=== PATIENT | female | born 1945 | race Caucasian/White ===

== ENCOUNTER 2019-07-09 13:29 | Outpatient (CLI) | payer MEDICARE, OTHER, MEDICAID, SELFPAY ==
--- NOTE | 2019-07-09 13:38 | MR_ITS ---
WS: [id number] MRI LUMBAR SPINE WITH AND WITHOUT CONTRAST. HISTORY: LOW BACK PAIN RADIATING TO RIGHT LOWER EXTREMITY COMPARISON: 07/11/2005 TECHNIQUE: Sagittal and axial multisequence imaging is submitted. Sagittal and axial T1 fat sat seque nces post-ProHance 16 cc IV. Marked increase in thoracic kyphosis with RIGHT convex curvature. Diffuse disc space narrowing throug hout the cervical and thoracic spine. Prior fusion at L4-5 with interbody spacer. L3 anterolisthesis by 4 mm. Degenerative disc disease is moderate in the lower thoracic spine and lower lumbar spines. No marrow edema or fracture. Conus terminates normally at L1-2 disc level. L1-L2: Facet arthropathy encroaching upon the posterior lateral thecal sac without significant stenos is. L2-L3: Moderate facet arthropathy bilaterally and annular disc bulging. Mild narrowing of the central canal and subarticular recesses. L3-L4: Marked annular disc bulging with ligamentum flavum hypertrophy and facet arthropathy. Central disc protrusion. Encroachment is significant upon the subarticular recesses and foramen and central c anal. Marked facet joint arthropathy and fluid. L4-L5: Bilateral large laminectomy defect. Mild clumping of the nerve roots in the thecal sac. No sig nificant stenosis. L5-S1: Mild facet joint arthropathy. Osteophytes extend into the LEFT foramen causing a mild encroach ment upon the LEFT foramen. On the postcontrast imaging there is no evidence for discitis or osteomyelitis. Normal enhancement fr om gliosis at the surgical site. Small bilateral extrarenal pelves. MR/MR lumbar spine wo/w con [id number] IMPRESSION: 1. L4-5 posterior lumbar fusion with interbody spacer. Mild arachnoiditis at t he surgical level with no residual stenosis. 2. Severe central, subarticular recess and foraminal stenosis at the L3-4 leve l along with L3 anterolisthesis. 3. Mild central and subarticular recess stenosis at L2-3.
== END 2019-07-09 13:30 | disposition home or self-care (01) ==
LOC: RADWPI 13:37
PROVIDERS: PCP Nurse Practitioner Family; Referring Provider Nurse Practitioner Family; Visit Provider Nurse Practitioner Family
DX: M51.26 Other intervertebral disc displacement, lumbar region (principal); M48.061 Spinal stenosis, lumbar region without neurogenic claudication; M25.78 Osteophyte, vertebrae; M79.604 Pain in right leg; Z98.1 Arthrodesis status; G03.8 Meningitis due to other specified causes
CPT/HCPCS: 72158; A9579

== ENCOUNTER 2019-08-10 08:39 | Outpatient (CLI) | payer MEDICARE, OTHER, MEDICAID, SELFPAY ==
--- NOTE | 2019-08-10 09:00 | CT_ITS ---
WS: [id number] CT LUMBAR SPINE, noncontrast. HISTORY: Low back pain TECHNIQUE: Contiguous 2.5 mm axial imaging are performed. Sagittal and coronal reformats are submitte d and reviewed. All CT scans at [facility] use at least one of these dose optimization te chniques: automated exposure control; mA and/or kV adjustment per patient size (includes targeted exa ms where dose is matched to clinical indication); or iterative reconstruction. IV contrast: None DLP: 1633.13 mGycm COMPARISON: 07/09/2019 and 07/16/2018 Prior L4-5 posterior fusion. Pedicle screws and vertical rods are intact. No hardware fractures. L3 a nterolisthesis by 2.5 mm and L4 anterolisthesis by 3.2 mm. L4-5 interbody spacer with mild disc space narrowing. T12-L1: Mild RIGHT osteophytic ridging. RIGHT foraminal osteophyte with mild encroachment upon the T1 2 nerve root. L1-2: Mild disc bulging without stenosis. L2-3: Mild annular disc bulging and facet arthropathy. No significant stenosis. L3-4: Annular disc bulging and osteophytic ridging. Facet joint arthropathy. Moderate central, bilate ral subarticular recess and foraminal stenosis. Slightly greater encroachment on the RIGHT. L4-5: Mild annular disc bulging. Large posterior laminectomy defect. No stenosis centrally. L5-S1: Mild annular disc bulging and osteophytes. No significant encroachment upon the nerve roots. N o stenosis. Scattered calcifications within the aorta. CT/CT lumbar spine wo con* [id number] IMPRESSION: 1. Prior L4-5 posterior fusion with large laminectomy defect and interbody spa cer. No change since 07/16/2018. 2. Moderate central, subarticular recess and foraminal stenosis at L3-4 with m ild anterolisthesis. Slightly greater narrowing on the RIGHT. 3. RIGHT foraminal osteophyte at T12-L1. Resulting in mild foraminal stenosis.
--- NOTE | 2019-08-10 09:30 | XR_ITS ---
WS: [id number] LATERAL LUMBAR SPINE: 3 view. Lateral radiographs are performed in upright neutral, flexion and extension to the patient's toleranc e. HISTORY: Low back pain. COMPARISON: 06/10/2019 Prior L4-5 fusion with interbody spacer. L3 anterolisthesis by 3.3 mm increases to 5.6 mm during flexion and 2.4 mm during extension. L4 anterolisthesis by 3.5 mm does not change significantly with flexion and extension. Degenerative spondylitic changes at the thoracolumbar junction. XR/XR lumbar spine f/e only [id number] IMPRESSION: 1. Prior L4-5 posterior fusion with interbody spacer is intact. 2. Mild flexion/extension instability at the L3 level. 3. Mild anterolisthesis of L3 and L4 on neutral imaging. No instability at the L4-5 level.
== END 2019-08-10 08:40 | disposition home or self-care (01) ==
LOC: RADWPI 08:45
PROVIDERS: PCP Nurse Practitioner Family; Visit Provider Licensed Practical Nurse
DX: M54.5 Low back pain (principal); M43.26 Fusion of spine, lumbar region; M48.061 Spinal stenosis, lumbar region without neurogenic claudication
CPT/HCPCS: 72120; 72131

== ENCOUNTER → 2019-08-25 09:34 | Outpatient (BNVA) | payer MEDICARE, OTHER, MEDICAID, SELFPAY | PROVIDERS: PCP Nurse Practitioner Family; Visit Provider Psychiatry & Neurology Neurology | DX: G62.9 Polyneuropathy, unspecified (principal); M54.5 Low back pain; M79.604 Pain in right leg; M79.605 Pain in left leg | CPT/HCPCS: 95886; 95909 ==

== ENCOUNTER → 2019-11-02 13:08 | Outpatient (BNVA) | payer MEDICARE, OTHER, MEDICAID, SELFPAY | PROVIDERS: PCP Nurse Practitioner Family; Visit Provider Anesthesiology Pain Medicine | DX: M48.062 Spinal stenosis, lumbar region with neurogenic claudication (principal); Z79.891 Long term (current) use of opiate analgesic | CPT/HCPCS: 99204 ==

== ENCOUNTER → 2019-11-18 13:33 | Outpatient (BNVA) | payer MEDICARE, OTHER, MEDICAID, SELFPAY | PROVIDERS: PCP Nurse Practitioner Family; Visit Provider Anesthesiology Pain Medicine | DX: M48.062 Spinal stenosis, lumbar region with neurogenic claudication (principal); M51.17 Intervertebral disc disorders with radiculopathy, lumbosacral region; M96.1 Postlaminectomy syndrome, not elsewhere classified; E11.9 Type 2 diabetes mellitus without complications; Z79.891 Long term (current) use of opiate analgesic | CPT/HCPCS: 36416; 64483; 64484; 82962; J1030; J2001; J3490 ==

== ENCOUNTER → 2020-10-27 16:00 | Outpatient (BNVA) | payer MEDICARE, OTHER, MEDICAID, SELFPAY | PROVIDERS: PCP Nurse Practitioner Family; Visit Provider Internal Medicine Pulmonary Disease | DX: K21.9 Gastro-esophageal reflux disease without esophagitis (principal); R06.00 Dyspnea, unspecified; G47.33 Obstructive sleep apnea (adult) (pediatric); Z91.09 Other allergy status, other than to drugs and biological substances | CPT/HCPCS: 82785; 85025; 86003 ==

== ENCOUNTER 2020-12-15 20:00 | Outpatient (CLI) | payer MEDICARE, MEDICAID, SELFPAY | END 2020-12-15 20:01 | disposition home or self-care (01) | LOC: SLEEP 12-16 09:26 | PROVIDERS: PCP Nurse Practitioner Family; Visit Provider Internal Medicine Pulmonary Disease | DX: G47.33 Obstructive sleep apnea (adult) (pediatric) (principal) | CPT/HCPCS: 95811 ==

== ENCOUNTER → 2021-03-29 14:29 | Outpatient (BNVA) | payer MEDICARE, MEDICAID, SELFPAY | PROVIDERS: PCP Nurse Practitioner Family; Visit Provider Specialist | DX: G31.84 Mild cognitive impairment of uncertain or unknown etiology (principal); M48.062 Spinal stenosis, lumbar region with neurogenic claudication; G60.8 Other hereditary and idiopathic neuropathies | CPT/HCPCS: 96116; 99204; 99205 ==

== ENCOUNTER 2021-09-18 10:38 | Emergency (ER) | payer MEDICARE, MEDICAID, SELFPAY ==
--- NOTE | 2021-09-18 10:39 | ED_ITS ---
HPI - Extremity Problem General: Chief complaint: Extremity Injury, Lower Stated complaint: CHRONIC BILAT KNEE PAIN Time Seen by Provider: 09/18/21 10:39 Source: patient Mode of arrival: EMS Limitations: no limitations History of Present Illness: 76-year-old female presents emergency room with complaint of chronic bilateral knee pain. Brought in by EMS. No recent trauma. MD Complaint: joint pain Onset (ago): year(s) Pain Consistency: constant Location: left, lower extremity and knee Quality: aching Radiation: none Relieving factors: nothing Exacerbating factors: nothing Associated symptoms: Deny arthralgias, chest pain, fever(s), myalgias, rash, short of breath or other Review of Systems Const: Denies: fever(s) ENMT: Denies: throat pain, ear or mastoid pain, nasal discharge or nasal congestion Card: Denies: chest pain Resp: Denies: dyspnea, productive cough or non-productive cough GI: Denies: abdominal pain, nausea, vomiting, hematemesis, coffee ground emesis, diarrhea, constipation, bloating, hematochezia or melena : Denies: flank pain, difficulty voiding, dysuria, urinary frequency or urinary urgency Skin/Breast: Denies: rash PFSH ED PFSH: Medical History Diabetes Intervertebral disc disorder with radiculopathy of lumbosacral region Lumbar post-laminectomy syndrome Lumbar stenosis with neurogenic claudication Pituitary adenoma Evaluation/management Dr. Jose Manuel Montes Spondylolisthesis, lumbar region Surgical History History of lumbar fusion 11/2012, Dr. Jose Manuel Montes, [facility], L4-L5 PLIFF. Family History Mother Colon cancer, Onset Age: 58 Heart disease Father Diabetes Brother Diabetes Social History Smoking and tobacco status: never smoked Second hand smoke exposure: Yes Smoking risk assessment/counseling performed?: Yes Alcohol intake: never Caregiver/support person: Yes Lives independently: Yes Household members: none Housing: House Marital status: service: No Current occupational status: disabled Pets and animals: Yes History of recent travel: No Current gender identity: Female Physical Exam Const: GENERAL APPEARANCE: cooperative ORIENTATION/CONSCIOUSNESS: Yes awake HENMT: COMMON NORMALS: normocephalic, atraumatic and hearing grossly normal bilaterally HEAD & SCALP: normocephalic and atraumatic Neck/C-Spine: COMMON NORMALS: full ROM, no lymphadenopathy, supple and no JVD Resp: COMMON NORMALS: normal respiratory effort, No retractions, No use of accessory muscles and clear to auscultation bilaterally AUSCULTATION: clear to auscultation bilaterally Cardio: COMMON NORMALS: no JVD, regular rate, regular rhythm and No murmurs present (Cardio) RATE: regular rate RHYTHM: regular rhythm Extremity: COMMON NORMALS: normal to inspection, capillary refill normal, no clubbing, cyanosis or edema, no calf tenderness and no pedal edema OTHER: No erythema no swelling lower extremities no joint effusion chronic arthritic changes no abrasions no evidence of recent trauma Skin: COMMON NORMALS: no rashes or lesions noted GENERAL SKIN EXAM: no rashes or lesions noted Course Vital Signs: Vital signs: Vital Signs Temperature 97.8 F 09/18/21 10:59 Pulse Rate 56 L 09/18/21 10:59 Respiratory Rate 18 09/18/21 10:59 Blood Pressure 166/78 09/18/21 10:59 Pulse Oximetry 96 09/18/21 10:59 MDM - Extremity (Nontraumatic) Medical Decision Making Chronic bilateral knee pain left worse than right. No recent trauma or any precipitating events that seem to worsen just pain is poorly controlled today she tried several [id number] medications with no relief. There are prescription for hydrocodone to use as needed follow-up with her primary care doctor. Medical Records I reviewed the patient's medical records. Discharge Plan Discharge Patient Disposition: Home Clinical Impression: Osteoarthritis Condition: Stable Prescriptions: New hydrocodone-acetaminophen 5-325 mg tablet 1 tab PO Q6H PRN (Reason: pain) Qty: 14 0RF No Action hydrocodone-acetaminophen 10-325 mg tablet 1 tab PO Q6H PRN0RF methocarbamol 750 mg tablet 750 mg PO QID 0RF ondansetron HCl [Zofran] 4 mg tablet 4 mg PO Q6H 0RF doxycycline hyclate 100 mg tablet 100 mg PO BID Qty: 14 0RF acetaminophen 325 mg capsule 650 mg PO Q6H PRN0RF ferrous sulfate 325 mg (65 mg iron) tablet 325 mg PO BID 0RF bupropion HCl [Wellbutrin XL] 300 mg tablet extended release 24 hr 300 mg PO QAM 0RF pravastatin [Pravachol] 40 mg tablet 40 mg PO QDAY 0RF oxybutynin chloride 5 mg tablet 5 mg PO BID 0RF Rx Instructions: 1/2 oral two times daily levothyroxine 125 mcg capsule 125 mcg PO QDAY 0RF metformin 1,000 mg tablet 1,000 mg PO QDAY 0RF diclofenac sodium 75 mg tablet,delayed release (DR/EC) 75 mg PO BID 0RF gabapentin 600 mg tablet 600 mg PO BID 0RF Rx Instructions: 1/2 tablet in the morning and 1 tablet at bedtime. trazodone 50 mg tablet 50 mg PO QDAY 0RF lisinopril 20 mg tablet 20 mg PO QDAY 0RF hydrochlorothiazide 12.5 mg tablet 12.5 mg PO QAM 0RF amlodipine 5 mg tablet 5 mg PO BID 0RF docusate sodium [Colace] 100 mg capsule 100 mg PO BID 0RF ezetimibe [Zetia] 10 mg tablet 10 mg PO QDAY 0RF Januvia 50 mg tablet 50 mg PO QDAY 0RF sertraline 100 mg tablet 100 mg PO QDAY 0RF sennosides-docusate sodium [Senokot-S] 8.6-50 mg tablet 1 tab-cap PO BID 0RF aspirin 81 mg tablet,chewable 81 mg PO QDAY 0RF PreserVision AREDS [id number] capsule 1 cap PO BID 0RF galantamine 8 mg capsule,ext rel. pellets 24 hr 8 mg PO QAM Qty: 30 0RF Rx Instructions: administer with breakfast. Take 8mg for 30 days, then increase to 16mg for 30 days, then increase to 24mg galantamine 16 mg capsule,ext rel. pellets 24 hr 16 mg PO QAM Qty: 30 0RF Rx Instructions: administer with breakfast. Take 16mg for 30 days, then increase to 24mg metoprolol tartrate 25 mg tablet 25 mg PO BID 0RF Farxiga 10 mg tablet 10 mg PO DAILY 0RF pantoprazole 40 mg tablet,delayed release (DR/EC) 40 mg PO DAILY Qty: 14 0RF galantamine 24 mg capsule,ext rel. pellets 24 hr 24 mg PO QAM Qty: 30 3RF Rx Instructions: administer with breakfast Discharge Orders: Discharge ED (Routine); Ordered 09/18/21 Ordered By: Damian Michael Referrals: HIMMIKAEL [Other] Layne oLpez FNP [Primary Care Provider] - Discharge Diet: Usual diet Discharge Activity: Increase activity as tolerated Patient Instructions: Opioid Safety Activity Restrictions/Additional Instructions: Your primary care doctor within the week. Coding Level of Care Code ED Tobacco Cloth Reclaimer for Patricia Steel
[2021-09-18 10:45] VITALS: BP 166/78; PULSE 56; RESP 18; TEMP 36.6; O2SAT 96
[2021-09-18 10:59] VITALS: BP 166/78; PULSE 56; RESP 18; TEMP 36.6; O2SAT 96
[2021-09-18] MEDS: HYDROcodone-acetaminophen 5-325 mg Tablet 1 TAB PO (11:37)
== END 2021-09-18 11:42 | disposition home or self-care (01) ==
LOC: ER 12:57
PROVIDERS: Emergency Provider Family Medicine; PCP Nurse Practitioner Family
DX: M17.0 Bilateral primary osteoarthritis of knee (principal); Z79.84 Long term (current) use of oral hypoglycemic drugs; Z79.82 Long term (current) use of aspirin; E11.9 Type 2 diabetes mellitus without complications; Z77.22 Contact with and (suspected) exposure to environmental tobacco smoke (acute) (chronic)
CPT/HCPCS: 99283

== ENCOUNTER → 2021-11-07 09:11 | Outpatient (BNVA) | payer MEDICARE, MEDICAID, SELFPAY | PROVIDERS: PCP Nurse Practitioner Family; Visit Provider Internal Medicine Rheumatology | DX: M17.0 Bilateral primary osteoarthritis of knee (principal); R79.82 Elevated C-reactive protein (CRP); M51.17 Intervertebral disc disorders with radiculopathy, lumbosacral region; M96.1 Postlaminectomy syndrome, not elsewhere classified; Z98.1 Arthrodesis status; R05.9 Cough, unspecified; Z79.899 Other long term (current) drug therapy | CPT/HCPCS: 36415; 71046; 72100; 72170; 73562; 85651; 86140; 86200; 99204 ==

== ENCOUNTER 2022-02-05 14:27 | Outpatient (CLI) | payer MEDICARE, MEDICAID, SELFPAY ==
--- NOTE | 2022-02-05 15:15 | MR_ITS ---
WS: [id number] MRI LUMBAR SPINE WITH AND WITHOUT CONTRAST HISTORY: CHRONIC BILATERAL LOW BACK PAIN W/BILATERAL SCIATICA COMPARISON: 07/09/2019 TECHNIQUE: Sagittal and axial multisequence imaging is submitted. Sagittal and axial T1 fat sat seque nces post-ProHance 10 cc IV. Quality of this examination is significantly degraded by metal artifact. Very limited evaluation in t he mid lumbar vertebral spine at the site of surgery. Increase in the lumbar lordosis. Posterior lumbar fusion hardware at L3-4 with interbody spacer. This spaces are narrowed and desiccated throughout. The L2-3, L3-4 and L4-5 disc spaces are essential ly obliterated by artifact and distortion secondary to the hardware. Conus terminates normally at L1-2 disc level. L1-L2: No stenosis. L2-L3: Disc space is completely obliterated by artifact. L3-L4: Disc space is completely obliterated by artifact. L4-L5: Mild disc bulging. Thecal sac is widely patent. Large posterior laminectomy defect. No disc pr otrusion. L5-S1: All disc bulging. Very small RIGHT foraminal disc protrusion. Mild ligamentum flavum and facet arthritis. On the postcontrast images no discitis or osteomyelitis identified. There is continued significant ar tifact and distortion at the surgical site from L2 to L4. Large portion of the lumbar spine cannot be evaluated with contrast. MR/MR lumbar spine wo/w con [id number] IMPRESSION: 1. Patient is status post posterior lumbar fusion at L3-4 with interbody space r. Fusion hardware is causing significant artifact and distortion throughout th e lumbar spine at this level. This level cannot be evaluated adequately on this examination. 2. Very small RIGHT foraminal disc protrusion at L5-S1 without nerve root cont act. 3. No enhancement identified.
== END 2022-02-05 14:28 | disposition home or self-care (01) ==
PROVIDERS: PCP Nurse Practitioner Family; Visit Provider Nurse Practitioner Family
DX: M54.41 Lumbago with sciatica, right side (principal); M51.27 Other intervertebral disc displacement, lumbosacral region; M43.26 Fusion of spine, lumbar region
CPT/HCPCS: 72158

== ENCOUNTER 2022-02-28 09:35 | Emergency (ER) | payer MEDICARE, MEDICAID, SELFPAY ==
[2022-02-28] VITALS (10 sets, daily range): BP systolic 102–143; BP diastolic 56–77; PULSE 53–63; RESP 12; TEMP 36.7; O2SAT 91–96; BMI 31.3
--- NOTE | 2022-02-28 09:52 | XRR_ITS ---
PROCEDURE INFORMATION: Exam: XR Chest Exam date and time: 02/28/2022 9:59 AM Age: 76 years old Clinical indication: Pain; Chest pressure TECHNIQUE: Imaging protocol: Radiologic exam of the chest. Views: 1 view. COMPARISON: CR XR chest 2V* [id number] 11/07/2021 10:54 AM FINDINGS: Lungs: Small benign calcified granulomas are present in the right lung.. No consolidation. Pleural spaces: Unremarkable. No pleural effusion. No pneumothorax. Heart/Mediastinum: Unremarkable. No cardiomegaly. Bones/joints: Unremarkable. XR/XR chest 1V portable [id number] IMPRESSION: No acute findings.
--- NOTE | 2022-02-28 10:20 | W.ED.CHESTPA ---
HPI - Chest Pain General: Chief Complaint: Chest Pain Stated Complaint: chest pressure Time Seen by Provider: 02/28/22 09:48 Source: patient Mode of arrival: EMS History of Present Illness: 76-year-old female presents emergency room from home via EMS. She was eating this morning felt very full and had a brief sensation of fullness in her chest felt like she could not eat anymore and made that comment to her home nurse they ended up calling ambulance. Patient states her symptoms have completely resolved by now she is not very happy that she was brought to the emergency room but is willing to let us do an evaluation. She denies any episode of radiating chest pain she denies any other recent episodes of chest discomfort shortness of breath on exertion. Has not recently been ill no shortness of breath cough. MD complaint: chest pain Onset (ago): minute(s) Timing of current episode: episodic Prior episodes: No Onset: during rest Pain location: substernal Pain radiation: none Severity: mild Quality: sharp Relieving factors: nothing Exacerbating factors: nothing Associated symptoms: Deny abdominal pain, diaphoresis, dyspnea, fever(s), leg edema, nausea, palpitations, sense of impending doom, syncope or vomiting Treatment prior to arrival: none Review of Systems Const: Denies: fever(s), chills, fatigue, malaise or diaphoresis ENMT: Denies: throat pain, ear or mastoid pain, nasal discharge or nasal congestion Card: Reports: chest pain; Denies: palpitations or syncope Resp: Denies: dyspnea GI: Denies: abdominal pain, nausea or vomiting : Denies: flank pain, difficulty voiding, dysuria, urinary frequency or urinary urgency Musc: Denies: neck pain or back pain Skin/Breast: Denies: rash or pruritus [facility] ED PFSH: Medical History Diabetes Intervertebral disc disorder with radiculopathy of lumbosacral region Lumbar post-laminectomy syndrome Lumbar stenosis with neurogenic claudication Osteoarthritis of knees, bilateral Pituitary adenoma Evaluation/management Dr. Jose Manuel Montes Spondylolisthesis, lumbar region Surgical History History of appendectomy repaired colon History of carpal tunnel surgery Bilateral History of hemorrhoidectomy History of hysterectomy History of lumbar fusion 11/2012, Dr. Jose Manuel oMntes, [facility], L4-L5 PLIFF. Family History Mother Colon cancer, Onset Age: 58 Heart disease Father Diabetes Brother Diabetes Social History Smoking and tobacco status: never smoked Second hand smoke exposure: Yes Smoking risk assessment/counseling performed?: Yes Alcohol intake: never Caregiver/support person: Yes Lives independently: Yes Household members: none Housing: House Marital status: service: No Current occupational status: disabled Pets and animals: Yes History of recent travel: No Current gender identity: Female Physical Exam Const: GENERAL APPEARANCE: cooperative and comfortable ORIENTATION/CONSCIOUSNESS: Yes awake, Yes oriented to person, Yes oriented to place and Yes oriented to time HENMT: COMMON NORMALS: normocephalic, atraumatic and hearing grossly normal bilaterally HEAD & SCALP: normocephalic and atraumatic Resp: COMMON NORMALS: normal respiratory effort, No retractions, No use of accessory muscles and clear to auscultation bilaterally AUSCULTATION: clear to auscultation bilaterally Cardio: COMMON NORMALS: regular rate, regular rhythm and No murmurs present (Cardio) RATE: regular rate RHYTHM: regular rhythm GI: COMMON NORMALS: Soft to palpation and No hepatosplenomegaly present AUSCULTATION: Yes normoactive bowel sounds PALPATION: Yes Soft to palpation, No Tenderness to palpation present (GI), No Guarding due to palpation present (GI) and Yes No hepatosplenomegaly present Extremity: COMMON NORMALS: normal to inspection, capillary refill normal, no clubbing, cyanosis or edema, no calf tenderness and no pedal edema Neuro: SENSORIUM/ORIENTATION: Yes oriented to person, Yes oriented to place and Yes oriented to time Skin: COMMON NORMALS: no rashes or lesions noted GENERAL SKIN EXAM: no rashes or lesions noted Course Vital Signs: Vital signs: Vital Signs Temperature 98.0 F 02/28/22 09:45 Pulse Rate 56 L 02/28/22 14:30 Respiratory Rate 12 02/28/22 09:45 Blood Pressure 119/67 02/28/22 14:30 Pulse Oximetry 93 02/28/22 14:30 Oxygen Delivery Me thod 02/28/22 14:30 MDM - Chest Pain Medical Decision Making Patient is single episode of chest discomfort while eating lasted only few seconds she has had no recurrence since then EKG and troponin are normal she feels fine she does not wish to do any further evaluation we will discharge patient home and have her follow-up with her primary care doctor as needed. Medical Records I reviewed the patient's medical records. Lab Data I reviewed the patient's lab results. : 02/28/22 10:43 02/28/22 10:43 Radiology Impressions Chest X-Ray 02/28/22 09:52 IMPRESSION: No acute findings. Laboratory Results WBC 13.0 10^3/uL (4.0-10.0) H 02/28/22 10:43 RBC 4.35 10^6/uL (4.1-5.3) 02/28/22 10:43 Hgb 14.1 g/dL (11.5-15.3) 02/28/22 10:43 Hct 40.9 % (37.0-47.0) 02/28/22 10:43 MCV 94.0 fl (81-99) 02/28/22 10:43 MCH 32.4 pg (28.0-34.0) 02/28/22 10:43 MCHC 34.5 g/dL (30.0-36.0) 02/28/22 10:43 RDW 14.3 % (12.1-15.1) 02/28/22 10:43 Plt Count 318 10^3/cmm (130-400) 02/28/22 10:43 MPV 10.2 fL (7.4-10.4) 02/28/22 10:43 Neut % (Auto) 56.6 % 02/28/22 10:43 Lymph % (Auto) 27.5 % 02/28/22 10:43 Allen % (Auto) 12.0 % 02/28/22 10:43 Eos % (Auto) 2.8 % 02/28/22 10:43 Baso % (Auto) 0.3 % 02/28/22 10:43 Neut # (Auto) 7.38 10^3/uL (1.8-7.7) 02/28/22 10:43 Lymph # (Auto) 3.6 10^3/uL (0.8-4.8) 02/28/22 10:43 Allen # (Auto) 1.6 10^3/uL (0.2-0.9) H 02/28/22 10:43 Eos # (Auto) 0.4 10^3/uL (0.0-0.8) 02/28/22 10:43 Baso # (Auto) 0.0 10^3/uL (0.0-0.1) 02/28/22 10:43 Nucleated RBC % (auto) 0 % 02/28/22 10:43 Nucleated RBCs # 0.0 /100WBC 02/28/22 10:43 Sodium 127 mmol/L (136-145) L 02/28/22 10:43 Potassium 3.8 mmol/L (3.5-5.1) 02/28/22 10:43 Chloride 91 mmol/L (98-107) L 02/28/22 10:43 Carbon Dioxide 25 mmol/L (22-29) 02/28/22 10:43 Anion Gap 14.8 (5-19) 02/28/22 10:43 BUN 31 mg/dL (8-23) H 02/28/22 10:43 Creatinine 0.9 mg/dL (0.5-0.9) 02/28/22 10:43 GFR Calculation Not Reportable 02/28/22 10:43 Glucose 243 mg/dL (65-115) H 02/28/22 10:43 Calculated Osmolality 279 mOsm/kg (285-295) L 02/28/22 10:43 Calcium 8.5 mg/dL (8.5-10.5) 02/28/22 10:43 Total Bilirubin 0.3 mg/dL (0.15-1.2) 02/28/22 10:43 AST 51 U/L (0-32) H 02/28/22 10:43 ALT 64 U/L (0-33) H 02/28/22 10:43 Alkaline Phosphatase 186 U/L (35-105) H 02/28/22 10:43 Troponin T Baseline 17 ng/L (0-10) H 02/28/22 10:43 Troponin T 120 Minute 12.29 ng/L (0-10) H 02/28/22 12:34 Delta Troponin T -4.71 ABS# (0-10) L 02/28/22 12:34 Total Protein 6.6 g/dL (6.6-8.7) 02/28/22 10:43 Albumin 3.9 g/dL (3.5-5.2) 02/28/22 10:43 Globulin 2.7 g/dL (1.3-4.6) 02/28/22 10:43 Urine Color Yellow (Yellow) 02/28/22 13:00 Urine Appearance Clear (CLEAR) 02/28/22 13:00 Urine pH 5 (5-7) 02/28/22 13:00 Ur Specific [place] 1.015 (1.005-1.030) 02/28/22 13:00 Urine Protein Neg (Negative) 02/28/22 13:00 Urine Glucose (UA) Norm (Normal) 02/28/22 13:00 Urine Ketones Negative (Negative) 02/28/22 13:00 Urine Blood Neg (Negative) 02/28/22 13:00 Urine Nitrate Negative (Negative) 02/28/22 13:00 Urine Bilirubin Neg (Negative) 02/28/22 13:00 Urine Urobilinogen Norm mg/dL (Negative) 02/28/22 13:00 Ur Leukocyte Esterase 1+ (Negative) H 02/28/22 13:00 Urine RBC 0-4 /hpf (0-2) H 02/28/22 13:00 Urine WBC 5-10 /hpf (0-5) H 02/28/22 13:00 Ur Squamous Epith Cells 0-4 /hpf (0-5) H 02/28/22 13:00 Amorphous Sediment Not Reportable 02/28/22 13:00 Urine Bacteria 1+ /hpf (NONE) H 02/28/22 13:00 Discharge Plan Discharge Patient Disposition: Home Clinical Impression: Atypical chest pain Condition: Stable Prescriptions: No Action acetaminophen 325 mg capsule 650 mg PO Q6H PRN (Reason: Pain) ferrous sulfate 325 mg (65 mg iron) tablet 325 mg PO BID bupropion HCl [Wellbutrin XL] 300 mg tablet extended release 24 hr 300 mg PO QAM oxybutynin chloride 5 mg tablet 2.5 mg PO BID diclofenac sodium 75 mg tablet,delayed release (DR/EC) 75 mg PO BID trazodone 50 mg tablet 50 mg PO BEDTIME lisinopril 20 mg tablet 20 mg PO QDAY hydrochlorothiazide 12.5 mg tablet 12.5 mg PO QAM amlodipine 5 mg tablet 5 mg PO BID docusate sodium [Colace] 100 mg capsule 100 mg PO BID ezetimibe [Zetia] 10 mg tablet 10 mg PO BEDTIME sertraline 100 mg tablet 100 mg PO QDAY sennosides-docusate sodium [Senokot-S] 8.6-50 mg tablet 1 tab-cap PO BID aspirin 81 mg tablet,chewable 81 mg PO QDAY PreserVision AREDS [id number] lyow-pe-sdqt capsule 1 cap PO BID metoprolol tartrate 25 mg tablet 25 mg PO BID pantoprazole 40 mg tablet,delayed release (DR/EC) 40 mg PO DAILY Qty: 14 0RF colchicine 0.6 mg tablet 0.6 mg PO BID Qty: 60 3RF galantamine 24 mg capsule,ext rel. pellets 24 hr 24 mg PO QAM Qty: 30 1RF Rx Instructions: administer with breakfast levothyroxine 175 mcg Tablet 175 mcg PO DAILY glyburide 5 mg Tablet 5 mg PO DAILY pravastatin 40 mg tablet 40 mg PO BEDTIME gabapentin 300 mg Capsule 300 mg PO TID montelukast 10 mg tablet 10 mg PO DAILY ondansetron 4 mg Tablet,Disintegrating 4 mg PO Q6H PRN (Reason: Nausea And Vomiting) fluticasone propionate 50 mcg/actuation spray,suspension 1 spray INTRANASAL DAILY Januvia 100 mg tablet 100 mg PO DAILY Bydureon BCise 2 mg/0.85 mL Auto-Injector 2 mg SUBCUT Q7D hydrocodone-acetaminophen 5-325 mg tablet See Rx Instructions .ROUTE .COMPLEX PRN (Reason: pain) Rx Instructions: 1/2 tab orally as needed Discharge Orders: Discharge ED (Routine); Ordered 02/28/22 Ordered By: Damian Michael Referrals: Layne Lopez FNP [Primary Care Provider] - Discharge Diet: Usual diet Discharge Activity: Resume usual activity Patient Instructions: Opioid Safety Activity Restrictions/Additional Instructions: Follow-up with your primary care doctor as needed Coding Level of Care Code ED Soil Science Teacher for Patricia Steel
--- NOTE | 2022-02-28 10:46 | ECG_ITS ---
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 Measurements Intervals [place] Rate: 58 P: 62 CO: 304 QRS: -7 QRSD: 106 T: 0 QT: 447 QTc: 441 Interpretive Statements SINUS BRADYCARDIA WITH FIRST DEGREE AV BLOCK MODERATE VOLTAGE CRITERIA FOR LVH, CONSIDER NORMAL VARIANT [MEETS CRITERIA IN ONE OF: R(aVL), S(V1), R(V5), R(V5/V6)+S(V1)] NONSPECIFIC ST & T-WAVE ABNORMALITY Compared to ECG 01/26/2019 21:49:14 First degree AV block now present Sinus tachycardia no longer present T-wave abnormality still present Electronically Signed On 02-28-2022 16:29:31 CDT by Colin Campa M.D. [id number]
[2022-02-28 10:50] LABS: Basophils % 0.3 %; Eosinophils # 0.4 10^3/uL (0.0-0.8); Eosinophils % 2.8 %; Hematocrit 40.9 % (37.0-47.0); Hemoglobin 14.1 g/dL (11.5-15.3); Lymphocytes # 3.6 10^3/uL (0.8-4.8); Lymphocytes % 27.5 %; Mean Corpuscular HGB Conc 34.5 g/dL (30.0-36.0); Mean Corpuscular Hemoglobin 32.4 pg (28.0-34.0); Mean Platelet Volume 10.2 fL (7.4-10.4); Monocytes # 1.6 10^3/uL (0.2-0.9); Neutrophils # 7.38 10^3/uL (1.8-7.7); Neutrophils % 56.6 %; Nucleated Red Blood Cells % 0 %; Platelet Count 318 10^3/cmm (130-400); Red Blood Count 4.35 10^6/uL (4.1-5.3); Red Cell Distribution Width 14.3 % (12.1-15.1)
[2022-02-28 11:14] LABS: Troponin(5th) Baseline 17 ng/L (0-10)
[2022-02-28 11:15] LABS: Alanine Aminotransferase 64 U/L (0-33); Albumin Level 3.9 g/dL (3.5-5.2); Alkaline Phosphatase 186 U/L (35-105); Anion Gap 14.8 (5-19); Aspartate Amino Transferase 51 U/L (0-32); Blood Urea Nitrogen 31 mg/dL (8-23); Calcium 8.5 mg/dL (8.5-10.5); Carbon Dioxide 25 mmol/L (22-29); Chloride 91 mmol/L (98-107); Globulin 2.7 g/dL (1.3-4.6); Glucose 243 mg/dL (65-115); Osmolality Calculated 279 mOsm/kg (285-295); Potassium 3.8 mmol/L (3.5-5.1); Sodium 127 mmol/L (136-145); Total Bilirubin 0.3 mg/dL (0.15-1.2); Total Protein 6.6 g/dL (6.6-8.7)
[2022-02-28 13:07] LABS: Troponin 5 2HR 12.29 ng/L (0-10)
[2022-02-28 13:11] LABS: Troponin 5 2HR Delta -4.71 ABS# (0-10)
--- NOTE | 2022-02-28 13:51 | PC.PHAR ---
PT UNABLE TO VERIFY- PT GAVE PERMISSION TO CALL HER NURSE FROM [facility]-([place]) - NURSE ABLE TO VERIFY MEDICATIONS
[2022-02-28 14:23] LABS: Blood Urine Neg (Negative); Glucose Urine UA Norm (Normal); Ketones Urine Negative (Negative); Nitrate Urine Negative (Negative); Protein Urine Neg (Negative); Specific Gravity, Urine 1.015 (1.005-1.030); Urine Appearance Clear (CLEAR); Urine Color Yellow (Yellow); pH Urine 5 (5-7)
[2022-02-28 14:24] LABS: Add Urine Microscopic? YES; Bacteria Urine 1+ /hpf; Bilirubin Urine Neg (Negative); Leukocyte Esterase Urine 1+ (Negative); RBC Urine 0-4 /hpf (0-2); Squamous Epithelial Cell Urine 0-4 /hpf (0-5); Urobilinogen Urine Norm (Negative)
== END 2022-02-28 15:05 | disposition home or self-care (01) ==
PROVIDERS: Emergency Provider Family Medicine; PCP Nurse Practitioner Family
DX: R07.89 Other chest pain (principal); E11.9 Type 2 diabetes mellitus without complications; Z79.82 Long term (current) use of aspirin; Z79.84 Long term (current) use of oral hypoglycemic drugs
CPT/HCPCS: 71045; 80053; 81001; 84484; 85025; 93005; 99285

== ENCOUNTER → 2022-04-19 12:50 | Outpatient (BNVA) | payer MEDICARE, MEDICAID, SELFPAY | PROVIDERS: PCP Nurse Practitioner Family; Visit Provider Specialist | DX: G31.84 Mild cognitive impairment of uncertain or unknown etiology (principal) | CPT/HCPCS: 96116; 99213; 99214 ==

== ENCOUNTER 2022-12-31 13:30 | Outpatient (CLI) | payer MEDICARE, MEDICAID, SELFPAY ==
--- NOTE | 2022-12-31 13:43 | XR_ITS ---
WS: [id number] DEXA (DUAL ENERGY X-RAY ABSORPTIOMETRY) Bone mineral density was performed using a CEYX machine. HISTORY: POSTMENOPAUSAL COMPARISON: 01/22/2018 Left forearm BMD: 0.657 g/cm2. T score: -2.5 Z score: 0.1\ Total hip BMD: Left: 0.754 g/cm2. T score: -2.0 Z score: -0.5 Right: 0.665 g/cm2. T score: -2.7 Z score: -1.2 10 year probability of a major osteoporotic fracture is 30.9%. Compared to the prior study from 01/22/2018. LEFT forearm bone mineral density has decreased by 14.1%. Bilateral hips bone mineral density has decreased by 8.4%. XR/XR DEXA axial skeleton* 71492 IMPRESSION: OSTEOPOROSIS based upon the WHO classification for females. Significant decrease in bone mineral density within both the hips and LEFT fore arm since the prior study.
== END 2022-12-31 13:31 | disposition home or self-care (01) ==
PROVIDERS: PCP Family Medicine; Visit Provider Nurse Practitioner Family
DX: Z78.0 Asymptomatic menopausal state (principal); M81.0 Age-related osteoporosis without current pathological fracture
CPT/HCPCS: 77080

== ENCOUNTER 2023-01-25 10:43 | Emergency (ER) | payer MEDICARE, MEDICAID, SELFPAY ==
[2023-01-25 10:44] VITALS: BMI 29.0
--- NOTE | 2023-01-25 10:44 | ED_ITS ---
HPI - SOB/Dyspnea General: Chief Complaint: Airway/Esophagus Foreign Body Stated Complaint: partial airway obstruction Time Seen by Provider: 01/25/23 10:44 History of Present Illness: HPI Narrative: Ms. Perry is a 77-year-old lady presented the department for concern over partial airway obstruction. She reports being at her baseline health the past few days, she took her pills this morning and immediately had choking. She subsequently had cough and this has progressed with a burning sensation in her throat. Intensity is moderate. Course has worsened. No other specific changes in health, exacerbating, or alleviating factors identified. Onset (ago): hour(s) Timing: progressively worsening Severity: moderate Associated symptoms: Reports cough and other Review of Systems General: Reports: 10 or more systems reviewed and unremarkable except in HPI and below PFSH ED PFSH: Medical History Diabetes Intervertebral disc disorder with radiculopathy of lumbosacral region Lumbar post-laminectomy syndrome Lumbar stenosis with neurogenic claudication Osteoarthritis of knees, bilateral Pituitary adenoma Evaluation/management Dr. Jose Manuel Montes Spondylolisthesis, lumbar region Surgical History History of appendectomy repaired colon History of carpal tunnel surgery Bilateral History of hemorrhoidectomy History of hysterectomy History of lumbar fusion 11/2012, Dr. Jose Manuel Montes, [facility], L4-L5 PLIFF. Family History Mother Colon cancer, Onset Age: 58 Heart disease Father Diabetes Brother Diabetes Social History Smoking and tobacco status: never smoked Second hand smoke exposure: Yes Smoking risk assessment/counseling performed?: Yes Alcohol intake: never Substance/Drug Use: never Caregiver/support person: Yes Lives independently: Yes Household members: none Housing: House Marital status: service: No Current occupational status: disabled Pets and animals: Yes Do you think of yourself as: Straight/Heterosexual Current gender identity: Female Physical Exam Const: COMMON NORMALS: alert GENERAL APPEARANCE: cooperative and well developed HENMT: COMMON NORMALS: normocephalic and atraumatic HEAD & SCALP: normocephalic and atraumatic THROAT: posterior oropharynx normal Eye: COMMON NORMALS: conjunctivae normal CONJUNCTIVA: Yes conjunctivae normal SCLERA: sclerae normal Neck/C-Spine: COMMON NORMALS: supple GENERAL: Yes trachea midline Resp: COMMON NORMALS: normal respiratory effort and clear to auscultation bila terally EFFORT & INSPECTION: Yes able to speak in complete sentences AUSCULTATION: clear to auscultation bilaterally Cardio: COMMON NORMALS: regular rate and regular rhythm RATE: regular rate RHYTHM: regular rhythm GI: COMMON NORMALS: Soft to palpation PALPATION: Yes Soft to palpation and No Tenderness to palpation present (GI) Extremity: GENERAL: Yes normal exam except as noted and No edema Neuro: COMMON NORMALS: moves all extremities SENSORIUM/ORIENTATION: Yes alert and No Orientation impaired Psych: COMMON NORMALS: mental status grossly normal and Normal thought process present THOUGHT PROCESS: Normal thought process present Course Vital Signs: Vital signs: Vital Signs Temperature 98.5 F 01/25/23 10:46 Pulse Rate 63 01/25/23 12:26 Respiratory Rate 17 01/25/23 15:37 Blood Pressure 160/93 01/25/23 10:46 Pulse Oximetry 98 01/25/23 15:37 Oxygen Delivery Me thod Room Air 01/25/23 12:19 MDM - SOB/Dyspnea Medical Decision Making 77-year-old lady presenting with concern over possible airway obstruction. Exam as above. Vitals are satisfactory however patient has persistent frequent cough. Labs notable for no leukocytosis, normal hemoglobin and platelet count. Metabolic panel without significant derangement to explain symptoms. Chest x-ray with no acute cardiopulmonary finding. Soft tissue neck x-ray with some degree of abnormality in the soft tissues however no radiopaque foreign body or pill identified. On reassessment patient somewhat improved with treatment. Pulmonology was consulted and came to eval the patient. CT scans ordered and reviewed. During ED course patient treated with inhaled lidocaine, antiemetic, inhaled epinephrine, steroids, Toradol. She had marked improvement with sustained response and no worsening on serial reevaluation. At time of disposition no adventitious airway noises. Cough is well controlled. Patient feels essentially back to normal. Patient expresses a strong desire for discharge. I did explain various disposition options including the safest option being observation given airway involvement. She prefers outpatient management. The results of ED evaluation were discussed with the patient including prescriptions and/or symptomatic cares (if applicable) including appropriate and responsible use, followup plan, and strict return precautions. The patient verbalized understanding and felt safe for discharge. Medical Records I reviewed the patient's medical records. Lab Data I reviewed the patient's lab results. 01/25/23 11:18 01/25/23 11:18 Labs/Radiology: Radiology Impressions Chest X-Ray 01/25/23 10:51 IMPRESSION: 1. No acute cardiopulmonary finding. Soft Tissue Neck X-Ray 01/25/23 10:51 IMPRESSION: 1. No obvious radiopaque foreign bodies identified in the region of the hypopharynx or airway. 2. Prevertebral soft tissue widening from C5 to C7. This may be positional however a soft tissue mass or edema could have this appearance. Chest CT 01/25/23 12:07 IMPRESSION: 1. Mild dependent changes at the lung bases. No pneumonia. 2. Mild cardiomegaly. 3. LEFT adrenal mass. Increased in size since 2016. 4. Prior splenectomy. Neck CT 01/25/23 12:07 IMPRESSION: 1. Severe narrowing of the glottis and subglottic airway. No residual lumen identified. No discrete mass. Suspect a small amount of edema. 2. No adenopathy. Notified Neftaly Martinez MD at 01/25/2023 1:20 PM. Laboratory Results WBC 10.5 10^3/uL (4.0-10.0) H 01/25/23 11:18 RBC 4.40 10^6/uL (4.1-5.3) 01/25/23 11:18 Hgb 13.9 g/dL (11.5-15.3) 01/25/23 11:18 Hct 43.7 % (37.0-47.0) 01/25/23 11:18 MCV 99.3 fl (81-99) H 01/25/23 11:18 MCH 31.6 pg (28.0-34.0) 01/25/23 11:18 MCHC 31.8 g/dL (30.0-36.0) 01/25/23 11:18 RDW 14.4 % (12.1-15.1) 01/25/23 11:18 Plt Count 250 10^3/cmm (130-400) 01/25/23 11:18 MPV 9.7 fL (7.4-10.4) 01/25/23 11:18 Neut % (Auto) 41.9 % 01/25/23 11:18 Lymph % (Auto) 46.1 % 01/25/23 11:18 Rowan % (Auto) 7.8 % 01/25/23 11:18 Eos % (Auto) 2.8 % 01/25/23 11:18 Baso % (Auto) 0.9 % 01/25/23 11:18 Neut # (Auto) 4.41 10^3/uL (1.8-7.7) 01/25/23 11:18 Lymph # (Auto) 4.9 10^3/uL (0.8-4.8) H 01/25/23 11:18 Rowan # (Auto) 0.8 10^3/uL (0.2-0.9) 01/25/23 11:18 Eos # (Auto) 0.3 10^3/uL (0.0-0.8) 01/25/23 11:18 Baso # (Auto) 0.1 10^3/uL (0.0-0.1) 01/25/23 11:18 Nucleated RBC % (auto) 0 % 01/25/23 11:18 Nucleated RBCs # 0.0 /100WBC 01/25/23 11:18 Sodium 135 mmol/L (136-145) L 01/25/23 11:18 Potassium 4.4 mmol/L (3.5-5.1) 01/25/23 11:18 Chloride 101 mmol/L (98-107) 01/25/23 11:18 Carbon Dioxide 23 mmol/L (22-29) 01/25/23 11:18 Anion Gap 15.4 (5-19) 01/25/23 11:18 BUN 14 mg/dL (8-23) 01/25/23 11:18 Creatinine 0.8 mg/dL (0.5-0.9) 01/25/23 11:18 GFR Calculation Not Reportable 01/25/23 11:18 Glucose 191 mg/dL (65-115) H 01/25/23 11:18 Calculated Osmolality 286 mOsm/kg (285-295) 01/25/23 11:18 Calcium 8.7 mg/dL (8.5-10.5) 01/25/23 11:18 Critical Care Time Critical Care Time: Critical Care Time: Yes Total Critical Care Time: 35 Attestation: Due to a high probability of clinically significant, possibly life threatening deterioration, the patient required my highest level of attention and preparedness to intervene emergently and I personally spent this critical care time directly and personally managing the patient. This critical care time included obtaining a history; examining the patient; pulse oximetry; ordering and review of laboratory and imaging studies; arranging urgent treatment with development of a management plan; evaluation of patient's response to treatment; frequent reassessment; and, discussions with other providers as applicable. It was exclusive of separately billable procedures. Primary system involved is pulmonary Discharge Plan Discharge Patient Disposition: Home Clinical Impression: Choking, Pharyngeal edema, Pill esophagitis Condition: Stable Prescriptions: No Action ferrous sulfate 325 mg (65 mg iron) tablet 325 mg PO BID bupropion HCl [Wellbutrin XL] 300 mg tablet extended release 24 hr 300 mg PO QAM oxybutynin chloride 5 mg tablet 2.5 mg PO BID diclofenac sodium 75 mg tablet,delayed release (DR/EC) 75 mg PO BID PRN (Reason: Pain) trazodone 50 mg tablet 50 mg PO BEDTIME lisinopril 20 mg tablet 20 mg PO QAM amlodipine 5 mg tablet 5 mg PO BID docusate sodium [Colace] 100 mg capsule 100 mg PO BID ezetimibe [Zetia] 10 mg tablet 10 mg PO BEDTIME sertraline 100 mg tablet 100 mg PO QAM aspirin 81 mg tablet,chewable 81 mg PO QAM metoprolol tartrate 25 mg tablet 25 mg PO BID (DME) blood-glucose meter [Contour Next One Meter] [facility] [place] See Rx Instructions .Route Qty: 1 0RF Rx Instructions: As directed (DME) Contour Next Test Strips Strip See Rx Instructions .Route Qty: 50 10RF Rx Instructions: As directed levothyroxine 175 mcg Tablet 175 mcg PO BEDTIME glyburide 5 mg Tablet 5 mg PO QAM pravastatin 40 mg tablet 40 mg PO BEDTIME gabapentin 300 mg Capsule 300 mg PO TID montelukast 10 mg tablet 10 mg PO QAM Januvia 100 mg tablet 100 mg PO QAM Bydureon BCise 2 mg/0.85 mL Auto-Injector 2 mg SUBCUT Q7D Rx Instructions: on saturday hydrocodone-acetaminophen 5-325 mg tablet 0.5 - 1 tab PO Q6H PRN (Reason: Pain) galantamine 24 mg capsule,ext rel. pellets 24 hr 24 mg PO QAM doxycycline hyclate 50 mg capsule 100 mg PO BID PreserVision AREDS-2 250-90-40-1 mg Capsule 1 tab PO BID pantoprazole 40 mg tablet,delayed release (DR/EC) 40 mg PO QAM Zyrtec 10 mg Tablet 10 mg PO DAILY Discharge Orders: Discharge ED (Routine); Ordered 01/25/23 Ordered By: Neftaly Martinez Referrals: Drew Williamson MD [Primary Care Provider] - Discharge Diet: Usual diet Discharge Activity: Resume usual activity Patient Instructions: Choking, Esophagitis (ED) Activity Restrictions/Additional Instructions: Thank you for visiting the emergency department. You were seen and evaluated for choking and throat pain. The most likely cause of your symptoms is related to local irritation secondary to a pill. No evidence of the pill going into the airway was identified. You do have some swelling in the pharynx as discussed ho dang given improvement I believe that it is reasonable to trial treatment at home. I will prescribe steroids. Please take pills cautiously and stick to soft foods. Follow-up with your primary care provider. Return for any change in voice, difficulty breathing, noisy breathing at rest, throat pain, or anything else that you are concerned about and feel needs emergency department evaluation. Coding Level of Care Code ED Attorney General for Patricia Steel
[2023-01-25 10:46] VITALS: BP 160/93; PULSE 70; RESP 17; TEMP 36.9; O2SAT 97
--- NOTE | 2023-01-25 10:51 | XR_ITS ---
WS: [id number] Exam: XR soft tissue neck [id number] Date/Time of Exam: 01/25/2023 10:56 AM Reason For Exam: aspirated foreign body, pill, cough No obvious radiopaque foreign bodies identified in the airway. There is no prevertebral soft tissue w idening from C5 to C7. Etiology is unclear. Moderate degenerative changes of the cervical spine. Recommendations: CT of the neck might be considered for further workup if thought to be clinically wa rranted. XR/XR soft tissue neck [id number] IMPRESSION: 1. No obvious radiopaque foreign bodies identified in the region of the hypopha rynx or airway. 2. Prevertebral soft tissue widening from C5 to C7. This may be positional burger vivian a soft tissue mass or edema could have this appearance.
--- NOTE | 2023-01-25 10:51 | XR_ITS ---
WS: [id number] Exam: XR chest 1V portable [id number] Date/Time of Exam: 01/25/2023 10:56 AM Reason For Exam: aspirated foreign body, pill, cough Comparison 02/28/2022. Lungs are clear and fully expanded. Heart size is top limits normal. The mediastinum is normal in con tour. No pleural effusions. Neurostimulator electrodes in the lower T-spine. Surgical clips in the up per left abdomen. Bony structures are intact. XR/XR chest 1V portable [id number] IMPRESSION: 1. No acute cardiopulmonary finding.
[2023-01-25 11:10] VITALS: PULSE 74; RESP 18; O2SAT 96
--- NOTE | 2023-01-25 11:10 | PC.PHAR ---
Addendum entered by Kasie Chang 01/25/23 12:25: medications entered are from the pts med list from [facility] home med list-ext med history shows hctz 12.5mg qam filled 12/11/22 30d/s medication not on med list from [facility]-ext med history also shows [id number] 1gm(l) cap filled 12/19/22 90d/s 2cap bid medication not on med list from [facility]-pt states she takes an allergy med and thinks its zyrtec med not on med list -notes are made in the pharmacy comments Original Note: pt has [facility] care [phone]-per daphnie she will fax pts med list
[2023-01-25] MEDS: lidocaine 4% PF 5 mL INJ INHALATION (11:12)
[2023-01-25 11:21] VITALS: PULSE 69
[2023-01-25 11:31] LABS: Basophils # 0.1 10^3/uL (0.0-0.1); Basophils % 0.9 %; Eosinophils # 0.3 10^3/uL (0.0-0.8); Eosinophils % 2.8 %; Hematocrit 43.7 % (37.0-47.0); Hemoglobin 13.9 g/dL (11.5-15.3); Lymphocytes # 4.9 10^3/uL (0.8-4.8); Lymphocytes % 46.1 %; Mean Corpuscular HGB Conc 31.8 g/dL (30.0-36.0); Mean Corpuscular Hemoglobin 31.6 pg (28.0-34.0); Mean Corpuscular Volume 99.3 fl (81-99); Mean Platelet Volume 9.7 fL (7.4-10.4); Monocytes # 0.8 10^3/uL (0.2-0.9); Monocytes % 7.8 %; Neutrophils # 4.41 10^3/uL (1.8-7.7); Neutrophils % 41.9 %; Nucleated Red Blood Cells % 0 %; Platelet Count 250 10^3/cmm (130-400); Red Cell Distribution Width 14.4 % (12.1-15.1); White Blood Count 10.5 10^3/uL (4.0-10.0)
[2023-01-25] MEDS: ondansetron 2 mg/ML SDV 2 mL 4 MG IVP (11:47)
[2023-01-25 11:54] LABS: Anion Gap 15.4 (5-19); Blood Urea Nitrogen 14 mg/dL (8-23); Calcium 8.7 mg/dL (8.5-10.5); Carbon Dioxide 23 mmol/L (22-29); Chloride 101 mmol/L (98-107); Glucose 191 mg/dL (65-115); Osmolality Calculated 286 mOsm/kg (285-295); Potassium 4.4 mmol/L (3.5-5.1); Sodium 135 mmol/L (136-145)
--- NOTE | 2023-01-25 12:07 | CT_ITS ---
WS: [id number] CT NECK WITH CONTRAST HISTORY: suspected aspiration, voice change, cough TECHNIQUE: Contiguous 5 mm axial images are performed through the neck with intravenous contrast. Sag ittal and coronal reformats are also submitted. All CT scans at [facility] [place] use at least one o f these dose optimization techniques: automated exposure control; mA and/or kV adjustment per patient size (includes targeted exams where dose is matched to clinical indication); or iterative reconstruc tion. CONTRAST: CONTRAST: Omnipaque 350; 100 mL IV. DLP: 316.21 mGy.cm COMPARISON: None available. Increased soft tissue thickening with edema at the level of the glottis and subglottic airway with ne ar complete occlusion of the airway. No discrete mass or abnormal enhancement. Oropharynx and nasopha rynx are otherwise negative. Remaining airway is normal. No adenopathy. Small mediastinal and hilar lymph nodes. Visualized lungs are clear. Visualized paranasal sinuses and mastoid air cells are normal. CT/CT neck w con* [id number] IMPRESSION: 1. Severe narrowing of the glottis and subglottic airway. No residual lumen id entified. No discrete mass. Suspect a small amount of edema. 2. No adenopathy. Notified Neftaly Martinez MD at 01/25/2023 1:20 PM.
--- NOTE | 2023-01-25 12:07 | CT_ITS ---
WS: [id number] CT chest w con* [id number] HISTORY: suspected aspiration TECHNIQUE: Axial imaging performed through the thorax. Coronal and sagittal reformats are submitted. All CT scans at [facility] use at least one of these dose optimization techniques: automated exposure control; mA and/or kV adjustment per patient size (includes targeted exams where dose is mat ched to clinical indication); or iterative reconstruction. CONTRAST: Omnipaque 350; 100 mL IV. DLP: 434.96 mGy.cm COMPARISON: 05/06/2016 Lungs and central airway: Mildly hyperexpanded lungs. No dense consolidation or pneumonia. No lobar c ollapse. Mild dependent changes at the lung bases. Benign granuloma RIGHT lower lobe. Pleura: Normal. No pleural effusion. Heart and pericardium: Mildly enlarged heart. There is mixed contrast opacification in the RIGHT atri um extending into the SVC. Favor this is probably mixing of the injected contrast with blood. Near si milar appearance on the prior study from 2015. Mediastinum and jacob: 9 mm inferior LEFT cervical chain lymph node. No adenopathy is identified. Vessels: Normal size aorta. Great vessels are normal. No obstructive pattern. Chest wall and lower neck: No soft tissue masses. Upper abdomen: Small hiatal hernia. LEFT adrenal gland mass 3.1 x 2.2 cm. Mass was also present in 20 16 but much smaller. Hepatic steatosis. Prior splenectomy. Osseous structures: No destructive process. CT/CT chest w con* [id number] IMPRESSION: 1. Mild dependent changes at the lung bases. No pneumonia. 2. Mild cardiomegaly. 3. LEFT adrenal mass. Increased in size since 2017. 4. Prior splenectomy.
[2023-01-25] MEDS: EPINEPHrine 1 mg/mL INJ 3 MG INHALATION (12:18)
[2023-01-25 12:19] VITALS: PULSE 64; RESP 18; O2SAT 95
[2023-01-25 12:26] VITALS: PULSE 63
[2023-01-25] MEDS: iohexol 350 mg/mL 500 mL Btl (per mL) IV (12:47)
[2023-01-25] MEDS: ketorolac 30 mg/mL INJ 15 MG IVP (13:45)
[2023-01-25] MEDS: methylPREDNISolone sod succ 125 MG in water for injection-sterile 2 ML 24 MG IVP (13:45)
[2023-01-25 15:37] VITALS: RESP 17; O2SAT 98
--- NOTE | 2023-01-25 15:44 | PM.CONSULT ---
Providers/Reason For Consult Consulting Physician/Specialty*: Ant Friend MD/pulmonary critical care Reason for Consult*: Possible aspiration into respiratory tract Requesting Physician: Dr. Neftaly Martinez ED physician Attending Physician: Dr. Neftaly Martinez ED physician Primary Care Provider: Drew Williamson MD History of Present Illness History of Present Illness Alice Perry is a 77 year old female came to emergency department concern over partial airway obstruction. ED physician consulted to evaluate for emergency bronchoscopy. I have seen patient at bedside-at the time of my interaction with patient-she started talking although with soft voice; tells me that her voice is getting better compared to morning. She reported she was doing fine until today morning when she choked while taking her pills. She said she takes daily about 17 to 18 pills for her various medical problems. She tries to swallow multiple tablets at a time by putting in a cup. Couple of tablets were larger than the rest of the pills. As she was taking her morning pills all at once she has difficulty swallowing the larger ones which got stuck and choked her. She started coughing out some of the pills and this has progressed with a burning sensation in her throat. She lost her voice and has difficulty speaking when she came to emergency room. She is saturating 95 to 98% on room air, hemodynamically stable, nothing concerning in her labs Chest x-ray no acute cardiopulmonary finding. Soft tissue neck x-ray no obvious radiopaque foreign bodies in the region of hypopharynx or airway. Prevertebral soft tissue widening from C5-C7. She had a CT chest-with no obvious foreign body in the lungs. Neck CT reported severe narrowing of glottic subglottic airway. No residual lumen. No discrete mass. Suspect mild amount of edema. Patient does not have any stridor. And reported her voice is getting better. Review of Systems General: Reports: 10 or more systems reviewed and unremarkable except in HPI and below Medications/Allergies Home Medications Medication Instructions Recorded Confirmed Last Taken Type amlodipine 5 mg tablet 5 mg PO BID 07/28/19 01/25/23 02/28/22 History aspirin 81 mg chewable tablet 81 mg PO QAM 07/28/19 01/25/23 02/28/22 History diclofenac sodium 75 mg 75 mg PO BID PRN Pain 07/28/19 01/25/23 02/28/22 History tablet,delayed release docusate sodium 100 mg capsule 100 mg PO BID 07/28/19 01/25/23 02/28/22 History (Colace) ezetimibe 10 mg tablet (Zetia) 10 mg PO BEDTIME 07/28/19 01/25/23 02/27/22 History lisinopril 20 mg tablet 20 mg PO QAM 07/28/19 01/25/23 02/28/22 History oxybutynin chloride 5 mg tablet 2.5 mg PO BID 07/28/19 01/25/23 02/28/22 History sertraline 100 mg tablet 100 mg PO QAM 07/28/19 01/25/23 02/28/22 History trazodone 50 mg tablet 50 mg PO BEDTIME 07/28/19 01/25/23 02/27/22 History bupropion HCl 300 mg 24 hr tablet, 300 mg PO QAM 07/29/19 01/25/23 02/28/22 History extended release (Wellbutrin XL) ferrous sulfate 325 mg (65 mg 325 mg PO BID 07/29/19 01/25/23 02/28/22 History iron) tablet metoprolol tartrate 25 mg tablet 25 mg PO BID 10/21/20 01/25/23 02/28/22 History exenatide microspheres 2 mg/0.85 2 mg SUBCUT Q7D 02/28/22 01/25/23 02/23/22 History mL subcutaneous auto-injector (Connor Paiz) gabapentin 300 mg capsule 300 mg PO TID 02/28/22 01/25/23 02/28/22 History glyburide 5 mg tablet 5 mg PO QAM 02/28/22 01/25/23 02/28/22 History hydrocodone 5 mg-acetaminophen 325 0.5 - 1 tab PO Q6H PRN Pain 02/28/22 01/25/23 Unknown History mg tablet levothyroxine 175 mcg tablet 175 mcg PO BEDTIME 02/28/22 01/25/23 02/28/22 History montelukast 10 mg tablet 10 mg PO QAM 02/28/22 01/25/23 02/28/22 History pravastatin 40 mg tablet 40 mg PO BEDTIME 02/28/22 01/25/23 02/27/22 History sitagliptin phosphate 100 mg 100 mg PO QAM 02/28/22 01/25/23 02/28/22 History tablet (Januvia) blood sugar diagnostic (Contour #50 ea 05/01/22 01/25/23 Unknown Rx Next Test Strips) blood-glucose meter (Contour Next #1 ea 05/01/22 01/25/23 Unknown Rx One Meter) cetirizine 10 mg tablet (Zyrtec) 10 mg PO DAILY 01/25/23 01/25/23 Unknown History doxycycline hyclate 50 mg capsule 100 mg PO BID 01/25/23 01/25/23 Unknown History galantamine 24 mg 24 hr 24 mg PO QAM 01/25/23 01/25/23 Unknown History capsule,extended release pantoprazole 40 mg tablet,delayed 40 mg PO QAM 01/25/23 01/25/23 Unknown History release prednisone 20 mg tablet 20 mg PO DAILY 5 days #5 tabs 01/25/23 Unknown Rx vit C 250 mg-vit E 90 mg-zinc 40 1 tab PO BID 01/25/23 01/25/23 Unknown History mg-copper 1 [id number] capsule (PreserVision AREDS-2) Allergies Allergy/AdvReac Type Severity Reaction Status Date / Time morphine Allergy Mild hallucinati Verified 05/01/22 13:25 ons latex AdvReac Mild RASH Verified 05/01/22 13:25 PFSH Acute PFSH: Medical History Diabetes Intervertebral disc disorder with radiculopathy of lumbosacral region Lumbar post-laminectomy syndrome Lumbar stenosis with neurogenic claudication Osteoarthritis of knees, bilateral Pituitary adenoma Evaluation/management Dr. Jose Manuel Montes Spondylolisthesis, lumbar region Surgical History History of appendectomy repaired colon History of carpal tunnel surgery Bilateral History of hemorrhoidectomy History of hysterectomy History of lumbar fusion 11/2012, Dr. Jose Manuel Montes, [facility], L4-L5 PLIFF. Family History Mother Colon cancer, Onset Age: 58 Heart disease Father Diabetes Brother Diabetes Social History Smoking and tobacco status: never smoked Second hand smoke exposure: Yes Smoking risk assessment/counseling performed?: Yes Alcohol intake: never Substance/Drug Use: never Caregiver/support person: Yes Lives independently: Yes Household members: none Housing: House Marital status: service: No Current occupational status: disabled Pets and animals: Yes Do you think of yourself as: Straight/Heterosexual Current gender identity: Female Vitals/I&O/Wt Last Vital Signs Temp 98.5 F 01/25/23 10:46 Pulse 63 01/25/23 12:26 Resp 17 01/25/23 15:37 BP 160/93 01/25/23 10:46 Pulse Ox 98 01/25/23 15:37 O2 Del Method Room Air 01/25/23 12:19 Weight last 48 hrs Weight 185 lb Physical Exam Narrative: General: alert, NAD HEENT: conj clear, EOMI, PERRL, mmm, Neck: supple, no meningismus, no stridor Heme: no cervical LAP Respiratory: Inspection: No visible deformity of the chest wall Palpation: Trachea is mildly deviated to the right, bilateral symmetric expansion Percussion: Bilateral tympanic percussion note both anterior and posteriorly Auscultation: Bilateral clear to auscultation both anterior and posteriorly, no crackles wheezing or rhonchi Cardiovascular: rrr, nl s1s2, no mrg Abdomen: soft, nt, nd, no r/g, bs+ Extremities: pulses +, no edema, no c/c : no CVA tenderness Skin: intact, no rash MSK: no back or neck pain Neurologic: grossly intact Data 01/25/23 11:18 01/25/23 11:18 Other Labs: Radiology Impressions Chest X-Ray 01/25/23 10:51 IMPRESSION: 1. No acute cardiopulmonary finding. Soft Tissue Neck X-Ray 01/25/23 10:51 IMPRESSION: 1. No obvious radiopaque foreign bodies identified in the region of the hypopharynx or airway. 2. Prevertebral soft tissue widening from C5 to C7. This may be positional however a soft tissue mass or edema could have this appearance. Chest CT 01/25/23 12:07 IMPRESSION: 1. Mild dependent changes at the lung bases. No pneumonia. 2. Mild cardiomegaly. 3. LEFT adrenal mass. Increased in size since 2017. 4. Prior splenectomy. Neck CT 01/25/23 12:07 IMPRESSION: 1. Severe narrowing of the glottis and subglottic airway. No residual lumen identified. No discrete mass. Suspect a small amount of edema. 2. No adenopathy. Notified Neftaly Martinez MD at 01/25/2023 1:20 PM. Laboratory Results WBC 10.5 10^3/uL (4.0-10.0) H 01/25/23 11:18 RBC 4.40 10^6/uL (4.1-5.3) 01/25/23 11:18 Hgb 13.9 g/dL (11.5-15.3) 01/25/23 11:18 Hct 43.7 % (37.0-47.0) 01/25/23 11:18 MCV 99.3 fl (81-99) H 01/25/23 11:18 MCH 31.6 pg (28.0-34.0) 01/25/23 11:18 MCHC 31.8 g/dL (30.0-36.0) 01/25/23 11:18 RDW 14.4 % (12.1-15.1) 01/25/23 11:18 Plt Count 250 10^3/cmm (130-400) 01/25/23 11:18 MPV 9.7 fL (7.4-10.4) 01/25/23 11:18 Neut % (Auto) 41.9 % 01/25/23 11:18 Lymph % (Auto) 46.1 % 01/25/23 11:18 Kendall % (Auto) 7.8 % 01/25/23 11:18 Eos % (Auto) 2.8 % 01/25/23 11:18 Baso % (Auto) 0.9 % 01/25/23 11:18 Neut # (Auto) 4.41 10^3/uL (1.8-7.7) 01/25/23 11:18 Lymph # (Auto) 4.9 10^3/uL (0.8-4.8) H 01/25/23 11:18 Kendall # (Auto) 0.8 10^3/uL (0.2-0.9) 01/25/23 11:18 Eos # (Auto) 0.3 10^3/uL (0.0-0.8) 01/25/23 11:18 Baso # (Auto) 0.1 10^3/uL (0.0-0.1) 01/25/23 11:18 Nucleated RBC % (auto) 0 % 01/25/23 11:18 Nucleated RBCs # 0.0 /100WBC 01/25/23 11:18 Sodium 135 mmol/L (136-145) L 01/25/23 11:18 Potassium 4.4 mmol/L (3.5-5.1) 01/25/23 11:18 Chloride 101 mmol/L (98-107) 01/25/23 11:18 Carbon Dioxide 23 mmol/L (22-29) 01/25/23 11:18 Anion Gap 15.4 (5-19) 01/25/23 11:18 BUN 14 mg/dL (8-23) 01/25/23 11:18 Creatinine 0.8 mg/dL (0.5-0.9) 01/25/23 11:18 GFR Calculation Not Reportable 01/25/23 11:18 Glucose 191 mg/dL (65-115) H 01/25/23 11:18 Calculated Osmolality 286 mOsm/kg (285-295) 01/25/23 11:18 Calcium 8.7 mg/dL (8.5-10.5) 01/25/23 11:18 A&P Assessment and plan (1) Choking: -Choking episode while trying to take multiple daily medications at a time -Coughed out most of the medications -No obvious foreign body in the airways as per CT chest -Patient is saturating 95 to 98% on room air -No need for urgent bronchoscopy (2) Pharyngeal edema: CT evidence of severe narrowing of glottis and subglottic airway Most likely secondary to traumatic event while attempting to take multiple medications at a time she coughed out most of the medications No stridor, saturating 95 to 98% on room air Reported her voice is getting better compared to few hours ago ED physician planning to monitor for few more hours Recommended steroids for swelling and ENT evaluation if available head of digital advertising & integration or as outpt sooner. (if pt gets discharged) Consult Attestations Medical Necessity Statement: defer to ED physician Time Spent in Patient Care: Greater than 35 minutes (>than 50% of time spent in counselling and/or direct pt care on unit). Critical Care Time: The high probability of a clinically significant, sudden or life threatening deterioration of the patient's [Pulmonary] system(s) required my full and direct attention, intervention and personal management. The critical care time is as shown. This time is in addition to time spent performing any reported procedures but includes the following: [x] Data and vital sign review and interpretation [x] Patient assessment, examination and intervention [x] Documentation [x] Medication orders and management Critical Care Time (min): 39 Coding Level of Care Code 36437 Diagnoses Choking T17.308A Pharyngeal edema J39.2 Time Spent (min) 39
== END 2023-01-25 15:37 | disposition home or self-care (01) ==
PROVIDERS: Emergency Provider Emergency Medicine; PCP Family Medicine
DX: T17.308A Unspecified foreign body in larynx causing other injury, initial encounter (principal); J39.2 Other diseases of pharynx; K20.80 Other esophagitis without bleeding; Z77.22 Contact with and (suspected) exposure to environmental tobacco smoke (acute) (chronic); X58.XXXA Exposure to other specified factors, initial encounter
CPT/HCPCS: 36415; 70360; 70491; 71045; 71260; 80048; 85025; 94640; 96374; 96375; 99285; J0171; J1885; J2405; J2930; Q9967

== ENCOUNTER → 2023-04-23 14:02 | Outpatient (BNVA) | payer MEDICARE, MEDICAID, SELFPAY | PROVIDERS: PCP Family Medicine; Visit Provider Specialist | DX: G31.84 Mild cognitive impairment of uncertain or unknown etiology (principal); M96.1 Postlaminectomy syndrome, not elsewhere classified; G47.33 Obstructive sleep apnea (adult) (pediatric) | CPT/HCPCS: 99214 ==

== ENCOUNTER 2024-03-09 22:32 | Emergency (ER) | payer MEDICARE, MEDICAID, SELFPAY ==
[2024-03-09 22:37] VITALS: BP 104/61; PULSE 68; RESP 16; TEMP 36.7; O2SAT 93; BMI 25.9
--- NOTE | 2024-03-09 22:38 | XRR_ITS ---
PROCEDURE INFORMATION: Exam: XR Lumbosacral Spine Exam date and time: 03/09/2024 10:52 PM Age: 78 years old Clinical indication: Injury or trauma; Fall; Blunt trauma (contusions or hematomas); Prior surgery; Surgery date: 6+ months; Surgery type: Back surgery; Additional info: Fall lbp TECHNIQUE: Imaging protocol: Radiologic exam of the lumbosacral spine. Views: 2 or 3 views. COMPARISON: CR XR pelvis 1-2V* [id number] 11/07/2021 10:54 AM FINDINGS: Tubes, catheters and devices: Implanted thoracic epidural stimulator device partially included in the field of view. Bones/joints: Negative for acute lumbar spine fracture. Unremarkable lumbar spine alignment. L3 and L4 laminectomy. L3-L4 posterior fusion hardware is present. There is erosion and mild height loss of the L3 vertebral body. The pedicle screws at L3 are approximating the more superior aspect of the vertebral body compared to prior. Severe disc height loss and vertebral endplate irregularities across L2-L3. The lumbar spine demonstrates marked discogenic and apophyseal joint degenerative changes at multiple levels. Diffuse osseous demineralization. Soft tissues: Unremarkable. XR/XR lumbar spine 2-3V* [id number] IMPRESSION: Negative for acute lumbar spine pathology.
--- NOTE | 2024-03-09 22:39 | W.ED.FALL ---
HPI - Fall General: Chief Complaint: Fall Stated Complaint: weakness, fall Time Seen by Provider: 03/09/24 22:34 History of Present Illness: Patient brought in by EMS with complaints of fall. Patient states she fell about 3 times today. Patient has hit her head and hurt her low back. Patient originally has chronic low back pain she has had 3 failed back surgery and a spinal cord stimulator in place she said the pain is worse now after falling. Patient is unsure if she lost consciousness. Related Data Home Medications Medication Instructions Recorded Confirmed amlodipine 5 mg tablet 5 mg PO BID 07/28/19 04/23/23 aspirin 81 mg chewable tablet 81 mg PO QAM 07/28/19 04/23/23 diclofenac sodium 75 mg 75 mg PO BID PRN Pain 07/28/19 04/23/23 tablet,delayed release docusate sodium 100 mg capsule 100 mg PO BID 07/28/19 04/23/23 (Colace) ezetimibe 10 mg tablet (Zetia) 10 mg PO BEDTIME 07/28/19 04/23/23 lisinopril 20 mg tablet 20 mg PO QAM 07/28/19 04/23/23 oxybutynin chloride 5 mg tablet 2.5 mg PO BID 07/28/19 04/23/23 sertraline 100 mg tablet 100 mg PO QAM 07/28/19 04/23/23 trazodone 50 mg tablet 50 mg PO BEDTIME 07/28/19 04/23/23 bupropion HCl 300 mg 24 hr tablet, 300 mg PO QAM 07/29/19 04/23/23 extended release (Wellbutrin XL) ferrous sulfate 325 mg (65 mg 325 mg PO BID 07/29/19 04/23/23 iron) tablet metoprolol tartrate 25 mg tablet 25 mg PO BID 10/21/20 04/23/23 exenatide microspheres 2 mg/0.85 2 mg SUBCUT Q7D 02/28/22 04/23/23 mL subcutaneous auto-injector (Connor Paiz) gabapentin 300 mg capsule 300 mg PO TID 02/28/22 04/23/23 glyburide 5 mg tablet 5 mg PO QAM 02/28/22 04/23/23 hydrocodone 5 mg-acetaminophen 325 0.5 - 1 tab PO Q6H PRN Pain 02/28/22 04/23/23 mg tablet levothyroxine 175 mcg tablet 175 mcg PO BEDTIME 02/28/22 04/23/23 montelukast 10 mg tablet 10 mg PO QAM 02/28/22 04/23/23 pravastatin 40 mg tablet 40 mg PO BEDTIME 02/28/22 04/23/23 sitagliptin phosphate 100 mg 100 mg PO QAM 02/28/22 04/23/23 tablet (Januvia) cetirizine 10 mg tablet (Zyrtec) 10 mg PO DAILY 01/25/23 04/23/23 doxycycline hyclate 50 mg capsule 100 mg PO BID 01/25/23 04/23/23 pantoprazole 40 mg tablet,delayed 40 mg PO QAM 01/25/23 04/23/23 release vit C 250 mg-vit E 90 mg-zinc 40 1 tab PO BID 01/25/23 04/23/23 mg-copper 1 [id number] capsule (PreserVision AREDS-2) azithromycin 250 mg tablet tab PO 04/23/23 04/23/23 colchicine 0.6 mg tablet ea PO 04/23/23 04/23/23 hydrochlorothiazide 12.5 mg tablet ea PO 04/23/23 04/23/23 metformin 1,000 mg tablet tab PO 04/23/23 04/23/23 mupirocin 2 % topical ointment g topical 04/23/23 04/23/23 omega-3 acid ethyl esters 1 gram cap PO 04/23/23 04/23/23 capsule Previous Rx's Medication Instructions Recorded blood sugar diagnostic (Contour #50 ea 05/01/22 Next Test Strips) blood-glucose meter (Contour Next #1 ea 05/01/22 One Meter) galantamine 24 mg 24 hr 24 mg PO QAM #90 caps 05/14/23 capsule,extended release Allergies Allergy/AdvReac Type Severity Reaction Status Date / Time morphine Allergy Mild hallucinati Verified 04/23/23 14:05 ons latex AdvReac Mild RASH Verified 04/23/23 14:05 Review of Systems General: Reports: 10 or more systems reviewed and unremarkable except in HPI and below PFSH ED PFSH: Medical History Osteoarthritis of knees, bilateral Diabetes Spondylolisthesis, lumbar region Pituitary adenoma Evaluation/management Dr. Jose Manuel Montes Lumbar stenosis with neurogenic claudication Lumbar post-laminectomy syndrome Intervertebral disc disorder with radiculopathy of lumbosacral region Surgical History History of carpal tunnel surgery Bilateral History of hysterectomy History of appendectomy repaired colon History of hemorrhoidectomy History of lumbar fusion 11/2012, Dr. Jose Manuel Montes, [facility], L4-L5 PLIFF. Family History Mother Colon cancer, Onset Age: 58 Heart disease Father Diabetes Brother Diabetes Social History Smoking and tobacco/nicotine status: never used tobacco/nicotine Second hand smoke exposure: Yes Alcohol intake: never Substance/Drug Use: never Caregiver/support person: Yes Lives independently: Yes Household members: none Housing: House Marital status: service: No Current occupational status: disabled Pets and animals: Yes Do you think of yourself as: Straight/Heterosexual Current gender identity: Female Physical Exam Const: COMMON NORMALS: no acute distress, average body habitus, patient oriented x3, no limitations, healthy appearing, alert and well nourished HENMT: COMMON NORMALS: normocephalic, atraumatic, hearing grossly normal bilaterally, external ears normal, Normal external nose present and moist oral mucous membranes HEAD & SCALP: normocephalic and atraumatic NOSE: Normal external nose present EXTERNAL EAR: Yes external ears normal Eye: COMMON NORMALS: Equal, round and reactive pupils present, EOMs intact bilaterally, conjunctivae normal and no scleral icterus CONJUNCTIVA: Yes conjunctivae normal PUPIL: Yes Equal, round and reactive pupils present Neck/C-Spine: COMMON NORMALS: full ROM, no lymphadenopathy, supple, no meningeal signs and no JVD Chest: COMMONS NORMALS: normal inspection of the chest and normal palpation of entire chest wall Resp: COMMON NORMALS: normal respiratory effort, No retractions, No use of accessory muscles and clear to auscultation bilaterally AUSCULTATION: clear to auscultation bilaterally Cardio: COMMON NORMALS: no JVD, regular rate, regular rhythm, S1 normal heart sound present, S2 normal heart sound present, No gallops present (Cardio), No clicks present (Cardio), No murmurs present (Cardio) and No rub (Cardio) RATE: regular rate RHYTHM: regular rhythm HEART SOUNDS: S1 normal heart sound present and S2 normal heart sound present GI: COMMON NORMALS: Normal to inspection, nondistended, normoactive bowel sounds present, Soft to palpation, non-tender, No hepatosplenomegaly present and no masses PALPATION: Yes Soft to palpation and Yes No hepatosplenomegaly present Neuro: COMMON NORMALS: patient oriented x3 SENSORIUM/ORIENTATION: Yes alert MENINGEAL SIGNS: Yes no meningeal signs Course Vital Signs: Vital signs: Vital Signs Temperature 98.0 F 03/09/24 22:37 Pulse Rate 68 03/09/24 22:37 Respiratory Rate 16 03/09/24 22:37 Blood Pressure 104/61 03/09/24 22:37 Pulse Oximetry 93 03/09/24 22:37 Oxygen Delivery Me thod Room Air 03/09/24 22:37 MDM - Fall Medical Decision Making Patient had a head CT and a lumbar spine x-ray both negative for acute pathology, patient be discharged home. Medical Records I reviewed the patient's medical records. Lab Data I reviewed the patient's lab results. Radiology Impressions Lumbar Spine X-Ray 03/09/24 22:38 IMPRESSION: Negative for acute lumbar spine pathology. Head CT 03/09/24 23:13 IMPRESSION: Negative for acute intracranial pathology. All radiology interpretation(s) finalized by discharge Discharge Plan Discharge Patient Disposition: Home Clinical Impression: Fall, Low back pain Condition: Stable Prescriptions: No Action ferrous sulfate 325 mg (65 mg iron) tablet 325 mg PO BID bupropion HCl [Wellbutrin XL] 300 mg tablet extended release 24 hr 300 mg PO QAM oxybutynin chloride 5 mg tablet 2.5 mg PO BID diclofenac sodium 75 mg tablet,delayed release (DR/EC) 75 mg PO BID PRN (Reason: Pain) trazodone 50 mg tablet 50 mg PO BEDTIME lisinopril 20 mg tablet 20 mg PO QAM amlodipine 5 mg tablet 5 mg PO BID docusate sodium [Colace] 100 mg capsule 100 mg PO BID ezetimibe [Zetia] 10 mg tablet 10 mg PO BEDTIME sertraline 100 mg tablet 100 mg PO QAM aspirin 81 mg tablet,chewable 81 mg PO QAM metoprolol tartrate 25 mg tablet 25 mg PO BID (DME) blood-glucose meter [Contour Next One Meter] Misc See Rx Instructions .Route Qty: 1 0RF Rx Instructions: As directed (DME) Contour Next Test Strips Strip See Rx Instructions .Route Qty: 50 10RF Rx Instructions: As directed omega-3 acid ethyl esters 1 gram capsule PO azithromycin 250 mg tablet PO hydrochlorothiazide 12.5 mg tablet PO metformin 1,000 mg tablet PO colchicine 0.6 mg tablet PO mupirocin 2 % ointment topical galantamine 24 mg capsule,ext rel. pellets 24 hr 24 mg PO QAM Qty: 90 3RF levothyroxine 175 mcg Tablet 175 mcg PO BEDTIME glyburide 5 mg Tablet 5 mg PO QAM pravastatin 40 mg tablet 40 mg PO BEDTIME gabapentin 300 mg Capsule 300 mg PO TID montelukast 10 mg tablet 10 mg PO QAM Januvia 100 mg tablet 100 mg PO QAM Bydureon BCise 2 mg/0.85 mL Auto-Injector 2 mg SUBCUT Q7D Rx Instructions: on saturday hydrocodone-acetaminophen 5-325 mg tablet 0.5 - 1 tab PO Q6H PRN (Reason: Pain) doxycycline hyclate 50 mg capsule 100 mg PO BID PreserVision AREDS-2 250-90-40-1 mg Capsule 1 tab PO BID pantoprazole 40 mg tablet,delayed release (DR/EC) 40 mg PO QAM Zyrtec 10 mg Tablet 10 mg PO DAILY Discharge Orders: Discharge ED (Routine); Ordered 03/10/24 Ordered By: Jefry Benitez Referrals: Drew Williamson MD [Primary Care Provider] - Patient Instructions: Opioid Safety, Pain Management Coding Level of Care Code ED 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
--- NOTE | 2024-03-09 23:13 | CTR_ITS ---
PROCEDURE INFORMATION: Exam: CT Head Without Contrast Exam date and time: 03/09/2024 11:20 PM Age: 78 years old Clinical indication: Injury or trauma; Fall; Blunt trauma (contusions or hematomas); Additional info: Fall head trauma TECHNIQUE: Imaging protocol: Computed tomography of the head without contrast. Radiation optimization: All CT scans at this facility use at least one of these dose optimization techniques: automated exposure control; mA and/or kV adjustment per patient size (includes targeted exams where dose is matched to clinical indication); or iterative reconstruction. COMPARISON: MR head wo/w con [id number] 11/17/2018 9:46 AM RADIATION DOSE METRICS: Total DLP (mGy-cm): 1049.55 FINDINGS: Brain: There is moderate cerebral atrophy. There is moderate diffuse heterogeneity of the white matter attenuation, consistent with chronic white matter ischemic changes. Negative for acute intracranial hemorrhage. Negative for mass effect on the brain. Negative for midline shift of the brain. Cerebral ventricles: No ventriculomegaly. Paranasal sinuses: Visualized sinuses are unremarkable. No fluid levels. Mastoid air cells: Visualized mastoid air cells are well aerated. Bones: Unremarkable. No acute fracture. Soft tissues: Unremarkable. CT/CT head wo con* [id number] IMPRESSION: Negative for acute intracranial pathology.
[2024-03-10 00:30] VITALS: BP 131/61; PULSE 62; RESP 17; O2SAT 95
--- NOTE | 2024-03-10 01:20 | PC.NURSE ---
CALLS PLACED TO MULTIPLE PT CONTACTS TO FIND A RIDE HOME FOR PT. NO ANSWER AT ANY NUMBER, MESSAGES WERE LEFT WITH CALLBACK NUMBER.
--- NOTE | 2024-03-10 01:30 | PC.NURSE ---
DUE TO PT'S AGE AND FALL RISK STATUS, PT WILL BE LEFT IN TREATMENT ROOM UNTIL A RIDE CAN BE FOUND FOR HER. PT REMAINS ON THE VS MONITOR FOR THE DURATION OF HER STAY.
[2024-03-10 02:30] VITALS: BP 123/74; PULSE 56; RESP 19; O2SAT 94
[2024-03-10 04:00] VITALS: BP 135/67; PULSE 54; O2SAT 93
[2024-03-10 06:00] VITALS: BP 96/74; PULSE 65; O2SAT 93
[2024-03-10 07:01] VITALS: BP 96/74; PULSE 55; RESP 16; O2SAT 93
== END 2024-03-10 07:02 | disposition home or self-care (01) ==
PROVIDERS: Emergency Provider Emergency Medicine; PCP Family Medicine
DX: M54.50 Low back pain, unspecified (principal); Z79.82 Long term (current) use of aspirin; Z79.84 Long term (current) use of oral hypoglycemic drugs; Z77.22 Contact with and (suspected) exposure to environmental tobacco smoke (acute) (chronic); E11.9 Type 2 diabetes mellitus without complications
CPT/HCPCS: 70450; 72100; 99284

== ENCOUNTER → 2024-05-28 13:55 | Outpatient (BNVA) | payer MEDICARE, MEDICAID, SELFPAY | PROVIDERS: PCP Family Medicine; Visit Provider Specialist | DX: R41.3 Other amnesia (principal); G60.8 Other hereditary and idiopathic neuropathies; M96.1 Postlaminectomy syndrome, not elsewhere classified; G47.33 Obstructive sleep apnea (adult) (pediatric); R03.0 Elevated blood-pressure reading, without diagnosis of hypertension | CPT/HCPCS: 99213 ==

== ENCOUNTER → 2024-06-23 14:39 | Outpatient (BNVA) | payer MEDICARE, MEDICAID, SELFPAY | PROVIDERS: PCP Family Medicine; Referring Provider Family Medicine; Visit Provider Nurse Practitioner Family | DX: L23.9 Allergic contact dermatitis, unspecified cause (principal); L82.1 Other seborrheic keratosis; D22.4 Melanocytic nevi of scalp and neck; L56.5 Disseminated superficial actinic porokeratosis (DSAP); L82.0 Inflamed seborrheic keratosis; D48.5 Neoplasm of uncertain behavior of skin; L57.0 Actinic keratosis | CPT/HCPCS: 11102; 17000; 17110; 99203 ==

== ENCOUNTER 2024-11-11 13:12 | Outpatient (RCR) | payer MEDICARE, MEDICAID, SELFPAY | END 2024-12-05 23:59 | disposition home or self-care (01) | LOC: SPT 13:12 | PROVIDERS: Visit Provider Family Medicine | DX: M53.3 Sacrococcygeal disorders, not elsewhere classified (principal) | CPT/HCPCS: 97161 ==

== ENCOUNTER 2025-01-19 23:36 | Emergency (ER) | payer MEDICARE, MEDICAID, SELFPAY ==
--- OUTSIDE RECORDS SUMMARY | 2024-05-03 04:00 | XMS_ITS ---
Author Organization [facility] Address [address] [place] [address] Care Team Providers Care Purchasing Specialist Name Role Phone Clay CORONADO, Drew Primary Care Provider Abilio Camara Unavailable [phone] Layne Lopez APRN Unavailable Unavailable Migration, Provider Unavailable Unavailable Allergies Allergen (clinical drug ingredient) Drug/Non Drug Allergy documented on EMR Reaction Allergy Type Onset Date Status marcelino (uncoded) Unknown Allergy Acti ve Latex Latex Rash Allergy Active morphine Morphine Unknown Drug Allergy Active REASON FOR VISIT EMR-[facility] [place] Medications Medication SIG (Take, Route, Frequency, Duration) Notes Start Date End Date Status BUPROPION XL 300MG TAB TAKE 1 TABLET BY MOUTH ONCE DAILY *Reorder from [facility] for eRx and Interaction Alerts* Active OXYBUTYNIN 5MG TAB TAKE 1/2 (ONE-HALF) TABLET BY MOUTH TWICE DAILY *Reorder from [facility] for eRx and Interaction Alerts* Active DICLOFENAC [address]MG DR TAB TAKE 1 TABLET BY MOUTH TWICE DAILY NEEDED *Reorder from [facility] for eRx and Interaction Alerts* Active MONTELUKAST 10MG TAB TAKE 1 TABLET BY MOUTH ONCE DAILY *Reorder from [facility] for eRx and Interaction Alerts* Active LEVOTHYROXIN 175MCG TAB TAKE 1 TABLET BY MOUTH ONCE DAILY *Reorder from [facility] for eRx and Interaction Alerts* Active PRAVASTATIN 40MG TAB TAKE 1 TABLET BY MOUTH AT BEDTIME ONCE DAILY *Reorder from [facility] for eRx and Interaction Alerts* Active DOCUSATE [id number] CAP TAKE 1 CAPSULE BY MOUTH TWICE DAILY *Reorder from [facility] for eRx and Interaction Alerts* Active GABAPENTIN 300MG CAP TAKE 1 CAPSULE BY MOUTH THREE TIMES DAILY *Reorder from [facility] for eRx and Interaction Alerts* Active FERROUS [id number] TAB TAKE 1 TABLET BY MOUTH TWICE DAILY *Reorder from [facility] for eRx and Interaction Alerts* Active DOXYCYCLINE HYCLATE 50MG CAP TAKE 2 CAPSULES BY MOUTH TWICE DAILY *Reorder from [facility] for eRx and Interaction Alerts* Active BYDUREON BCISE INJ INJECT 1 SUBCUTANEOUSLY ONCE A WEEK *Reorder from [facility] for eRx and Interaction Alerts* Active BRIMONIDINE OP 0.2% QUETA INSTILL 1 DROP INTO EACH EYE TWICE DAILY *Reorder from [facility] for eRx and Interaction Alerts* Active PANTOPRAZOLE 40MG TAB TAKE 1 TABLET BY MOUTH ONCE DAILY *Reorder from [facility] for eRx and Interaction Alerts* Active HYDROCOD/ACETAM 5-325MG TAB TAKE 1/2 TO 1 (ONE-HALF TO ONE) TABLET BY MOUTH EVERY 6 HOURS NEEDED FOR PAIN *Reorder from [facility] for eRx and Interaction Alerts* Active [...] Alice SWAN RDOB: [birth year] (79 yo F)Acc No.[id number]:05/03/2024 Patient: Alice KRAUS :1945 A ge:78 Y S ex:Female Address:[address] [place] [address] Subjective: * Chief Complaints: * E MR-Ricky [...] WEEK , Notes to Pharmacist: *Reorder from [facility] for eRx and Interaction Alerts*DOCUSATE [id number] CAP TAKE 1 CAPSULE BY MOUTH TWICE DAILY , Notes to Pharmacist: *Reorder from [facility] for eRx and Interaction Alerts*BRIMONIDINE OP 0.2% QUETA INSTILL 1 DROP INTO EACH EYE TWICE DAILY , Notes to Pharmacist: *Reorder from [facility] for eRx and Interaction Alerts*PANTOPRAZOLE 40MG TAB TAKE 1 TABLET BY MOUTH ONCE DAILY , Notes to Pharmacist: *Reorder from [facility] for eRx and Interaction Alerts*DOXYCYCLINE HYCLATE 50MG CAP TAKE 2 CAPSULES BY MOUTH TWICE DAILY , Notes to Pharmacist: *Reorder from [facility] for eRx and Interaction Alerts*OXYBUTYNIN 5MG TAB TAKE 1/2 (ONE-HALF) TABLET BY MOUTH TWICE DAILY , Notes to Pharmacist: *Reorder from [facility] for eRx and Interaction Alerts*HYDROCOD/ACETAM 5-325MG TAB TAKE 1/2 TO 1 (ONE-HALF TO ONE) TABLET BY MOUTH EVERY 6 HOURS NEEDED FOR PAIN , Notes to Pharmacist: *Reorder from [facility] for eRx and Interaction Alerts*FERROUS [id number] TAB TAKE 1 TABLET BY MOUTH TWICE DAILY , Notes to Pharmacist: *Reorder from [facility] for eRx and Interaction Alerts*MONTELUKAST 10MG TAB TAKE 1 TABLET BY MOUTH ONCE DAILY , Notes to Pharmacist: *Reorder from [facility] for eRx and Interaction Alerts*GABAPENTIN 300MG CAP TAKE 1 CAPSULE BY MOUTH THREE TIMES DAILY , Notes to Pharmacist: *Reorder from [facility] for eRx and Interaction Alerts*BUPROPION XL 300MG TAB TAKE 1 TABLET BY MOUTH ONCE DAILY , Notes to Pharmacist: *Reorder from [facility] for eRx and Interaction Alerts*LEVOTHYROXIN 175MCG TAB TAKE 1 TABLET BY MOUTH ONCE DAILY , Notes to Pharmacist: *Reorder from [facility] for eRx and Interaction Alerts*PRAVASTATIN 40MG TAB TAKE 1 TABLET BY MOUTH AT BEDTIME ONCE DAILY , Notes to Pharmacist: *Reorder from [facility] for eRx and Interaction Alerts*DICLOFENAC [address] DR TAB TAKE 1 TABLET BY MOUTH TWICE DAILY NEEDED , Notes to Pharmacist: *Reorder from [facility] for eRx and Interaction Alerts*Taking BYDUREON BCISE INJ INJECT 1 SUBCUTANEOUSLY ONCE A WEEK , Notes to Pharmacist: *Reorder from [facility] for eRx and Interaction Alerts*Taking DOCUSATE [id number] CAP TAKE 1 CAPSULE BY MOUTH TWICE DAILY , Notes to Pharmacist: *Reorder from [facility] for eRx and Interaction Alerts*Taking BRIMONIDINE OP 0.2% QUETA INSTILL 1 DROP INTO EACH EYE TWICE DAILY , Notes to Pharmacist: *Reorder from [facility] for eRx and Interaction Alerts*Taking PANTOPRAZOLE 40MG TAB TAKE 1 TABLET BY MOUTH ONCE DAILY , Notes to Pharmacist: *Reorder from [facility] for eRx and Interaction Alerts*Taking DOXYCYCLINE HYCLATE 50MG CAP TAKE 2 CAPSULES BY MOUTH TWICE DAILY , Notes to Pharmacist: *Reorder from [facility] for eRx and Interaction Alerts*Taking OXYBUTYNIN 5MG TAB TAKE 1/2 (ONE-HALF) TABLET BY MOUTH TWICE DAILY , Notes to Pharmacist: *Reorder from [facility] for eRx and Interaction Alerts*Taking HYDROCOD/ACETAM 5-325MG TAB TAKE 1/2 TO 1 (ONE-HALF TO ONE) TABLET BY MOUTH EVERY 6 HOURS NEEDED FOR PAIN , Notes to Pharmacist: *Reorder from [facility] for eRx and Interaction Alerts*Taking FERROUS [id number] TAB TAKE 1 TABLET BY MOUTH TWICE DAILY , Notes to Pharmacist: *Reorder from [facility] for eRx and Interaction Alerts*Taking MONTELUKAST 10MG TAB TAKE 1 TABLET BY MOUTH ONCE DAILY , Notes to Pharmacist: *Reorder from [facility] for eRx and Interaction Alerts*Taking GABAPENTIN 300MG CAP TAKE 1 CAPSULE BY MOUTH THREE TIMES DAILY , Notes to Pharmacist: *Reorder from [facility] for eRx and Interaction Alerts*Taking BUPROPION XL 300MG TAB TAKE 1 TABLET BY MOUTH ONCE DAILY , Notes to Pharmacist: *Reorder from [facility] for eRx and Interaction Alerts*Taking LEVOTHYROXIN 175MCG TAB TAKE 1 TABLET BY MOUTH ONCE DAILY , Notes to Pharmacist: *Reorder from [facility] for eRx and Interaction Alerts*Taking PRAVASTATIN 40MG TAB TAKE 1 TABLET BY MOUTH AT BEDTIME ONCE DAILY , Notes to Pharmacist: *Reorder from [facility] for eRx and Interaction Alerts*Taking DICLOFENAC [address]MG DR TAB TAKE 1 TABLET BY MOUTH TWICE DAILY NEEDED , Notes to Pharmacist: *Reorder from [facility] for eRx and Interaction Alerts* * Allergies: L atex: Rash - AllergyMorphine: Allergypapas: Allergy * * Date:
--- OUTSIDE RECORDS SUMMARY | 2024-05-27 09:40 | XMS_ITS ---
Author Organization [facility] Address [address] [place] [address] Care Team Providers Care Heel Seam Rubber Name Role Phone Clay CORONADO, Drew Primary Care Provider Unavaila Abilio Alexander Unavailable [phone] Layne Lopez APRN Unavailable Unavailable Allergies Allergen [...] Status Risk Notes Problem Chronic pain syndrome (246791317) Chronic pain syndrome (G89.4) 12/04/19 24 Active confirmed Problem Neurostimulator device in situ (finding) (679381767) Presence of neurostimulator (Z96.82) 12/04/19 24 Active confirmed Problem Abnormal gait (51590989) Abnormality of gait and mobility (R26.9) Active confirmed Problem Lumbosacral spondylosis with radiculopathy (010657207) Lumbosacral spondylosis with radiculopathy (M47.27) Active confirmed Problem Lumbar post-laminectomy syndrome (286580135) Lumbar post-laminectomy syndrome (M96.1) Active confirmed Encounters Encounter Location Date Provider Diagnosis [facility] [place] [address] [place] [address] 05/27/2024 Abilio Chavez Chronic pain syndrom e [...] Alice SWAN RDOB: [birth year] (79 yo F)Acc No.[id number]:05/27/2024 Progress Notes Patient: Alice Killian Provider: Kelli Chavez D.O. :1945 A ge:78 Y S ex:Female Date:05/27/2024 Address:[address] [place], [place] [id number] Pcp:Drew Williamson MD Subjective: * Chief Complaints: [...] Electronic signature of Abilio Chavez DO on 01/19/2025 at 11:56 PM CDT Sign off status: Pending * Provider: Kelli Chavez D.O. Date: 07/27/2023 Generated for Kasi womack/Mattie/Harlanitting on: 0 01/19/2025 11:56 PM CDT
[2025-01-19 23:46] VITALS: BP 164/89; PULSE 65; RESP 16; TEMP 36.4; O2SAT 96; BMI 31.1
--- OUTSIDE RECORDS SUMMARY | 2025-01-19 23:56 | XMS_ITS | Patient Health Record ---
Author Organization [facility] Address [address] [place] [address] Care Team Providers Care Stain Wiper Name Role Phone Drew Williamson MD Primary Care Provider Unavaila Abilio Alexander Unavailable [phone] Layne Lopez APRN Unavailable Unavailable Migration, Provider Unavailable Unavailable Anais Mtz Unavailable [phone] Allergies Allergen (clinical drug ingredient) Drug/Non Drug Allergy documented on EMR Reaction Allergy Type Onset Date Status marcelino (uncoded) Unknown Allergy Acti ve Latex Latex Rash Allergy Active morphine Morphine Unknown Drug Allergy Active Reason For Referral No Information Medications Medication SIG (Take, Route, Frequency, Duration) Notes Start Date End Date Status DOCUSATE [id number] CAP TAKE 1 CAPSULE BY MOUTH TWICE DAILY *Reorder from [facility] for eRx and Interaction Alerts* Active PRAVASTATIN 40MG TAB TAKE 1 TABLET BY MOUTH AT BEDTIME ONCE DAILY *Reorder from [facility] for eRx and Interaction Alerts* Active FERROUS [id number] TAB TAKE 1 TABLET BY MOUTH TWICE DAILY *Reorder from [facility] for eRx and Interaction Alerts* Active DOXYCYCLINE HYCLATE 50MG CAP TAKE 2 CAPSULES BY MOUTH TWICE DAILY *Reorder from [facility] for eRx and Interaction Alerts* Active HYDROCOD/ACETAM 5-325MG TAB TAKE 1/2 TO 1 (ONE-HALF TO ONE) TABLET BY MOUTH EVERY 6 HOURS NEEDED FOR PAIN *Reorder from [facility] for eRx and Interaction Alerts* Active GABAPENTIN 300MG CAP TAKE 1 CAPSULE BY MOUTH THREE TIMES DAILY *Reorder from [facility] for eRx and Interaction Alerts* Active MONTELUKAST 10MG TAB TAKE 1 TABLET BY MOUTH ONCE DAILY *Reorder from [facility] for eRx and Interaction Alerts* Active LEVOTHYROXIN 175MCG TAB TAKE 1 TABLET BY MOUTH ONCE DAILY *Reorder from [facility] for eRx and Interaction Alerts* Active BUPROPION XL 300MG TAB TAKE 1 TABLET BY MOUTH ONCE DAILY *Reorder from [facility] for eRx and Interaction Alerts* Active OXYBUTYNIN 5MG TAB TAKE 1/2 (ONE-HALF) TABLET BY MOUTH TWICE DAILY *Reorder from [facility] for eRx and Interaction Alerts* Active BRIMONIDINE OP 0.2% QUETA INSTILL 1 DROP INTO EACH EYE TWICE DAILY *Reorder from [facility] for eRx and Interaction Alerts* Active [place] 10-325 MG Tablet 1 tablet as needed Orally every 6 hrs; Duration: 14 days 07/04/2020 [address] TAB TAKE 1 TABLET BY MOUTH TWICE DAILY NEEDED *Reorder from [facility] for eRx and Interaction Alerts* Active BYDUREON BCISE INJ INJECT 1 SUBCUTANEOUSLY ONCE A WEEK *Reorder from [facility] for eRx and Interaction Alerts* Active PANTOPRAZOLE 40MG TAB TAKE 1 TABLET BY MOUTH ONCE DAILY *Reorder from [facility] for eRx and Interaction Alerts* Active Social History Tobacco Use: Social History [...] <BLANK>, Working currently? - No Section Notes: Problems Problem Type SNOMED Code ICD Code Onset Dates Problem Status W/U Status Risk Notes Problem Chronic pain syndrome (638539580) Chronic pain syndrome (G89.4) Active confirmed Problem Lumbosacral spondylosis without myelopathy (81084398) Other spondylosis with radiculopathy, lumbosacral region (M47.27) Active confirmed Problem Degeneration of lumbar intervertebral disc (63357444) Other intervertebral disc degeneration, lumbar region (M51.36) Active confirmed Problem Post-laminectomy syndrome (10641347) Postlaminectomy syndrome, not elsewhere classified (M96.1) Active confirmed Problem Abnormal gait (24651154) Unspecified abnormalities of gait and mobility (R26.9) Active confirmed Problem Neurostimulator device in situ (finding) (181197213) Presence of neurostimulator (Z96.82) Active confirmed Problem Lumbosacral spondylosis with radiculopathy (249359010) Lumbosacral spondylosis with radiculopathy (M47.27) Active confirmed Problem Chronic pain (72918895) Chronic pain (G89.29) Active confirmed Problem Acquired spondylolisthesis (931822945) Spondylolisthesis of lumbar region (M43.16) Active confirmed Problem Lumbar post-laminectomy syndrome (630522137) Lumbar post-laminectomy syndrome (M96.1) Active confirmed Problem Abnormal gait (16499753) Abnormality of gait and mobility (R26.9) Active confirmed Vital Signs Height-cm 161.29 cm 06/24/2024 Height 63.50 in 06/24/2024 Encounters Encounter Location Date Provider Diagnosis [facility] [place] [address] [place] [address] 03/19/2024 Anais Mtz [facility] [place] [address] [place] [address] 06/24/2024 Abilio Chavez Chronic pain syndrom e G89.4 ; Degeneration of intervertebral disc of lumbar region with discogenic back pain M51.360 ; Other spondylosis with radiculopathy, lumbosacral region M47.27 ; Postlaminectomy syndrome, not elsewhere classified M96.1 ; Pain in right shoulder M25.511 ; Unspecified abnormalities of gait and mobility R26.9 ; Presence of neurostimulator Z96.82 and Admission for long-term opiate analgesic use Z79.891 Migrated_Facility 0 0 05/02/2024 Provider Migration [facility]rated[facility]Facility 0 0 05/03/2024 Provider Migration Assessments Encounter Date Diagnosis (ICD Code) Assessment Notes Treatment Notes Treatment Clinical Notes Section Notes 06/24/2024 Chronic pain syndrome (ICD-10 - G89.4) I had a nice visit with the patient today regarding her chronic pain issues. She continues to struggle on a daily basis and says that the pain medication provides some relief for a little bit. She generally takes it once a day and her primary care provider maintains this. At this point, we will speak to the spinal cord stimulator reps and have them reach out to her and see if there are any programming options. We will see her back in a couple of months. 06/24/2024 Degeneration of intervertebral disc of lumbar region with discogenic back pain (ICD-10 - M51.360) 06/24/2024 Other spondylosis with radiculopathy, lumbosacral region (ICD-10 - M47.27) 06/24/2024 Postlaminectomy syndrome, not elsewhere classified (ICD-10 - M96.1) 06/24/2024 Pain in right shoulder (ICD-10 - M25.511) 06/24/2024 Unspecified abnormalities of gait and mobility (ICD-10 - R26.9) 06/24/2024 Presence of neurostimulator (ICD-10 - Z96.82) 06/24/2024 Admission for long-term opiate analgesic use (ICD-10 - Z79.891) 06/24/2024 Other I, Asaf Knight, am scribing for Abilio Chavez. I, Abilio Chavez, personally performed the services described in this documentation, as scribed by Asaf Knight, and it is both accurate and complete. Plan Of Treatment Pending Test Test Name Order Date Prothrombin Time 00571 04/18/2020 Prothrombin Time 67354 06/08/2020 ABORh 29418, 31324 06/08/2020 ABORh 64276, 10571 04/18/2020 Antibody Screen 62413 04/18/2020 Antibody Screen 81025 06/08/2020 Basic Metabolic Panel (BMP) 96001 2019 Basic Metabolic Panel (BMP) 59846 2019 Basic Metabolic Panel (BMP) 18926 2019 Basic Metabolic Panel (BMP) 39746 2019 Basic Metabolic Panel (BMP) 82285 2019 CBC w\ Auto Diff 83743 04/18/2020 CBC w\ Auto Diff 98902 06/08/2020 Lipid Panel Reflex DLDL 37198, 46044 Magnesium (B) 00498 04/20/2020 Partial Thromboplastin Time 47147 2019 Partial Thromboplastin Time 38412 2019 Phosphorus (B) 24307 04/20/2020 Troponin-I 86934 04/20/2020 Troponin-I 46166 04/20/2020 Troponin-I 29279 04/21/2020 CBC Reflex Man Diff 97808, 95420 020 CBC Reflex Man Diff 34127, 09784 020 UA Reflex Micro, Reflex Cult 52456, 8101 5, 90074 06/16/2020 Chest PA/Lat-39975 04/18/2020 Chest PA/Lat-22666 04/18/2020 Echo Complete EC-16715 04/20/2020 Lumbosacral Spine AP/Lat-27963 0 Lumbosacral Spine AP/Lat-59432 0 Lumbosacral Spine AP/Lat-43004 0 Lumbosacral Spine AP/Lat-15747 0 NM Lexiscan Cardiolite-25855 04/21/2020 Chest 1V 04/20/2020 UA Microscopic--31485 06/16/2020 Glucometer WBG--95375 06/14/2020 Glucometer WBG--22628 06/16/2020 Glucometer WBG--16240 06/16/2020 Glucometer WBG--33337 06/17/2020 Glucometer WBG--94984 06/17/2020 Glucometer WBG--82362 04/20/2020 Glucometer WBG--42774 04/20/2020 Glucometer WBG--82732 04/20/2020 Glucometer WBG--24955 04/21/2020 Glucometer WBG--53043 06/13/2020 Glucometer WBG--11680 04/21/2020 WBC Auto Diff--86655 06/13/2020 WBC Auto Diff--37759 06/16/2020 BB ABORH-65343,37254 04/18/2020 zzzFluoro >1h4 06/13/2020 COVID 19 PCR--40381 04/18/2020 COVID 19 PCR--27209 06/08/2020 Insurance Providers Payer Name Payer Address Payer Phone Subscriber Number Group Number Insured Name Patient Relationship to Insured Coverage Start Date Coverage End Date [employer] [place] [employer]placement [address] [place] [address] [id number] Alice Perry Self - patient is the insured [place] Medicaid [address] [place] [address] [id number] Alice Perry Self - patient is the insured [place] Medicare [address] [place] [address] [id number] Alice Perry Self - patient is the insured Medical (General) History Medical History History ICD Code measles, mumps, chicken pox small pox pneumonia arthritis urinary tract infections migraine headaches diabetes hernia back pain hemorrhoids hives or eczema infectious mono bronchitis anxiety cataracts depression GERD IBS rash sleep apnea goiter Surgical History Surgery Date(Month/Year) Achilles tendon repair Since 1967 Colon surgery Since 1972 Pituitary tumor resection Since 2011 Back surgery Since 2019 Hysterectomy Since 1987 partial hysterectomy
--- OUTSIDE RECORDS SUMMARY | 2025-01-19 23:56 | XMS_ITS | Encounter Summary ---
Author Organization [facility] Address [address] [place] [address] Care Team Providers Care College Or [employer] Registrar Name Role Phone Unavailable Primary Care Provider Unavailabl e Encounter Details Date Type Department Care Team (Latest Contact Info) Description 09/11/2006 Outpatient Historical [facility] [address] [place] [phone] Ramirez Ferrer MD NO ADDRESS ON FILE Benign Willard Pituitary (Primary Dx) Social History Tobacco Use Types Packs/Day Years Used Date Smoking Tobacco: Never Assessed Comments Unknown Sex and Gender Information Value Date Recorded Sex Assigned at Not on file 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
--- OUTSIDE RECORDS SUMMARY | 2025-01-19 23:57 | XMS_ITS | Encounter Summary ---
Author Organization [facility] Address [address] [place] [address] Care Team Providers Care General Manager Land Department Name Role Phone Unavailable Primary Care Provider Unavailabl e Encounter Details Date Type Department Care Team (Latest Contact Info) Description 09/24/2006 Outpatient Historical [facility] Endocrinology-[facility] [place] [address] [place] [phone] Ramirez Ferrer MD NO ADDRESS ON FILE Unspecified Hypothyroidism (Primary Dx); Benign Willard Pituitary Social History Tobacco Use Types Packs/Day Years Used Date Smoking Tobacco: Never Assessed Comments Unknown Sex and Gender Information Value Date Recorded Sex Assigned at Not on file 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
--- OUTSIDE RECORDS SUMMARY | 2025-01-19 23:57 | XMS_ITS | Clinical Summary ---
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
[2025-01-20] MEDS: ondansetron hcl ODT 4 mg Tab PO (00:14)
[2025-01-20 00:54] LABS: Glucose Urine UA Negative (Normal); Nitrate Urine Negative (Negative); Specific Gravity, Urine 1.015 (1.005-1.030)
[2025-01-20 01:30] VITALS: BP 150/96; PULSE 77; RESP 15; O2SAT 97
[2025-01-20 02:00] VITALS: BP 140/89; PULSE 71; RESP 12; O2SAT 96
--- NOTE | 2025-01-20 05:12 | W.ED.NAVMDI ---
HPI - Nausea/Vomiting/Diarrhea General: Chief complaint: Nausea/Vomiting/Diarrhea Stated complaint: N/V Time Seen by Provider: 01/19/25 23:50 History of Present Illness: 79 yo F with chronic severe back pain s/p two lumbar surgeries and spinal cord stimulator presents with acute onset nausea and vomiting that began approximately three hours prior to arrival. After showering she experienced violent emesis into the sink, followed by multiple additional episodes when attempting to look at food. She feels she has now emptied stomach contents and notes mild abdominal soreness attributed to repeated retching. Chronic back pain remains at baseline. Reports a small episode of diarrhea today and a long-standing pattern of alternating constipation and diarrhea. Denies fever, household sick contacts, or dysuria; does note increased urinary frequency. No abdominal surgeries other than prior appendectomy; gallbladder intact. Uses cane, walker, and wheelchair for mobility and requests assistance getting out of bed. Related Data Home Medications ?Medication ?Instructions ?Recorded ?Confirmed amlodipine 5 mg tablet 5 mg PO BID 07/28/19 05/28/24 aspirin 81 mg chewable tablet 81 mg PO QAM 07/28/19 05/28/24 diclofenac sodium 75 mg 75 mg PO BID PRN Pain 07/28/19 05/28/24 tablet,delayed release docusate sodium 100 mg capsule 100 mg PO BID 07/28/19 05/28/24 (Colace) ezetimibe 10 mg tablet (Zetia) 10 mg PO BEDTIME 07/28/19 05/28/24 lisinopril 20 mg tablet 20 mg PO QAM 07/28/19 05/28/24 oxybutynin chloride 5 mg tablet 2.5 mg PO BID 07/28/19 05/28/24 sertraline 100 mg tablet 100 mg PO QAM 07/28/19 05/28/24 trazodone 50 mg tablet 50 mg PO BEDTIME 07/28/19 05/28/24 bupropion HCl 300 mg 24 hr tablet, 300 mg PO QAM 07/29/19 05/28/24 extended release (Wellbutrin XL) ferrous sulfate 325 mg (65 mg 325 mg PO BID 07/29/19 05/28/24 iron) tablet metoprolol tartrate 25 mg tablet 25 mg PO BID 10/21/20 05/28/24 exenatide microspheres 2 mg/0.85 2 mg SUBCUT Q7D 02/28/22 05/28/24 mL subcutaneous auto-injector (Connor Paiz) gabapentin 300 mg capsule 300 mg PO TID 02/28/22 05/28/24 glyburide 5 mg tablet 5 mg PO QAM 02/28/22 05/28/24 hydrocodone 5 mg-acetaminophen 325 0.5 - 1 tab PO Q6H PRN Pain 02/28/22 05/28/24 mg tablet levothyroxine 175 mcg tablet 175 mcg PO BEDTIME 02/28/22 05/28/24 montelukast 10 mg tablet 10 mg PO QAM 02/28/22 05/28/24 pravastatin 40 mg tablet 40 mg PO BEDTIME 02/28/22 05/28/24 sitagliptin phosphate 100 mg 100 mg PO QAM 02/28/22 05/28/24 tablet (Januvia) cetirizine 10 mg tablet (Zyrtec) 10 mg PO DAILY 01/25/23 05/28/24 doxycycline hyclate 50 mg capsule 100 mg PO BID 01/25/23 05/28/24 pantoprazole 40 mg tablet,delayed 40 mg PO QAM 01/25/23 05/28/24 release vit C 250 mg-vit E 90 mg-zinc 40 1 tab PO BID 01/25/23 05/28/24 mg-copper 1 gx-[id number]-ewrqbm capsule (PreserVision AREDS-2) azithromycin 250 mg tablet tab PO 04/23/23 05/28/24 colchicine 0.6 mg tablet ea PO 04/23/23 05/28/24 hydrochlorothiazide 12.5 mg tablet ea PO 04/23/23 05/28/24 metformin 1,000 mg tablet tab PO 04/23/23 05/28/24 mupirocin 2 % topical ointment g topical 04/23/23 05/28/24 omega-3 acid ethyl esters 1 gram cap PO 04/23/23 05/28/24 capsule Previous Rx's ?Medication ?Instructions ?Recorded blood sugar diagnostic (Contour #50 ea 05/01/22 Next Test Strips) blood-glucose meter (Contour Next #1 ea 05/01/22 One Meter) galantamine 24 mg 24 hr 24 mg PO QAM #90 caps 05/28/24 capsule,extended release cefdinir 300 mg capsule 300 mg PO BID 5 days #10 caps 01/20/25 ondansetron 4 mg disintegrating 4 mg PO Q8H PRN nausea and 01/20/25 tablet vomiting 5 days #30 tabs Allergies Allergy/AdvReac Type Severity Reaction Status Date / Time morphine Allergy Mild hallucinati Verified 01/19/25 23:59 ons latex AdvReac Mild RASH Verified 01/19/25 23:59 PFSH ED PFSH: Medical History (Updated 01/20/25 @ 01:50 by Jesus Arteaga MD) Osteoarthritis of knees, bilateral Diabetes Spondylolisthesis, lumbar region Pituitary adenoma Evaluation/management Dr. Jose Manuel Montes Lumbar stenosis with neurogenic claudication Lumbar post-laminectomy syndrome Intervertebral disc disorder with radiculopathy of lumbosacral region Surgical History History of carpal tunnel surgery Bilateral History of hysterectomy History of appendectomy repaired colon History of hemorrhoidectomy History of lumbar fusion 11/2012, Dr. Jose Manuel Montes, [facility], L4-L5 PLIFF. Family History Mother Colon cancer, Onset Age: 58 Heart disease Father Diabetes Brother Diabetes Social History Smoking and tobacco/nicotine status: former use of tobacco/nicotine Second hand smoke exposure: Yes Alcohol intake: never Substance/Drug Use: never Caregiver/support person: Yes Lives independently: Yes Household members: none Housing: House Marital status: service: No Current occupational status: disabled Pets and animals: Yes Do you think of yourself as: Straight/Heterosexual Current gender identity: Female Physical Exam Const: COMMON NORMALS: no acute distress, patient oriented x3 and alert HENMT: COMMON NORMALS: normocephalic and atraumatic HEAD & SCALP: normocephalic and atraumatic Eye: COMMON NORMALS: Equal, round and reactive pupils present, EOMs intact bilaterally and no scleral icterus PUPIL: Yes Equal, round and reactive pupils present Resp: COMMON NORMALS: normal respiratory effort and No retractions Cardio: COMMON NORMALS: regular rate, regular rhythm and No murmurs present (Cardio) RATE: regular rate RHYTHM: regular rhythm GI: OTHER: Soft nonperitoneal abdomen. Mild suprapubic tenderness. Normal bowel sounds. Back/Pelvis: OTHER: Chronic moderate midline back pain with no radiculopathy and no change from prior Neuro: COMMON NORMALS: patient oriented x3 SENSORIUM/ORIENTATION: Yes alert Skin: COMMON NORMALS: no rashes or lesions noted GENERAL SKIN EXAM: no rashes or lesions noted Course Vital Signs: Vital signs: Vital Signs Temperature 97.6 F 01/19/25 23:46 Pulse Rate 71 01/20/25 02:00 Respiratory Rate 12 01/20/25 02:00 Blood Pressure 140/89 01/20/25 02:00 Pulse Oximetry 96 01/20/25 02:00 Oxygen Delivery Me thod Room Air 01/19/25 23:46 MDM - Nausea/Vomiting/Diarrhea Medical Decision Making In summary, patient is a generally well-appearing 79-year-old female seen for nausea, vomiting, and urinary frequency. Urinalysis shows evidence of infection. With Zofran she is now able to eat and drink without difficulty. She was given a dose of IV ceftriaxone and will be discharged home with cephalosporins oral antibiotics. She shows good understanding and agrees to the plan. Lab Data Laboratory Results POC Glucose 176 mg/dL (70-110) H 01/19/25 23:58 Urine Color Yellow (Yellow) 01/20/25 00:34 Urine Appearance Cloudy (CLEAR) A 01/20/25 00:34 Urine pH 8.0 (5-7) A 01/20/25 00:34 Ur Specific Nunda 1.015 (1.005-1.030) 01/20/25 00:34 Urine Protein Trace (Negative) A 01/20/25 00:34 Urine Glucose (UA) Negative (Normal) 01/20/25 00:34 Urine Ketones Negative (Negative) 01/20/25 00:34 Urine Blood Negative (Negative) 01/20/25 00:34 Urine Nitrate Negative (Negative) 01/20/25 00:34 Urine Bilirubin Negative (Negative) 01/20/25 00:34 Urine Urobilinogen 1.0 mg/dL (Negative) 01/20/25 00:34 Ur Leukocyte Esterase 2+ (Negative) A 01/20/25 00:34 Urine RBC 0-2 /hpf (0-2) 01/20/25 00:34 Urine WBC 11-20 /hpf (0-5) H 01/20/25 00:34 Ur Squamous Epith Cells 0-5 /hpf (0-5) 01/20/25 00:34 Amorphous Sediment Not Reportable 01/20/25 00:34 Urine Bacteria 4+ /hpf (NONE) H 01/20/25 00:34 Hyaline Casts 0-4 /lpf H 01/20/25 00:34 No radiology studies performed this visit Discharge Plan Discharge Patient Disposition: Home Clinical Impression: Acute UTI, Nausea & vomiting Condition: Stable Prescriptions: New ondansetron 4 mg tablet,disintegrating 4 mg PO Q8H PRN (Reason: nausea and vomiting) 5 Days Qty: 30 0RF cefdinir 300 mg capsule 300 mg PO BID 5 Days Qty: 10 0RF No Action ferrous sulfate 325 mg (65 mg iron) tablet 325 mg PO BID bupropion HCl [Wellbutrin XL] 300 mg tablet extended release 24 hr 300 mg PO QAM oxybutynin chloride 5 mg tablet 2.5 mg PO BID diclofenac sodium 75 mg tablet,delayed release (DR/EC) 75 mg PO BID PRN (Reason: Pain) trazodone 50 mg tablet 50 mg PO BEDTIME lisinopril 20 mg tablet 20 mg PO QAM amlodipine 5 mg tablet 5 mg PO BID docusate sodium [Colace] 100 mg capsule 100 mg PO BID ezetimibe [Zetia] 10 mg tablet 10 mg PO BEDTIME sertraline 100 mg tablet 100 mg PO QAM aspirin 81 mg tablet,chewable 81 mg PO QAM metoprolol tartrate 25 mg tablet 25 mg PO BID (DME) blood-glucose meter [Contour Next One Meter] Misc See Rx Instructions .Route Qty: 1 0RF Rx Instructions: As directed (DME) Contour Next Test Strips Strip See Rx Instructions .Route Qty: 50 10RF Rx Instructions: As directed omega-3 acid ethyl esters 1 gram capsule PO azithromycin 250 mg tablet PO hydrochlorothiazide 12.5 mg tablet PO metformin 1,000 mg tablet PO colchicine 0.6 mg tablet PO mupirocin 2 % ointment topical galantamine 24 mg capsule,ext rel. pellets 24 hr 24 mg PO QAM Qty: 90 3RF levothyroxine 175 mcg Tablet 175 mcg PO BEDTIME glyburide 5 mg Tablet 5 mg PO QAM pravastatin 40 mg tablet 40 mg PO BEDTIME gabapentin 300 mg Capsule 300 mg PO TID montelukast 10 mg tablet 10 mg PO QAM Januvia 100 mg tablet 100 mg PO QAM Bydureon BCise 2 mg/0.85 mL Auto-Injector 2 mg SUBCUT Q7D Rx Instructions: on saturday hydrocodone-acetaminophen 5-325 mg tablet 0.5 - 1 tab PO Q6H PRN (Reason: Pain) doxycycline hyclate 50 mg capsule 100 mg PO BID PreserVision AREDS-2 250-90-40-1 mg Capsule 1 tab PO BID pantoprazole 40 mg tablet,delayed release (DR/EC) 40 mg PO QAM Zyrtec 10 mg Tablet 10 mg PO DAILY Discharge Orders: Discharge ED (Routine); Ordered 01/20/25 Ordered By: Jesus Arteaga Referrals: Drew Williamson MD [Primary Care Provider, Family Practice] Discharge Diet: Advance as tolerated Discharge Activity: Increase activity as tolerated Patient Instructions: Urinary Tract Infection in Women (ED), Patient Portal & Thor Instructions Activity Restrictions/Additional Instructions: Please take the Zofran every 8 hours as needed for nausea and vomiting and take the antibiotics as prescribed for UTI. Print Language: Macedonian Coding Level of Care Code ED Deployment Manager for Patricia Steel
[2025-01-20 06:03] VITALS: BP 113/78; PULSE 66; O2SAT 93
== END 2025-01-20 06:04 | disposition home or self-care (01) ==
PROVIDERS: Emergency Provider Student in an Organized Health Care Education/Training Program; PCP Family Medicine
DX: N39.0 Urinary tract infection, site not specified (principal); R11.2 Nausea with vomiting, unspecified; Z79.82 Long term (current) use of aspirin; Z79.84 Long term (current) use of oral hypoglycemic drugs; Z87.891 Personal history of nicotine dependence; E11.9 Type 2 diabetes mellitus without complications
CPT/HCPCS: 36416; 81001; 82962; 87077; 87086; 87186; 99283; J9999; Q0162

== ENCOUNTER 2025-01-22 19:25 | Inpatient (IN) | payer MEDICARE, MEDICAID, SELFPAY ==
--- OUTSIDE RECORDS SUMMARY | 2024-05-03 04:00 | XMS_ITS ---
Author Organization [facility] Address [address] [place] [address] Care Team Providers Care Zinc Etcher Name Role Phone Clay CORONADO, Drew Primary Care Provider Abilio Camara Unavailable [phone] Layne Lopez APRN Unavailable Unavailable Migration, Provider Unavailable Unavailable Allergies Allergen (clinical drug ingredient) Drug/Non Drug Allergy documented on EMR Reaction Allergy Type Onset Date Status marcelino (uncoded) Unknown Allergy Acti ve Latex Latex Rash Allergy Active morphine Morphine Unknown Drug Allergy Active REASON FOR VISIT EMR-[facility] Medications Medication SIG (Take, Route, Frequency, Duration) Notes Start Date End Date Status BUPROPION XL 300MG TAB TAKE 1 TABLET BY MOUTH ONCE DAILY *Reorder from [facility] for eRx and Interaction Alerts* Active OXYBUTYNIN 5MG TAB TAKE 1/2 (ONE-HALF) TABLET BY MOUTH TWICE DAILY *Reorder from [facility] for eRx and Interaction Alerts* Active DICLOFENAC 75MG DR TAB TAKE 1 TABLET BY MOUTH TWICE DAILY NEEDED *Reorder from [facility] for eRx and Interaction Alerts* Active MONTELUKAST 10MG TAB TAKE 1 TABLET BY MOUTH ONCE DAILY *Reorder from [facility] for eRx and Interaction Alerts* Active LEVOTHYROXIN 175MCG TAB TAKE 1 TABLET BY MOUTH ONCE DAILY *Reorder from [facility] for eRx and Interaction Alerts* Active PRAVASTATIN 40MG TAB TAKE 1 TABLET BY MOUTH AT BEDTIME ONCE DAILY *Reorder from [facility] for eRx and Interaction Alerts* Active DOCUSATE [id number] CAP TAKE 1 CAPSULE BY MOUTH TWICE DAILY *Reorder from [facility] for eRx and Interaction Alerts* Active GABAPENTIN 300MG CAP TAKE 1 CAPSULE BY MOUTH THREE TIMES DAILY *Reorder from [facility] for eRx and Interaction Alerts* Active FERROUS [id number] TAB TAKE 1 TABLET BY MOUTH TWICE DAILY *Reorder from [facility] for eRx and Interaction Alerts* Active DOXYCYCLINE HYCLATE 50MG CAP TAKE 2 CAPSULES BY MOUTH TWICE DAILY *Reorder from [facility] for eRx and Interaction Alerts* Active BYDUREON BCISE INJ INJECT 1 SUBCUTANEOUSLY ONCE A WEEK *Reorder from [facility] for eRx and Interaction Alerts* Active BRIMONIDINE OP 0.2% QUETA INSTILL 1 DROP INTO EACH EYE TWICE DAILY *Reorder from [facility] for eRx and Interaction Alerts* Active PANTOPRAZOLE 40MG TAB TAKE 1 TABLET BY MOUTH ONCE DAILY *Reorder from [facility] for eRx and Interaction Alerts* Active HYDROCOD/ACETAM 5-325MG TAB TAKE 1/2 TO 1 (ONE-HALF TO ONE) TABLET BY MOUTH EVERY 6 HOURS NEEDED FOR PAIN *Reorder from [facility] for eRx and Interaction Alerts* Active Social [...] Alice SWAN RDOB: [birth year] (79 yo F)Acc No.[id number]:05/03/2024 Patient: Alice KRAUS :1945 A ge:78 Y S ex:Female Address:[address] [place] [address] Subjective: * Chief Complaints: * E MR-Ricky [...] WEEK , Notes to Pharmacist: *Reorder from [facility] for eRx and Interaction Alerts*DOCUSATE [id number] CAP TAKE 1 CAPSULE BY MOUTH TWICE DAILY , Notes to Pharmacist: *Reorder from [facility] for eRx and Interaction Alerts*BRIMONIDINE OP 0.2% QUETA INSTILL 1 DROP INTO EACH EYE TWICE DAILY , Notes to Pharmacist: *Reorder from [facility] for eRx and Interaction Alerts*PANTOPRAZOLE 40MG TAB TAKE 1 TABLET BY MOUTH ONCE DAILY , Notes to Pharmacist: *Reorder from [facility] for eRx and Interaction Alerts*DOXYCYCLINE HYCLATE 50MG CAP TAKE 2 CAPSULES BY MOUTH TWICE DAILY , Notes to Pharmacist: *Reorder from [facility] for eRx and Interaction Alerts*OXYBUTYNIN 5MG TAB TAKE 1/2 (ONE-HALF) TABLET BY MOUTH TWICE DAILY , Notes to Pharmacist: *Reorder from [facility] for eRx and Interaction Alerts*HYDROCOD/ACETAM 5-325MG TAB TAKE 1/2 TO 1 (ONE-HALF TO ONE) TABLET BY MOUTH EVERY 6 HOURS NEEDED FOR PAIN , Notes to Pharmacist: *Reorder from [facility] for eRx and Interaction Alerts*FERROUS [id number] TAB TAKE 1 TABLET BY MOUTH TWICE DAILY , Notes to Pharmacist: *Reorder from [facility] for eRx and Interaction Alerts*MONTELUKAST 10MG TAB TAKE 1 TABLET BY MOUTH ONCE DAILY , Notes to Pharmacist: *Reorder from [facility] for eRx and Interaction Alerts*GABAPENTIN 300MG CAP TAKE 1 CAPSULE BY MOUTH THREE TIMES DAILY , Notes to Pharmacist: *Reorder from [facility] for eRx and Interaction Alerts*BUPROPION XL 300MG TAB TAKE 1 TABLET BY MOUTH ONCE DAILY , Notes to Pharmacist: *Reorder from [facility] for eRx and Interaction Alerts*LEVOTHYROXIN 175MCG TAB TAKE 1 TABLET BY MOUTH ONCE DAILY , Notes to Pharmacist: *Reorder from [facility] for eRx and Interaction Alerts*PRAVASTATIN 40MG TAB TAKE 1 TABLET BY MOUTH AT BEDTIME ONCE DAILY , Notes to Pharmacist: *Reorder from [facility] for eRx and Interaction Alerts*DICLOFENAC [address] DR TAB TAKE 1 TABLET BY MOUTH TWICE DAILY NEEDED , Notes to Pharmacist: *Reorder from [facility] for eRx and Interaction Alerts*Taking BYDUREON BCISE INJ INJECT 1 SUBCUTANEOUSLY ONCE A WEEK , Notes to Pharmacist: *Reorder from [facility] for eRx and Interaction Alerts*Taking DOCUSATE [id number] CAP TAKE 1 CAPSULE BY MOUTH TWICE DAILY , Notes to Pharmacist: *Reorder from [facility] for eRx and Interaction Alerts*Taking BRIMONIDINE OP 0.2% QUETA INSTILL 1 DROP INTO EACH EYE TWICE DAILY , Notes to Pharmacist: *Reorder from [facility] for eRx and Interaction Alerts*Taking PANTOPRAZOLE 40MG TAB TAKE 1 TABLET BY MOUTH ONCE DAILY , Notes to Pharmacist: *Reorder from [facility] for eRx and Interaction Alerts*Taking DOXYCYCLINE HYCLATE 50MG CAP TAKE 2 CAPSULES BY MOUTH TWICE DAILY , Notes to Pharmacist: *Reorder from [facility] for eRx and Interaction Alerts*Taking OXYBUTYNIN 5MG TAB TAKE 1/2 (ONE-HALF) TABLET BY MOUTH TWICE DAILY , Notes to Pharmacist: *Reorder from [facility] for eRx and Interaction Alerts*Taking HYDROCOD/ACETAM 5-325MG TAB TAKE 1/2 TO 1 (ONE-HALF TO ONE) TABLET BY MOUTH EVERY 6 HOURS NEEDED FOR PAIN , Notes to Pharmacist: *Reorder from [facility] for eRx and Interaction Alerts*Taking FERROUS [id number] TAB TAKE 1 TABLET BY MOUTH TWICE DAILY , Notes to Pharmacist: *Reorder from [facility] for eRx and Interaction Alerts*Taking MONTELUKAST 10MG TAB TAKE 1 TABLET BY MOUTH ONCE DAILY , Notes to Pharmacist: *Reorder from [facility] for eRx and Interaction Alerts*Taking GABAPENTIN 300MG CAP TAKE 1 CAPSULE BY MOUTH THREE TIMES DAILY , Notes to Pharmacist: *Reorder from [facility] for eRx and Interaction Alerts*Taking BUPROPION XL 300MG TAB TAKE 1 TABLET BY MOUTH ONCE DAILY , Notes to Pharmacist: *Reorder from [facility] for eRx and Interaction Alerts*Taking LEVOTHYROXIN 175MCG TAB TAKE 1 TABLET BY MOUTH ONCE DAILY , Notes to Pharmacist: *Reorder from [facility] for eRx and Interaction Alerts*Taking PRAVASTATIN 40MG TAB TAKE 1 TABLET BY MOUTH AT BEDTIME ONCE DAILY , Notes to Pharmacist: *Reorder from [facility] for eRx and Interaction Alerts*Taking DICLOFENAC [address]MG DR TAB TAKE 1 TABLET BY MOUTH TWICE DAILY NEEDED , Notes to Pharmacist: *Reorder from [facility] for eRx and Interaction Alerts* * Allergies: L atex: Rash - AllergyMorphine: Allergypapas: Allergy * * Date:
--- OUTSIDE RECORDS SUMMARY | 2024-05-27 09:40 | XMS_ITS ---
Author Organization [facility] Address [address] [place] [address] Care Team Providers Care Job Coaching Name Role Phone Clay CORONADO, Drew Primary Care Provider Unavaila Abilio Alexander Unavailable [phone] Layne Lopez APRN Unavailable Unavailable Allergies Allergen [...] Status Risk Notes Problem Chronic pain syndrome (525867666) Chronic pain syndrome (G89.4) 12/04/19 24 Active confirmed Problem Neurostimulator device in situ (finding) (470036615) Presence of neurostimulator (Z96.82) 12/04/19 24 Active confirmed Problem Abnormal gait (02472369) Abnormality of gait and mobility (R26.9) Active confirmed Problem Lumbosacral spondylosis with radiculopathy (331993308) Lumbosacral spondylosis with radiculopathy (M47.27) Active confirmed Problem Lumbar post-laminectomy syndrome (926813612) Lumbar post-laminectomy syndrome (M96.1) Active confirmed Encounters Encounter Location Date Provider Diagnosis [facility] [place] [address] [place] [address] 05/27/2024 Abilio Chavez Chronic pain syndrom e [...] Alice SWAN RDOB: [birth year] (79 yo F)Acc No.[id number]:05/27/2024 Progress Notes Patient: Alice Killian Provider: Kelli Chavez D.O. :1945 A ge:78 Y S ex:Female Date:05/27/2024 Address:[address] [place], [place] [id number] Pcp:rDew Williamson MD Subjective: * Chief Complaints: * [...] Electronic signature of Abilio Chavez DO on 01/22/2025 at 07:38 PM CDT Sign off status: Pending * Provider: Kelli Chavez D.O. Date: 07/27/2023 Generated for Kasi womack/Mattie/Harlanitting on: 0 01/22/2025 07:38 PM CDT
[2025-01-22 19:27] VITALS: BP 168/88; PULSE 64; RESP 16; TEMP 36.4; O2SAT 97; BMI 31.6
--- OUTSIDE RECORDS SUMMARY | 2025-01-22 19:38 | XMS_ITS | Encounter Summary ---
Author Organization [facility] Address [address] [place] [address] Care Team Providers Care Hoop Riveter Name Role Phone Unavailable Primary Care Provider Unavailabl e Encounter Details Date Type Department Care Team (Latest Contact Info) Description 09/11/2006 Outpatient Historical [facility] [address] [place] [phone] Ramirez Ferrer MD NO ADDRESS ON FILE Benign Willard Pituitary (Primary Dx) Social History Tobacco Use Types Packs/Day Years Used Date Smoking Tobacco: Never Assessed Comments Unknown Sex and Gender Information Value Date Recorded Sex Assigned at Not on file 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
--- OUTSIDE RECORDS SUMMARY | 2025-01-22 19:38 | XMS_ITS | Patient Health Record ---
Author Organization [facility] Address [address] [place] [address] Care Team Providers Care Cleaner Greaser Name Role Phone Drew Williamson MD Primary Care Provider Unavaila Abilio Alexander Unavailable [phone] Layne Lopez APRN Unavailable Unavailable Migration, Provider Unavailable Unavailable Anais Mtz Unavailable [phone] Allergies Allergen (clinical drug ingredient) Drug/Non Drug Allergy documented on EMR Reaction Allergy Type Onset Date Status marcelino (uncoded) Unknown Allergy Acti ve Latex Latex Rash Allergy Active morphine Morphine Unknown Drug Allergy Active Reason For Referral No Information Medications Medication SIG (Take, Route, Frequency, Duration) Notes Start Date End Date Status DOCUSATE [id number] CAP TAKE 1 CAPSULE BY MOUTH TWICE DAILY *Reorder from [facility] for eRx and Interaction Alerts* Active PRAVASTATIN 40MG TAB TAKE 1 TABLET BY MOUTH AT BEDTIME ONCE DAILY *Reorder from [facility] for eRx and Interaction Alerts* Active FERROUS [id number] TAB TAKE 1 TABLET BY MOUTH TWICE DAILY *Reorder from [facility] for eRx and Interaction Alerts* Active DOXYCYCLINE HYCLATE 50MG CAP TAKE 2 CAPSULES BY MOUTH TWICE DAILY *Reorder from [facility] for eRx and Interaction Alerts* Active HYDROCOD/ACETAM 5-325MG TAB TAKE 1/2 TO 1 (ONE-HALF TO ONE) TABLET BY MOUTH EVERY 6 HOURS NEEDED FOR PAIN *Reorder from [facility] for eRx and Interaction Alerts* Active GABAPENTIN 300MG CAP TAKE 1 CAPSULE BY MOUTH THREE TIMES DAILY *Reorder from [facility] for eRx and Interaction Alerts* Active MONTELUKAST 10MG TAB TAKE 1 TABLET BY MOUTH ONCE DAILY *Reorder from [facility] for eRx and Interaction Alerts* Active LEVOTHYROXIN 175MCG TAB TAKE 1 TABLET BY MOUTH ONCE DAILY *Reorder from [facility] for eRx and Interaction Alerts* Active BUPROPION XL 300MG TAB TAKE 1 TABLET BY MOUTH ONCE DAILY *Reorder from [facility] for eRx and Interaction Alerts* Active OXYBUTYNIN 5MG TAB TAKE 1/2 (ONE-HALF) TABLET BY MOUTH TWICE DAILY *Reorder from [facility] for eRx and Interaction Alerts* Active BRIMONIDINE OP 0.2% QUETA INSTILL 1 DROP INTO EACH EYE TWICE DAILY *Reorder from [facility] for eRx and Interaction Alerts* Active Alder 10-325 MG Tablet 1 tablet as needed Orally every 6 hrs; Duration: 14 days 07/04/[address] TAB TAKE 1 TABLET BY MOUTH TWICE DAILY NEEDED *Reorder from [facility] for eRx and Interaction Alerts* Active BYDUREON BCISE INJ INJECT 1 SUBCUTANEOUSLY ONCE A WEEK *Reorder from [facility] for eRx and Interaction Alerts* Active PANTOPRAZOLE 40MG TAB TAKE 1 TABLET BY MOUTH ONCE DAILY *Reorder from [facility] for eRx and Interaction Alerts* Active [...] Status Risk Notes Problem Chronic pain syndrome (998367738) Chronic pain syndrome (G89.4) Active confirmed Problem Lumbosacral spondylosis without myelopathy (63075850) Other spondylosis with radiculopathy, lumbosacral region (M47.27) Active confirmed Problem Degeneration of lumbar intervertebral disc (85269651) Other intervertebral disc degeneration, lumbar region (M51.36) Active confirmed Problem Post-laminectomy syndrome (70049230) Postlaminectomy syndrome, not elsewhere classified (M96.1) Active confirmed Problem Abnormal gait (25154988) Unspecified abnormalities of gait and mobility (R26.9) Active confirmed Problem Neurostimulator device in situ (finding) (614205438) Presence of neurostimulator (Z96.82) Active confirmed Problem Lumbosacral spondylosis with radiculopathy (501545839) Lumbosacral spondylosis with radiculopathy (M47.27) Active confirmed Problem Chronic pain (44250229) Chronic pain (G89.29) Active confirmed Problem Acquired spondylolisthesis (601389985) Spondylolisthesis of lumbar region (M43.16) Active confirmed Problem Lumbar post-laminectomy syndrome (821226929) Lumbar post-laminectomy syndrome (M96.1) Active confirmed Problem Abnormal gait (46874821) Abnormality of gait and mobility (R26.9) Active confirmed Vital Signs Height-cm 161.29 cm 06/24/2024 Height 63.50 in 06/24/2024 Encounters Encounter Location Date Provider Diagnosis [facility] [place] [address] [place] [address] 03/19/2024 Anais Mtz [facility] [place] [address] [place] [address] 06/24/2024 Abilio Chavez Chronic pain syndrom e [...] Test Test Name Order Date Prothrombin Time 33004 04/18/2020 Prothrombin Time 23157 06/08/2020 ABORh 39317, 01157 06/08/2020 ABORh 54237, 59267 04/18/2020 Antibody Screen 19783 04/18/2020 Antibody Screen 66311 06/08/2020 Basic Metabolic Panel (BMP) 21239 2019 Basic Metabolic Panel (BMP) 09888 2019 Basic Metabolic Panel (BMP) 18338 2019 Basic Metabolic Panel (BMP) 02690 2019 Basic Metabolic Panel (BMP) 80897 2019 CBC w\ Auto Diff 41381 04/18/2020 CBC w\ Auto Diff 35384 06/08/2020 Lipid Panel Reflex DLDL 77566, 13930 Magnesium (B) 26012 04/20/2020 Partial Thromboplastin Time 68911 2019 Partial Thromboplastin Time 35105 2019 Phosphorus (B) 53273 04/20/2020 Troponin-I 25638 04/20/2020 Troponin-I 33763 04/20/2020 Troponin-I 24204 04/21/2020 CBC Reflex Man Diff 68855, 77445 020 CBC Reflex Man Diff 70189, 25347 020 UA Reflex Micro, Reflex Cult 83024, 8101 5, 68683 06/16/2020 Chest PA/Lat-79457 04/18/2020 Chest PA/Lat-28635 04/18/2020 Echo Complete EC-46824 04/20/2020 Lumbosacral Spine AP/Lat-58083 0 Lumbosacral Spine AP/Lat-89314 0 Lumbosacral Spine AP/Lat-87926 0 Lumbosacral Spine AP/Lat-30130 0 NM Lexiscan Cardiolite-83825 04/21/2020 Chest 1V 04/20/2020 UA Microscopic--41499 06/16/2020 Glucometer WBG--18609 06/14/2020 Glucometer WBG--09945 06/16/2020 Glucometer WBG--34770 06/16/2020 Glucometer WBG--77183 06/17/2020 Glucometer WBG--43475 06/17/2020 Glucometer WBG--85944 04/20/2020 Glucometer WBG--86487 04/20/2020 Glucometer WBG--25288 04/20/2020 Glucometer WBG--75235 04/21/2020 Glucometer WBG--71001 06/13/2020 Glucometer WBG--87069 04/21/2020 WBC Auto Diff--25958 06/13/2020 WBC Auto Diff--52686 06/16/2020 BB ABORH-45865,64604 04/18/2020 zzzFluoro >1h4 06/13/2020 COVID 19 PCR--33256 04/18/2020 COVID 19 PCR--20776 06/08/2020 Insurance Providers Payer Name Payer Address Payer Phone Subscriber Number Group Number Insured Name Patient Relationship to Insured Coverage Start Date Coverage End Date [employer] [place] [employer] [address] [place] [address] [id number] Alice Perry Self - patient is the insured [place] Medicaid [address] [place] [address] [id number] Alice Perry Self - patient is the insured [place] Medicare [address] [place] [address] [id number] Alice Perry Self - patient is the insured Medical (General) History Medical History History ICD Code measles, mumps, chicken pox small pox pneumonia arthritis urinary tract infections migraine headaches diabetes hernia back pain hemorrhoids hives or eczema infectious mono bronchitis anxiety cataracts depression GERD IBS rash sleep apnea goiter Surgical History Surgery Date(Month/Year) partial hysterectomy Achilles tendon repair Since 1967 Colon surgery Since 1972 Hysterectomy Since 1987 Pituitary tumor resection Since 2011 Back surgery Since 2019
--- OUTSIDE RECORDS SUMMARY | 2025-01-22 19:39 | XMS_ITS | Clinical Summary ---
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
--- OUTSIDE RECORDS SUMMARY | 2025-01-22 19:39 | XMS_ITS | Encounter Summary ---
Author Organization [facility] Address [address] [place] [address] Care Team Providers Care Hybrid Derivatives Trader Name Role Phone Unavailable Primary Care Provider Unavailabl e Encounter Details Date Type Department Care Team (Latest Contact Info) Description 09/24/2006 Outpatient Historical [facility] Endocrinology-[place] [facility] [place] D[place]on [address] [place] [phone] Ramirez Ferrer MD NO ADDRESS ON FILE Unspecified Hypothyroidism (Primary Dx); Benign Willard Pituitary Social History Tobacco Use Types Packs/Day Years Used Date Smoking Tobacco: Never Assessed Comments Unknown Sex and Gender Information Value Date Recorded Sex Assigned at Not on file 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
[2025-01-22 22:16] LABS: Hematocrit 45.5 % (36-47); Hemoglobin 15.30 g/dL (11.27-16.99); Mean Corpuscular HGB Conc 33.6 g/dL (30-55); Mean Corpuscular Hemoglobin 32.4 pg (27-33); Mean Corpuscular Volume 96.4 fl (85-98); Nucleated Red Blood Cells % 0 %; Platelet Count 328 10^3/cmm (157-399); Red Blood Count 4.72 10^6/uL (3.85-5.65); White Blood Count 11.39 10^3/uL (3.29-11.43)
[2025-01-22 22:37] LABS: Alanine Aminotransferase 58 U/L (0-33); Albumin Level 4.2 g/dL (3.5-5.2); Alkaline Phosphatase 115 U/L (35-105); Anion Gap 17.2 (5-19); Aspartate Amino Transferase 49 U/L (0-32); Blood Urea Nitrogen 13 mg/dL (8-23); Calcium 9.7 mg/dL (8.5-10.5); Carbon Dioxide 27 mmol/L (22-29); Chloride 92 mmol/L (98-107); Creatinine Clr Calc Pharmacy 54.4074; Globulin 3.7 g/dL (1.3-4.6); Glucose 183 mg/dL (65-115); Osmolality Calculated 279 mOsm/kg (285-295); Potassium 4.2 mmol/L (3.5-5.1); Sodium 132 mmol/L (136-145); Total Protein 7.9 g/dL (6.6-8.7)
[2025-01-22 23:09] VITALS: BP 179/95; PULSE 63; RESP 17; O2SAT 95
[2025-01-22 23:34] LABS: Add Urine Microscopic? YES; Glucose Urine UA Negative (Normal); Nitrate Urine Negative (Negative); Specific Gravity, Urine 1.018 (1.005-1.030)
--- NOTE | 2025-01-22 23:36 | CTR_ITS ---
PROCEDURE INFORMATION: Exam: CT Abdomen And Pelvis With Contrast Exam date and time: 01/23/2025 12:30 AM Age: 79 years old Clinical indication: Abnormal findings; Abnormal lab test; Elevated liver enzymes; Nausea and vomiting; Prior surgery; Surgery date: 6+ months; Surgery type: Appy. Hysterectomy. Stimulator. Lumbar fusion. N/v with elevated lfts; Additional info: N/v intractable, concern for sbo TECHNIQUE: Imaging protocol: Computed tomography of the abdomen and pelvis with contrast. Radiation optimization: All CT scans at this facility use at least one of these dose optimization techniques: automated exposure control; mA and/or kV adjustment per patient size (includes targeted exams where dose is matched to clinical indication); or iterative reconstruction. Contrast material: OMNI 350; Contrast volume: 100 ml; Contrast route: INTRAVENOUS (IV); Other contrast: Oral, OMNI 350, 25ML CONTRAST TO 475ML WATER; COMPARISON: CT kidney stone 31391 01/29/2019 1:17 PM RADIATION DOSE METRICS: Total DLP (mGy-cm): 750.41 FINDINGS: Tubes, catheters and devices: There is a spinal stimulator device identified. Lungs: Bibasilar atelectasis and/or scarring. Liver: Normal. No mass. Gallbladder and biliary ducts: Normal. No calcified stones. No ductal dilation. Pancreas: Normal. No ductal dilation. Spleen: The spleen is surgically absent. Adrenal glands: Indeterminate left adrenal gland nodule demonstrates interval increase in size measuring upwards of up to 32 mm where it previously measured up to 27 mm. Kidneys and ureters: Bilateral renal cysts are present. No hydronephrosis. Stomach and bowel: Colonic diverticulosis without evidence of adjacent fat stranding. No bowel obstruction involving the small bowel loops. Mild amount retained stool in the colon from constipation. There is diffuse gastric wall thickening which may be related to underdistention. Appendix: No secondary signs of acute appendicitis. Intraperitoneal space: Unremarkable. No free air. No significant fluid collection. Vasculature: Unremarkable. No abdominal aortic aneurysm. Lymph nodes: Unremarkable. No enlarged lymph nodes. Urinary bladder: Unremarkable as visualized. Reproductive: Unremarkable as visualized. Bones/joints: There are posterior fusion changes involving the L3 and L4 vertebral bodies. Bilateral transpedicular screws are in place. Note that there previously used to be L4-L5 posterior fusion. Involving the transpedicular screws at L3 there is increased perihardware lucency as well as endplate irregularity and sclerosis at L2-L3. Soft tissues: There is mild diastasis of the rectus sheath. There are small fat containing ventral abdominal wall hernias containing fat. CT/CT abdomen pelvis w con* [id number] IMPRESSION: 1. Normal CT attenuation of the liver. 2. No definite acute intra-abdominal or intrapelvic process. 3. There is posterior fusion changes involving L3-L4 where there previously used to be posterior fusion involving L4-L5. There is increased perihardware lucency involving the transpedicular screws at L3 as well as endplate irregularity and sclerosis involving L2-L3. Correlate with hardware loosening as well as possible changes related to discitis at L2-L3. 4. Indeterminate lesion in the left adrenal gland which has demonstrated interval increase in size. Follow up with MRI of the abdomen with and without contrast utilizing adrenal mass protocol is recommended. 5. Mild diffuse gastric wall thickening. Likely underdistention. Correlate for gastritis. COMMENTS: Consistent with the [employer] [place]'s Incidental Findings Committee white paper (J Am Amaury Radiol 2018): Any incidental renal lesion less than 1 cm or classified as too small to characterize, or any incidental cystic renal lesion characterized as simple-appearing, is likely benign. No follow-up imaging is recommended for these lesions per consensus recommendations based on imaging criteria.
[2025-01-22 23:39] VITALS: BP 181/103; PULSE 72; RESP 17; O2SAT 95
[2025-01-23] VITALS (11 sets, daily range): BP systolic 144–192; BP diastolic 76–116; PULSE 67–82; RESP 15–20; TEMP 36.4–37.1; O2SAT 90–98; BMI 28.8
[2025-01-23] MEDS: ondansetron 2 mg/ML SDV 2 mL 4 MG IVP (00:01)
[2025-01-23] MEDS: iohexol 350 mg/mL 500 mL Btl (per mL) IV ×2 (00:32→09:38)
[2025-01-23] MEDS: iohexol 350 mg/mL 500 mL Btl (per mL) PO (00:33)
--- NOTE | 2025-01-23 04:30 | W.ED.NAVMDI ---
HPI - Nausea/Vomiting/Diarrhea General: Chief complaint: Nausea/Vomiting/Diarrhea Stated complaint: High BS fever dizzy can't pee N/V Time Seen by Provider: 01/22/25 23:25 History of Present Illness: 79-year-old female with diabetes mellitus and chronic back pain was discharged two days ago after inpatient treatment for urinary tract infection (UTI), reportedly on Bactrim. Since discharge she has had persistent nausea, worsening vomiting, and dizziness. She is unable to keep down food or liquids; last substantial intake >48 h except for a small amount of peanut butter yesterday, which she also vomited. Caregiver reports attempts to give Ensure for protein, also vomited. Patient describes profound internal shakiness and feels blood sugars ?keep going up? despite minimal intake. Denies abdominal pain but notes chronic back pain. No diarrhea currently; bowel habits typically alternate between constipation and diarrhea. Past history significant for prior bowel obstruction, raising concern for recurrent obstruction. No urinary symptoms reported beyond prior UTI. Emotional distress discussed regarding separation from daughter; tearful during encounter. Related Data Home Medications ?Medication ?Instructions ?Recorded ?Confirmed amlodipine 5 mg tablet 5 mg PO BID 07/28/19 05/28/24 aspirin 81 mg chewable tablet 81 mg PO QAM 07/28/19 05/28/24 diclofenac sodium 75 mg 75 mg PO BID PRN Pain 07/28/19 05/28/24 tablet,delayed release docusate sodium 100 mg capsule 100 mg PO BID 07/28/19 05/28/24 (Colace) ezetimibe 10 mg tablet (Zetia) 10 mg PO BEDTIME 07/28/19 05/28/24 lisinopril 20 mg tablet 20 mg PO QAM 07/28/19 05/28/24 oxybutynin chloride 5 mg tablet 2.5 mg PO BID 07/28/19 05/28/24 sertraline 100 mg tablet 100 mg PO QAM 07/28/19 05/28/24 trazodone 50 mg tablet 50 mg PO BEDTIME 07/28/19 05/28/24 bupropion HCl 300 mg 24 hr tablet, 300 mg PO QAM 07/29/19 05/28/24 extended release (Wellbutrin XL) ferrous sulfate 325 mg (65 mg 325 mg PO BID 07/29/19 05/28/24 iron) tablet metoprolol tartrate 25 mg tablet 25 mg PO BID 10/21/20 05/28/24 exenatide microspheres 2 mg/0.85 2 mg SUBCUT Q7D 02/28/22 05/28/24 mL subcutaneous auto-injector (Connor Paiz) gabapentin 300 mg capsule 300 mg PO TID 02/28/22 05/28/24 glyburide 5 mg tablet 5 mg PO QAM 02/28/22 05/28/24 hydrocodone 5 mg-acetaminophen 325 0.5 - 1 tab PO Q6H PRN Pain 02/28/22 05/28/24 mg tablet levothyroxine 175 mcg tablet 175 mcg PO BEDTIME 02/28/22 05/28/24 montelukast 10 mg tablet 10 mg PO QAM 02/28/22 05/28/24 pravastatin 40 mg tablet 40 mg PO BEDTIME 02/28/22 05/28/24 sitagliptin phosphate 100 mg 100 mg PO QAM 02/28/22 05/28/24 tablet (Januvia) cetirizine 10 mg tablet (Zyrtec) 10 mg PO DAILY 01/25/23 05/28/24 doxycycline hyclate 50 mg capsule 100 mg PO BID 01/25/23 05/28/24 pantoprazole 40 mg tablet,delayed 40 mg PO QAM 01/25/23 05/28/24 release vit C 250 mg-vit E 90 mg-zinc 40 1 tab PO BID 01/25/23 05/28/24 mg-copper 1 [id number] capsule (PreserVision AREDS-2) azithromycin 250 mg tablet tab PO 04/23/23 05/28/24 colchicine 0.6 mg tablet ea PO 04/23/23 05/28/24 hydrochlorothiazide 12.5 mg tablet ea PO 04/23/23 05/28/24 metformin 1,000 mg tablet tab PO 04/23/23 05/28/24 mupirocin 2 % topical ointment g topical 04/23/23 05/28/24 omega-3 acid ethyl esters 1 gram cap PO 04/23/23 05/28/24 capsule Previous Rx's ?Medication ?Instructions ?Recorded blood sugar diagnostic (Contour #50 ea 05/01/22 Next Test Strips) blood-glucose meter (Contour Next #1 ea 10/25/22 One Meter) galantamine 24 mg 24 hr 24 mg PO QAM #90 caps 05/28/24 capsule,extended release cefdinir 300 mg capsule 300 mg PO BID 5 days #10 caps 01/20/25 ondansetron 4 mg disintegrating 4 mg PO Q8H PRN nausea and 01/20/25 tablet vomiting 5 days #30 tabs Allergies Allergy/AdvReac Type Severity Reaction Status Date / Time morphine Allergy Mild hallucinati Verified 01/22/25 19:36 ons latex AdvReac Mild RASH Verified 01/22/25 19:36 PFSH ED PFSH: Medical History (Updated 01/23/25 @ 04:32 by Jesus Arteaga MD) Osteoarthritis of knees, bilateral Diabetes Spondylolisthesis, lumbar region Pituitary adenoma Evaluation/management Dr. Jose Manuel Montes Lumbar stenosis with neurogenic claudication Lumbar post-laminectomy syndrome Intervertebral disc disorder with radiculopathy of lumbosacral region Surgical History History of carpal tunnel surgery Bilateral History of hysterectomy History of appendectomy repaired colon History of hemorrhoidectomy History of lumbar fusion 11/2012, Dr. Jose Manuel Montes, [facility], L4-L5 PLIFF. Family History Mother Colon cancer, Onset Age: 58 Heart disease Father Diabetes Brother Diabetes Social History Smoking and tobacco/nicotine status: former use of tobacco/nicotine Second hand smoke exposure: Yes Alcohol intake: never Substance/Drug Use: never Caregiver/support person: Yes Lives independently: Yes Household members: none Housing: House Marital status: service: No Current occupational status: disabled Pets and animals: Yes Do you think of yourself as: Straight/Heterosexual Current gender identity: Female Physical Exam Const: COMMON NORMALS: no acute distress, patient oriented x3 and alert HENMT: COMMON NORMALS: normocephalic and atraumatic HEAD & SCALP: normocephalic and atraumatic Eye: COMMON NORMALS: Equal, round and reactive pupils present, EOMs intact bilaterally and no scleral icterus PUPIL: Yes Equal, round and reactive pupils present Resp: COMMON NORMALS: normal respiratory effort and No retractions Cardio: COMMON NORMALS: regular rate, regular rhythm and No murmurs present (Cardio) RATE: regular rate RHYTHM: regular rhythm GI: COMMON NORMALS: Normal to inspection, nondistended, normoactive bowel sounds present, Soft to palpation and non-tender PALPATION: Yes Soft to palpation Neuro: COMMON NORMALS: patient oriented x3 SENSORIUM/ORIENTATION: Yes alert Skin: COMMON NORMALS: no rashes or lesions noted GENERAL SKIN EXAM: no rashes or lesions noted Course Vital Signs: Vital signs: Vital Signs Temperature 97.6 F 01/22/25 19:27 Pulse Rate 75 01/23/25 04:00 Respiratory Rate 19 H 01/23/25 04:00 Blood Pressure 163/102 01/23/25 04:00 Pulse Oximetry 92 01/23/25 04:00 Oxygen Delivery Me thod Room Air 01/23/25 04:00 MDM - Nausea/Vomiting/Diarrhea Medical Decision Making Patient states she has ongoing nausea and vomiting despite multiple interventions. CT scan of the abdomen and pelvis shows nothing acute. Labs are similarly noncontributory. She does not show evidence of UTI or other infection. There is no evidence of small bowel obstruction or other intra-abdominal process leading to her nausea and vomiting. She was seen just yesterday in the emergency department and discharged with ODT Zofran which has not helped. As such, she will be admitted to the hospital service for IV fluids and further monitoring until she is able to take food and water by mouth and continue diagnostics. Lab Data 01/22/25 21:54 01/22/25 21:54 Radiology Impressions Abdomen/Pelvis CT 01/22/25 23:36 IMPRESSION: 1. Normal CT attenuation of the liver. 2. No definite acute intra-abdominal or intrapelvic process. 3. There is posterior fusion changes involving L3-L4 where there previously used to be posterior fusion involving L4-L5. There is increased perihardware lucency involving the transpedicular screws at L3 as well as endplate irregularity and sclerosis involving L2-L3. Correlate with hardware loosening as well as possible changes related to discitis at L2-L3. 4. Indeterminate lesion in the left adrenal gland which has demonstrated interval increase in size. Follow up with MRI of the abdomen with and without contrast utilizing adrenal mass protocol is recommended. 5. Mild diffuse gastric wall thickening. Likely underdistention. Correlate for gastritis. COMMENTS: Consistent with the [employer]'s Incidental Findings Committee white paper (J Am Amaury Radiol 2018): Any incidental renal lesion less than 1 cm or classified as too small to characterize, or any incidental cystic renal lesion characterized as simple-appearing, is likely benign. No follow-up imaging is recommended for these lesions per consensus recommendations based on imaging criteria. Laboratory Results WBC 11.39 10^3/uL (3.29-11.43) 01/22/25 21:54 RBC 4.72 10^6/uL (3.85-5.65) 01/22/25 21:54 Hgb 15.30 g/dL (11.27-16.99) 01/22/25 21:54 Hct 45.5 % (36-47) 01/22/25 21:54 MCV 96.4 fl (85-98) 01/22/25 21:54 MCH 32.4 pg (27-33) 01/22/25 21:54 MCHC 33.6 g/dL (30-55) 01/22/25 21:54 RDW 13.5 % (12.1-15.1) 01/22/25 21:54 Plt Count 328 10^3/cmm (157-399) 01/22/25 21:54 MPV 9.5 fL (7.4-10.4) 01/22/25 21:54 Neut % (Auto) 58.4 % 01/22/25 21:54 Lymph % (Auto) 31.8 % 01/22/25 21:54 Bennett % (Auto) 8.3 % 01/22/25 21:54 Eos % (Auto) 0.6 % 01/22/25 21:54 Baso % (Auto) 0.5 % 01/22/25 21:54 Neut # (Auto) 6.66 10^3/uL (1.8-7.7) 01/22/25 21:54 Lymph # (Auto) 3.6 10^3/uL (0.8-4.8) 01/22/25 21:54 Bennett # (Auto) 0.9 10^3/uL (0.2-0.9) 01/22/25 21:54 Eos # (Auto) 0.1 10^3/uL (0.0-0.8) 01/22/25 21:54 Baso # (Auto) 0.1 10^3/uL (0.0-0.1) 01/22/25 21:54 Nucleated RBC % (auto) 0 % 01/22/25 21:54 Nucleated RBCs # 0.0 /100WBC 01/22/25 21:54 Sodium 132 mmol/L (136-145) L 01/22/25 21:54 Potassium 4.2 mmol/L (3.5-5.1) 01/22/25 21:54 Chloride 92 mmol/L (98-107) L 01/22/25 21:54 Carbon Dioxide 27 mmol/L (22-29) 01/22/25 21:54 Anion Gap 17.2 (5-19) 01/22/25 21:54 BUN 13 mg/dL (8-23) 01/22/25 21:54 Creatinine 0.7 mg/dL (0.5-0.9) 01/22/25 21:54 GFR Calculation Not Reportable 01/22/25 21:54 Glucose 183 mg/dL (65-115) H 01/22/25 21:54 POC Glucose 185 mg/dL (70-110) H 01/22/25 19:35 Calculated Osmolality 279 mOsm/kg (285-295) L 01/22/25 21:54 Calcium 9.7 mg/dL (8.5-10.5) 01/22/25 21:54 Total Bilirubin 0.5 mg/dL (0.15-1.2) 01/22/25 21:54 AST 49 U/L (0-32) H 01/22/25 21:54 ALT 58 U/L (0-33) H 01/22/25 21:54 Alkaline Phosphatase 115 U/L (35-105) H 01/22/25 21:54 Total Protein 7.9 g/dL (6.6-8.7) 01/22/25 21:54 Albumin 4.2 g/dL (3.5-5.2) 01/22/25 21:54 Globulin 3.7 g/dL (1.3-4.6) 01/22/25 21:54 Urine Color Yellow (Yellow) 01/22/25 22:56 Urine Appearance Cloudy (CLEAR) A 01/22/25 22:56 Urine pH 7.0 (5-7) 01/22/25 22:56 Ur Specific [place] 1.018 (1.005-1.030) 01/22/25 22:56 Urine Protein 1+ (Negative) A 01/22/25 22:56 Urine Glucose (UA) Negative (Normal) 01/22/25 22:56 Urine Ketones Trace (Negative) 01/22/25 22:56 Urine Blood Negative (Negative) 01/22/25 22:56 Urine Nitrate Negative (Negative) 01/22/25 22:56 Urine Bilirubin Negative (Negative) 01/22/25 22:56 Urine Urobilinogen 1.0 mg/dL (Negative) 01/22/25 22:56 Ur Leukocyte Esterase 1+ (Negative) A 01/22/25 22:56 Urine RBC 0-2 /hpf (0-2) 01/22/25 22:56 Urine WBC 0-5 /hpf (0-5) 01/22/25 22:56 Ur Squamous Epith Cells 0-5 /hpf (0-5) 01/22/25 22:56 Amorphous Sediment Not Reportable 01/22/25 22:56 Urine Bacteria None seen /hpf (NONE) 01/22/25 22:56 Hyaline Casts 1.21 /lpf 01/22/25 22:56 All radiology interpretation(s) finalized by discharge Discharge Plan Discharge Patient Disposition: Placed in Observation Clinical Impression: Intractable nausea and vomiting Discharge Diet: Advance as tolerated Discharge Activity: Increase activity as tolerated Coding Level of Care Code ED Supervisor [employer] for Patricia Steel
--- NOTE | 2025-01-23 05:57 | PM.HP ---
Providers/Chief Complaint Primary Care Provider: Drew Williamson MD Chief Complaint: High BS fever dizzy can't pee N/V History of Present Illness Alice Perry is a 79 year old patient with a history of diabetes mellitus, pituitary adenoma, lumbar spinal stenosis with prior fusion surgeries, and post-laminectomy syndrome, presenting to the ED with 48 hours of persistent nausea, vomiting, dizziness, and inability to tolerate food or liquids. Home blood sugars have been rising, and hyperglycemia (glucose 183 mg/dL) was noted in the ED. She recently completed trimethoprim-sulfamethoxazole (Bactrim) for a urinary tract infection. CT abdomen/pelvis showed mild diffuse gastric wall thickening suggestive of gastritis and incidentally noted loosening of lumbar hardware with not excluded discitis. An indeterminate left adrenal lesion was also noted. She reports chronic low-back pain, worse recently. Vital signs on arrival: BP 163/102 mmHg, HR 75 bpm, RR 19, T 97.6 ?F, SpO? 92% on room air. She recalls taking diclofenac as needed, a potential NSAID contributor to gastritis. No documented fevers at home or in ED. Denies known heart problems or pacemaker. She complains of intermittent swelling of ankles (currently improved) and a mild cough likely related to retching. Code-status discussion held: patient would allow resuscitation attempts but does not desire prolonged life support. Review of Systems Const: Denies: fever(s), chills, body aches or malaise ENMT: Denies: throat pain Card: Denies: chest pain, edema, pre-syncope or dyspnea on exertion Resp: Denies: dyspnea, productive cough, change in phlegm color or hemoptysis GI: Reports: nausea and vomiting; Denies: abdominal pain, diarrhea, constipation, hematochezia or melena : Denies: flank pain, urinary frequency or hematuria Musc: Denies: back pain, joint swelling or joint redness Skin/Breast: Denies: rash or new lesions Neuro: Denies: headache(s) or confusion Medications/Allergies Home Medications ?Medication ?Instructions ?Recorded ?Confirmed ?Last Taken ?Type amlodipine 5 mg tablet 5 mg PO BID 07/28/19 05/28/24 02/28/22 History aspirin 81 mg chewable tablet 81 mg PO QAM 07/28/19 05/28/24 02/28/22 History diclofenac sodium 75 mg 75 mg PO BID PRN Pain 07/28/19 05/28/24 02/28/22 History tablet,delayed release docusate sodium 100 mg capsule 100 mg PO BID 07/28/19 05/28/24 02/28/22 History (Colace) ezetimibe 10 mg tablet (Zetia) 10 mg PO BEDTIME 07/28/19 05/28/24 02/27/22 History lisinopril 20 mg tablet 20 mg PO QAM 07/28/19 05/28/24 02/28/22 History oxybutynin chloride 5 mg tablet 2.5 mg PO BID 07/28/19 05/28/24 02/28/22 History sertraline 100 mg tablet 100 mg PO QAM 07/28/19 05/28/24 02/28/22 History trazodone 50 mg tablet 50 mg PO BEDTIME 07/28/19 05/28/24 02/27/22 History bupropion HCl 300 mg 24 hr tablet, 300 mg PO QAM 07/29/19 05/28/24 02/28/22 History extended release (Wellbutrin XL) ferrous sulfate 325 mg (65 mg 325 mg PO BID 07/29/19 05/28/24 02/28/22 History iron) tablet metoprolol tartrate 25 mg tablet 25 mg PO BID 10/21/20 05/28/24 02/28/22 History exenatide microspheres 2 mg/0.85 2 mg SUBCUT Q7D 02/28/22 05/28/24 02/23/22 History mL subcutaneous auto-injector (Cononr Paiz) gabapentin 300 mg capsule 300 mg PO TID 02/28/22 05/28/24 02/28/22 History glyburide 5 mg tablet 5 mg PO QAM 02/28/22 05/28/24 02/28/22 History hydrocodone 5 mg-acetaminophen 325 0.5 - 1 tab PO Q6H PRN Pain 02/28/22 05/28/24 Unknown History mg tablet levothyroxine 175 mcg tablet 175 mcg PO BEDTIME 02/28/22 05/28/24 02/28/22 History montelukast 10 mg tablet 10 mg PO QAM 02/28/22 05/28/24 02/28/22 History pravastatin 40 mg tablet 40 mg PO BEDTIME 02/28/22 05/28/24 02/27/22 History sitagliptin phosphate 100 mg 100 mg PO QAM 02/28/22 05/28/24 02/28/22 History tablet (Januvia) blood sugar diagnostic (Contour #50 ea 05/01/22 05/28/24 Unknown Rx Next Test Strips) blood-glucose meter (Contour Next #1 ea 05/01/22 05/28/24 Unknown Rx One Meter) cetirizine 10 mg tablet (Zyrtec) 10 mg PO DAILY 01/25/23 05/28/24 Unknown History doxycycline hyclate 50 mg capsule 100 mg PO BID 01/25/23 05/28/24 Unknown History pantoprazole 40 mg tablet,delayed 40 mg PO QAM 01/25/23 05/28/24 Unknown History release vit C 250 mg-vit E 90 mg-zinc 40 1 tab PO BID 01/25/23 05/28/24 Unknown History mg-copper 1 [id number] capsule (PreserVision AREDS-2) azithromycin 250 mg tablet tab PO 04/23/23 05/28/24 Unknown History colchicine 0.6 mg tablet ea PO 04/23/23 05/28/24 Unknown History hydrochlorothiazide 12.5 mg tablet ea PO 04/23/23 05/28/24 Unknown History metformin 1,000 mg tablet tab PO 04/23/23 05/28/24 Unknown History mupirocin 2 % topical ointment g topical 04/23/23 05/28/24 Unknown History omega-3 acid ethyl esters 1 gram cap PO 04/23/23 05/28/24 Unknown History capsule galantamine 24 mg 24 hr 24 mg PO QAM #90 caps 05/28/24 05/28/24 Unknown Rx capsule,extended release cefdinir 300 mg capsule 300 mg PO BID 5 days #10 caps 01/20/25 Unknown Rx ondansetron 4 mg disintegrating 4 mg PO Q8H PRN nausea and 01/20/25 Unknown Rx tablet vomiting 5 days #30 tabs Allergies Allergy/AdvReac Type Severity Reaction Status Date / Time morphine Allergy Mild hallucinati Verified 01/22/25 19:36 ons latex AdvReac Mild RASH Verified 01/22/25 19:36 PFSH Acute PFSH: Medical History Osteoarthritis of knees, bilateral Diabetes Spondylolisthesis, lumbar region Pituitary adenoma Evaluation/management Dr. Jose Manuel Montes Lumbar stenosis with neurogenic claudication Lumbar post-laminectomy syndrome Intervertebral disc disorder with radiculopathy of lumbosacral region Surgical History History of carpal tunnel surgery Bilateral History of hysterectomy History of appendectomy repaired colon History of hemorrhoidectomy History of lumbar fusion 11/2012, Dr. Jose Manuel Montes, , L4-L5 PLIFF. Family History Mother Colon cancer, Onset Age: 58 Heart disease Father Diabetes Brother Diabetes Social History Smoking and tobacco/nicotine status: former use of tobacco/nicotine Second hand smoke exposure: Yes Alcohol intake: never Substance/Drug Use: never Caregiver/support person: Yes Lives independently: Yes Household members: none Housing: House Marital status: service: No Current occupational status: disabled Pets and animals: Yes Do you think of yourself as: Straight/Heterosexual Current gender identity: Female Vitals/I&O/Wt Last Vital Signs Temp 97.6 F 01/22/25 19:27 Pulse 76 01/23/25 05:00 Resp 17 01/23/25 05:00 BP 192/116 01/23/25 05:00 Pulse Ox 94 01/23/25 05:00 O2 Del Method Room Air 01/23/25 05:00 01/22/25 01/22/25 01/23/25 14:59 22:59 06:59 Intake Total 0 / 0 Balance 0 / 0 Weight last 48 hrs Weight 78.471 kg Physical Exam Const: COMMON NORMALS: patient oriented x3 and alert GENERAL APPEARANCE: cooperative ORIENTATION/CONSCIOUSNESS: Yes awake HENMT: COMMON NORMALS: oropharynx normal Neck/C-Spine: COMMON NORMALS: no JVD Resp: COMMON NORMALS: normal respiratory effort and clear to auscultation bilaterally AUSCULTATION: clear to auscultation bilaterally Cardio: COMMON NORMALS: no JVD, regular rhythm, S1 normal heart sound present, S2 normal heart sound present and No murmurs present (Cardio) RHYTHM: regular rhythm HEART SOUNDS: S1 normal heart sound present and S2 normal heart sound present GI: COMMON NORMALS: Normal to inspection, nondistended, normoactive bowel sounds present, Soft to palpation and non-tender PALPATION: Yes Soft to palpation and Yes Tenderness to palpation present (GI) (Epigastrium) Back/Pelvis: OTHER: Left lower flank: Spinal stimulator Extremity: COMMON NORMALS: no joint enlargement and no pedal edema Neuro: COMMON NORMALS: patient oriented x3 and moves all extremities SENSORIUM/ORIENTATION: Yes alert Skin: COMMON NORMALS: no rashes or lesions noted GENERAL SKIN EXAM: no rashes or lesions noted Data 01/22/25 21:54 01/22/25 21:54 A&P Assessment and plan 1. Intractable nausea and vomiting: Nausea and vomiting likely NSAID-induced gastritis : Persistent nausea and vomiting >48 h, CT showing gastric wall thickening; recent diclofenac use suspected as culprit. Reviewed vitals, CBC, CMP, UA, CT chest abdomen pelvis, ED provider note, discussed with ED provider. - Initiate IV acid-suppressive therapy (acid amada) - Administer IV antiemetics - IV fluids, monitor for risk of fluid overload - clear liquids/Jell-O then regular diet as tolerated Plan: Possible spinal hardware loosening, possible discitis : incidental findings on CT abdomen and pelvis. Lucency around transpedicular screws and irregularity at L2?L3; patient with chronic pain but afebrile and normal WBC. Infection not ruled out. - Order MRI of lumbar spine to further evaluate hardware and surrounding tissue - Obtain blood cultures - If MRI suggests infection, arrange interventional radiology biopsy and start targeted IV antibiotics, this will require transfer. DIscussed w ED provider - stating this is unlikely. Discussing with the patient including risk of infection, she would prefer to stay here at this time and pursue MRI imaging rather than arrange transfer at this time. MRI requested. She has a spinal stimulator, she is requesting her daughter to bring the card for the device. She remembers that it is a [employer]. - Consider transfer to facility with IR capability for biopsy if infection confirmed or if further intervention required and will need prolonged IV antibiotics. Diabetes mellitus with hyperglycemia : Known diabetes; home sugars rising; ED glucose 183 mg/dL; intake limited because of emesis. Chronic low-back pain/post-laminectomy syndrome : Long-standing pain; worsened recently; related to hardware issues under evaluation. Cough : Likely secondary to irritation from vomiting. - Provide cough medicine for symptomatic relief PDMP PDMP Reviewed: Not Reviewed Attestations Medical Necessity Statement*: Place in observation for additional assessment management of intractable nausea and vomiting, suspected NSAID induced gastritis, further investigation of possible spinal hardware loosening, possible discitis incidentally noted on CT. and High MDM includes amount and/or complexity of data reviewed/ordered [ previous or external records, resulted lab(s)/test(s), ordered lab(s)/test(s) and other healthcare professional discussion] and described risk of complication, morbidity or mortality of management as documented Diagnoses Intractable nausea and vomiting R11.2
[2025-01-23] MEDS: pantoprazole 40 mg SDV IVP ×2 (06:35→16:42)
[2025-01-23] MEDS: HYDROcodone-acetaminophen 5-325 mg Tablet 1 TAB PO ×2 (09:06→20:49)
--- NOTE | 2025-01-23 09:10 | CTR_ITS ---
PROCEDURE INFORMATION: Exam: CT Lumbar Spine Without and With Contrast Exam date and time: 01/23/2025 9:28 AM Age: 79 years old Clinical indication: Other: Discitis; Prior surgery; Surgery date: 6+ months; Surgery type: Back TECHNIQUE: Imaging protocol: Computed tomography of the lumbar spine without and with contrast. Radiation optimization: All CT scans at this facility use at least one of these dose optimization techniques: automated exposure control; mA and/or kV adjustment per patient size (includes targeted exams where dose is matched to clinical indication); or iterative reconstruction. Contrast material: OMNI 350; Contrast volume: 100 ml; Contrast route: INTRAVENOUS (IV); COMPARISON: MR lumbar spine wo/w con [id number] 02/05/2022 3:[address] scan from 08/10/2019 I do not have a more recent study for comparison. RADIATION DOSE METRICS: Total DLP (mGy-cm): 1891.79 FINDINGS: Tubes, catheters and devices: There is a transcutaneous nerve stimulator in the soft tissues of the left back. The probes extend medially and enter the spinal canal T11-12 level and extends superiorly. The tips are not included on this study. Bones/joints: There are 5 lumbar type vertebral bodies. There is mild scoliosis convex left. At the time of the CT scan from 09/2019, patient had undergone posterior fusion L4-L5. This was revised since that study. The screws at L5 were removed. The pin tracts or are visible. Screws were added at the L3 level and connected by vertical bars 2 screws at the L4 level. There is a metal spacer in the disc at L3-L4 and disc material with radiopaque markers at L4-L5. The screws at L3 have projected through the superior aspect of the vertebral body. There is bony destruction involving the superior aspect of L 3 in the inferior aspect of L2. Findings are consistent with discitis and osteomyelitis at L2-L3. Findings of discitis and osteomyelitis were not present at this level on the CT scan from 08/10/2019. I can not assess this level on the MRI from as there is significant artifact from the metal artifact obscuring this level. There is retrolisthesis L2 on L3 measured 9.1 mm. This was not present on the previous CT and in fact on the previous CT, there was mild anterolisthesis at this level there is widening the facet joints L2-L3 particularly on the right. There is encroachment on the thecal sac by the superior left articulating facet at L3. There is suspected moderate central canal stenosis at this level though not well evaluated due to artifact . There is moderate right and iqfi-wq-vmpiqbvm left foraminal stenosis at this level. At T10-11, the disc is degenerated. There is disc bulge and spondylosis without significant central canal stenosis. There is mild right and bsvi-jg-hngjikvo left foraminal stenosis. At T11-12, the disc is degenerated. There is disc bulge and spondylosis asymmetrically greater posteriorly on the left. There is no significant central canal stenosis. There is mild bilateral foraminal stenosis. At T12-L1, the disc is degenerated. There is disc bulge and spondylosis. There is no significant central canal stenosis. There is pndz-us-slzliezc right and mild left foraminal stenosis. At L1-L2, there is mild disc bulge and spondylosis without significant central canal stenosis. There is mild bilateral foraminal stenosis. At L3-L4, this level has undergone fusion surgery as described above. Patient has undergone decompression laminectomy There is no significant central canal stenosis there is no right foraminal stenosis. There is mild left foraminal stenosis. At L4-L5, patient has undergone previous fusion and decompression laminectomy . There is no significant central canal stenosis. There is no significant foraminal stenosis. At L5-S1, the disc is degenerated. There is no significant central canal stenosis. There is bilateral lateral recess stenosis. There is moderate to severe right and moderate left foraminal stenosis. There is a rudimentary disc at S1-S2 without significant central or foraminal stenosis. Lungs: There is atelectasis in both lung bases. Diaphragm: There is a small hiatal hernia. Adrenal glands: The adrenal glands are unremarkable. The adrenal glands are unremarkable. Kidneys and ureters: No abnormality detected in either kidney Soft tissues: Unremarkable. CT/CT lumbar spine wo/w con [id number] IMPRESSION: 1. Status post lumbar spine fusion revision with the hardware as described. Status post decompression laminectomies 3. Bony destruction centered at L2-L3 as described above. Findings are consistent with discitis and osteomyelitis. The screws at L3 projects through the superior aspect of the vertebral body which is undergone bony destruction. Retrolisthesis L2 on L3 4. Suspect at least moderate central canal stenosis at L2-L3 with the moderate right and jvwl-wh-amwqwmzn left foraminal stenosis at this level 5. No significant central canal stenosis at other levels. See above for more complete description of findings.
[2025-01-23] MEDS: cefTRIAXone 1,000 mg SDV 1000 MG IVP (09:47)
[2025-01-23 10:25] LABS: Ketone (Acetest) Serum Negative (Negative)
[2025-01-23 10:37] LABS: Alanine Aminotransferase 46 U/L (0-33); Albumin Level 3.5 g/dL (3.5-5.2); Alcohol Level < 10 mg/dL (0-10); Alkaline Phosphatase 81 U/L (35-105); Anion Gap 17.5 (5-19); Aspartate Amino Transferase 38 U/L (0-32); Blood Urea Nitrogen 8 mg/dL (8-23); Calcium 8.7 mg/dL (8.5-10.5); Carbon Dioxide 23 mmol/L (22-29); Chloride 95 mmol/L (98-107); Creatinine Clr Calc Pharmacy 51.8773; Globulin 3.1 g/dL (1.3-4.6); Glucose 136 mg/dL (65-115); Osmolality Calculated 274 mOsm/kg (285-295); Potassium 3.5 mmol/L (3.5-5.1); Sodium 132 mmol/L (136-145); Total Protein 6.6 g/dL (6.6-8.7)
[2025-01-23 11:34] LABS: Hematocrit 41.7 % (36-47); Hemoglobin 14.20 g/dL (11.27-16.99); Mean Corpuscular HGB Conc 34.1 g/dL (30-55); Mean Corpuscular Hemoglobin 32.7 pg (27-33); Mean Corpuscular Volume 96.1 fl (85-98); Nucleated Red Blood Cells % 0 %; Platelet Count 325 10^3/cmm (157-399); Red Blood Count 4.34 10^6/uL (3.85-5.65); White Blood Count 13.25 10^3/uL (3.29-11.43)
[2025-01-23] MEDS: VANCOMYCIN ADD-Vantage 750 MG in 0.9% NaCl ADD-Vantage 250 ML 250 MG IV ×2 (11:36→23:17)
[2025-01-23 11:52] LABS: Procalcitonin 0.06 ng/mL (0-0.5)
[2025-01-23] MEDS: polyethylene glycol 3350 Pkt 17 gm PO (12:50)
--- NOTE | 2025-01-23 14:14 | P.PN_ITS ---
Subjective 2 Subjective: Patient was seen this morning, currently alert oriented x 3, following all commands, she tells me that she originally had her back surgery by Dr. Montes, then by Dr. Rice, then she had a spinal stimulator placed, had a spinal stimulator placed by Dr. Schmitz, she says has not helped, reports acute on chronic intractable back pain, feeling fatigue, malaise, nausea, she has taken her Bactrim for her UTI, discussed her CT scan findings of possible discitis at L2-L3, with concerns for hardware loosening at L2-L3, the presence of her spinal stimulator also has me concerned, discussed plans on doing a CT of her lumbar spine as her spinal stimulator is not MRI compatible, order inflammatory markers, blood markers, will monitor as inpatient, once infectious disease and orthopedic spine service is available Saturday will discuss case, discussed getting IV antibiotics, pain control, IV hydration Vitals/I&O/Wt Last Vital Signs Temp 97.6 F 01/22/25 19:27 Pulse 74 01/23/25 11:31 Resp 20 H 01/23/25 06:00 BP 175/93 01/23/25 11:31 Pulse Ox 92 01/23/25 11:31 O2 Del Method Room Air 01/23/25 11:31 01/22/25 01/23/25 01/23/25 22:59 06:59 14:59 Intake Total 0 / 0 1610 / 1610 Balance 0 / 0 1610 / 1610 Weight last 48 hrs Weight 71.327 kg Weight 78.471 kg Physical Exam 2 Const: COMMON NORMALS: no acute distress and patient oriented x3 Resp: COMMON NORMALS: normal respiratory effort, No retractions, No use of accessory muscles and clear to auscultation bilaterally AUSCULTATION: clear to auscultation bilaterally Cardio: COMMON NORMALS: regular rate, regular rhythm, S1 normal heart sound present and S2 normal heart sound present RATE: regular rate RHYTHM: r egular rhythm HEART SOUNDS: S1 normal heart sound present and S2 normal heart sound present GI: COMMON NORMALS: Normal to inspection, nondistended, normoactive bowel sounds present and non-tender Extremity: COMMON NORMALS: no pedal edema Neuro: COMMON NORMALS: patient oriented x3 Psych: COMMON NORMALS: mental status grossly normal Data 01/23/25 11:00 01/23/25 09:58 Micro: Microbiology 01/23/25 09:04 Blood Culture - Preliminary Blood SPECIMEN COLLECTED 01/23/25 09:00 Blood Culture - Preliminary Blood SPECIMEN COLLECTED A&P Assessment and plan 1. Intractable nausea and vomiting: Nausea and vomiting likely NSAID-induced gastritis : Persistent nausea and vomiting >48 h, CT showing gastric wall thickening; recent diclofenac use suspected as culprit. Reviewed vitals, CBC, CMP, UA, CT chest abdomen pelvis, ED provider note, discussed with ED provider. - Initiate IV acid-suppressive therapy (acid amada) - Administer IV antiemetics - IV fluids, monitor for risk of fluid overload - clear liquids/Jell-O then regular diet as tolerated 2. S/P insertion of spinal cord stimulator: 3. Diabetes: 4. Lumbar post-laminectomy syndrome: 5. Intervertebral disc disorder with radiculopathy of lumbosacral region: 6. History of lumbar fusion: 7. Discitis: 8. Osteomyelitis: Plan: discitis, vertebral osteomyelitis CT/CT lumbar spine wo/w con [id number] IMPRESSION: 1. Status post lumbar spine fusion revision with the hardware as described. Status post decompression laminectomies 3. Bony destruction centered at L2-L3 as described above. Findings are consistent with discitis and osteomyelitis. The screws at L3 projects through the superior aspect of the vertebral body which is undergone bony destruction. Retrolisthesis L2 on L3 4. Suspect at least moderate central canal stenosis at L2-L3 with the moderate right and fymj-fi-bpggkvpm left foraminal stenosis at this level 5. No significant central canal stenosis at other levels. See above for more complete description of findings. -History of spinal cord stimulator in place Plan - Follow blood cultures - Follow inflammatory markers - Will discuss case with IR on Saturday for possible biopsy - Will consult infectious disease, orthopedic spine service on Saturday - For now continue vancomycin - For now continue Rocephin Intractable back pain, - Continue hydrocodone History of urinary tract infection - Bactrim has been stopped switch to IV Rocephin - Chronic low-back pain/post-laminectomy syndrome hardware loosening, and will discuss case with orthopedic spine service Hypertension resume home blood pressure medications Type 2 diabetes mellitus, low-dose sliding scale PDMP PDMP Reviewed: Not Reviewed Attestations 2 Medical Necessity Statement*: Patient requires hospitalization for discitis, vertebral osteomyelitis Diagnoses Intractable nausea and vomiting R11.2 S/P insertion of spinal cord stimulator Z96.89 Diabetes E11.9 Lumbar post-laminectomy syndrome M96.1 Intervertebral disc disorder with radiculopathy of lumbosacral region M51.17 History of lumbar fusion Z98.1 Discitis M46.40 Osteomyelitis M86.9
[2025-01-23 14:21] LABS: PCP Screen Urine Negative (Negative)
[2025-01-23] MEDS: ferrous sulfate EC 325 mg Tablet PO (16:43)
[2025-01-23] MEDS: Fleet Enema 133 mL Enema PR (17:44)
[2025-01-23] MEDS: ATORVASTATIN 10 MG TABLET PO (20:48)
[2025-01-23] MEDS: guaiFENesin-dextromethorphan UDC 10 mL PO (21:28)
[2025-01-24 01:52] VITALS: BP 150/89; PULSE 61; RESP 17; TEMP 37.2; O2SAT 91
[2025-01-24 04:58] VITALS: BP 155/80; PULSE 72; RESP 15; TEMP 36.7; O2SAT 94
[2025-01-24 05:04] LABS: Hematocrit 41.9 % (36-47); Hemoglobin 14.30 g/dL (11.27-16.99); Mean Corpuscular HGB Conc 34.1 g/dL (30-55); Mean Corpuscular Hemoglobin 33.1 pg (27-33); Mean Corpuscular Volume 97.0 fl (85-98); Nucleated Red Blood Cells % 0 %; Platelet Count 279 10^3/cmm (157-399); Red Blood Count 4.32 10^6/uL (3.85-5.65); White Blood Count 7.79 10^3/uL (3.29-11.43)
[2025-01-24 05:21] LABS: Alanine Aminotransferase 56 U/L (0-33); Albumin Level 3.4 g/dL (3.5-5.2); Alkaline Phosphatase 74 U/L (35-105); Anion Gap 13.6 (5-19); Aspartate Amino Transferase 47 U/L (0-32); Blood Urea Nitrogen 6 mg/dL (8-23); Calcium 8.6 mg/dL (8.5-10.5); Carbon Dioxide 24 mmol/L (22-29); Chloride 102 mmol/L (98-107); Creatinine Clr Calc Pharmacy 51.8373; Globulin 2.9 g/dL (1.3-4.6); Glucose 92 mg/dL (65-115); Osmolality Calculated 279 mOsm/kg (285-295); Potassium 3.6 mmol/L (3.5-5.1); Sodium 136 mmol/L (136-145); Total Protein 6.3 g/dL (6.6-8.7)
[2025-01-24] MEDS: pantoprazole 40 mg SDV IVP ×2 (05:47→17:40)
[2025-01-24] MEDS: HYDROcodone-acetaminophen 5-325 mg Tablet 1 TAB PO (05:52)
[2025-01-24 08:07] VITALS: BP 148/67; PULSE 76; RESP 18; TEMP 36.6; O2SAT 92
[2025-01-24] MEDS: cefTRIAXone 1,000 mg SDV 1000 MG IVP (08:34)
[2025-01-24] MEDS: ferrous sulfate EC 325 mg Tablet PO ×2 (08:35→17:40)
[2025-01-24] MEDS: polyethylene glycol 3350 Pkt 17 gm PO ×2 (08:35→17:40)
[2025-01-24] MEDS: VANCOMYCIN ADD-Vantage 750 MG in 0.9% NaCl ADD-Vantage 250 ML 250 MG IV (10:55)
[2025-01-24 11:43] VITALS: BP 127/91; PULSE 63; RESP 18; TEMP 36.6; O2SAT 93
--- NOTE | 2025-01-24 14:11 | P.PN_ITS ---
Subjective 2 Subjective: Patient was seen this morning, currently alert oriented x 3, following commands, denies any fevers, no chills, no cough, no nausea, she is drowsy during her discussions, easily falls back asleep, she has a history of sleep apnea but she sold her sleep machine she does not use it at home, discussed using CPAP during the night tonight, she has not had a bowel movement discussed starting bowel regimen today, Fleet enema this afternoon if she condition not have a bowel movement, we discussed her CT lumbar scan findings, concerns for discitis, vertebral osteomyelitis, however she has not had any recent surgeries, or lumbar surgery was many years ago, for her to have a spontaneous infection is certainly uncommon but she does report she had a right knee injection recently, but her right knee is not bothering her, certainly this could be potential way for infections to be introduced into her bloodstream, no other recent surgeries, she does have her spinal stimulator in place which was also placed many years ago, so far her blood cultures remain clear, she is afebrile, discussed the possibility of IR guided biopsy, will discuss case with IR tomorrow, discussed case with Dr. Davey tomorrow, will discuss case with infectious disease tomorrow, but she does report acute on chronic back pain that is persisting Vitals/I&O/Wt Last Vital Signs Temp 97.9 F 01/24/25 11:43 Pulse 63 01/24/25 11:43 Resp 18 01/24/25 11:43 BP 127/91 01/24/25 11:43 Pulse Ox 93 01/24/25 11:43 O2 Del Method Room Air 01/24/25 11:43 01/23/25 01/24/25 01/24/25 22:59 06:59 14:59 Intake Total 1232.5 / 2842.5 970 / 3812.5 1810 / 1810 Output Total 300 / 300 1500 / 1800 700 / 700 Balance 932.5 / 2542.5 -530 / 2012.5 1110 / 1110 Weight last 48 hrs Weight 71.214 kg Weight 71.327 kg Weight 78.471 kg Physical Exam 2 Const: COMMON NORMALS: no acute distress and patient oriented x3 Resp: COMMON NORMALS: normal respiratory effort, No retractions, No use of accessory muscles and clear to auscultation bilaterally AUSCULTATION: clear to auscultation bilaterally Cardio: COMMON NORMALS: regular rate, regular rhythm, S1 normal heart sound present and S2 normal heart sound present RATE: regular rate RHYTHM: r egular rhythm HEART SOUNDS: S1 normal heart sound present and S2 normal heart sound present GI: COMMON NORMALS: Normal to inspection, nondistended, normoactive bowel sounds present and non-tender Extremity: COMMON NORMALS: no pedal edema Neuro: COMMON NORMALS: patient oriented x3 Psych: COMMON NORMALS: mental status grossly normal Data 01/24/25 04:57 01/24/25 04:57 Micro: Microbiology 01/23/25 09:04 Blood Culture - Preliminary Blood NEGATIVE TO DATE 01/23/25 09:00 Blood Culture - Preliminary Blood NEGATIVE TO DATE A&P Assessment and plan 1. Intractable nausea and vomitin. S/P insertion of spinal cord stimulator: 3. Diabetes: 4. Lumbar post-laminectomy syndrome: 5. Intervertebral disc disorder with radiculopathy of lumbosacral region: 6. History of lumbar fusion: 7. Discitis: 8. Osteomyelitis: Plan: discitis, vertebral osteomyelitis CT/CT lumbar spine wo/w con [id number] IMPRESSION: 1. Status post lumbar spine fusion revision with the hardware as described. Status post decompression laminectomies 3. Bony destruction centered at L2-L3 as described above. Findings are consistent with discitis and osteomyelitis. The screws at L3 projects through the superior aspect of the vertebral body which is undergone bony destruction. Retrolisthesis L2 on L3 4. Suspect at least moderate central canal stenosis at L2-L3 with the moderate right and tqra-vi-ivwfuqjf left foraminal stenosis at this level 5. No significant central canal stenosis at other levels. See above for more complete description of findings. -History of spinal cord stimulator in place Plan - Follow blood cultures, so far no growth - Follow inflammatory markers - Will discuss case with IR on Saturday for possible biopsy - Will consult infectious disease, orthopedic spine service on Saturday - For now continue vancomycin - For now continue Rocephin Intractable back pain, - Continue hydrocodone Constipation, bowel regimen History of urinary tract infection - Bactrim has been stopped switch to IV Rocephin - Chronic low-back pain/post-laminectomy syndrome hardware loosening, and will discuss case with orthopedic spine service Hypertension resume home blood pressure medications Obstructive sleep apnea is supposed to be on CPAP, continue CPAP tonight Type 2 diabetes mellitus, low-dose sliding scale PDMP PDMP Reviewed: Not Reviewed Attestations 2 Medical Necessity Statement*: Patient requires hospitalization for discitis, vertebral osteomyelitis Diagnoses Intractable nausea and vomiting R11.2 S/P insertion of spinal cord stimulator Z96.89 Diabetes E11.9 Lumbar post-laminectomy syndrome M96.1 Intervertebral disc disorder with radiculopathy of lumbosacral region M51.17 History of lumbar fusion Z98.1 Discitis M46.40 Osteomyelitis M86.9
[2025-01-24] MEDS: Fleet Enema 133 mL Enema PR (14:50)
[2025-01-24] MEDS: lactulose oral liq 20 gm/30 mL UDC PO (14:50)
[2025-01-24 16:07] VITALS: BP 129/77; PULSE 68; RESP 16; TEMP 36.4; O2SAT 92
--- NOTE | 2025-01-24 17:18 | PHA.VACGOAL ---
Vancomycin Goal - Goal Vancomycin Goal:: 15-20 mg/L Vancomycin Indication:: Osteo - Therapy Day of therpy:: Day []of [] . Actual body weight (kg): 157 lb - Data Labs: WBC 7.79 10^3/uL (3.29-11.43) 01/24/25 04:57 RBC 4.32 10^6/uL (3.85-5.65) 01/24/25 04:57 Hgb 14.30 g/dL (11.27-16.99) 01/24/25 04:57 Hct 41.9 % (36-47) 01/24/25 04:57 MCV 97.0 fl (85-98) 01/24/25 04:57 MCH 33.1 pg (27-33) H 01/24/25 04:57 MCHC 34.1 g/dL (30-55) 01/24/25 04:57 RDW 13.9 % (12.1-15.1) 01/24/25 04:57 Sodium 136 mmol/L (136-145) 01/24/25 04:57 Potassium 3.6 mmol/L (3.5-5.1) 01/24/25 04:57 Chloride 102 mmol/L (98-107) 01/24/25 04:57 Carbon Dioxide 24 mmol/L (22-29) 01/24/25 04:57 Anion Gap 13.6 (5-19) 01/24/25 04:57 BUN 6 mg/dL (8-23) L 01/24/25 04:57 Creatinine 0.6 mg/dL (0.5-0.9) 01/24/25 04:57 GFR Calculation Not Reportable 01/24/25 04:57 Treatment plan:: new consult Regimen:: 750 MG Q12H
[2025-01-24] MEDS: ondansetron 2 mg/ML SDV 2 mL 4 MG IVP (18:23)
[2025-01-24 19:32] VITALS: BP 195/88; PULSE 62; RESP 18; TEMP 36.4; O2SAT 90
[2025-01-24] MEDS: ATORVASTATIN 10 MG TABLET PO (20:41)
[2025-01-25] VITALS (7 sets, daily range): BP systolic 129–182; BP diastolic 77–92; PULSE 65–80; RESP 15–18; TEMP 36.3–36.9; O2SAT 90–96
[2025-01-25] MEDS: lactulose oral liq 20 gm/30 mL UDC PO ×2 (02:39→14:01)
[2025-01-25 04:08] LABS: Hematocrit 47.2 % (36-47); Hemoglobin 16.30 g/dL (11.27-16.99); Mean Corpuscular HGB Conc 34.5 g/dL (30-55); Mean Corpuscular Hemoglobin 33.9 pg (27-33); Mean Corpuscular Volume 98.1 fl (85-98); Nucleated Red Blood Cells % 0 %; Platelet Count 381 10^3/cmm (157-399); Red Blood Count 4.81 10^6/uL (3.85-5.65); White Blood Count 18.96 10^3/uL (3.29-11.43)
[2025-01-25 04:31] LABS: Alanine Aminotransferase 58 U/L (0-33); Albumin Level 3.7 g/dL (3.5-5.2); Alkaline Phosphatase 85 U/L (35-105); Anion Gap 17.0 (5-19); Aspartate Amino Transferase 39 U/L (0-32); Blood Urea Nitrogen 7 mg/dL (8-23); Calcium 9.1 mg/dL (8.5-10.5); Carbon Dioxide 26 mmol/L (22-29); Chloride 94 mmol/L (98-107); Creatinine Clr Calc Pharmacy 51.8373; Globulin 3.5 g/dL (1.3-4.6); Glucose 191 mg/dL (65-115); Osmolality Calculated 281 mOsm/kg (285-295); Potassium 3.0 mmol/L (3.5-5.1); Sodium 134 mmol/L (136-145); Total Protein 7.2 g/dL (6.6-8.7)
[2025-01-25] MEDS: ondansetron 2 mg/ML SDV 2 mL 4 MG IVP ×2 (05:27→13:05)
[2025-01-25] MEDS: pantoprazole 40 mg SDV IVP ×2 (05:27→17:01)
--- NOTE | 2025-01-25 07:59 | XRR_ITS ---
PROCEDURE INFORMATION: Exam: XR Abdomen Exam date and time: 01/25/2025 8:18 AM Age: 79 years old Clinical indication: Nausea and vomiting; Abdominal pain; Generalized; Prior surgery; Surgery date: 6+ months; Additional info: Abd pain and n/v TECHNIQUE: Imaging protocol: Radiologic exam of the abdomen. Views: Frontal supine view of the abdomen. 1 View. COMPARISON: CT abdomen pelvis w con* [id number] 01/23/2025 12:30 AM FINDINGS: Tubes, catheters and devices: Spinal cord stimulator in place. Gastrointestinal tract: Marked gaseous distension of the colon measuring 11.3 cm in the ascending colon. No dilated small bowel loops. Bones/joints: Postsurgical changes of the lumbar spine. XR/XR KUB portable [id number] IMPRESSION: Gaseous distension of the ascending and proximal transverse colon. Recommend CT abdomen and pelvis to evaluate for obstruction.
[2025-01-25] MEDS: cefTRIAXone 1,000 mg SDV 1000 MG IVP (08:42)
[2025-01-25] MEDS: ferrous sulfate EC 325 mg Tablet PO ×2 (08:42→17:01)
--- NOTE | 2025-01-25 10:26 | CT_ITS ---
WS: [id number] CT ABDOMEN AND PELVIS NONCONTRAST HISTORY: bowel obstruction TECHNIQUE: Imaging performed through the abdomen and pelvis. Coronal and sagittal reformats are submitted. All CT scans at [facility] use at least one of these dose optimization techniques: automated exposure control; mA and/or kV adjustment per patient size (includes targeted exams where dose is matched to clinical indication); or iterative reconstruction. DLP: 783.68 mGy.cm COMPARISON: 01/23/2025, 01/29/2019 Lower thorax: Breathing motion artifact at the lung bases with areas of atelectasis and dependent changes. Heart is slightly enlarged. Small hiatal hernia. Liver: Normal size liver. No mass or bile duct dilatation. Gallbladder: Normal gallbladder. No pericholecystic fluid or cholelithiasis. No gallbladder wall thickening. Pancreas: Normal size and attenuation. Normal pancreatic duct. No pancreatitis or mass. Spleen: Prior splenectomy. Adrenal glands: Normal RIGHT adrenal gland. Well-circumscribed mass in the LEFT adrenal gland measures 1.2 x 3.0 cm. Right kidney: Normal size kidney. Cortical hypodensities were better described on the prior study. There is no obstruction. Nonobstructing 2 mm calcification in the RIGHT renal pelvis. Left kidney: No obstruction. Aorta: Mild atherosclerosis abdominal aorta with no aneurysm. No free fluid, intraperitoneal air or significant lymphadenopathy. GI tract: Small amount of fluid in the stomach. Medicinal tablets are also noted in the stomach. No small bowel obstruction. Increasing air and liquid throughout the colon. Marked dilatation of the RIGHT colon and through the transverse flexure. Numerous diverticula in the sigmoid colon but no acute diverticulitis. No obstruction is identified. Colon is dilated nearly to the rectum. No obstructing mass or stricture. Prior appendectomy. Abdominal wall: Fat-containing umbilical hernia. There is an additional RIGHT supraumbilical hernia containing fat only. Pelvis: Prior hysterectomy. Osseous structures: Reidentified is the posterior fusion hardware at L3-4. Lucency surrounding the L3 pedicle screws. Destruction of the endplates of L2-3. These findings were described on the prior exam also. Suspect discitis and osteomyelitis at L2-3. L2 retrolisthesis by [address]/CT abdomen pelvis wo con [id number] IMPRESSION: 1. Increasing fluid and diameter of the colon since 01/23/2025. Liquid stool an d feces are now present. There is no transition point or obstruction. This may be from an ileus. 2. No evidence for acute diverticulitis. 3. Prior appendectomy. 4. Stomach is not significantly distended. 5. No free fluid or free air. 6. Destructive changes involving the posterior fusion at L3-4 highly suspiciou s for discitis and osteomyelitis. Refer to the prior CT lumbar spine report fro m 01/23/2025. 7. Prior splenectomy. 8. LEFT adrenal mass 1.2 x [address] or MRI follow-up with and with out contrast may be obtained. 9. Ventral abdominal wall hernias containing fat only.
[2025-01-25] MEDS: lidocaine 1% 5 ML in potassium chloride premix 100 ML 52.5 ML IV ×2 (11:48→14:01)
[2025-01-25 13:27] LABS: Blood Gas Operator Identificat GD; Blood Gas Sample Site Brachial, left; Blood Gas Sample Type Arterial
[2025-01-25 13:28] LABS: ABG PCO2 41.5 mmHg (35-45); ABG PH Result 7.41 (7.35-7.45); Arterial Blood Gas Hematocrit 49.9 % (37-47); HCO3 ABG 26.2 mmol/L (22-26); PO2 ABG 59.9 mmHg (80.0-100.0); PO2 FiO2 Ratio Arterial Blood 285
[2025-01-25] MEDS: piperacillin-tazobactam 3.375 GM in sodium chloride 0.9% (plus) 50 ML IV ×2 (14:00→21:45)
[2025-01-25] MEDS: Fleet Enema 133 mL Enema PR (14:01)
[2025-01-25 14:13] LABS: Magnesium 2.1 mg/dL (1.7-2.3)
[2025-01-25 14:20] LABS: Procalcitonin 0.11 ng/mL (0-0.5)
--- NOTE | 2025-01-25 16:01 | PM.CONSULT ---
Providers/Reason For Consult Consulting Physician/Specialty*: Hospitalist Reason for Consult*: Possible discitis Attending Physician: Bhupinder Rivers MD Primary Care Provider: Drew Williamson MD History of Present Illness History of Present Illness Alice Perry is a 79 year old female presenting to the ER for weakness nausea. Patient recently had a UTI which has been being treated. Currently cannot get any relevant history from the patient she kept falling asleep when I try to talk to her. Difficulty getting type of exam on her. Review of Systems Narrative: Unable to get questions answered Medications/Allergies Home Medications ?Medication ?Instructions ?Recorded ?Confirmed ?Last Taken ?Type amlodipine 5 mg tablet 5 mg PO BID 07/28/19 01/24/25 2 Days Ago History ~01/22/25 aspirin 81 mg chewable tablet 81 mg PO QAM 07/28/19 01/24/25 2 Days Ago History ~01/22/25 diclofenac sodium 75 mg 75 mg PO BID PRN Pain 07/28/19 01/24/25 2 Days Ago History tablet,delayed release ~01/22/25 docusate sodium 100 mg capsule 100 mg PO BID 07/28/19 01/24/25 2 Days Ago History (Colace) ~01/22/25 ezetimibe 10 mg tablet (Zetia) 10 mg PO BEDTIME 07/28/19 01/24/25 3 Days Ago History ~01/21/25 oxybutynin chloride 5 mg tablet 2.5 mg PO BID 07/28/19 01/24/25 2 Days Ago History ~01/22/25 sertraline 100 mg tablet 100 mg PO QAM 07/28/19 01/24/25 2 Days Ago History ~01/22/25 trazodone 50 mg tablet 50 mg PO BEDTIME 07/28/19 01/24/25 3 Days Ago History ~01/21/25 bupropion HCl 300 mg 24 hr tablet, 300 mg PO QAM 07/29/19 01/24/25 2 Days Ago History extended release (Wellbutrin XL) ~01/22/25 ferrous sulfate 325 mg (65 mg 325 mg PO BID 07/29/19 01/24/25 2 Days Ago History iron) tablet ~01/22/25 metoprolol tartrate 25 mg tablet 25 mg PO BID 10/21/20 01/24/25 2 Days Ago History ~01/22/25 gabapentin 300 mg capsule 300 mg PO TID 02/28/22 01/24/25 2 Days Ago History ~01/22/25 glyburide 5 mg tablet 5 mg PO QAM 02/28/22 01/24/25 2 Days Ago History ~01/22/25 hydrocodone 5 mg-acetaminophen 325 0.5 - 1 tab PO Q6H PRN Pain 02/28/22 01/24/25 2 Days Ago History mg tablet ~01/22/25 levothyroxine 175 mcg tablet 175 mcg PO DAILY 02/28/22 01/24/25 2 Days Ago History ~01/22/25 montelukast 10 mg tablet 10 mg PO QAM 02/28/22 01/24/25 2 Days Ago History ~01/22/25 pravastatin 40 mg tablet 40 mg PO BEDTIME 02/28/22 01/24/25 3 Days Ago History ~01/21/25 sitagliptin phosphate 100 mg 100 mg PO QAM 02/28/22 01/24/25 2 Days Ago History tablet (Januvia) ~01/22/25 blood sugar diagnostic (Contour #50 ea 05/01/22 01/23/25 Unknown Rx Next Test Strips) blood-glucose meter (Contour Next #1 ea 05/01/22 01/23/25 Unknown Rx One Meter) cetirizine 10 mg tablet (Zyrtec) 10 mg PO DAILY 01/25/23 01/24/25 2 Days Ago History ~01/22/25 pantoprazole 40 mg tablet,delayed 40 mg PO QAM 01/25/23 01/24/25 2 Days Ago History release ~01/22/25 vit C 250 mg-vit E 90 mg-zinc 40 1 tab PO BID 01/25/23 01/24/25 2 Days Ago History mg-copper 1 [id number] ~01/22/25 capsule (PreserVision AREDS-2) hydrochlorothiazide 12.5 mg tablet 1 ea PO DAILY 04/23/23 01/24/25 2 Days Ago History ~01/22/25 omega-3 acid ethyl esters 1 gram 2 cap PO BID 04/23/23 01/24/25 2 Days Ago History capsule ~01/22/25 galantamine 24 mg 24 hr 24 mg PO QAM #90 caps 05/28/24 01/24/25 2 Days Ago Rx capsule,extended release ~01/22/25 ondansetron 4 mg disintegrating 4 mg PO Q8H PRN nausea and 01/20/25 01/24/25 2 Days Ago Rx tablet vomiting 5 days #30 tabs ~01/22/25 semaglutide 1 mg/dose (4 mg/3 mL) 1 mg SUBCUT Q7D 01/23/25 01/23/25 Unknown History subcutaneous pen injector (Ozempic) Allergies Allergy/AdvReac Type Severity Reaction Status Date / Time morphine Allergy Mild hallucinati Verified 01/22/25 19:36 ons latex AdvReac Mild RASH Verified 01/22/25 19:36 Current Medications Generic Name Dose Route Start Last Admin Trade Name Freq PRN Reason Stop Dose Admin Hydrocodone Bitart/Acetaminophen 1 tab 01/23/25 08:43 01/24/25 05:52 Hydrocodone-Acetaminophen 5-325 Mg Tablet PO 1 tab Q4H PRN Administration MODERATE PAIN Amlodipine Besylate 5 mg 01/23/25 14:20 01/25/25 08:41 Amlodipine 5 Mg Tablet PO 5 mg BID XAVI Administration Atorvastatin Calcium 10 mg 01/23/25 21:00 01/24/25 20:41 Atorvastatin 10 Mg Tablet PO 10 mg BEDTIME XAVI Administration Bisacodyl 10 mg 01/23/25 11:45 01/25/25 11:40 Bisacodyl 5 Mg Tablet PO Not Given Q12H XAVI Bupropion HCl 300 mg 01/24/25 06:00 01/25/25 05:27 Bupropion Xl (24 Hr) 300 Mg Tablet PO 300 mg QAM XAVI Administration Ezetimibe 10 mg 01/23/25 21:00 01/24/25 20:40 Ezetimibe 10 Mg Tablet PO 10 mg BEDTIME XAVI Administration Enoxaparin Sodium 40 mg 01/23/25 07:44 01/24/25 08:35 Enoxaparin 40 Mg/0.4 Ml Syringe SUBCUT 40 mg On Hold: 01/24/25 14:15 Q24H XAVI Administration Ferrous Sulfate 325 mg 01/23/25 18:00 01/25/25 08:42 Ferrous Sulfate Ec 325 Mg Tablet PO 325 mg BID XAVI Administration Gabapentin 300 mg 01/23/25 15:00 01/25/25 14:01 Gabapentin 300 Mg Capsule PO 300 mg TID XAVI Administration Guaifenesin/Dextromethorphan 10 ml 01/23/25 07:44 01/23/25 21:28 Guaifenesin-Dextromethorphan Udc 10 Ml PO 10 ml Q4H PRN Administration COUGH Hydrochlorothiazide 12.5 mg 01/24/25 09:00 01/25/25 08:41 Hydrochlorothiazide 25 Mg Tablet PO 12.5 mg DAILY XAVI Administration Vancomycin HCl 1,000 mg/ 250 mls @ 250 mls/hr 01/24/25 23:30 01/25/25 13:29 Sodium Chloride IV Infused Q12H XAVI Infusion Piperacillin Sod/Tazobactam 50 mls @ 12.5 mls/hr 01/25/25 13:00 01/25/25 14:00 Sod 3.375 gm/ Sodium Chloride IV 12.5 mls/hr Q8H XAVI Administration Insulin Human Lispro 0 unit 01/23/25 12:00 01/25/25 13:06 Insulin Lispro 100 Unit/1 Ml SUBCUT 10 unit WM&BEDTIME XAVI Administration Protocol Lactulose 20 gm 01/24/25 14:15 01/25/25 14:01 Lactulose Oral Liq 20 Gm/30 Ml Udc PO 20 gm Q12H XAVI Administration Levothyroxine Sodium 175 mcg 01/24/25 09:00 01/25/25 09:35 Levothyroxine 175 Mcg Tablet PO 175 mcg DAILY XAVI Administration Metoprolol Tartrate 25 mg 01/23/25 18:00 01/25/25 08:41 Metoprolol Tartrate 25 Mg Tablet PO 25 mg BID XAVI Administration Ondansetron HCl 4 mg 01/25/25 12:57 01/25/25 13:05 Ondansetron 2 Mg/Ml Sdv 2 Ml IVP 4 mg Q4H PRN Administration vomiting, or N/V if npo Pantoprazole Sodium 40 mg 01/23/25 06:00 01/25/25 05:27 Pantoprazole 40 Mg Sdv IVP 40 mg Q12H XAVI Administration Polyethylene Glycol 17 gm 01/23/25 11:45 01/25/25 09:36 Polyethylene Glycol 3350 Pkt 17 Gm PO Not Given BID XAVI Sertraline HCl 100 mg 01/24/25 06:00 01/25/25 05:27 Sertraline 100 Mg Tablet PO 100 mg QAM XAVI Administration Sitagliptin Phosphate 100 mg 01/24/25 06:00 01/25/25 05:27 Sitagliptin 100 Mg Tablet PO 100 mg QAM XAVI Administration Trazodone HCl 50 mg 01/23/25 21:00 01/24/25 20:41 Trazodone 50 Mg Tablet PO 50 mg BEDTIME XAVI Administration PFSH Acute PFSH: Medical History (Updated 01/23/25 @ 14:23 by Bhupinder Rivers MD) Osteoarthritis of knees, bilateral Diabetes Spondylolisthesis, lumbar region Pituitary adenoma Evaluation/management Dr. Joes Manuel Montes Lumbar stenosis with neurogenic claudication Lumbar post-laminectomy syndrome Intervertebral disc disorder with radiculopathy of lumbosacral region Surgical History (Updated 01/23/25 @ 14:23 by Bhupinder Rivers MD) History of carpal tunnel surgery Bilateral History of hysterectomy History of appendectomy repaired colon History of hemorrhoidectomy History of lumbar fusion 11/2012, Dr. Jose Manuel Montes, [facility], L4-L5 PLIFF. Family History Mother Colon cancer, Onset Age: 58 Heart disease Father Diabetes Brother Diabetes Social History Smoking and tobacco/nicotine status: former use of tobacco/nicotine Second hand smoke exposure: Yes Alcohol intake: never Substance/Drug Use: never Caregiver/support person: Yes Lives independently: Yes Household members: none Housing: House Marital status: service: No Current occupational status: disabled Pets and animals: Yes Do you think of yourself as: Straight/Heterosexual Current gender identity: Female Vitals/I&O/Wt Last Vital Signs Temp 97.3 F L 01/25/25 15:51 Pulse 66 01/25/25 15:51 Resp 18 01/25/25 15:51 BP 143/86 01/25/25 15:51 Pulse Ox 91 01/25/25 15:51 O2 Del Method Room Air 01/25/25 12:10 01/25/25 01/25/25 01/25/25 06:59 14:59 22:59 Intake Total 250 / 2550 355 / 355 Output Total 350 / 1650 200 / 200 Balance -100 / 900 155 / 155 Weight last 48 hrs Weight 173 lb 1.6 oz Weight 157 lb Physical Exam Narrative: Unable to get any type of physical exam. Data 01/25/25 04:01 01/25/25 04:01 CT lumbar spine: My impression: Patient is had previous fusions at L4-5 and L3-4. At this point there is erosion and screw loosening. Question whether this is discitis or just loosening from screws A&P Assessment and plan 1. Lumbar post-laminectomy syndrome: Patient has instability of her spine above her previous fusions. Possible discitis versus just loosening. There is possibility do surgery she would likely need extension of her fusion to stabilize this unstable construct as well as possibly take cultures if needed to determine if this is discitis or not as well. However at this time patient is not able to be communicative. I did attempt to call the daughter but she does not have a voicemail set up. PDMP PDMP Reviewed: Not Reviewed Coding Level of Care Code [facility] Lumbar post-laminectomy syndrome M96.1
--- NOTE | 2025-01-25 17:00 | P.PN_ITS ---
Subjective 2 Subjective: Patient was seen this morning, currently alert to person, to place, not to time she is quite drowsy this morning, easily falls back asleep, during our conversation, she did not use the BiPAP during the night, ABG ordered, she also reports not having a bowel movement, but also refused MiraLAX/lactulose, her family members at bedside -She is complaining of abdominal distent ion, she is passing gas, she has not had a bowel movement, she can follow commands, but she easily falls back asleep during her conversations -Patient again in the afternoon, she is much more alert awake, but she easily drowsy is off, she has had a bowel movement - I spoke to [facility] IR team about consideration of biopsy at L2/L3 side, they discussed that they certainly could attempt a biopsy but is associate with risks, currently [facility] also does not have a bed - I attempted to speak to patient about this, attempted to discuss IR guided biopsy versus medical management with IV antibiotics, however patient cannot make informed decision as she falls asleep multiple times during her conversation - I attempted to reach out to patient's grandson, but his number goes to voicemail - I attempted to reach out to patient's daughter, but the number listed in the chart is incorrect - I also tried another number listed in the chart but it did not go anywhere Vitals/I&O/Wt Last Vital Signs Temp 97.3 F L 01/25/25 15:51 Pulse 66 01/25/25 15:51 Resp 18 01/25/25 15:51 BP 143/86 01/25/25 15:51 Pulse Ox 91 01/25/25 15:51 O2 Del Method Room Air 01/25/25 12:10 01/25/25 01/25/25 01/25/25 06:59 14:59 22:59 Intake Total 250 / 2550 355 / 355 105 / 460 Output Total 350 / 1650 200 / 200 Balance -100 / 900 155 / 155 105 / 260 Weight last 48 hrs Weight 78.517 kg Weight 71.214 kg Physical Exam 2 Const: COMMON NORMALS: no acute distress ORIENTATION/CONSCIOUSNESS: Yes awake, Yes oriented to person and Yes oriented to place; not oriented to time Resp: COMMON NORMALS: normal respiratory effort, No retractions, No use of accessory muscles and clear to auscultation bilaterally AUSCULTATION: clear to auscultation bilaterally Cardio: COMMON NORMALS: regular rate, regular rhythm, S1 normal heart sound present and S2 normal heart sound present RATE: regular rate RHYTHM: r egular rhythm HEART SOUNDS: S1 normal heart sound present and S2 normal heart sound present GI: COMMON NORMALS: Normal to inspection, nondistended, normoactive bowel sounds present and non-tender Extremity: COMMON NORMALS: no pedal edema Neuro: SENSORIUM/ORIENTATION: Yes oriented to person, Yes oriented to place and No oriented to time Data 01/25/25 04:01 01/25/25 04:01 A&P Assessment and plan 1. Intractable nausea and vomitin. S/P insertion of spinal cord stimulator: 3. Diabetes: 4. Lumbar post-laminectomy syndrome: 5. Intervertebral disc disorder with radiculopathy of lumbosacral region: 6. History of lumbar fusion: 7. Discitis: 8. Osteomyelitis: Plan: discitis, vertebral osteomyelitis CT/CT lumbar spine wo/w con [id number] IMPRESSION: 1. Status post lumbar spine fusion revision with the hardware as described. Status post decompression laminectomies 3. Bony destruction centered at L2-L3 as described above. Findings are consistent with discitis and osteomyelitis. The screws at L3 projects through the superior aspect of the vertebral body which is undergone bony destruction. Retrolisthesis L2 on L3 4. Suspect at least moderate central canal stenosis at L2-L3 with the moderate right and [id number] left foraminal stenosis at this level 5. No significant central canal stenosis at other levels. See above for more complete description of findings. -History of spinal cord stimulator in place Plan - Follow blood cultures, so far no growth - Follow inflammatory markers - Consulted Dr. Whitman - Will discuss with infectious disease -IR is willing to do biopsy if patient and family accepts these risks, however cannot have an informed discussion with patient, and family is unreachable today - For now continue vancomycin - For now continue Rocephin Acute encephalopathy - Potentially a combination of patient narcotics, sedative medications, not using CPAP - ABG ordered - CT head - Neurochecks Intractable back pain, - Continue hydrocodone Constipation, bowel regimen, CT scan does not show a bowel obstruction History of urinary tract infection - Bactrim has been stopped switch to IV Rocephin - Chronic low-back pain/post-laminectomy syndrome hardware loosening, and will discuss case with orthopedic spine service Hypertension resume home blood pressure medications Obstructive sleep apnea is supposed to be on CPAP, patient needs to use CPAP Type 2 diabetes mellitus, low-dose sliding scale PDMP PDMP Reviewed: Not Reviewed Attestations 2 Medical Necessity Statement*: Patient requires hospitalization for discitis, vertebral osteomyelitis Diagnoses Intractable nausea and vomiting R11.2 S/P insertion of spinal cord stimulator Z96.89 Diabetes E11.9 Lumbar post-laminectomy syndrome M96.1 Intervertebral disc disorder with radiculopathy of lumbosacral region M51.17 History of lumbar fusion Z98.1 Discitis M46.40 Osteomyelitis M86.9
[2025-01-25] MEDS: polyethylene glycol 3350 Pkt 17 gm PO (17:01)
--- NOTE | 2025-01-25 17:05 | CTR_ITS ---
PROCEDURE INFORMATION: Exam: CT Head Without Contrast Exam date and time: 01/25/2025 9:15 PM Age: 79 years old Clinical indication: Altered mental status/memory loss; Additional info: AMS TECHNIQUE: Imaging protocol: Computed tomography of the head without contrast. Radiation optimization: All CT scans at this facility use at least one of these dose optimization techniques: automated exposure control; mA and/or kV adjustment per patient size (includes targeted exams where dose is matched to clinical indication); or iterative reconstruction. COMPARISON: CT head wo con* [id number] 03/09/2024 11:20 PM RADIATION DOSE METRICS: Total DLP (mGy-cm): 1033.1 FINDINGS: Brain: No acute infarction, hemorrhage, mass, or extra-axial fluid collection is identified. No midline shift. Chronic white matter microangiopathy and generalized atrophy. Cerebral ventricles: No hydrocephalus. Paranasal sinuses: Paranasal sinuses are grossly clear. Mastoid air cells: Mastoid air cells are grossly clear. Bones: Calvarium appears intact. Soft tissues: Unremarkable. CT/CT head wo con* [id number] IMPRESSION: No acute intracranial abnormality.
[2025-01-25 17:27] LABS: Hematocrit 45.8 % (36-47); Hemoglobin 15.40 g/dL (11.27-16.99); Mean Corpuscular HGB Conc 33.6 g/dL (30-55); Mean Corpuscular Hemoglobin 33.0 pg (27-33); Mean Corpuscular Volume 98.1 fl (85-98); Nucleated Red Blood Cells % 0 %; Platelet Count 323 10^3/cmm (157-399); Red Blood Count 4.67 10^6/uL (3.85-5.65); White Blood Count 21.65 10^3/uL (3.29-11.43)
[2025-01-25 18:09] LABS: Anion Gap 21.2 (5-19); Blood Urea Nitrogen 11 mg/dL (8-23); Calcium 8.7 mg/dL (8.5-10.5); Carbon Dioxide 20 mmol/L (22-29); Chloride 99 mmol/L (98-107); Creatinine Clr Calc Pharmacy 54.4237; Glucose 208 mg/dL (65-115); Osmolality Calculated 289 mOsm/kg (285-295); Potassium 3.2 mmol/L (3.5-5.1); Sodium 137 mmol/L (136-145)
[2025-01-25 19:49] LABS: Thyroid Stimulating Hormone 0.86 uIU/mL (0.27-4.20)
[2025-01-25] MEDS: ATORVASTATIN 10 MG TABLET PO (20:52)
[2025-01-26] VITALS (7 sets, daily range): BP systolic 109–127; BP diastolic 63–74; PULSE 18–73; RESP 12–18; TEMP 36.3–36.7; O2SAT 90–93
[2025-01-26 02:07] LABS: C.Diff PCR (Lab) NEGATIVE (Negative)
[2025-01-26 05:06] LABS: Hematocrit 42.3 % (36-47); Hemoglobin 14.10 g/dL (11.27-16.99); Mean Corpuscular HGB Conc 33.3 g/dL (30-55); Mean Corpuscular Hemoglobin 33.0 pg (27-33); Mean Corpuscular Volume 99.1 fl (85-98); Nucleated Red Blood Cells % 0 %; Platelet Count 289 10^3/cmm (157-399); Red Blood Count 4.27 10^6/uL (3.85-5.65); White Blood Count 18.99 10^3/uL (3.29-11.43)
[2025-01-26 05:19] LABS: Alanine Aminotransferase 45 U/L (0-33); Albumin Level 3.2 g/dL (3.5-5.2); Alkaline Phosphatase 67 U/L (35-105); Anion Gap 16.1 (5-19); Aspartate Amino Transferase 23 U/L (0-32); Blood Urea Nitrogen 14 mg/dL (8-23); Calcium 8.4 mg/dL (8.5-10.5); Carbon Dioxide 22 mmol/L (22-29); Chloride 102 mmol/L (98-107); Creatinine Clr Calc Pharmacy 54.1344; Globulin 2.9 g/dL (1.3-4.6); Glucose 110 mg/dL (65-115); Osmolality Calculated 285 mOsm/kg (285-295); Potassium 3.1 mmol/L (3.5-5.1); Sodium 137 mmol/L (136-145); Total Protein 6.1 g/dL (6.6-8.7)
[2025-01-26] MEDS: piperacillin-tazobactam 3.375 GM in sodium chloride 0.9% (plus) 50 ML IV ×3 (05:27→20:48)
[2025-01-26] MEDS: pantoprazole 40 mg SDV IVP ×2 (05:27→17:25)
--- NOTE | 2025-01-26 07:31 | XR_ITS ---
WS: [id number] PORTABLE CHEST HISTORY: leukocytosis, assess for pneumonia COMPARISON: 01/25/2023 Mild elevation of the RIGHT hemidiaphragm. Pulmonary changes of emphysema. No mass. No consolidation. No pleural effusion or pneumothorax. Cardiac size: Normal. Mediastinum/Aorta: Mild atherosclerosis aorta. No osseous abnormality seen. Dorsal column stimulator with electrodes projecting over the midthoracic spine. Surgical lili are noted in the LEFT upper abdomen. XR/XR chest 1V portable [id number] IMPRESSION: 1. Chronic emphysema, no pneumonia. 2. Atherosclerosis aorta.
--- NOTE | 2025-01-26 07:31 | PM.CONSULT ---
Providers/Reason For Consult Consulting Physician/Specialty*: Sammie Baxter MD/ Infectious Disease Reason for Consult*: vertebral osteomyelitis Requesting Physician: Bhupinder Rivers MD Attending Physician: Bhupinder Rivers MD Primary Care Provider: Drew Williamson MD History of Present Illness History of Present Illness Alice Perry is a 79 year old female with a history of diabetes mellitus,s/p splenectomy, pituitary adenoma, lumbar spinal stenosis with prior fusion surgeries, and post-laminectomy syndrome, who was admitted to the hospital with nausea, vomiting, dizziness, and inability to tolerate food or liquids.CT abdomen/pelvis showed mild diffuse gastric wall thickening suggestive of gastritis and incidentally noted loosening of lumbar hardware. MRI was unable to be performed due to presence of a lumbar spinal stimulator. She denies any fever chills. Blood cx remain negative to date. CRP 14.7, ESR 7. She reports chronic back pain without change recently. Review of Systems General: Reports: 10 or more systems reviewed and unremarkable except in HPI and below Const: Denies: fever(s), chills or body aches Eyes: Denies: change in vision, blurry vision or photophobia ENMT: Reports: hoarseness; Denies: throat pain, enlarged tonsils, odynophagia or nasal congestion Card: Denies: chest pain, palpitations, irregular heart rhythm, edema, swelling of feet/ankles, lightheadedness, pre-syncope, dyspnea on exertion or orthopnea Resp: Denies: dyspnea, productive cough, non-productive cough, wheezing, stridor, pain on inspiration, change in phlegm color, hemoptysis or chest congestion GI: Denies: abdominal pain, nausea, vomiting, hematemesis, coffee ground emesis, dysphagia, heartburn, diarrhea, constipation, GI cramping, change in stool character, hematochezia or melena : Denies: flank pain, difficulty voiding, dysuria, urinary frequency, urinary urgency, urinary hesitancy or hematuria Musc: Denies: neck pain, back pain, extremity pain, joint swelling, joint warmth or deformity Neuro: Denies: headache(s), numbness in extremities, weakness in extremities, sensory changes, difficulty walking, frequent falls, dizziness, vertigo, behavioral changes, Slurred speech present or seizure-like activity Psych: Denies: anxiety, depression, suicidal ideation or homicidal ideation Endo: Denies: polyuria, polydipsia, tired all the time, cold intolerance or hot flashes Joe/Lymph: Denies: easy bruising or easy bleeding Medications/Allergies Home Medications ?Medication ?Instructions ?Recorded ?Confirmed ?Last Taken ?Type amlodipine 5 mg tablet 5 mg PO BID 07/28/19 01/24/25 2 Days Ago History ~01/22/25 aspirin 81 mg chewable tablet 81 mg PO QAM 07/28/19 01/24/25 2 Days Ago History ~01/22/25 diclofenac sodium 75 mg 75 mg PO BID PRN Pain 07/28/19 01/24/25 2 Days Ago History tablet,delayed release ~01/22/25 docusate sodium 100 mg capsule 100 mg PO BID 07/28/19 01/24/25 2 Days Ago History (Colace) ~01/22/25 ezetimibe 10 mg tablet (Zetia) 10 mg PO BEDTIME 07/28/19 01/24/25 3 Days Ago History ~01/21/25 oxybutynin chloride 5 mg tablet 2.5 mg PO BID 07/28/19 01/24/25 2 Days Ago History ~01/22/25 sertraline 100 mg tablet 100 mg PO QAM 07/28/19 01/24/25 2 Days Ago History ~01/22/25 trazodone 50 mg tablet 50 mg PO BEDTIME 07/28/19 01/24/25 3 Days Ago History ~01/21/25 bupropion HCl 300 mg 24 hr tablet, 300 mg PO QAM 07/29/19 01/24/25 2 Days Ago History extended release (Wellbutrin XL) ~01/22/25 ferrous sulfate 325 mg (65 mg 325 mg PO BID 07/29/19 01/24/25 2 Days Ago History iron) tablet ~01/22/25 metoprolol tartrate 25 mg tablet 25 mg PO BID 10/21/20 01/24/25 2 Days Ago History ~01/22/25 gabapentin 300 mg capsule 300 mg PO TID 02/28/22 01/24/25 2 Days Ago History ~01/22/25 glyburide 5 mg tablet 5 mg PO QAM 02/28/22 01/24/25 2 Days Ago History ~01/22/25 hydrocodone 5 mg-acetaminophen 325 0.5 - 1 tab PO Q6H PRN Pain 02/28/22 01/24/25 2 Days Ago History mg tablet ~01/22/25 levothyroxine 175 mcg tablet 175 mcg PO DAILY 02/28/22 01/24/25 2 Days Ago History ~01/22/25 montelukast 10 mg tablet 10 mg PO QAM 02/28/22 01/24/25 2 Days Ago History ~01/22/25 pravastatin 40 mg tablet 40 mg PO BEDTIME 02/28/22 01/24/25 3 Days Ago History ~01/21/25 sitagliptin phosphate 100 mg 100 mg PO QAM 02/28/22 01/24/25 2 Days Ago History tablet (Januvia) ~01/22/25 blood sugar diagnostic (Contour #50 ea 05/01/22 01/23/25 Unknown Rx Next Test Strips) blood-glucose meter (Contour Next #1 ea 05/01/22 01/23/25 Unknown Rx One Meter) cetirizine 10 mg tablet (Zyrtec) 10 mg PO DAILY 01/25/23 01/24/25 2 Days Ago History ~01/22/25 pantoprazole 40 mg tablet,delayed 40 mg PO QAM 01/25/23 01/24/25 2 Days Ago History release ~01/22/25 vit C 250 mg-vit E 90 mg-zinc 40 1 tab PO BID 01/25/23 01/24/25 2 Days Ago History mg-copper 1 [id number] ~01/22/25 capsule (PreserVision AREDS-2) hydrochlorothiazide 12.5 mg tablet 1 ea PO DAILY 04/23/23 01/24/25 2 Days Ago History ~01/22/25 omega-3 acid ethyl esters 1 gram 2 cap PO BID 04/23/23 01/24/25 2 Days Ago History capsule ~01/22/25 galantamine 24 mg 24 hr 24 mg PO QAM #90 caps 05/28/24 01/24/25 2 Days Ago Rx capsule,extended release ~01/22/25 semaglutide 1 mg/dose (4 mg/3 mL) 1 mg SUBCUT Q7D 01/23/25 01/23/25 Unknown History subcutaneous pen injector (Ozempic) Allergies Allergy/AdvReac Type Severity Reaction Status Date / Time morphine Allergy Mild hallucinati Verified 01/22/25 19:36 ons latex AdvReac Mild RASH Verified 01/22/25 19:36 Current Medications Generic Name Dose Route Start Last Admin Trade Name Raza PRN Reason Stop Dose Admin Amlodipine Besylate 5 mg 01/23/25 14:20 01/25/25 17:01 Amlodipine 5 Mg Tablet PO 5 mg BID XAVI Administration Atorvastatin Calcium 10 mg 01/23/25 21:00 01/25/25 20:52 Atorvastatin 10 Mg Tablet PO 10 mg BEDTIME XAVI Administration Bisacodyl 10 mg 01/23/25 11:45 01/26/25 00:36 Bisacodyl 5 Mg Tablet PO 10 mg Q12H XAVI Administration Bupropion HCl 300 mg 01/24/25 06:00 01/26/25 05:27 Bupropion Xl (24 Hr) 300 Mg Tablet PO 300 mg QAM XAVI Administration Ezetimibe 10 mg 01/23/25 21:00 01/25/25 20:52 Ezetimibe 10 Mg Tablet PO 10 mg BEDTIME XAVI Administration Enoxaparin Sodium 40 mg 01/23/25 07:44 01/24/25 08:35 Enoxaparin 40 Mg/0.4 Ml Syringe SUBCUT 40 mg On Hold: 01/24/25 14:15 Q24H XAVI Administration Ferrous Sulfate 325 mg 01/23/25 18:00 01/25/25 17:01 Ferrous Sulfate Ec 325 Mg Tablet PO 325 mg BID XAVI Administration Gabapentin 300 mg 01/23/25 15:00 01/25/25 20:53 Gabapentin 300 Mg Capsule PO 300 mg TID XAVI Administration Hydrochlorothiazide 12.5 mg 01/24/25 09:00 01/25/25 08:41 Hydrochlorothiazide 25 Mg Tablet PO 12.5 mg DAILY XAVI Administration Vancomycin HCl 1,000 mg/ 250 mls @ 250 mls/hr 01/24/25 23:30 01/26/25 01:38 Sodium Chloride IV Infused Q12H XAVI Infusion Piperacillin Sod/Tazobactam 50 mls @ 12.5 mls/hr 01/25/25 13:00 01/26/25 05:27 Sod 3.375 gm/ Sodium Chloride IV 12.5 mls/hr Q8H XAVI Administration Insulin Human Lispro 0 unit 01/23/25 12:00 01/26/25 07:08 Insulin Lispro 100 Unit/1 Ml SUBCUT Not Given WM&BEDTIME XAVI Protocol Lactulose 20 gm 01/24/25 14:15 01/26/25 01:38 Lactulose Oral Liq 20 Gm/30 Ml Udc PO Not Given Q12H XAVI Levothyroxine Sodium 175 mcg 01/24/25 09:00 01/25/25 09:35 Levothyroxine 175 Mcg Tablet PO 175 mcg DAILY XAVI Administration Metoprolol Tartrate 25 mg 01/23/25 18:00 01/25/25 17:01 Metoprolol Tartrate 25 Mg Tablet PO 25 mg BID XAVI Administration Ondansetron HCl 4 mg 01/25/25 12:57 01/25/25 13:05 Ondansetron 2 Mg/Ml Sdv 2 Ml IVP 4 mg Q4H PRN Administration vomiting, or N/V if npo Pantoprazole Sodium 40 mg 01/23/25 06:00 01/26/25 05:27 Pantoprazole 40 Mg Sdv IVP 40 mg Q12H XAVI Administration Polyethylene Glycol 17 gm 01/23/25 11:45 01/25/25 17:01 Polyethylene Glycol 3350 Pkt 17 Gm PO 17 gm BID XAVI Administration Sertraline HCl 100 mg 01/24/25 06:00 01/26/25 05:27 Sertraline 100 Mg Tablet PO 100 mg QAM XAVI Administration Trazodone HCl 50 mg 01/23/25 21:00 01/25/25 20:52 Trazodone 50 Mg Tablet PO 50 mg BEDTIME XAVI Administration PFSH Acute PFSH: Medical History (Updated 01/28/25 @ 00:00 by MONICA Hewitt) Osteoarthritis of knees, bilateral Diabetes Spondylolisthesis, lumbar region Pituitary adenoma Evaluation/management Dr. Jose Manuel Montes Lumbar stenosis with neurogenic claudication Lumbar post-laminectomy syndrome Intervertebral disc disorder with radiculopathy of lumbosacral region Surgical History (Updated 01/23/25 @ 14:23 by Bhupinder Rivers MD) History of carpal tunnel surgery Bilateral History of hysterectomy History of appendectomy repaired colon History of hemorrhoidectomy History of lumbar fusion 11/2012, Dr. Jose Manuel Montes, [facility], L4-L5 PLIFF. Family History Mother Colon cancer, Onset Age: 58 Heart disease Father Diabetes Brother Diabetes Social History Smoking and tobacco/nicotine status: former use of tobacco/nicotine Second hand smoke exposure: Yes Alcohol intake: never Substance/Drug Use: never Caregiver/support person: Yes Lives independently: Yes Household members: none Housing: House Marital status: service: No Current occupational status: disabled Pets and animals: Yes Do you think of yourself as: Straight/Heterosexual Current gender identity: Female Vitals/I&O/Wt Last Vital Signs Temp 98.1 F 01/26/25 04:00 Pulse 73 01/26/25 04:00 Resp 14 01/26/25 04:00 BP 127/72 01/26/25 04:00 Pulse Ox 90 01/26/25 04:00 O2 Del Method Room Air 01/26/25 04:00 01/25/25 01/26/25 01/26/25 22:59 06:59 14:59 Intake Total 1075 / 1430 540 / 1970 Balance 1075 / 1230 540 / 1770 Weight last 48 hrs Weight 77.7 kg Weight 78.517 kg Physical Exam Narrative: General: No acute distress, AO x3 HEENT: PERRLA, pupils bilaterally equal and reactive, pallors not present Chest: Normal vesicular breath sounds, no added sounds, equal good air entry bilaterally CVS: S1-S2 regular, no murmurs, no tachycardia, no gallops, no rubs Abdomen: Soft, nontender, no organomegaly, bowel sounds present Neuro: No focal deficits, no facial deformity, AO x3, power 5/5 in all limbs Data 01/28/25 05:10 01/28/25 05:10 Micro: Microbiology 01/25/25 19:05 Blood Culture - Preliminary Blood SPECIMEN COLLECTED 01/25/25 19:05 Blood Culture - Preliminary Blood SPECIMEN COLLECTED Blood Culture Preliminary (changed) 01/24/25 NEGATIVE TO DATE Blood Culture Preliminary (changed) 01/23/25-929 SPECIMEN COLLECTED NAME: Alice Perry LOC: ER U #: [id number] AGE/SX: 79/F ROOM: RE01/19/[address]: Jesus Arteaga : 1945 BED: DIS: FAX #: STATUS: DEP ER TLOC: Spec #: [id number] [place]: 01/20/25 Status: COMP Req #: [id number] Recd: 01/20/25-[address]: Jesus Arteaga Src: Urine CC SpDesc: Ordered: UC Procedure Result Verified Site Urine Culture Final 01/22/25-1219 Organism 1 Escherichia coli [place] Count >100,000 CFU/ml DAY 2 E coli M.I.C. RX --------- ------ * Amikacin <=16 S * Amoxicillin/Clavulanate <=8/4 S * Ampicillin <=8 S * Ampicillin/Sulbactam <=8/4 S * Aztreonam <=4 S * Cefepime <=8 S * Ceftriaxone <=1 S * Cefuroxime <=4 S * Ciprofloxacin <=1 S * Gentamicin <=2 S * Imipenem <=1 S * Levofloxacin <=2 S * Nitrofurantoin <=32 S * Tetracycline <=4 S * Trimethoprim/Sulfamethoxazole <=2/38 S * Piperacillin/Tazobactam <=16 S Urine Culture Preliminary (changed) 01/21/25 Organism 1 Gram Negative Rods [place] Count >100,000 CFU/ml RESULTS TO FOLLOW Other data: Date of Service: 01/25/25 Procedure(s): CT abdomen pelvis con [id number] CT/CT abdomen pelvis con [id number] IMPRESSION: 1. Increasing fluid and diameter of the colon since 01/23/2025. Liquid stool and feces are now present. There is no transition point or obstruction. This may be from an ileus. 2. No evidence for acute diverticulitis. 3. Prior appendectomy. 4. Stomach is not significantly distended. 5. No free fluid or free air. 6. Destructive changes involving the posterior fusion at L3-4 highly suspicious for discitis and osteomyelitis. Refer to the prior CT lumbar spine report from 01/23/2025. 7. Prior splenectomy. 8. LEFT adrenal mass 1.2 x 3[address] or MRI follow-up with and without contrast may be obtained. 9. Ventral abdominal wall hernias containing fat only. Date of Service: 01/23/25 Procedure(s): CT lumbar spine wo/w con [id number] CT/CT lumbar spine wo/w con [id number] IMPRESSION: 1. Status post lumbar spine fusion revision with the hardware as described. Status post decompression laminectomies 3. Bony destruction centered at L2-L3 as described above. Findings are consistent with discitis and osteomyelitis. The screws at L3 projects through the superior aspect of the vertebral body which is undergone bony destruction. Retrolisthesis L2 on L3 4. Suspect at least moderate central canal stenosis at L2-L3 with the moderate right and [id number] left foraminal stenosis at this level 5. No significant central canal stenosis at other levels. See above for more complete description of findings. Date of Service: 01/22/25 Procedure(s): CT abdomen pelvis w con* [id number] CT/CT abdomen pelvis w con* [id number] IMPRESSION: 1. Normal CT attenuation of the liver. 2. No definite acute intra-abdominal or intrapelvic process. 3. There is posterior fusion changes involving L3-L4 where there previously used to be posterior fusion involving L4-L5. There is increased perihardware lucency involving the transpedicular screws at L3 as well as endplate irregularity and sclerosis involving L2-L3. Correlate with hardware loosening as well as possible changes related to discitis at L2-L3. 4. Indeterminate lesion in the left adrenal gland which has demonstrated interval increase in size. Follow up with MRI of the abdomen with and without contrast utilizing adrenal mass protocol is recommended. 5. Mild diffuse gastric wall thickening. Likely underdistention. Correlate for gastritis. A&P Assessment and plan 1. Discitis: suspected diagnosis 2. Osteomyelitis: suspected diagnosis Plan: 79-year-old lady with chronic back pain, with presence of a spinal stimulator, status post splenectomy per review of CT abdomen. Currently admitted to the hospital since January 23, 2025 after presenting with abdominal symptoms of nausea vomiting and abdominal pain. Additionally noted to have leukocytosis on this current admission. She has been on treatment with IV piperacillin/tazobactam and vancomycin since admission CT of the abdomen and pelvis incidentally noted loosening of hardware at L2-L3. This was followed up by CT of the lumbar spine which showed status post lumbar spine fusion remotely with noted fusion hardware. There was bony destruction noted at L2-L3 levels concerning for osteomyelitis/discitis with possible loosening of L3 screws. Blood cx negative thus far No known h/o osteomyelitis/discitis or hardware infection in the past. Differentials include discitis vs degenerative changes over time CRP , ESR noted normal on admission. recommend bone biopsy for path and culture to aid diagnosis of discitis/osteomyelitis. Currently peripheral markers and symptomology does not seem consistent with discitis. Patient declines surgical biopsy as she wishes to avoid any open proecdures. She is agreeable for minimally invasive IR guided bone biopsy, including transfer to higher center for the procedure if needed. Further plan with regards to possible discitis remains dependent on results of biopsy and culture PDMP PDMP Reviewed: Not Reviewed Coding Level of Care Code Acute Code for Chg Fwd Moderate MDM includes number and complexity of problems actively addressed during encounter, amount and/or complexity of data reviewed/ordered and described risk of complication, morbidity or mortality of management as documented Diagnoses Discitis M46.40 Osteomyelitis M86.9
[2025-01-26] MEDS: polyethylene glycol 3350 Pkt 17 gm PO ×2 (09:42→17:25)
[2025-01-26] MEDS: ferrous sulfate EC 325 mg Tablet PO ×2 (09:42→17:25)
[2025-01-26] MEDS: lactulose oral liq 20 gm/30 mL UDC PO (14:48)
--- NOTE | 2025-01-26 17:07 | P.PN_ITS ---
Subjective 2 Subjective: Patient was seen this morning, currently alert oriented x 3, following all commands, patient's brother is at bedside, discussed with infectious disease, infectious disease spoke with patient and daughter, decision was made to transfer to [facility] for IR guided biopsy, discussed this with patient this morning, discussed risk and benefits of IR guided biopsy, she voiced understanding, all questions answered, shared decision making, agreed to proceed, reached out to [facility] this morning as of now they do not have any beds, we will reach out to them again Vitals/I&O/Wt Last Vital Signs Temp 97.4 F L 01/26/25 15:45 Pulse 18 L 01/26/25 15:45 Resp 18 01/26/25 15:45 BP 122/73 01/26/25 15:45 Pulse Ox 93 01/26/25 15:45 O2 Del Method Room Air 01/26/25 15:45 01/26/25 01/26/25 01/26/25 06:59 14:59 22:59 Intake Total 540 / 1970 1260 / 1260 Balance 540 / 1770 1260 / 1260 Weight last 48 hrs Weight 77.7 kg Weight 78.517 kg Physical Exam 2 Const: COMMON NORMALS: no acute distress and patient oriented x3 Resp: COMMON NORMALS: normal respiratory effort, No retractions, No use of accessory muscles and clear to auscultation bilaterally AUSCULTATION: clear to auscultation bilaterally Cardio: COMMON NORMALS: regular rate, regular rhythm, S1 normal heart sound present and S2 normal heart sound present RATE: regular rate RHYTHM: r egular rhythm HEART SOUNDS: S1 normal heart sound present and S2 normal heart sound present GI: COMMON NORMALS: Normal to inspection, nondistended, normoactive bowel sounds present and non-tender Extremity: COMMON NORMALS: no pedal edema Neuro: COMMON NORMALS: patient oriented x3 Psych: COMMON NORMALS: mental status grossly normal Data 01/26/25 04:43 01/26/25 04:43 Micro: Microbiology 01/25/25 19:05 Blood Culture - Preliminary Blood SPECIMEN COLLECTED 01/25/25 19:05 Blood Culture - Preliminary Blood SPECIMEN COLLECTED A&P Assessment and plan 1. Intractable nausea and vomitin. S/P insertion of spinal cord stimulator: 3. Diabetes: 4. Lumbar post-laminectomy syndrome: 5. Intervertebral disc disorder with radiculopathy of lumbosacral region: 6. History of lumbar fusion: 7. Discitis: 8. Osteomyelitis: Plan: discitis, vertebral osteomyelitis CT/CT lumbar spine wo/w con [id number] IMPRESSION: 1. Status post lumbar spine fusion revision with the hardware as described. Status post decompression laminectomies 3. Bony destruction centered at L2-L3 as described above. Findings are consistent with discitis and osteomyelitis. The screws at L3 projects through the superior aspect of the vertebral body which is undergone bony destruction. Retrolisthesis L2 on L3 4. Suspect at least moderate central canal stenosis at L2-L3 with the moderate right and [id number] left foraminal stenosis at this level 5. No significant central canal stenosis at other levels. See above for more complete description of findings. -History of spinal cord stimulator in place Plan - Follow blood cultures, so far no growth - Follow inflammatory markers - Consulted Dr. Whitman - Consult infectious disease - Will transfer to [facility] for IR guided biopsy, awaiting a bed - For now continue vancomycin - For now continue Zosyn Acute encephalopathy, resolved - Potentially a combination of patient narcotics, sedative medications, not using CPAP - ABG ordered - CT head no acute findings - Neurochecks Intractable back pain, - Continue hydrocodone Constipation, bowel regimen, CT scan does not show a bowel obstruction, bowel regimen History of urinary tract infection - Bactrim has been stopped switch to IV Zosyn - Chronic low-back pain/post-laminectomy syndrome hardware loosening, and will discuss case with orthopedic spine service Hypertension resume home blood pressure medications Obstructive sleep apnea is supposed to be on CPAP, patient needs to use CPAP Type 2 diabetes mellitus, low-dose sliding scale PDMP PDMP Reviewed: Last Reviewed 01/25/25 17:47 by Bhupinder Rivers MD Attestations 2 Medical Necessity Statement*: Patient requires hospitalization for acute encephalopathy, concerns for discitis, vertebral osteomyelitis Diagnoses Intractable nausea and vomiting R11.2 S/P insertion of spinal cord stimulator Z96.89 Diabetes E11.9 Lumbar post-laminectomy syndrome M96.1 Intervertebral disc disorder with radiculopathy of lumbosacral region M51.17 History of lumbar fusion Z98.1 Discitis M46.40 Osteomyelitis M86.9
[2025-01-26] MEDS: ATORVASTATIN 10 MG TABLET PO (20:47)
[2025-01-27 04:00] VITALS: BP 122/71; PULSE 62; RESP 12; TEMP 36.5; O2SAT 93
[2025-01-27] MEDS: pantoprazole 40 mg SDV IVP ×2 (05:34→16:58)
[2025-01-27] MEDS: piperacillin-tazobactam 3.375 GM in sodium chloride 0.9% (plus) 50 ML IV ×3 (05:34→20:30)
[2025-01-27 05:38] LABS: Hematocrit 37.0 % (36-47); Hemoglobin 12.00 g/dL (11.27-16.99); Mean Corpuscular HGB Conc 32.4 g/dL (30-55); Mean Corpuscular Hemoglobin 32.7 pg (27-33); Mean Corpuscular Volume 100.8 fl (85-98); Nucleated Red Blood Cells % 0 %; Platelet Count 259 10^3/cmm (157-399); Red Blood Count 3.67 10^6/uL (3.85-5.65); White Blood Count 12.12 10^3/uL (3.29-11.43)
[2025-01-27 05:51] LABS: Alanine Aminotransferase 34 U/L (0-33); Albumin Level 2.9 g/dL (3.5-5.2); Alkaline Phosphatase 107 U/L (35-105); Anion Gap 15.4 (5-19); Aspartate Amino Transferase 19 U/L (0-32); Blood Urea Nitrogen 14 mg/dL (8-23); Calcium 8.1 mg/dL (8.5-10.5); Carbon Dioxide 23 mmol/L (22-29); Chloride 101 mmol/L (98-107); Creatinine Clr Calc Pharmacy 54.3915; Globulin 2.5 g/dL (1.3-4.6); Glucose 188 mg/dL (65-115); Osmolality Calculated 287 mOsm/kg (285-295); Potassium 3.4 mmol/L (3.5-5.1); Sodium 136 mmol/L (136-145); Total Protein 5.4 g/dL (6.6-8.7)
[2025-01-27 05:53] LABS: Slide Review Slide Review Perform
[2025-01-27] MEDS: ferrous sulfate EC 325 mg Tablet PO ×2 (08:45→16:58)
[2025-01-27 11:52] VITALS: BP 153/80; PULSE 69; RESP 17; TEMP 36.8; O2SAT 95
--- NOTE | 2025-01-27 12:16 | PC.SOCIAL ---
IMM updated IMM dated and initialed, copy placed in chart and copy given patient.
--- NOTE | 2025-01-27 13:00 | PM.PN ---
Subjective Subjective: - Spoke to [place] this morning, patient is waiting on the bed - No complaints this morning, no fevers, chills, cough having a bowel movement this morning Vitals/I&O/Wt Last Vital Signs Temp 98.2 F 01/27/25 11:52 Pulse 69 01/27/25 11:52 Resp 17 01/27/25 11:52 BP 153/80 01/27/25 11:52 Pulse Ox 95 01/27/25 11:52 O2 Del Method Room Air 01/27/25 04:00 01/26/25 01/27/25 01/27/25 22:59 06:59 14:59 Intake Total 290 / 1550 350 / 1900 530 / 530 Balance 290 / 1550 350 / 1900 530 / 530 Weight last 48 hrs Weight 78.426 kg Weight 77.7 kg Physical Exam Const: COMMON NORMALS: no acute distress and patient oriented x3 Resp: COMMON NORMALS: normal respiratory effort, No retractions, No use of accessory muscles and clear to auscultation bilaterally AUSCULTATION: clear to auscultation bilaterally Cardio: COMMON NORMALS: regular rate, regular rhythm, S1 normal heart sound present and S2 normal heart sound present RATE: regular rate RHYTHM: regular rhythm HEART SOUNDS: S1 normal heart sound present and S2 normal heart sound present GI: COMMON NORMALS: Normal to inspection, nondistended, normoactive bowel sounds present and non-tender Extremity: COMMON NORMALS: no pedal edema Neuro: COMMON NORMALS: patient oriented x3 Psych: COMMON NORMALS: mental status grossly normal Data 01/27/25 05:09 01/27/25 05:09 Micro: Microbiology 01/25/25 19:05 Blood Culture - Preliminary Blood NEGATIVE TO DATE 01/25/25 19:05 Blood Culture - Preliminary Blood NEGATIVE TO DATE A&P Assessment and plan 1. Intractable nausea and vomitin. S/P insertion of spinal cord stimulator: 3. Diabetes: 4. Lumbar post-laminectomy syndrome: 5. Intervertebral disc disorder with radiculopathy of lumbosacral region: 6. History of lumbar fusion: 7. Discitis: 8. Osteomyelitis: Plan: discitis, vertebral osteomyelitis CT/CT lumbar spine wo/w con [id number] IMPRESSION: 1. Status post lumbar spine fusion revision with the hardware as described. Status post decompression laminectomies 3. Bony destruction centered at L2-L3 as described above. Findings are consistent with discitis and osteomyelitis. The screws at L3 projects through the superior aspect of the vertebral body which is undergone bony destruction. Retrolisthesis L2 on L3 4. Suspect at least moderate central canal stenosis at L2-L3 with the moderate right and [id number] left foraminal stenosis at this level 5. No significant central canal stenosis at other levels. See above for more complete description of findings. -History of spinal cord stimulator in place Plan - Follow blood cultures, so far no growth - Follow inflammatory markers - Consulted Dr. Whitman - Consult infectious disease - Will transfer to [facility] for IR guided biopsy, awaiting a bed - For now continue vancomycin - For now continue Zosyn Acute encephalopathy, resolved - Potentially a combination of patient narcotics, sedative medications, not using CPAP - CT head no acute findings - Neurochecks Intractable back pain, - Continue hydrocodone Constipation, bowel regimen, CT scan does not show a bowel obstruction, bowel regimen History of urinary tract infection - Bactrim has been stopped switch to IV Zosyn - Chronic low-back pain/post-laminectomy syndrome hardware loosening, and will discuss case with orthopedic spine service Hypertension resume home blood pressure medications Obstructive sleep apnea is supposed to be on CPAP, patient needs to use CPAP Type 2 diabetes mellitus, low-dose sliding scale PDMP PDMP Reviewed: Last Reviewed 01/25/25 17:47 by Bhupinder Rivers MD Attestations Medical Necessity Statement*: Patient requires hospitalization for discitis, awaiting a bed at [facility] Diagnoses Intractable nausea and vomiting R11.2 S/P insertion of spinal cord stimulator Z96.89 Diabetes E11.9 Lumbar post-laminectomy syndrome M96.1 Intervertebral disc disorder with radiculopathy of lumbosacral region M51.17 History of lumbar fusion Z98.1 Discitis M46.40 Osteomyelitis M86.9
[2025-01-27 16:59] LABS: Glucose Urine UA 1+ (Normal); Nitrate Urine Negative (Negative); Specific Gravity, Urine 1.020 (1.005-1.030)
[2025-01-27 17:02] VITALS: BP 139/88; PULSE 68; RESP 17; TEMP 36.5; O2SAT 91
[2025-01-27 17:08] LABS: Add Urine Microscopic? YES
[2025-01-27 20:00] VITALS: BP 141/73; PULSE 66; RESP 16; TEMP 36.7; O2SAT 95
[2025-01-27] MEDS: ATORVASTATIN 10 MG TABLET PO (20:29)
[2025-01-28] VITALS: BP 153/74; PULSE 62; RESP 14; TEMP 36.7; O2SAT 94
[2025-01-28 04:00] VITALS: BP 161/81; PULSE 75; RESP 17; TEMP 36.9; O2SAT 98
[2025-01-28] MEDS: pantoprazole 40 mg SDV IVP ×2 (05:31→09:05)
[2025-01-28] MEDS: piperacillin-tazobactam 3.375 GM in sodium chloride 0.9% (plus) 50 ML IV (05:31)
[2025-01-28 05:43] LABS: Hematocrit 36.5 % (36-47); Hemoglobin 12.80 g/dL (11.27-16.99); Mean Corpuscular HGB Conc 35.1 g/dL (30-55); Mean Corpuscular Hemoglobin 32.9 pg (27-33); Mean Corpuscular Volume 93.8 fl (85-98); Nucleated Red Blood Cells % 0 %; Platelet Count 291 10^3/cmm (157-399); Red Blood Count 3.89 10^6/uL (3.85-5.65); White Blood Count 12.64 10^3/uL (3.29-11.43)
[2025-01-28 05:58] LABS: Alanine Aminotransferase 34 U/L (0-33); Albumin Level 3.2 g/dL (3.5-5.2); Alkaline Phosphatase 85 U/L (35-105); Aspartate Amino Transferase 21 U/L (0-32); Blood Urea Nitrogen 10 mg/dL (8-23); Calcium 8.5 mg/dL (8.5-10.5); Carbon Dioxide 26 mmol/L (22-29); Chloride 102 mmol/L (98-107); Creatinine Clr Calc Pharmacy 54.2470; Globulin 2.9 g/dL (1.3-4.6); Glucose 144 mg/dL (65-115); Osmolality Calculated 292 mOsm/kg (285-295); Sodium 140 mmol/L (136-145); Total Protein 6.1 g/dL (6.6-8.7)
[2025-01-28 05:59] LABS: Anion Gap 15.1 (5-19); Potassium 3.1 mmol/L (3.5-5.1)
[2025-01-28 06:05] LABS: Slide Review Slide Review Perform
[2025-01-28 08:01] VITALS: BP 171/99; PULSE 71; RESP 18; TEMP 36.8; O2SAT 94
[2025-01-28 08:02] VITALS: O2SAT 96
[2025-01-28] MEDS: ferrous sulfate EC 325 mg Tablet PO (09:07)
[2025-01-28] MEDS: polyethylene glycol 3350 Pkt 17 gm PO (09:07)
[2025-01-28 11:39] VITALS: BP 156/86; PULSE 74; RESP 18; TEMP 36.8; O2SAT 94
--- NOTE | 2025-01-28 13:26 | P.PN_ITS ---
Subjective 2 Subjective: Patient was seen this morning, she is frustrated about waiting for a bed at [facility], no fevers, no chills, no nausea, vomiting, she is agreeable for me to try [facility] in [place], she continues to have good bowel movements no abdominal pain, no headache, blurry vision, she is alert oriented x 3, following all commands -Spoke to [facility] this morning, the y do not have beds - Spoke to [facility] in [place] spoke to the transfer department - Spoke to [facility], spoke to the IR team, reviewed images discussed that they could get a biopsy, spoke to their nurse practitioner who is accepted the patient in transfer, currently now awaiting a bed at [facility] Vitals/I&O/Wt Last Vital Signs Temp 98.3 F 01/28/25 11:39 Pulse 74 01/28/25 11:39 Resp 18 01/28/25 11:39 BP 156/86 01/28/25 11:39 Pulse Ox 94 01/28/25 11:39 O2 Del Method Room Air 01/28/25 11:39 01/27/25 01/28/25 01/28/25 22:59 06:59 14:59 Intake Total 894.167 / 1424.167 660 / 2084.167 1650 / 1650 Output Total 600 / 600 Balance 294.167 / 824.167 660 / 6791.038 7596 / 1650 Weight last 48 hrs Weight 78.018 kg Weight 78.426 kg Physical Exam 2 Const: COMMON NORMALS: no acute distress and patient oriented x3 Resp: COMMON NORMALS: normal respiratory effort, No retractions, No use of accessory muscles and clear to auscultation bilaterally AUSCULTATION: clear to auscultation bilaterally Cardio: COMMON NORMALS: regular rate, regular rhythm, S1 normal heart sound present and S2 normal heart sound present RATE: regular rate RHYTHM: r egular rhythm HEART SOUNDS: S1 normal heart sound present and S2 normal heart sound present GI: COMMON NORMALS: Normal to inspection, nondistended, normoactive bowel sounds present and non-tender Extremity: COMMON NORMALS: no pedal edema Neuro: COMMON NORMALS: patient oriented x3 Psych: COMMON NORMALS: mental status grossly normal Data 01/28/25 05:10 01/28/25 05:10 Micro: Microbiology 01/23/25 09:00 Blood Culture - Final Blood NO GROWTH AFTER 5 DAYS 01/23/25 09:04 Blood Culture - Final Blood NO GROWTH AFTER 5 DAYS A&P Assessment and plan 1. Intractable nausea and vomitin. S/P insertion of spinal cord stimulator: 3. Diabetes: 4. Lumbar post-laminectomy syndrome: 5. Intervertebral disc disorder with radiculopathy of lumbosacral region: 6. History of lumbar fusion: 7. Discitis: 8. Osteomyelitis: Plan: discitis, vertebral osteomyelitis CT/CT lumbar spine wo/w con [id number] IMPRESSION: 1. Status post lumbar spine fusion revision with the hardware as described. Status post decompression laminectomies 3. Bony destruction centered at L2-L3 as described above. Findings are consistent with discitis and osteomyelitis. The screws at L3 projects through the superior aspect of the vertebral body which is undergone bony destruction. Retrolisthesis L2 on L3 4. Suspect at least moderate central canal stenosis at L2-L3 with the moderate right and [id number] left foraminal stenosis at this level 5. No significant central canal stenosis at other levels. See above for more complete description of findings. -History of spinal cord stimulator in place Plan - Follow blood cultures, so far no growth - Follow inflammatory markers - Consulted Dr. Whitman - Consult infectious disease, recommended transfer for IR guided biopsy to establish pathologic diagnosis and for culture results - Will transfer to [facility] for IR guided biopsy, awaiting a bed - For now continue vancomycin - For now continue Zosyn Acute encephalopathy, resolved - Potentially a combination of patient narcotics, sedative medications, not using CPAP - CT head no acute findings - Neurochecks Intractable back pain, - Continue hydrocodone Constipation, resolved having adequate bowel movements, bowel regimen, CT scan does not show a bowel obstruction, bowel regimen History of urinary tract infection - Bactrim has been stopped switch to IV Zosyn Hypothyroidism continue levothyroxine Chronic low-back pain/post-laminectomy syndrome hardware loosening, and will discuss case with orthopedic spine service, medical management Hypertension resume home blood pressure medications Obstructive sleep apnea is supposed to be on CPAP, patient needs to use CPAP Type 2 diabetes mellitus, low-dose sliding scale PDMP PDMP Reviewed: Last Reviewed 01/25/25 17:47 by Bhupinder Rivers MD Attestations 2 Medical Necessity Statement*: Patient requires hospitalization for discitis, vertebral osteomyelitis awaiting transfer to tertiary [facility] center Diagnoses Intractable nausea and vomiting R11.2 S/P insertion of spinal cord stimulator Z96.89 Diabetes E11.9 Lumbar post-laminectomy syndrome M96.1 Intervertebral disc disorder with radiculopathy of lumbosacral region M51.17 History of lumbar fusion Z98.1 Discitis M46.40 Osteomyelitis M86.9
--- NOTE | 2025-01-28 15:17 | PM.TDS ---
Transfer Summary Providers Date of Admission: 01/24/25 14:11 Date of Discharge/Transfer: 01/28/25 Attending Provider at Admission: Nasim Rowe Attending Provider at Transfer: Bhupinder Rivers MD Primary Care Provider: Drew Williamson MD Transfer Plans: Anticipated date of transfer: 01/28/25. Diagnoses at Discharge Discharge Diagnosis 1. Intractable nausea and vomitin. S/P insertion of spinal cord stimulator: 3. Diabetes: 4. Lumbar post-laminectomy syndrome: 5. Intervertebral disc disorder with radiculopathy of lumbosacral region: 6. History of lumbar fusion: 7. Discitis: 8. Osteomyelitis: Reason for Visit Reason for Visit High BS fever dizzy can't pee N/V Hospital Course Hospital Course This is a 79-year-old female with a past medical history of type 2 diabetes, pituitary adenoma, lumbar stenosis status post fusion surgeries, history of laminectomy syndrome, who presents [facility] due to nausea, vomiting, dizziness, back pain, generalized fatigue and malaise Patient was admitted to [facility] for concerns for discitis, vertebral osteomyelitis CT/CT lumbar spine wo/w con [id number] IMPRESSION: 1. Status post lumbar spine fusion revision with the hardware as described. Status post decompression laminectomies 3. Bony destruction centered at L2-L3 as described above. Findings are consistent with discitis and osteomyelitis. The screws at L3 projects through the superior aspect of the vertebral body which is undergone bony destruction. Retrolisthesis L2 on L3 4. Suspect at least moderate central canal stenosis at L2-L3 with the moderate right and [id number] left foraminal stenosis at this level 5. No significant central canal stenosis at other levels. See above for more complete description of findings. -History of spinal cord stimulator in place, cannot do MRI -Received inpatient PT OT, broad-spectrum antibiotic therapy - Follow blood cultures, so far no growth - Follow inflammatory markers - Consulted Dr. Whitman, recommended IR guided biopsy, medical management - Consult infectious disease, recommended transfer for IR guided biopsy to establish pathologic diagnosis and for culture results -After discussing the risk and benefits of all options with patient and family, patient agreed to transfer to tertiary level center for IR guided biopsy -Initially plans were made to transfer to [facility] however she spent over 72 hours on their wait list - Patient is frustrated about the Wait for [place], wanted transfer to [facility] in [place], discussed case with [facility] in [place], discussed case with IR, and then their nurse practitioner, patient has been accepted - For now continue vancomycin - For now continue Zosyn - Aspirin 81 mg remains on hold Patient's hospitalization was complicated with acute encephalopathy, likely combination of narcotics, sedating medications, not using CPAP, CT head no acute findings, resolved Constipation, likely associate with narcotics, CT scan abdomen pelvis no obstruction, resolved with bowel regimen continues to have adequate bowel movements UTI, currently on Zosyn Obstructive sleep apnea, noncompliant with CPAP Chronic pain, on hydrocodone Physical Exam Const: COMMON NORMALS: no acute distress and patient oriented x3 Resp: COMMON NORMALS: normal respiratory effort, No retractions, No use of accessory muscles and clear to auscultation bilaterally AUSCULTATION: clear to auscultation bilaterally Cardio: COMMON NORMALS: regular rate, regular rhythm, S1 normal heart sound present and S2 normal heart sound present RATE: regular rate RHYTHM: regular rhythm HEART SOUNDS: S1 normal heart sound present and S2 normal heart sound present GI: COMMON NORMALS: Normal to inspection, nondistended, normoactive bowel sounds present and non-tender Extremity: COMMON NORMALS: no pedal edema Neuro: COMMON NORMALS: patient oriented x3 Psych: COMMON NORMALS: mental status grossly normal TS Data Studies Completed and Pending Pending at discharge Category Date Time Status Blood Culture Stat Lab 01/25/25 19:05 Results Complete Blood Count w/Auto AM LABS Lab 01/29/25 04:00 Ordered Comprehensive Metabolic Panel AM LABS Lab 01/29/25 04:00 Ordered Vancomycin Trough Timed Lab 01/29/25 10:30 Ordered Completed Studies During Hospitalization Category Date Time Status CT abdomen pelvis w con* [id number] Stat Cat Scan 01/22/25 23:[address] abdomen pelvis wo con [id number] Routine Cat Scan 01/25/25 10:[address] head wo con* [id number] Routine Cat Scan 01/25/25 17:[address] lumbar spine wo/w con [id number] Routine Cat Scan 01/23/25 09:10 Completed CXRP [XR chest 1V portable [id number]] Routine Exams 01/26/25 07:31 Completed XR KUB portable [id number] Stat Exams 01/25/25 07:59 Completed Laboratory Last Values WBC 12.64 10^3/uL (3.29-11.43) H 01/28/25 05:10 RBC 3.89 10^6/uL (3.85-5.65) 01/28/25 05:10 Hgb 12.80 g/dL (11.27-16.99) 01/28/25 05:10 Hct 36.5 % (36-47) 01/28/25 05:10 MCV 93.8 fl (85-98) 01/28/25 05:10 MCH 32.9 pg (27-33) 01/28/25 05:10 MCHC 35.1 g/dL (30-55) D 01/28/25 05:10 RDW 13.3 % (12.1-15.1) 01/28/25 05:10 Plt Count 291 10^3/cmm (157-399) 01/28/25 05:10 MPV 9.9 fL (7.4-10.4) 01/28/25 05:10 Neut % (Auto) 38.7 % 01/28/25 05:10 Lymph % (Auto) 47.6 % 01/28/25 05:10 Izard % (Auto) 10.7 % 01/28/25 05:10 Eos % (Auto) 2.1 % 01/28/25 05:10 Baso % (Auto) 0.6 % 01/28/25 05:10 Neut # (Auto) 4.88 10^3/uL (1.8-7.7) 01/28/25 05:10 Lymph # (Auto) 6.0 10^3/uL (0.8-4.8) H 01/28/25 05:10 Izard # (Auto) 1.4 10^3/uL (0.2-0.9) H 01/28/25 05:10 Eos # (Auto) 0.3 10^3/uL (0.0-0.8) 01/28/25 05:10 Baso # (Auto) 0.1 10^3/uL (0.0-0.1) 01/28/25 05:10 Nucleated RBC % (auto) 0 % 01/28/25 05:10 Nucleated RBCs # 0.0 /100WBC 01/28/25 05:10 ESR 7 mm/hr (0-15) 01/23/25 11:00 Specimen Type Arterial 01/25/25 13:10 Sample Site Brachial, left 01/25/25 13:10 ABG pH 7.41 (7.35-7.45) 01/25/25 13:10 ABG pCO2 41.5 mmHg (35-45) 01/25/25 13:10 ABG pO2 59.9 mmHg (80.0-100.0) L 01/25/25 13:10 ABG PO2/FiO2 Ratio 285 01/25/25 13:10 ABG HCO3 26.2 mmol/L (22-26) H 01/25/25 13:10 ABG Base Excess 1.2 mmol/L (-2.0-2.0) 01/25/25 13:10 Adrian Test N/a 01/25/25 13:10 Hematocrit 49.9 % (37-47) H 01/25/25 13:10 O2 Delivery Device Room air 01/25/25 13:10 FiO2 21.0 % 01/25/25 13:10 Morgue Keeper ID Gd 01/25/25 13:10 Sodium 140 mmol/L (136-145) 01/28/25 05:10 Potassium 3.1 mmol/L (3.5-5.1) L 01/28/25 05:10 Chloride 102 mmol/L (98-107) 01/28/25 05:10 Carbon Dioxide 26 mmol/L (22-29) 01/28/25 05:10 Anion Gap 15.1 (5-19) 01/28/25 05:10 BUN 10 mg/dL (8-23) 01/28/25 05:10 Creatinine 0.5 mg/dL (0.5-0.9) 01/28/25 05:10 GFR Calculation Not Reportable 01/28/25 05:10 Glucose 144 mg/dL (65-115) H 01/28/25 05:10 POC Glucose 261 mg/dL (70-110) H 01/28/25 11:08 Calculated Osmolality 292 mOsm/kg (285-295) 01/28/25 05:10 Calcium 8.5 mg/dL (8.5-10.5) 01/28/25 05:10 Phosphorus 3.4 mg/dL (2.5-4.5) 01/25/25 04:01 Magnesium 2.1 mg/dL (1.7-2.3) 01/25/25 04:01 Total Bilirubin 0.4 mg/dL (0.15-1.2) 01/28/25 05:10 AST 21 U/L (0-32) 01/28/25 05:10 ALT 34 U/L (0-33) H 01/28/25 05:10 Alkaline Phosphatase 85 U/L (35-105) 01/28/25 05:10 C-Reactive Protein 14.7 mg/L (0.0-4.9) H 01/25/25 04:01 Total Protein 6.1 g/dL (6.6-8.7) L 01/28/25 05:10 Albumin 3.2 g/dL (3.5-5.2) L 01/28/25 05:10 Globulin 2.9 g/dL (1.3-4.6) 01/28/25 05:10 Procalcitonin 0.11 ng/mL (0-0.5) 01/25/25 04:01 TSH 0.86 uIU/mL (0.27-4.20) 01/25/25 16:39 Urine Color Yellow (Yellow) 01/27/25 15:04 Urine Appearance Clear (CLEAR) 01/27/25 15:04 Urine pH 6.0 (5-7) 01/27/25 15:04 Ur Specific [facility] 1.020 (1.005-1.030) 01/27/25 15:04 Urine Protein Negative (Negative) 01/27/25 15:04 Urine Glucose (UA) 1+ (Normal) H 01/27/25 15:04 Urine Ketones Negative (Negative) 01/27/25 15:04 Urine Blood Negative (Negative) 01/27/25 15:04 Urine Nitrate Negative (Negative) 01/27/25 15:04 Urine Bilirubin Negative (Negative) 01/27/25 15:04 Urine Urobilinogen 0.2 mg/dL (Negative) 01/27/25 15:04 Ur Leukocyte Esterase Trace (Negative) A 01/27/25 15:04 Urine RBC 0-2 /hpf (0-2) 01/27/25 15:04 Urine WBC 0-5 /hpf (0-5) 01/27/25 15:04 Ur Squamous Epith Cells 0-5 /hpf (0-5) 01/27/25 15:04 Amorphous Sediment Not Reportable 01/27/25 15:04 Urine Bacteria None seen /hpf (NONE) 01/27/25 15:04 Hyaline Casts 0.81 /lpf 01/27/25 15:04 Vancomycin Trough 11.8 ug/mL (10-15) 01/27/25 10:55 Urine Opiates Screen Positive ng/mL (Negative) H 01/23/25 14:00 Ur Barbiturates Screen Negative ng/mL (Negative) 01/23/25 14:00 Ur Phencyclidine Scrn Negative ng/mL (Negative) 01/23/25 14:00 Ur Amphetamines Screen Negative ng/mL (Negative) 01/23/25 14:00 U Benzodiazepines Scrn Negative ng/mL (Negative) 01/23/25 14:00 Urine Cocaine Screen Negative ng/mL (Negative) 01/23/25 14:00 U Marijuana (THC) Screen Negative ng/mL (Negative) 01/23/25 14:00 Ethyl Alcohol < 10 mg/dL (0-10) 01/23/25 09:58 Serum Ketones Negative (Negative) 01/23/25 09:58 C. difficile (PCR) Negative (Negative) 01/26/25 01:10 Radiology Impressions Lumbar Spine CT 01/23/25 09:10 IMPRESSION: 1. Status post lumbar spine fusion revision with the hardware as described. Status post decompression laminectomies 3. Bony destruction centered at L2-L3 as described above. Findings are consistent with discitis and osteomyelitis. The screws at L3 projects through the superior aspect of the vertebral body which is undergone bony destruction. Retrolisthesis L2 on L3 4. Suspect at least moderate central canal stenosis at L2-L3 with the moderate right and [id number] left foraminal stenosis at this level 5. No significant central canal stenosis at other levels. See above for more complete description of findings. KUB X-Ray 01/25/25 07:59 IMPRESSION: Gaseous distension of the ascending and proximal transverse colon. Recommend CT abdomen and pelvis to evaluate for obstruction. Abdomen/Pelvis CT 01/25/25 10:26 IMPRESSION: 1. Increasing fluid and diameter of the colon since 01/23/2025. Liquid stool and feces are now present. There is no transition point or obstruction. This may be from an ileus. 2. No evidence for acute diverticulitis. 3. Prior appendectomy. 4. Stomach is not significantly distended. 5. No free fluid or free air. 6. Destructive changes involving the posterior fusion at L3-4 highly suspicious for discitis and osteomyelitis. Refer to the prior CT lumbar spine report from 01/23/2025. 7. Prior splenectomy. 8. LEFT adrenal mass 1.2 x [address] or MRI follow-up with and without contrast may be obtained. 9. Ventral abdominal wall hernias containing fat only. Head CT 01/25/25 17:05 IMPRESSION: No acute intracranial abnormality. Chest X-Ray 01/26/25 07:31 IMPRESSION: 1. Chronic emphysema, no pneumonia. 2. Atherosclerosis aorta. Recent Clincial Data Last Vital Signs Temp 98.3 F 01/28/25 11:39 Pulse 74 01/28/25 11:39 Resp 18 01/28/25 11:39 BP 156/86 01/28/25 11:39 Pulse Ox 94 01/28/25 11:39 O2 Del Method Room Air 01/28/25 11:39 Vital Signs Temp Pulse Resp BP Pulse Ox O2 Del Method 01/28/25 11:39 98.3 F 74 18 156/86 94 Room Air 01/28/25 08:02 96 01/28/25 08:01 98.2 F 71 18 171/99 94 Room Air 01/28/25 04:00 98.5 F 75 17 161/81 98 Room Air Intake & Output/Weight 01/26/25 01/27/25 01/28/25 01/29/25 06:59 06:59 06:59 06:59 Intake Total 1969 2084.167 / 4.167 1899 Output Total 200 / 200 600 / 600 Balance 1770 / 1770 1899 1484.167 / 9684.173 8995 / 1900 Weight 77.7 kg 78.426 kg 78.018 kg Vitals Last Vital Signs Temp 98.3 F 01/28/25 11:39 Pulse 74 01/28/25 11:39 Resp 18 01/28/25 11:39 BP 156/86 01/28/25 11:39 Pulse Ox 94 01/28/25 11:39 O2 Del Method Room Air 01/28/25 11:39 TS Medications Medications Acetaminophen (Acetaminophen 325 Mg Tablet) 650 mg PO Q6H PRN PRN Reason: Mild/Mod Pain Or Temp >/= 101 Last Admin: 01/28/25 05:38 Dose: 650 mg Amlodipine Besylate (Amlodipine 5 Mg Tablet) 5 mg PO BID [facility] Last Admin: 01/28/25 09:07 Dose: 5 mg Atorvastatin Calcium (Atorvastatin 10 Mg Tablet) 10 mg PO BEDTIME [facility] Last Admin: 01/27/25 20:29 Dose: 10 mg Bisacodyl (Bisacodyl 5 Mg Tablet) 10 mg PO Q12H [facility] Last Admin: 01/28/25 12:29 Dose: 10 mg Bupropion HCl (Bupropion Xl (24 Hr) 300 Mg Tablet) 300 mg PO QAM [facility] Last Admin: 01/28/25 05:31 Dose: 300 mg Ezetimibe (Ezetimibe 10 Mg Tablet) 10 mg PO BEDTIME [facility] Last Admin: 01/27/25 20:29 Dose: 10 mg Enoxaparin Sodium (Enoxaparin 40 Mg/0.4 Ml Syringe) 40 mg SUBCUT Q24H [facility] Last Admin: 01/28/25 09:05 Dose: 40 mg Ferrous Sulfate (Ferrous Sulfate Ec 325 Mg Tablet) 325 mg PO BID [facility] Last Admin: 01/28/25 09:07 Dose: 325 mg Gabapentin (Gabapentin 300 Mg Capsule) 300 mg PO TID [facility] Last Admin: 01/28/25 09:07 Dose: 300 mg Glucagon (Glucagon 1 Mg/Ml Kit 1 Ml) 1 mg IM ONCE PRN; Protocol PRN Reason: Adult Acute Hypoglycemia Nursing Prot. Hydrochlorothiazide (Hydrochlorothiazide 25 Mg Tablet) 12.5 mg PO DAILY [facility] Last Admin: 01/28/25 09:06 Dose: 12.5 mg Dextrose (D5w) 500 mls @ 0 mls/hr IV ONCE PRN; Protocol PRN Reason: Adult Acute Hypoglycemia Prot Dextrose (D10w) 125 mls @ 750 mls/hr IV PRN PRN; Protocol PRN Reason: Adult Acute Hypoglycemia Nursing Protocol Dextrose (D10w) 250 mls @ 1,000 mls/hr IV PRN PRN; Protocol PRN Reason: Adult Acute Hypoglycemia Nursing Protocol Piperacillin Sod/Tazobactam (Sod 3.375 gm/ Sodium Chloride) 50 mls @ 12.5 mls/hr IV Q8H [facility] Last Infusion: 01/28/25 09:43 Dose: Infused Vancomycin HCl (Vancocin) 1,250 mg in 250 mls @ 166.667 mls/hr IV Q12H [facility] Last Infusion: 01/28/25 14:52 Dose: Infused Insulin Human Lispro (Insulin Lispro 100 Unit/1 Ml) 0 unit SUBCUT WM&BEDTIME [facility]; Protocol Last Admin: 01/28/25 12:29 Dose: 10 unit Levothyroxine Sodium (Levothyroxine 175 Mcg Tablet) 175 mcg PO DAILY [facility] Last Admin: 01/28/25 09:06 Dose: 175 mcg Metoclopramide HCl (Metoclopramide 5 Mg/Ml Sdv 2 Ml) 5 mg IVP Q6H PRN PRN Reason: NAUSEA AND VOMITING Metoprolol Tartrate (Metoprolol Tartrate 25 Mg Tablet) 25 mg PO BID [facility] Last Admin: 01/28/25 09:07 Dose: 25 mg Non-Formulary Medication (Galantamine) 24 mg PO QAM [facility] Ondansetron HCl (Ondansetron 2 Mg/Ml Sdv 2 Ml) 4 mg IVP Q4H PRN PRN Reason: vomiting, or N/V if npo Last Admin: 01/25/25 13:05 Dose: 4 mg Oxycodone HCl (Oxycodone 5 Mg Ir Tab/Cap) 5 mg PO Q6H PRN PRN Reason: MODERATE PAIN Pantoprazole Sodium (Pantoprazole 40 Mg Sdv) 40 mg IVP Q12H [facility] Last Admin: 01/28/25 09:05 Dose: 40 mg Polyethylene Glycol (Polyethylene Glycol 3350 Pkt 17 Gm) 17 gm PO DAILY [facility] Last Admin: 01/28/25 09:07 Dose: 17 gm Sertraline HCl (Sertraline 100 Mg Tablet) 100 mg PO QAM [facility] Last Admin: 01/28/25 05:31 Dose: 100 mg Trazodone HCl (Trazodone 50 Mg Tablet) 50 mg PO BEDTIME [facility] Last Admin: 01/27/25 20:29 Dose: 50 mg Discontinued Medications Hydrocodone Bitart/Acetaminophen (Hydrocodone-Acetaminophen 5-325 Mg Tablet) 1 tab PO Q4H PRN PRN Reason: MODERATE PAIN Last Admin: 01/24/25 05:52 Dose: 1 tab Ceftriaxone Sodium (Ceftriaxone 1,000 Mg Sdv) 1,000 mg IVP Q24H [facility]; Protocol Last Admin: 01/25/25 08:42 Dose: 1,000 mg Guaifenesin/Dextromethorphan (Guaifenesin-Dextromethorphan Udc 10 Ml) 10 ml PO Q4H PRN PRN Reason: COUGH Last Admin: 01/23/25 21:28 Dose: 10 ml Sodium Chloride (Sodium Chloride 0.9%) 1,000 mls @ 999 mls/hr IV .Q1H1M ONE Stop: 01/23/25 00:36 Last Infusion: 01/23/25 08:30 Dose: Infused Lactated Ringer's (Lactated Ringers) 1,000 mls @ 50 mls/hr IV .Q20H [facility] Last Infusion: 01/24/25 10:56 Dose: Infused Vancomycin HCl 750 mg/ Sodium (Chloride) 250 mls @ 250 mls/hr IV Q12H [facility] Last Admin: 01/24/25 23:55 Dose: Not Given Vancomycin HCl 1,000 mg/ (Sodium Chloride) 250 mls @ 250 mls/hr IV Q12H [facility] Last Infusion: 01/27/25 17:07 Dose: Infused Lidocaine HCl 5 ml/ Potassium (Chloride) 105 mls @ 52.5 mls/hr IV ONCE ONE Stop: 01/25/25 15:29 Last Infusion: 01/25/25 16:12 Dose: Infused Lidocaine HCl 5 ml/ Potassium (Chloride) 105 mls @ 52.5 mls/hr IV ONCE ONE Stop: 01/25/25 13:33 Last Infusion: 01/25/25 14:53 Dose: Infused Piperacillin Sod/Tazobactam (Sod / Sodium Chloride) 50 mls @ 0 mls/hr [id number] [facility]; Protocol Iohexol (Iohexol 350 Mg/Ml 500 Ml Btl (Per Ml)) 0 ml IV ONCE ONE Stop: 01/23/25 00:33 Last Admin: 01/23/25 00:32 Dose: 100 ml Iohexol (Iohexol 350 Mg/Ml 500 Ml Btl (Per Ml)) 0 ml PO ONCE ONE Stop: 01/23/25 00:34 Last Admin: 01/23/25 00:33 Dose: 25 ml Iohexol (Iohexol 350 Mg/Ml 500 Ml Btl (Per Ml)) 0 ml IV ONCE ONE Stop: 01/23/25 09:39 Last Admin: 01/23/25 09:38 Dose: 100 ml Lactulose (Lactulose Oral Liq 20 Gm/30 Ml Udc) 20 gm PO Q12H [facility] Last Admin: 01/27/25 01:30 Dose: Not Given Levothyroxine Sodium (Levothyroxine 175 Mcg Tablet) 175 mcg PO BEDTIME [facility] Last Admin: 01/23/25 20:48 Dose: 175 mcg Ondansetron HCl (Ondansetron 2 Mg/Ml Sdv 2 Ml) 4 mg IVP ONCE ONE Stop: 01/22/25 23:37 Last Admin: 01/23/25 00:01 Dose: 4 mg Ondansetron HCl (Ondansetron 2 Mg/Ml Sdv 2 Ml) 4 mg IVP Q8H PRN PRN Reason: vomiting, or N/V if npo Last Admin: 01/25/25 05:27 Dose: 4 mg Polyethylene Glycol (Polyethylene Glycol 3350 Pkt 17 Gm) 17 gm PO BID [facility] Last Admin: 01/27/25 08:00 Dose: Not Given Potassium Chloride (Potassium Chloride Er 20 Meq Tablet) 40 meq PO ONCE ONE Stop: 01/26/25 11:53 Last Admin: 01/26/25 12:06 Dose: 40 meq Potassium Chloride (Potassium Chloride Er 20 Meq Tablet) 40 meq PO ONCE ONE Stop: 01/28/25 07:45 Last Admin: 01/28/25 09:06 Dose: 40 meq Sitagliptin Phosphate ([facility]agliptin 100 Mg Tablet) [facility] Last Admin: 01/25/25 05:27 Dose: 100 mg Sodium Phosphate (Fleet Enema 133 Ml Enema) 133 ml KS ONCE ONE Stop: 01/23/25 11:46 Last Admin: 01/23/25 17:44 Dose: 133 ml Sodium Phosphate (Fleet Enema 133 Ml Enema) 133 ml KS ONCE ONE Stop: 01/24/25 14:13 Last Admin: 01/24/25 14:50 Dose: 133 ml Sodium Phosphate (Fleet Enema 133 Ml Enema) 133 ml KS ONCE ONE Stop: 01/25/25 13:40 Last Admin: 01/25/25 14:01 Dose: 133 ml Allergies morphine Allergy (Mild, Verified 01/22/25 19:36) hallucinations latex Adverse Reaction (Mild, Verified 01/22/25 19:36) RASH Home Medications amlodipine 5 mg tablet 5 mg PO BID 07/28/19 [History Confirmed 01/24/25] aspirin 81 mg chewable tablet 81 mg PO QAM 07/28/19 [History Confirmed 01/24/25] diclofenac sodium 75 mg tablet,delayed release 75 mg PO BID PRN Pain 07/28/19 [History Confirmed 01/24/25] docusate sodium 100 mg capsule (Colace) 100 mg PO BID 07/28/19 [History Confirmed 01/24/25] ezetimibe 10 mg tablet (Zetia) 10 mg PO BEDTIME 07/28/19 [History Confirmed 01/24/25] oxybutynin chloride 5 mg tablet 2.5 mg PO BID 07/28/19 [History Confirmed 01/24/25] sertraline 100 mg tablet 100 mg PO QAM 07/28/19 [History Confirmed 01/24/25] trazodone 50 mg tablet 50 mg PO BEDTIME 07/28/19 [History Confirmed 01/24/25] bupropion HCl 300 mg 24 hr tablet, extended release (Wellbutrin XL) 300 mg PO QAM 07/29/19 [History Confirmed 01/24/25] ferrous sulfate 325 mg (65 mg iron) tablet 325 mg PO BID 07/29/19 [History Confirmed 01/24/25] metoprolol tartrate 25 mg tablet 25 mg PO BID 10/21/20 [History Confirmed 01/24/25] gabapentin 300 mg capsule 300 mg PO TID 02/28/22 [History Confirmed 01/24/25] glyburide 5 mg tablet 5 mg PO QAM 02/28/22 [History Confirmed 01/24/25] hydrocodone 5 mg-acetaminophen 325 mg tablet 0.5 - 1 tab PO Q6H PRN Pain 02/28/22 [History Confirmed 01/24/25] levothyroxine 175 mcg tablet 175 mcg PO DAILY 02/28/22 [History Confirmed 01/24/25] montelukast 10 mg tablet 10 mg PO QAM 02/28/22 [History Confirmed 01/24/25] pravastatin 40 mg tablet 40 mg PO BEDTIME 02/28/22 [History Confirmed 01/24/25] sitagliptin phosphate 100 mg tablet (Januvia) 100 mg PO QAM 02/28/22 [History Confirmed 01/24/25] blood sugar diagnostic (Contour Next Test Strips) #50 ea 05/01/22 [Rx Confirmed 01/23/25] blood-glucose meter (Contour Next One Meter) #1 ea 05/01/22 [Rx Confirmed 01/23/25] cetirizine 10 mg tablet (Zyrtec) 10 mg PO DAILY 01/25/23 [History Confirmed 01/24/25] pantoprazole 40 mg tablet,delayed release 40 mg PO QAM 01/25/23 [History Confirmed 01/24/25] vit C 250 mg-vit E 90 mg-zinc 40 mg-copper 1 [id number] capsule (PreserVision AREDS-2) 1 tab PO BID 01/25/23 [History Confirmed 01/24/25] hydrochlorothiazide 12.5 mg tablet 1 ea PO DAILY 04/23/23 [History Confirmed 01/24/25] omega-3 acid ethyl esters 1 gram capsule 2 cap PO BID 04/23/23 [History Confirmed 01/24/25] galantamine 24 mg 24 hr capsule,extended release 24 mg PO QAM #90 caps 05/28/24 [Rx Confirmed 01/24/25] ondansetron 4 mg disintegrating tablet 4 mg PO Q8H PRN nausea and vomiting 5 days #30 tabs 01/20/25 [Rx Confirmed 01/24/25] semaglutide 1 mg/dose (4 mg/3 mL) subcutaneous pen injector (Ozempic) 1 mg SUBCUT Q7D 01/23/25 [History Confirmed 01/23/25] Discharge Plan Discharge Patient Disposition: Home Condition: Stable Prescriptions: No Action ferrous sulfate 325 mg (65 mg iron) tablet 325 mg PO BID bupropion HCl [Wellbutrin XL] 300 mg tablet extended release 24 hr 300 mg PO QAM oxybutynin chloride 5 mg tablet 2.5 mg PO BID diclofenac sodium 75 mg tablet,delayed release (DR/EC) 75 mg PO BID PRN (Reason: Pain) trazodone 50 mg tablet 50 mg PO BEDTIME amlodipine 5 mg tablet 5 mg PO BID docusate sodium [Colace] 100 mg capsule 100 mg PO BID ezetimibe [Zetia] 10 mg tablet 10 mg PO BEDTIME sertraline 100 mg tablet 100 mg PO QAM aspirin 81 mg tablet,chewable 81 mg PO QAM metoprolol tartrate 25 mg tablet 25 mg PO BID (DME) blood-glucose meter [Contour Next One Meter] Misc See Rx Instructions .Route Qty: 1 0RF Rx Instructions: As directed (DME) Contour Next Test Strips Strip See Rx Instructions .Route Qty: 50 10RF Rx Instructions: As directed omega-3 acid ethyl esters 1 gram capsule 2 cap PO BID hydrochlorothiazide 12.5 mg tablet 1 ea PO DAILY galantamine 24 mg capsule,ext rel. pellets 24 hr 24 mg PO QAM Qty: 90 3RF levothyroxine 175 mcg Tablet 175 mcg PO DAILY Rx Instructions: in am glyburide 5 mg Tablet 5 mg PO QAM pravastatin 40 mg tablet 40 mg PO BEDTIME gabapentin 300 mg Capsule 300 mg PO TID montelukast 10 mg tablet 10 mg PO QAM Januvia 100 mg tablet 100 mg PO QAM hydrocodone-acetaminophen 5-325 mg tablet 0.5 - 1 tab PO Q6H PRN (Reason: Pain) PreserVision AREDS-2 250-90-40-1 mg Capsule 1 tab PO BID pantoprazole 40 mg tablet,delayed release (DR/EC) 40 mg PO QAM cetirizine [Zyrtec] 10 mg Tablet 10 mg PO DAILY ondansetron 4 mg tablet,disintegrating 4 mg PO Q8H PRN (Reason: nausea and vomiting) 5 Days Qty: 30 0RF Ozempic 1 mg/dose (4 mg/3 mL) pen injector 1 mg SUBCUT Q7D Discharge Order = DC NOW: Transfer Out of Facility (Order); Ordered 01/28/25 Ordered By: Bhupinder Rivers Referrals: Drew Williamson MD [Primary Care Provider, Family Practice] Discharge Diet: Advance as tolerated Discharge Activity: Increase activity as tolerated Patient Instructions: Opioid Safety, Patient Portal & Thor Instructions Transfer Attestations Time Spent in Transfer Care: greater than 30 min Quality Metrics Clinical Quality Measures [ No reported AMI, CVA or VTE this stay] Coding Level of Care Code Acute Code for Chg Fwd Diagnoses Intractable nausea and vomiting R11.2 S/P insertion of spinal cord stimulator Z96.89 Diabetes E11.9 Lumbar post-laminectomy syndrome M96.1 Intervertebral disc disorder with radiculopathy of lumbosacral region M51.17 History of lumbar fusion Z98.1 Discitis M46.40 Osteomyelitis M86.9
--- NOTE | 2025-01-28 16:00 | PC.NURSE ---
report called to kendra BAGLEY at 1530.
[2025-01-28 16:05] VITALS: BP 156/86; PULSE 94; RESP 18; TEMP 36.8; O2SAT 94
== END 2025-01-28 16:07 | disposition skilled nursing facility (03) | DRG 551 ==
LOC: ER 01-23 05:35 → MEDSURG 01-23 06:56
PROVIDERS: Admitting Provider Internal Medicine; Emergency Provider Student in an Organized Health Care Education/Training Program; PCP Family Medicine; Visit Provider Family Medicine
DX: M46.40 Discitis, unspecified, site unspecified (principal); G92.8 Other toxic encephalopathy; M46.26 Osteomyelitis of vertebra, lumbar region; N39.0 Urinary tract infection, site not specified; E11.69 Type 2 diabetes mellitus with other specified complication; Z96.82 Presence of neurostimulator; M96.1 Postlaminectomy syndrome, not elsewhere classified; D35.2 Benign neoplasm of pituitary gland; T42.75XA Adverse effect of unspecified antiepileptic and sedative-hypnotic drugs, initial encounter; K59.03 Drug induced constipation; T40.2X5A Adverse effect of other opioids, initial encounter; G47.33 Obstructive sleep apnea (adult) (pediatric); G89.29 Other chronic pain; K29.70 Gastritis, unspecified, without bleeding; T39.395A Adverse effect of other nonsteroidal anti-inflammatory drugs [NSAID], initial encounter; Z79.82 Long term (current) use of aspirin; Z79.891 Long term (current) use of opiate analgesic; Z98.1 Arthrodesis status; Z91.199 Patient's noncompliance with other medical treatment and regimen due to unspecified reason; Z87.440 Personal history of urinary (tract) infections; Z87.891 Personal history of nicotine dependence; Z79.85 Long-term (current) use of injectable non-insulin antidiabetic drugs
CPT/HCPCS: 36415; 36416; 36600; 70450; 71045; 72133; 74018; 74176; 74177; 80048; 80053; 80202; 80306; 80307; 81001; 82009; 82803; 82962; 83735; 84100; 84145; 84443; 85025; 85651; 86140; 87040; 87493; 96372; G0378; J0696; J1650; J1815; J2405; J2470; J2543; J3373; J3480; J7030; J7050; J7120; J9999

== ENCOUNTER 2025-03-02 10:07 | Emergency (ER) | payer MEDICARE, MEDICAID, SELFPAY ==
--- OUTSIDE RECORDS SUMMARY | 2024-05-03 04:00 | XMS_ITS ---
Author Organization [facility] Address [address] [place] [address] Care Team Providers Care Relocation Commissioner Name Role Phone Clay CORONADO, Drew Primary Care Provider Abilio Camara Unavailable [phone] Layne Lopez APRN Unavailable Unavailable Migration, Provider Unavailable Unavailable Allergies Allergen (clinical drug ingredient) Drug/Non Drug Allergy documented on EMR Reaction Allergy Type Onset Date Status marcelino (uncoded) Unknown Allergy Acti ve Latex Latex Rash Allergy Active morphine Morphine Unknown Drug Allergy Active REASON FOR VISIT EMR-[facility] Medications Medication SIG (Take, Route, Frequency, Duration) Notes Start Date End Date Status BUPROPION XL 300MG TAB TAKE 1 TABLET BY MOUTH ONCE DAILY *Reorder from [facility] for eRx and Interaction Alerts* Active OXYBUTYNIN 5MG TAB TAKE 1/2 (ONE-HALF) TABLET BY MOUTH TWICE DAILY *Reorder from [facility] for eRx and Interaction Alerts* Active DICLOFENAC 75MG DR TAB TAKE 1 TABLET BY MOUTH TWICE DAILY NEEDED *Reorder from [facility] for eRx and Interaction Alerts* Active MONTELUKAST 10MG TAB TAKE 1 TABLET BY MOUTH ONCE DAILY *Reorder from [facility] for eRx and Interaction Alerts* Active LEVOTHYROXIN 175MCG TAB TAKE 1 TABLET BY MOUTH ONCE DAILY *Reorder from [facility] for eRx and Interaction Alerts* Active PRAVASTATIN 40MG TAB TAKE 1 TABLET BY MOUTH AT BEDTIME ONCE DAILY *Reorder from [facility] for eRx and Interaction Alerts* Active DOCUSATE [id number] CAP TAKE 1 CAPSULE BY MOUTH TWICE DAILY *Reorder from [facility] for eRx and Interaction Alerts* Active GABAPENTIN 300MG CAP TAKE 1 CAPSULE BY MOUTH THREE TIMES DAILY *Reorder from [facility] for eRx and Interaction Alerts* Active FERROUS [id number] TAB TAKE 1 TABLET BY MOUTH TWICE DAILY *Reorder from [facility] for eRx and Interaction Alerts* Active DOXYCYCLINE HYCLATE 50MG CAP TAKE 2 CAPSULES BY MOUTH TWICE DAILY *Reorder from [facility] for eRx and Interaction Alerts* Active BYDUREON BCISE INJ INJECT 1 SUBCUTANEOUSLY ONCE A WEEK *Reorder from [facility] for eRx and Interaction Alerts* Active BRIMONIDINE OP 0.2% QUETA INSTILL 1 DROP INTO EACH EYE TWICE DAILY *Reorder from [facility] for eRx and Interaction Alerts* Active PANTOPRAZOLE 40MG TAB TAKE 1 TABLET BY MOUTH ONCE DAILY *Reorder from [facility] for eRx and Interaction Alerts* Active HYDROCOD/ACETAM 5-325MG TAB TAKE 1/2 TO 1 (ONE-HALF TO ONE) TABLET BY MOUTH EVERY 6 HOURS NEEDED FOR PAIN *Reorder from [facility] for eRx and Interaction Alerts* Active Social [...] Alice SWAN RDOB: [birth year] (79 yo F)Acc No.[id number]:05/03/2024 Patient: Alice KRAUS :1945 A ge:78 Y S ex:Female Address:[address] [place] [address] Subjective: * Chief Complaints: * E MR-Ricky [...] WEEK , Notes to Pharmacist: *Reorder from [facility] for eRx and Interaction Alerts*DOCUSATE [id number] CAP TAKE 1 CAPSULE BY MOUTH TWICE DAILY , Notes to Pharmacist: *Reorder from [facility] for eRx and Interaction Alerts*BRIMONIDINE OP 0.2% QUETA INSTILL 1 DROP INTO EACH EYE TWICE DAILY , Notes to Pharmacist: *Reorder from [facility] for eRx and Interaction Alerts*PANTOPRAZOLE 40MG TAB TAKE 1 TABLET BY MOUTH ONCE DAILY , Notes to Pharmacist: *Reorder from [facility] for eRx and Interaction Alerts*DOXYCYCLINE HYCLATE 50MG CAP TAKE 2 CAPSULES BY MOUTH TWICE DAILY , Notes to Pharmacist: *Reorder from [facility] for eRx and Interaction Alerts*OXYBUTYNIN 5MG TAB TAKE 1/2 (ONE-HALF) TABLET BY MOUTH TWICE DAILY , Notes to Pharmacist: *Reorder from [facility] for eRx and Interaction Alerts*HYDROCOD/ACETAM 5-325MG TAB TAKE 1/2 TO 1 (ONE-HALF TO ONE) TABLET BY MOUTH EVERY 6 HOURS NEEDED FOR PAIN , Notes to Pharmacist: *Reorder from [facility] for eRx and Interaction Alerts*FERROUS [id number] TAB TAKE 1 TABLET BY MOUTH TWICE DAILY , Notes to Pharmacist: *Reorder from [facility] for eRx and Interaction Alerts*MONTELUKAST 10MG TAB TAKE 1 TABLET BY MOUTH ONCE DAILY , Notes to Pharmacist: *Reorder from [facility] for eRx and Interaction Alerts*GABAPENTIN 300MG CAP TAKE 1 CAPSULE BY MOUTH THREE TIMES DAILY , Notes to Pharmacist: *Reorder from [facility] for eRx and Interaction Alerts*BUPROPION XL 300MG TAB TAKE 1 TABLET BY MOUTH ONCE DAILY , Notes to Pharmacist: *Reorder from [facility] for eRx and Interaction Alerts*LEVOTHYROXIN 175MCG TAB TAKE 1 TABLET BY MOUTH ONCE DAILY , Notes to Pharmacist: *Reorder from [facility] for eRx and Interaction Alerts*PRAVASTATIN 40MG TAB TAKE 1 TABLET BY MOUTH AT BEDTIME ONCE DAILY , Notes to Pharmacist: *Reorder from [facility] for eRx and Interaction Alerts*DICLOFENAC [address] DR TAB TAKE 1 TABLET BY MOUTH TWICE DAILY NEEDED , Notes to Pharmacist: *Reorder from [facility] for eRx and Interaction Alerts*Taking BYDUREON BCISE INJ INJECT 1 SUBCUTANEOUSLY ONCE A WEEK , Notes to Pharmacist: *Reorder from [facility] for eRx and Interaction Alerts*Taking DOCUSATE [id number] CAP TAKE 1 CAPSULE BY MOUTH TWICE DAILY , Notes to Pharmacist: *Reorder from [facility] for eRx and Interaction Alerts*Taking BRIMONIDINE OP 0.2% QUETA INSTILL 1 DROP INTO EACH EYE TWICE DAILY , Notes to Pharmacist: *Reorder from [facility] for eRx and Interaction Alerts*Taking PANTOPRAZOLE 40MG TAB TAKE 1 TABLET BY MOUTH ONCE DAILY , Notes to Pharmacist: *Reorder from [facility] for eRx and Interaction Alerts*Taking DOXYCYCLINE HYCLATE 50MG CAP TAKE 2 CAPSULES BY MOUTH TWICE DAILY , Notes to Pharmacist: *Reorder from [facility] for eRx and Interaction Alerts*Taking OXYBUTYNIN 5MG TAB TAKE 1/2 (ONE-HALF) TABLET BY MOUTH TWICE DAILY , Notes to Pharmacist: *Reorder from [facility] for eRx and Interaction Alerts*Taking HYDROCOD/ACETAM 5-325MG TAB TAKE 1/2 TO 1 (ONE-HALF TO ONE) TABLET BY MOUTH EVERY 6 HOURS NEEDED FOR PAIN , Notes to Pharmacist: *Reorder from [facility] for eRx and Interaction Alerts*Taking FERROUS [id number] TAB TAKE 1 TABLET BY MOUTH TWICE DAILY , Notes to Pharmacist: *Reorder from [facility] for eRx and Interaction Alerts*Taking MONTELUKAST 10MG TAB TAKE 1 TABLET BY MOUTH ONCE DAILY , Notes to Pharmacist: *Reorder from [facility] for eRx and Interaction Alerts*Taking GABAPENTIN 300MG CAP TAKE 1 CAPSULE BY MOUTH THREE TIMES DAILY , Notes to Pharmacist: *Reorder from [facility] for eRx and Interaction Alerts*Taking BUPROPION XL 300MG TAB TAKE 1 TABLET BY MOUTH ONCE DAILY , Notes to Pharmacist: *Reorder from [facility] for eRx and Interaction Alerts*Taking LEVOTHYROXIN 175MCG TAB TAKE 1 TABLET BY MOUTH ONCE DAILY , Notes to Pharmacist: *Reorder from [facility] for eRx and Interaction Alerts*Taking PRAVASTATIN 40MG TAB TAKE 1 TABLET BY MOUTH AT BEDTIME ONCE DAILY , Notes to Pharmacist: *Reorder from [facility] for eRx and Interaction Alerts*Taking DICLOFENAC [address]MG DR TAB TAKE 1 TABLET BY MOUTH TWICE DAILY NEEDED , Notes to Pharmacist: *Reorder from [facility] for eRx and Interaction Alerts* * Allergies: L atex: Rash - AllergyMorphine: Allergypapas: Allergy * * Date:
--- OUTSIDE RECORDS SUMMARY | 2024-05-27 09:40 | XMS_ITS ---
Author Organization [facility] Address [address] [place] [address] Care Team Providers Care Gym Attendant Name Role Phone Clay CORONADO, Drew Primary Care Provider Unavaila Abilio Alexander Unavailable [phone] Layne Lopez APRN Unavailable Unavailable Allergies Allergen [...] Status Risk Notes Problem Chronic pain syndrome (340518199) Chronic pain syndrome (G89.4) 12/04/19 24 Active confirmed Problem Neurostimulator device in situ (finding) (974131943) Presence of neurostimulator (Z96.82) 12/04/19 24 Active confirmed Problem Abnormal gait (39190047) Abnormality of gait and mobility (R26.9) Active confirmed Problem Lumbosacral spondylosis with radiculopathy (534980317) Lumbosacral spondylosis with radiculopathy (M47.27) Active confirmed Problem Lumbar post-laminectomy syndrome (626522022) Lumbar post-laminectomy syndrome (M96.1) Active confirmed Encounters Encounter Location Date Provider Diagnosis [facility] [place] [address] [place] [address] 05/27/2024 Abilio Chavez Chronic pain syndrom e [...] Alice SWAN RDOB: [birth year] (79 yo F)Acc No.[id number]:05/27/2024 Progress Notes Patient: Alice Killian Provider: Kelli Chavez D.O. :1945 A ge:78 Y S ex:Female Date:05/27/2024 Address:[address] [place], [place] [id number] Pcp:Drew Williamson MD Subjective: * Chief Complaints: [...] Electronic signature of Abilio Chavez DO on 03/02/2025 at 10:21 AM CDT Sign off status: Pending * Provider: Kelli Chavez D.O. Date: 07/27/2023 Generated for Kasi womack/Mattie/Harlanitting on: 0 03/02/2025 10:21 AM CDT
[2025-03-02 10:11] VITALS: BP 129/66; PULSE 57; RESP 17; TEMP 36.5; O2SAT 94; BMI 29.2
--- OUTSIDE RECORDS SUMMARY | 2025-03-02 10:21 | XMS_ITS | Encounter Summary ---
Author Organization [facility] Address [address] [place] [address] Care Team Providers Care [employer] Teacher Name Role Phone Unavailable Primary Care Provider Unavailabl e Encounter Details Date Type Department Care Team (Latest Contact Info) Description 09/11/2006 Outpatient Historical [facility] [place] [address] [place] [id number] Ramirez Ferrer MD NO ADDRESS ON FILE Benign Willard Pituitary (Primary Dx) Social History Tobacco Use Types Packs/Day Years Used Date Smoking Tobacco: Never Assessed Comments Unknown Sex and Gender Information Value Date Recorded Sex Assigned at Not on file Legal Sex Female 5:50 AM [employer] Gender Identity Not on file Sexual Orientation Not on file documented as of this encounter Plan of Treatment Not on file documented as of this encounter Visit Diagnoses Diagnosis 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
--- OUTSIDE RECORDS SUMMARY | 2025-03-02 10:21 | XMS_ITS | Patient Health Record ---
Author Organization [facility] Address [address] [place] [address] Care Team Providers Care Organizational Consultant Name Role Phone Drew Williamson MD Primary Care Provider Unavaila Abilio Alexander Unavailable [phone] Layne Lopez APRN Unavailable Unavailable Migration, Provider Unavailable Unavailable Anais Mtz Unavailable [phone] Allergies Allergen (clinical drug ingredient) Drug/Non Drug Allergy documented on EMR Reaction Allergy Type Onset Date Status marcelino (uncoded) Unknown Allergy Acti ve Latex Latex Rash Allergy Active morphine Morphine Unknown Drug Allergy Active Reason For Referral No Information Medications Medication SIG (Take, Route, Frequency, Duration) Notes Start Date End Date Status DOCUSATE [id number] CAP TAKE 1 CAPSULE BY MOUTH TWICE DAILY *Reorder from [facility] for eRx and Interaction Alerts* Active PRAVASTATIN 40MG TAB TAKE 1 TABLET BY MOUTH AT BEDTIME ONCE DAILY *Reorder from [facility] for eRx and Interaction Alerts* Active FERROUS [id number] TAB TAKE 1 TABLET BY MOUTH TWICE DAILY *Reorder from [facility] for eRx and Interaction Alerts* Active DOXYCYCLINE HYCLATE 50MG CAP TAKE 2 CAPSULES BY MOUTH TWICE DAILY *Reorder from [facility] for eRx and Interaction Alerts* Active HYDROCOD/ACETAM 5-325MG TAB TAKE 1/2 TO 1 (ONE-HALF TO ONE) TABLET BY MOUTH EVERY 6 HOURS NEEDED FOR PAIN *Reorder from [facility] for eRx and Interaction Alerts* Active GABAPENTIN 300MG CAP TAKE 1 CAPSULE BY MOUTH THREE TIMES DAILY *Reorder from [facility] for eRx and Interaction Alerts* Active MONTELUKAST 10MG TAB TAKE 1 TABLET BY MOUTH ONCE DAILY *Reorder from [facility] for eRx and Interaction Alerts* Active LEVOTHYROXIN 175MCG TAB TAKE 1 TABLET BY MOUTH ONCE DAILY *Reorder from [facility] for eRx and Interaction Alerts* Active BUPROPION XL 300MG TAB TAKE 1 TABLET BY MOUTH ONCE DAILY *Reorder from [facility] for eRx and Interaction Alerts* Active OXYBUTYNIN 5MG TAB TAKE 1/2 (ONE-HALF) TABLET BY MOUTH TWICE DAILY *Reorder from [facility] for eRx and Interaction Alerts* Active BRIMONIDINE OP 0.2% QUETA INSTILL 1 DROP INTO EACH EYE TWICE DAILY *Reorder from [facility] for eRx and Interaction Alerts* Active [place] 10-325 MG Tablet 1 tablet as needed Orally every 6 hrs; Duration: 14 days 07/04/[address] TAB TAKE 1 TABLET BY MOUTH TWICE DAILY NEEDED *Reorder from [facility] for eRx and Interaction Alerts* Active BYDUREON BCISE INJ INJECT 1 SUBCUTANEOUSLY ONCE A WEEK *Reorder from [facility] for eRx and Interaction Alerts* Active PANTOPRAZOLE 40MG TAB TAKE 1 TABLET BY MOUTH ONCE DAILY *Reorder from [facility] for eRx and Interaction Alerts* Active [...] Status Risk Notes Problem Chronic pain syndrome (539793726) Chronic pain syndrome (G89.4) Active confirmed Problem Lumbosacral spondylosis without myelopathy (57910398) Other spondylosis with radiculopathy, lumbosacral region (M47.27) Active confirmed Problem Degeneration of lumbar intervertebral disc (43303868) Other intervertebral disc degeneration, lumbar region (M51.36) Active confirmed Problem Post-laminectomy syndrome (66168706) Postlaminectomy syndrome, not elsewhere classified (M96.1) Active confirmed Problem Abnormal gait (50130003) Unspecified abnormalities of gait and mobility (R26.9) Active confirmed Problem Neurostimulator device in situ (finding) (524389346) Presence of neurostimulator (Z96.82) Active confirmed Problem Lumbosacral spondylosis with radiculopathy (707165902) Lumbosacral spondylosis with radiculopathy (M47.27) Active confirmed Problem Chronic pain (57530747) Chronic pain (G89.29) Active confirmed Problem Acquired spondylolisthesis (600399074) Spondylolisthesis of lumbar region (M43.16) Active confirmed Problem Lumbar post-laminectomy syndrome (208463374) Lumbar post-laminectomy syndrome (M96.1) Active confirmed Problem Abnormal gait (70953003) Abnormality of gait and mobility (R26.9) Active confirmed Vital Signs Height-cm 161.29 cm 06/24/2024 Height 63.50 in 06/24/2024 Encounters Encounter Location Date Provider Diagnosis [facility] [address] [place] [address] 03/19/2024 Anais Mtz [facility] [address] [place] [address] 06/24/2024 Abilio Chavez Chronic pain syndrom e [...] Migration Migrated_Facility 0 0 05/03/2024 Provider Migration [facility] [address] [facility] [place] [address] 02/11/2025 Abilio Chavez Assessments Encounter Date Diagnosis (ICD Code) Assessment [...] Test Test Name Order Date Prothrombin Time 38869 04/18/2020 Prothrombin Time 16665 06/08/2020 ABORh 08789, 60476 06/08/2020 ABORh 78799, 41307 04/18/2020 Antibody Screen 27093 04/18/2020 Antibody Screen 40913 06/08/2020 Basic Metabolic Panel (BMP) 08619 2019 Basic Metabolic Panel (BMP) 50295 2019 Basic Metabolic Panel (BMP) 22948 2019 Basic Metabolic Panel (BMP) 62967 2019 Basic Metabolic Panel (BMP) 02840 2019 CBC w\ Auto Diff 30067 04/18/2020 CBC w\ Auto Diff 41673 06/08/2020 Lipid Panel Reflex DLDL 92743, 90997 Magnesium (B) 46517 04/20/2020 Partial Thromboplastin Time 03934 2019 Partial Thromboplastin Time 81825 2019 Phosphorus (B) 20873 04/20/2020 Troponin-I 70475 04/20/2020 Troponin-I 74526 04/20/2020 Troponin-I 78865 04/21/2020 CBC Reflex Man Diff 29992, 61175 020 CBC Reflex Man Diff 92625, 22014 020 UA Reflex Micro, Reflex Cult 15823, 8101 5, 04794 06/16/2020 Chest PA/Lat-37231 04/18/2020 Chest PA/Lat-55076 04/18/2020 Echo Complete EC-64126 04/20/2020 Lumbosacral Spine AP/Lat-84465 0 Lumbosacral Spine AP/Lat-27354 0 Lumbosacral Spine AP/Lat-09360 0 Lumbosacral Spine AP/Lat-43590 0 NM Lexiscan Cardiolite-62550 04/21/2020 Chest 1V 04/20/2020 UA Microscopic--19329 06/16/2020 Glucometer WBG--22156 06/14/2020 Glucometer WBG--87655 06/16/2020 Glucometer WBG--08955 06/16/2020 Glucometer WBG--99112 06/17/2020 Glucometer WBG--43276 06/17/2020 Glucometer WBG--57025 04/20/2020 Glucometer WBG--24008 04/20/2020 Glucometer WBG--79294 04/20/2020 Glucometer WBG--03465 04/21/2020 Glucometer WBG--02947 06/13/2020 Glucometer WBG--26373 04/21/2020 WBC Auto Diff--89467 06/13/2020 WBC Auto Diff--95452 06/16/2020 BB ABORH-94309,61345 04/18/2020 zzzFluoro >1h4 06/13/2020 COVID 19 PCR--86296 04/18/2020 COVID 19 PCR--53811 06/08/2020 Insurance Providers Payer Name Payer Address Payer Phone Subscriber Number Group Number Insured Name Patient Relationship to Insured Coverage Start Date Coverage End Date [employer] [place] [employer] Replacement [address] [place] [address] [phone] [id number] Alice Perry Self - patient is the insured [place] Medicaid [address] [place] [address] [id number] Alice Perry Self - patient is the insured [place] Medicare [address] [place] [phone] [id number] Alice Perry Self - patient is the [...]
--- OUTSIDE RECORDS SUMMARY | 2025-03-02 10:21 | XMS_ITS | Clinical Summary ---
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 Active ezetimibe (ZETIA) 10 mg tablet Take 10 mg by mouth daily at bedtime. Active traZODone (DESYREL) 50 mg tablet Take 50 mg by mouth daily at bedtime. Active buPROPion HCL (WELLBUTRIN XL) 300 mg Extended Release 24 hour tablet Take 300 mg by mouth daily in the morning. Active ferrous sulfate 325 mg (65 mg iron) tablet Take 325 mg by mouth 2 times daily. Active metoprolol tartrate (LOPRESSOR) 25 mg tablet Take 25 mg by mouth 2 times daily. Active atorvastatin (LIPITOR) 10 mg tablet Take 10 mg by mouth daily at bedtime. Active bisacodyL (DULCOLAX) 5 mg Delayed Release tablet Take 5 mg by mouth every 12 hours. Active gabapentin (NEURONTIN) 300 mg capsule Take 300 mg by mouth 2 times daily. Active hydroCHLOROthia zide 25 mg tablet Take 12.5 mg by mouth daily. Active levothyroxine 175 mcg tablet Take 175 mcg by mouth daily in the morning. Active polyethylene glycol 3350 (MIRALAX) 17 gram/dose Powder Take 17 Grams by mouth daily. Dissolve in 8 ounces of fluid and drink entire liquid Active sertraline (ZOLOFT) 100 mg tablet Take 100 mg by mouth daily. Active glyBURIDE (DIABETA) 5 mg tablet Take 5 mg by mouth daily. Active aspirin (ECOTRIN EC) 81 mg Tablet, Delayed Release (E.C.) Take 81 mg by mouth daily. Active docusate sodium (COLACE) 100 mg capsule Take 100 mg by mouth 2 times daily. Active galantamine (RAZADYNE ER) 24 mg Extended Release 24 hour capsule Take 24 mg by mouth daily. Active SITagliptin phosphate (JANUVIA) 100 mg Tablet Take 100 mg by mouth daily with breakfast. Active montelukast (SINGULAIR) 10 mg tablet Take 10 mg by mouth daily at bedtime. Active HYDROcodone-rachel taminophen (NORCO) 5-325 mg tablet Take 1 Tablet by mouth every 6 hours as needed for Pain. Active oxyBUTYnin (DITROPAN XL) 5 mg Extended Release 24 hour tablet Take 5 mg by mouth daily. Active semaglutide (Ozempic) 1 mg/dose (4 mg/3 mL) Pen Injector Inject 1 mg by subcutaneous injection every 7 days. Active pantoprazole (PROTONIX) [address] for susp in Packet Take 40 mg by mouth daily. Active cetirizine (ZyrTEC) 10 mg tablet Take 10 mg by mouth daily. Active methocarbamoL (ROBAXIN) 500 mg tablet Take 1 Tablet (500 mg) by mouth every 8 hours as needed for Spasm. 20 Tablet Active lidocaine (LIDODERM) 5 % Adhesive Patch, Medicated Apply 1 Patch to affected area every 24 hours. 10 Patch 5 Active Active Problems Problem Noted Date Diagnosed Date Acute gastritis 01/29/2025 History of lumbar fusion 01/29/2025 Hx of decompressive lumbar laminectomy Lumbar post-laminectomy syndrome 01/28/2025 Lumbosacral spondylosis with radiculopathy 01/28 Chronic back pain 01/28/2025 Suspicion for acute osteomyelitis of lumbar spin e 01/28/2025 Impaired mobility 09/24/2024 Overactive bladder 09/24/2024 Vascular dementia without behavioral disturbance 09/24/2024 Diabetic peripheral neuropathy 12/24/2023 Chronic pain disorder 12/04/2023 Neurostimulator device in situ 12/04/2023 Frail elderly 11/13/2023 Essential hypertension 11/12/2023 Hypothyroidism 12/04/2022 Type 2 diabetes mellitus 12/04/2022 Degeneration of lumbar intervertebral disc 11/05 Obstructive sleep apnea syndrome 2022 Overview (01/28/2025): OBSTRUCTIVE SLEEP APNEA SYNDROME; Impression: Does not tolerate CPAP Gastroesophageal reflux disease 05/22/2022 Overview (01/28/2025): ESOPHAGEAL REFLUX; Impression: this may be contributing to chronic cough. we will add famotodine.; Recorded 05/23/2022 3:22PM by Drew Williamson MD, Office Visit; Promoted; acuity set as *; Anxiety state 05/02/2022 Encounters Date Type Department Care Team Description 02/10/2025 Telephone [facility] [address] [phone] Amauri Kamara MD Follow Up 02/10/2025 Orders Only [facility] Health Information Management [employer] [address] [place] [id number] Provider, Abstract 02/06/2025 Telephone [facility] [address] [phone] Amauri Kamara MD Follow Up 02/02/2025 External Device Data [facility] ABSTRACTION Provider, Abstract 02/02/2025 External Device Data [facility] [place]CTION Provider, Abstract 02/02/2025 External Device Data [facility] [place]STRACTION Provider, Abstract 01/28/2025 5:59 PM CDT - 02/05/2025 8:00 PM CDT Hospital Encounter [facility] Medical Surgical [address] [place] [address] Jackeline Stahl MD Dhakal, Prabin, MD Khatiwada, Pratik, MD Acute osteomyelitis of lumbar spine (CMS/HCC) Discharge Disposition: Home or Self Care 01/28/2025 Travel from Last 3 Months Family History Medical History Relation Name Comments Diabetes Brother Diabetes Father Colon Cancer Mother Heart Disease Mother Relation Name Status Comments Brother Father Mother Social History Tobacco Use Types Packs/Day Years Used Date Smoking Tobacco: Former Cigarettes Passive Smoke Exposure: Past Alcohol Use Standard Drinks/Week Comments Never 0 (1 standard drink = 0.6 oz pur e alcohol) Feeling Safe Answer Date Recorded Are you in a relationship wi th someone who hurts you emotionally and/or physically? No 01/28/2025 Food Insecurity Answer Date Recorded Patient needs follow up regardin 01/28/2025 Transportation Needs Answer Date Record ed Patient needs follow up regardin 01/28/2025 Utility Needs Answer Date Recorded Patient needs follow up regardin 01/28/2025 Comments Unknown Sex and Gender Information Value Date Recorded Sex Assigned at Not on file Legal Sex Female 8:05 AM [employer] Gender Identity Not on file Sexual Orientation Not on file Last Filed Vital Signs Vital Sign Reading Time Taken Comments Blood Pressure 125/69 02/05/2025 4:05 PM CDT Pulse 74 02/05/2025 11:24 AM CDT Temperature 36.1 C (97 F) 02/05/2025 4:05 PM CDT Respiratory Rate 14 02/05/2025 4:05 PM CDT Oxygen Saturation 94% 02/05/2025 4:05 PM CDT Inhaled Oxygen Concentration - - Weight 74.5 kg (164 lb 3.9 oz) 02/05/2025 5:06 A M CDT Height 157.5 cm (5' 2 ) 01/28/2025 6:57 PM CDT Body Mass Index 30.04 01/28/2025 6:57 PM CDT Plan of Treatment Upcoming Encounters Date Type Department Care Team (Late st Contact Info) Description 03/18/2025 1:45 PM CDT Appointment [facility] [address] [place] [address] Amauri Kamara MD [id number] [place] [address] 03/24/2025 12:40 PM CDT Office Visit [facility] [address] [facility] [address] [place] [address] Amauri Kamara MD [phone] [place] [address] Health Maintenance Due Date Last Done Comments DIABETES ANNUAL FOOT EXAM 1962 DIABETES ANNUAL RETINAL EXAM 1962 DIABETES MICROALBUMIN ANNUAL SCREEN 1962 LDL CHOLESTEROL ANNUAL 1962 DTAP/TDAP/TD VACCINES (1 - Tdap) 1963 RSV VACCINE (60+ or ) (1 - 1-dose 75+ series) 2019 Medicare [place]) Preventative Visit/Annual Wellness Visit 07/08/2024 COVID-19 Vaccine (2023-2 5 season) 2024 04/14/2024, 05/27/2023, 05/08/2022, Additional history exists INFLUENZA VACCINE (#1) 2025 , 03/14/2023, 04/24/2022, Additional history exists DIABETES HBA1C Q 6 MONTHS 08/01/20252024, 09/18/2024, 12/23/2023, Additional history exists OSTEOPOROSIS SCREENING 01/01/2028 12/31/2022 PNEUMOCOCCAL VACCINE 50+ YEARS Completed 05/27/2023 , 05/08/2017 ZOSTER VACCINE Completed 08/06/2023, 05/27/2023 Medical Devices Implanted Type Area Court Interpreter Device Identifier Shelf Expiration Date Model / Serial / Lot Lead [employer] 2218-50 Lead [employer] 2218-50 / / Lead [employer] 2218-50 Lead [employer] 2218-50 / / Neuro Stimulator [employer] [id number] Neuro Stimulator [employer] [id number] / / Description:MRI Conditional 1.5T full Body Dr[employer] [facility] [place] Procedures Procedure Name Priority Date/Time Associated Diagnosis Comments TELEMETRY REPORT 02/09/2025 3:39 AM CDT POC GLUCOSE Routine 02/05/2025 5:55 PM CDT MRI LUMBAR W WO CONTRAST Pending Discharge 02/05/2025 5:46 PM CDT RENAL FUNCTION PANEL Stat 02/05/2025 4:41 PM CDT POC GLUCOSE Routine 02/05/2025 11:42 AM CDT POC GLUCOSE Routine 02/05/2025 7:29 AM CDT CBC WITHOUT DIFFERENTIAL Routine 02/05/2025 4:26 AM CDT POC GLUCOSE Routine 02/04/2025 8:49 PM CDT POC GLUCOSE Routine 02/04/2025 5:05 PM CDT POC GLUCOSE Routine 02/04/2025 11:56 AM CDT POC GLUCOSE Routine 02/04/2025 7:17 AM CDT POC GLUCOSE Routine 02/03/2025 8:53 PM CDT POC GLUCOSE Routine 02/03/2025 6:09 PM CDT POC GLUCOSE Routine 02/03/2025 12:33 PM CDT POC GLUCOSE Routine 02/03/2025 8:[address] CHEST ABDOMEN PELVIS WO CONT Stat 02/03/2025 8:19 AM CDT SEDIMENTATION RATE Routine 02/03/2025 3: 34 AM CDT C-REACTIVE PROTEIN Routine 02/03/2025 3: 34 AM CDT POC GLUCOSE Routine 02/02/2025 9:04 PM CDT POC GLUCOSE Routine 02/02/2025 6:04 PM CDT OT EVAL AND TREAT Routine 02/02/2025 1:5 0 PM CDT POC GLUCOSE Routine 02/02/2025 11:52 AM CDT POC GLUCOSE Routine 02/02/2025 8:02 AM CDT POC GLUCOSE Routine 02/01/2025 9:00 PM CDT POC GLUCOSE Routine 02/01/2025 5:20 PM CDT ANAEROBIC/AEROBIC CULTURE W GRAM STAIN Routine 02/01/2025 1:[address] GUIDED BIOPSY Routine 02/01/2025 1:54 PM CDT PATHOLOGY Pathology 02/01/2025 1:54 PM CDT POC GLUCOSE Routine 02/01/2025 11:58 AM CDT POC GLUCOSE Routine 02/01/2025 8:15 AM CDT POC GLUCOSE Routine 01/31/2025 8:28 PM CDT POC GLUCOSE Routine 01/31/2025 5:42 PM CDT PTT Stat 01/31/2025 1:44 PM CDT PROTIME-INR Stat 01/31/2025 1:44 PM CDT POC GLUCOSE Routine 01/31/2025 12:44 PM CDT POC GLUCOSE Routine 01/31/2025 7:47 AM CDT POC GLUCOSE Routine 01/30/2025 7:41 PM CDT POC GLUCOSE Routine 01/30/2025 5:49 PM CDT POC GLUCOSE Routine 01/30/2025 12:23 PM CDT BASIC METABOLIC PANEL Routine 01/30/2025 11:25 AM CDT POC GLUCOSE Routine 01/30/2025 7:57 AM CDT POC GLUCOSE Routine 01/29/2025 8:17 PM CDT POC GLUCOSE Routine 01/29/2025 5:26 PM CDT POC GLUCOSE Routine 01/29/2025 12:07 PM CDT POC GLUCOSE Routine 01/29/2025 7:33 AM CDT HEMOGLOBIN A1C Routine 01/29/2025 2:11 AM CDT BASIC METABOLIC PANEL Routine 01/29/2025 2:11 AM CDT CBC WITH DIFFERENTIAL Routine 01/29/2025 2:11 AM CDT POC GLUCOSE Routine 01/28/2025 9:29 PM CDT COMPREHENSIVE METABOLIC PANEL Routine 01/28/2025 9:10 PM CDT COMPREHENSIVE METABOLIC PANEL Routine 01/28/2025 1:45 PM CDT from Last 3 Months Results * TELEMETRY REPORT (02/09/2025 3:39 AM CDT) us Provider Scanning ECG ORDERABLES Final Result * (ABNORMAL) POC GLUCOSE (02/05/2025 5:55 PM CDT) Only the most recent of32 resultswithin the time period is included. GLUCOSE POC 178(H) 74 - 99 mg/dL 02/05/2025 5:55 PM CDT [facility] SPECIMEN SOURCE, GLUCOSE POC Capillary 02/05/2025 5:55 PM CDT [facility] Blood, whole 02/05/2025 5:55 PM CDT 02/05/2025 6:16 PM CDT us Karyna Odom MD POINT OF CARE TESTING Final Res ult [facility] CLIA # [id number] [address] [place] [address] [place] [address] * MRI LUMBAR W WO CONTRAST (02/05/2025 5:46 PM CDT) Anatomical Region Laterality Modality Spine Magnetic Resonan ce 02/05/2025 5:46 PM CDT Impressions 02/06/2025 6:49 AM CDT IMPRESSION: 1. Significant artifact related to the hardware. The L2-L4 levels are not well assessed, including the area of abnormality on prior CT abnormality at L2-L3 from February 03, 2025. Recommend follow-up of cultures from recently performed biopsy. Imaging features at the L2-L3 level on the prior CT are nonspecific. There is intervertebral disc height loss with irregular endplate changes, endplate sclerosis, above the level of posterior fusion. These findings could reflect chronic/old sequela of osteomyelitis, indolent/smoldering osteomyelitis, superimposed on adjacent segment disease. Active osteomyelitis is nearly impossible to exclude by this imaging, although I suspect this is probably unlikely. No compressive epidural fluid collection within the well seen areas of the lumbar spinal canal, nor is there evidence to suggest a paravertebral or prevertebral soft tissue abscess. Additionally, a tiny portion of the superior L2 vertebral body imaged with minimal artifact does not show abnormal enhancement. Could consider nuclear medicine bone scan with SPECT-CT thin section imaging through the L2 through L3 disc space for further assessment. If the patient has multiple prior studies available, that would be most helpful to assess stability vs progression of changes at L2-L3 over time. An addendum can be made to this report if those studies become available. 2. Additional details as above. Narrative 02/06/2025 6:49 AM CDT EXAM: MRI LUMBAR W WO CONTRAST DATE/TIME OF EXAM: 02/05/2025 5:46 PM REASON FOR STUDY: Low back pain, infection suspected, positive xray/CT DIAGNOSIS: Degeneration of intervertebral disc of lumbar region with discogenic back pain; Hx of decompressive lumbar laminectomy; Lumbar post-laminectomy syndrome; Acute osteomyelitis of lumbar spine (CMS/HCC) COMPARISON: Same day CT INTRAVENOUS CONTRAST: GADOBENATE DIMEGLUMINE 529 MG/ML(0.1 MMOL/0.2 ML) INTRAVENOUS SOLUTION Given:15 mL TECHNIQUE: MR Lumbar spine performed before and after the administration of intravenous contrast. FINDINGS: For the purposes of this dictation, the last well formed intervertebral disc space will be labeled L5-S1. Post surgical changes L3-L4 posterior spinal fusion with interbody spacer. Interbody spacer at L5-S1. A spinal cord stimulator device in place. Significant artifact related to the hardware in the L2-L4 levels are not well assessed. Bones: L1, L5 and S1 vertebral bodies intact. Alignment: Grossly within normal limits. Conus: Normal conus termination. Conus is not well seen. Visualized portion of the cauda equina nerve roots within normal limits. Spinal Canal: No sizable epidural fluid collection, within study limitations. Soft Tissue: No acute abnormality. No appreciable paravertebral or posterior paraspinal abscess, within study limitations. Enhancement: No abnormal intraspinal enhancement, within study limitations. L1-L2: No significant intervertebral disc space narrowing. Facet arthropathy. No significant canal or foraminal stenosis. L2-L3: This level is not well assessed. Disc spaces not well seen. Facet arthropathy. Fluid in the disc space. CSF is present in the spinal canal, there is not severe canal stenosis. There could be bilateral subarticular stenosis. Neural foramina are not well-seen assessed. L3-L4: This level is not well assessed. Intervertebral disc space not well seen. Facet not well assessed due to artifact. Spinal canal not well seen due to artifact. Neural foramina are not well assessed due to artifact. L4-L5: Posterior spinal decompression. Facet arthropathy. No significant canal stenosis. No significant foraminal stenosis. L5-S1: Severe intervertebral disc space narrowing. Posterior bony ridging. Shallow broad-based disc bulge. Mild left foraminal stenosis. No significant canal stenosis. Procedure Note Velma Chauhan MD - 02/06/2025 EXAM: MRI LUMBAR W WO CONTRAST DATE/TIME OF EXAM: 02/05/2025 5:46 PM REASON FOR STUDY: Low back pain, infection suspected, positive xray/CT DIAGNOSIS: Degeneration of intervertebral disc of lumbar region with discogenic back pain; Hx of decompressive lumbar laminectomy; Lumbar post-laminectomy syndrome; Acute osteomyelitis of lumbar spine (CMS/HCC) COMPARISON: Same day CT INTRAVENOUS CONTRAST: GADOBENATE DIMEGLUMINE 529 MG/ML(0.1 MMOL/0.2 ML) INTRAVENOUS SOLUTION Given:15 mL TECHNIQUE: MR Lumbar spine performed before and after the administration of intravenous contrast. FINDINGS: For the purposes of this dictation, the last well formed intervertebral disc space will be labeled L5-S1. Post surgical changes L3-L4 posterior spinal fusion with interbody spacer. Interbody spacer at L5-S1. A spinal cord stimulator device in place. Significant artifact related to the hardware in the L2-L4 levels are not well assessed. Bones: L1, L5 and S1 vertebral bodies intact. Alignment: Grossly within normal limits. Conus: Normal conus termination. Conus is not well seen. Visualized portion of the cauda equina nerve roots within normal limits. Spinal Canal: No sizable epidural fluid collection, within study limitations. Soft Tissue: No acute abnormality. No appreciable paravertebral or posterior paraspinal abscess, within study limitations. Enhancement: No abnormal intraspinal enhancement, within study limitations. L1-L2: No significant intervertebral disc space narrowing. Facet arthropathy. No significant canal or foraminal stenosis. L2-L3: This level is not well assessed. Disc spaces not well seen. Facet arthropathy. Fluid in the disc space. CSF is present in the spinal canal, there is not severe canal stenosis. There could be bilateral subarticular stenosis. Neural foramina are not well-seen assessed. L3-L4: This level is not well assessed. Intervertebral disc space not well seen. Facet not well assessed due to artifact. Spinal canal not well seen due to artifact. Neural foramina are not well assessed due to artifact. L4-L5: Posterior spinal decompression. Facet arthropathy. No significant canal stenosis. No significant foraminal stenosis. L5-S1: Severe intervertebral disc space narrowing. Posterior bony ridging. Shallow broad-based disc bulge. Mild left foraminal stenosis. No significant canal stenosis. IMPRESSION: 1. Significant artifact related to the hardware. The L2-L4 levels are not well assessed, including the area of abnormality on prior CT abnormality at L2-L3 from February 03, 2025. Recommend follow-up of cultures from recently performed biopsy. Imaging features at the L2-L3 level on the prior CT are nonspecific. There is intervertebral disc height loss with irregular endplate changes, endplate sclerosis, above the level of posterior fusion. These findings could reflect chronic/old sequela of osteomyelitis, indolent/smoldering osteomyelitis, superimposed on adjacent segment disease. Active osteomyelitis is nearly impossible to exclude by this imaging, although I suspect this is probably unlikely. No compressive epidural fluid collection within the well seen areas of the lumbar spinal canal, nor is there evidence to suggest a paravertebral or prevertebral soft tissue abscess. Additionally, a tiny portion of the superior L2 vertebral body imaged with minimal artifact does not show abnormal enhancement. Could consider nuclear medicine bone scan with SPECT-CT thin section imaging through the L2 through L3 disc space for further assessment. If the patient has multiple prior studies available, that would be most helpful to assess stability vs progression of changes at L2-L3 over time. An addendum can be made to this report if those studies become available. 2. Additional details as above. us Karyna Odom MD MR ORDERABLES Final Result * (ABNORMAL) RENAL FUNCTION PANEL (02/05/2025 4:41 PM CDT) SODIUM 136 136 - 145 mmol/L 02/05/2025 5:18 PM CDT [facility] POTASSIUM 4.3 3.5 - 5.1 mmol/L 02/05/2025 5:18 PM CDT [facility] CHLORIDE 100 98 - 107 mmol/L 02/05/2025 5:18 PM CDT [facility] CO2 26 22 - 29 mmol/L 02/05/2025 5:18 PM CDT [facility] CALCIUM 9.2 8.8 - 10.2 mg/dL 02/05/2025 5:18 PM CDT [facility] BUN 15 8 - 23 mg/dL 02/05/2025 5:18 PM CDT [facility] CREATININE 0.72 0.51 - 0.95 mg/dL 02/05/2025 5:18 PM CDT [facility] Comment:The GFR result is no t clinically significant on patients <18 or >70 years of age. GLUCOSE 127(H) 74 - 99 mg/dL 02/05/2025 5:18 PM CDT [facility] ALBUMIN 3.9 3.5 - 5.2 g/dL 02/05/2025 5:18 PM CDT [facility] PHOSPHORUS 3.7 2.5 - 4.5 mg/dL 02/05/2025 5:18 PM CDT [facility] GFR >60 mL/min/1.7 3 sq meter 02/05/2025 5:18 PM CDT [facility] Comment:eGFR calculated with 2020 CKD-EPI equation. Vegetarian diet, extremely high or low muscle mass, and may affect results. Cystatin C with Glomerular Filtration Rate is a suitable alternative for these patients. ANION GAP 10 9 - 20 mmol/L 02/05/2025 5:18 PM CDT [facility] Blood Venipuncture / Unknown 02/05/2025 4:41 PM CDT 02/05/2025 4:44 PM CDT us Karyna Odom MD CHEMISTRY ORDERABLES Final Resu lt [facility] CLIA # [id number] [address] [place] [address] * (ABNORMAL) CBC WITHOUT DIFFERENTIAL (02/05/2025 4:26 AM CDT) WBC 12.8(H) 4.8 - 10.8 K/uL 02/05/2025 4:49 AM CDT [facility] RBC 3.92(L) 4.20 - 5.40 M/uL 02/05/2025 4:49 AM CDT [facility] HEMOGLOBIN 13.1 12.0 - 16.0 g/dL 02/05/2025 4:49 AM CDT [facility] HEMATOCRIT 37.3 36.0 - 46.0 % 02/05/2025 4:49 AM CDT [facility] MCV 95.2 84.0 - 103.0 fL 02/05/2025 4:49 AM CDT [facility] MCH 33.4 27.0 - 34.0 pg 02/05/2025 4:49 AM CDT [facility] MCHC 35.1(H) 30.0 - 35.0 g/dL 02/05/2025 4:49 AM CDT [facility] PLATELETS 349 140 - 440 K/uL 02/05/2025 4:49 AM CDT [facility] MPV 9.3 8.9 - 12.8 fL 02/05/2025 4:49 AM CDT [facility] RDW 13.9 11.0 - 14.5 % 02/05/2025 4:49 AM CDT [facility] RDW-STDEV 48.2 37.0 - 54.0 fL 02/05/2025 4:49 AM CDT [facility] Blood Venipuncture / Unknown 02/05/2025 4:26 AM CDT 02/05/2025 4:45 AM CDT us Karyna Odom MD HEMATOLOGY ORDERABLES Final Res ult [facility] CLIA # [id number] [address] [place] [id number] * CT CHEST ABDOMEN PELVIS WO CONT (02/03/2025 8:19 AM CDT) Anatomical Region Laterality Modality Chest Computed Tomogra phy 02/03/2025 8:11 AM CDT Impressions 02/03/2025 8:32 AM CDT IMPRESSION: Please see below. Exam: CT CHEST ABDOMEN PELVIS WO CONT Date/Time of Exam: 02/03/2025 8:19 AM Reason For Exam: fever and leukocytosis. Diagnosis: See Reason for Exam. Technique: CT of the chest, abdomen, and pelvis was performed without the administration of intravenous contrast. Findings: Prior posterior decompression fusion of L2-L4. Interbody spacer at L4-L5. Advanced endplate erosive change at L2-L3. Osseous detail limited by metallic streak artifact. Spinal stimulator device present. Moderate emphysematous change. No consolidating airspace disease. Calcified pulmonary granulomata. No pleural effusion. Thoracic aorta is nonaneurysmal. No axillary or intrathoracic lymphadenopathy. No ascites or free air. Bladder within normal limits. Colonic diverticulosis. No obstructive pattern of bowel. Prior appendectomy. Abdominal aorta is nonaneurysmal. No lymphadenopathy within the retroperitoneal space. Parenchymal detail of solid abdominal organs limited by absent IV contrast. No gross focal concerning hepatic lesion. No radiopaque gallstone. Remote splenectomy with splenosis. No gross abnormality of pancreas. Adrenals within normal limits. Small fat-containing midline ventral hernias. IMPRESSION: 1. Potential osteomyelitis/discitis lumbar spine, specifically L2-L3. 2. Remainder of exam otherwise without strong CT evidence for source of infection given limitation of absent IV contrast. Incidental findings as above. Narrative Procedure Note Oliver Bryant MD - 02/03/2025 IMPRESSION: Please see below. Exam: CT CHEST ABDOMEN PELVIS WO CONT Date/Time of Exam: 02/03/2025 8:19 AM Reason For Exam: fever and leukocytosis. Diagnosis: See Reason for Exam. Technique: CT of the chest, abdomen, and pelvis was performed without the administration of intravenous contrast. Findings: Prior posterior decompression fusion of L2-L4. Interbody spacer at L4-L5. Advanced endplate erosive change at L2-L3. Osseous detail limited by metallic streak artifact. Spinal stimulator device present. Moderate emphysematous change. No consolidating airspace disease. Calcified pulmonary granulomata. No pleural effusion. Thoracic aorta is nonaneurysmal. No axillary or intrathoracic lymphadenopathy. No ascites or free air. Bladder within normal limits. Colonic diverticulosis. No obstructive pattern of bowel. Prior appendectomy. Abdominal aorta is nonaneurysmal. No lymphadenopathy within the retroperitoneal space. Parenchymal detail of solid abdominal organs limited by absent IV contrast. No gross focal concerning hepatic lesion. No radiopaque gallstone. Remote splenectomy with splenosis. No gross abnormality of pancreas. Adrenals within normal limits. Small fat-containing midline ventral hernias. IMPRESSION: 1. Potential osteomyelitis/discitis lumbar spine, specifically L2-L3. 2. Remainder of exam otherwise without strong CT evidence for source of infection given limitation of absent IV contrast. Incidental findings as above. Amauri Kamara MD CT ORDERABLES Final Result * (ABNORMAL) SEDIMENTATION RATE (02/03/2025 3:34 AM CDT) ESR (SEDIMENTATION RATE) 40(H) 0 - 20 mm/Hr 02/03/2025 5:21 AM CDT [facility] Blood Venipuncture / Unknown 02/03/2025 3:34 AM CDT 02/03/2025 4:38 AM CDT Amauri Kamara MD HEMATOLOGY ORDERABLES Final Resu lt Performing Organization Address [facility] Co de Phone Number [facility] CLIA # [id number] [address] [address] [place] [address] * C-REACTIVE PROTEIN (02/03/2025 3:34 AM CDT) Pathologist [facility] CRP <3.0 0.0 - 5.0 mg/L 02/03/2025 5:09 AM CDT [facility] Blood Venipuncture / Unknown 02/03/2025 3:34 AM CDT 02/03/2025 4:38 AM CDT Amauri Kamara MD CHEMISTRY ORDERABLES Final Resul t Performing Organization Address [facility] de Phone Number [facility] CLIA # [id number] [address] [address] * ANAEROBIC/AEROBIC CULTURE W GRAM STAIN (02/01/2025 1:55 PM CDT) Pathologist [facility] CULTURE No aerobic or anaerobic growth 02/04/2025 8:09 AM CDT [facility] GRAM STAIN No organisms observed 02/04/2025 8:09 AM CDT [facility] GRAM STAIN No Polymorphonuclear WBC 02/04/2025 8:09 AM CDT [facility] Tissue ENTIRE BONE ORGAN / Unknown Collection / Unknown 02/01/2025 1:55 PM CDT 02/01/2025 2:10 PM CDT Abilio Lanier MD MICROBIOLOGY - [facility] AROLDO ESPINAL Final Result [id number] [address] [facility] [place] [address] * CT GUIDED BIOPSY (02/01/2025 1:54 PM CDT) Anatomical Region Laterality Modality Computed Tomogra phy 02/01/2025 1:20 PM CDT Impressions 02/01/2025 6:32 PM CDT IMPRESSION: Please see below. 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 Estiamted Blood loss: Minimal COMPLICATIONS: None PROCEDURE: After written and informed consent was obtained, the patient was brought to the CT procedural suite and placed prone on the CT gantry. Limited axial images through the region of interest were obtained for localization. The L2-L3 disc/endplate was targeted for tissue sampling. The skin overlying the area was prepped and draped in standard sterile fashion. A time out was performed.An appropriate skin entry site was anesthetized with lidocaine. A small dermatotomy was made with 11 blade scalpel. Using intermittent CT guidance, a 10-gauge introducer needle was advanced towards the posterior aspect of the L2-L3 disc/endplate and the tip was positioned at its posterior margin utilizing the bone mineral, the 10-gauge trocar needle was advanced slightly into the posterior lateral cortex. Through the introducer needle, a 12-gauge biopsy needle was advanced and four, 12-gauge core samples were obtained and split between culture, laboratory analysis, and formalin for pathologic review. The introducer needle was then removed and hemostasis was achieved with manual compression. A sterile dressing was applied. The patient tolerated the procedure well without immediate complications. FINDINGS: Intermittent CT imaging during the biopsy procedure demonstrated needle location within the L2-L3 disc/endplate. IMPRESSION: Successful CT-guided biopsy of the L2-L3 disc/endplate, as above.. Narrative Procedure Note Abilio Lanier MD - 02/01/2025 IMPRESSION: Please see below. 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 Estiamted Blood loss: Minimal COMPLICATIONS: None PROCEDURE: After written and informed consent was obtained, the patient was brought to the CT procedural suite and placed prone on the CT gantry. Limited axial images through the region of interest were obtained for localization. The L2-L3 disc/endplate was targeted for tissue sampling. The skin overlying the area was prepped and draped in standard sterile fashion. A time out was performed.An appropriate skin entry site was anesthetized with lidocaine. A small dermatotomy was made with 11 blade scalpel. Using intermittent CT guidance, a 10-gauge introducer needle was advanced towards the posterior aspect of the L2-L3 disc/endplate and the tip was positioned at its posterior margin utilizing the bone mineral, the 10-gauge trocar needle was advanced slightly into the posterior lateral cortex. Through the introducer needle, a 12-gauge biopsy needle was advanced and four, 12-gauge core samples were obtained and split between culture, laboratory analysis, and formalin for pathologic review. The introducer needle was then removed and hemostasis was achieved with manual compression. A sterile dressing was applied. The patient tolerated the procedure well without immediate complications. FINDINGS: Intermittent CT imaging during the biopsy procedure demonstrated needle location within the L2-L3 disc/endplate. IMPRESSION: Successful CT-guided biopsy of the L2-L3 disc/endplate, as above.. Karyna Odom MD CT ORDERABLES Final Result * PATHOLOGY (02/01/2025 1:54 PM CDT) CASE REPORT Surgical Pathology Report Case: [id number] Authorizing Provider: Abilio Lanier MD Collected: 02/01/2025 01:54 PM Ordering Location: [facility] Received: 02/01/2025 02:06 PM Medical Surgical Pathologist: Keyshawn Guzman MD Specimens: A) - Bone, L2/L3 disc/endplate B) - L2/L3 disc/endplate 5 6:29 AM T [facility] [employer] [facility] ADDENDUM 1 On 02/04/25, trever Goodwin was submitted to [facility] for broad-range PCR bacteria, fungal, and AFB, as ordered by Dr. Kamara. See full report scanned in chart. NOTE: Ancillary laboratory reports are scanned to the patient's electronic health record. To view in Epic, click Scan located under Results header immediately following this pathology report. SEC/wls [id number] 5 6:29 AM T [facility] Addendum electronically signed by Keyshawn Guzman MD on 02/10/2025 at 0629 CDT FINAL DIAGNOSIS A. Spine, L2/L3 disc/endplate, biopsy #1 (received in formalin) - fragments of bone, cartilage, and soft tissue admixed with blood and fibrin - neutrophils are present in the blood and fibrin, but do not definitively infiltrate the tissue. / B. Spine, L2/L3 disc/endplate, biopsy #2 (received on ice) - specimen grossly consists of clot with no definitive bone tissue identified grossly (gross only) - specimen held for possible 16S next generation sequencing studies, to be ordered if requested. Keyshawn Guzman MD [id number] 6:29 AM T [facility] at 0650 CDT GROSS DESCRIPTION A. Received in a container of formalin labeled Perry -L2/L3 disc/endplate is a single fragment of bony tissue, 0.6 cm in greatest dimension. Additionally within the container is an aggregate of red-brown clotted blood, 3.2 cm in greatest dimension. The specimen is submitted entirely as follows: A1-bone core, following light decal A2-clotted blood (no decal) B. Received fresh on ice labeled Perry is an aggregate of red-brown clotted blood with no definitive bony tissue identified, 1.0 cm in greatest dimension. The specimen is retained for possible 16S studies. Grossed by: Anais Rollins MS, DANIELA (ASCP)CM 5 6:29 AM [facility] OPERATIVE PROCEDURE CT guied CNBx of L2-L3 disc/endplate 5 6:29 AM CDT [facility] CLINICAL INFORMATION L2-L3 discitis/osteomyelitis 5 6:29 AM CDT [facility] COMMENT The [employer] voice-activated dictation system may have been used in the creation of this report. Inherent to this system is the possibility of errors in syntax, grammar, punctuation, or other areas that could impact interpretation. If there are interpretive questions about the report, please contact the performing pathologist. Unless gross only is specified in the diagnosis, the microscopic examination substantiates the above cited diagnosis. The performance characteristics of all immunohistochemical stains cited in this report (if any) were determined by the Diagnostic Immunohistochemistry Laboratory of [facility] in compliance with CLIA'88 regulations. Some of these tests rely on the use of analyte specific reagents and are subject to specific labeling requirements by the FDA. All controls show appropriate reactivity. This testing was developed by the Diagnostic Immunohistochemistry Laboratory of [facility]. It has not been cleared or approved by the FDA. The FDA has determined that such clearance or approval is not necessary. 5 6:29 AM CDT [facility] Tissue ENTIRE BONE ORGAN / Unknown Collection / Unknown 02/01/2025 1:54 PM CDT 02/01/2025 2:06 PM CDT Tissue specimen (specimen) Collection / Unknown 02/01/2025 1:54 PM CDT 02/01/2025 2:07 PM CDT Abilio Lanier MD PATHOLOGY/CYTOLOGY ORDERABL ES Edited Result - Final [facility] CLIA # [id number] [address] [place] [address] * PTT (01/31/2025 1:44 PM CDT) PTT 27.3 24.8 - 37.2 seconds 01/31/2025 2:11 PM CDT [facility] Blood Venipuncture / Unknown 01/31/2025 1:44 PM CDT 01/31/2025 1:58 PM CDT [facility] - 01/31/2025 2:11 PM CDT Therapeutic Range: Hi-level PE/DVT heparin protocol 80.1 - 95.0 sec Lo-level PE/DVT heparin protocol 70.1 - 85.0 sec Cardiac Heparin Protocol 70.1 - 100.0 sec Karyna Odom MD HEMATOLOGY ORDERABLES Final Res ult [facility] CLIA # [id number] [address] [place] [address] * (ABNORMAL) PROTIME-INR (01/31/2025 1:44 PM CDT) PROTIME 15.0(H) 12.7 - 14.9 Seconds 01/31/2025 2:11 PM CDT [facility] INR 1.1 0.8 - 1.2 01/31/2025 2:11 PM CDT [facility] Blood Venipuncture / Unknown 01/31/2025 1:44 PM CDT 01/31/2025 1:58 PM CDT [facility] - 01/31/2025 2:11 PM CDT Expected Values for INR: DVT/PE Goal INR 2.5; range 2.0 - 3.0 Valve Replacement Tissue Goal INR 2.5; range 2.0 - 3.0 Valve Replacement Mechanical Goal INR 3.0; range 2.5 - 3.5 POST-CA Goal INR 2.5; range 2.0 - 3.0 or Goal INR 3.0; range 2.5 - 3.5 Atrial Fibrillation Goal INR 2.5; range 2.0 - 3.0 Ischemic Stroke Goal INR 2.5; range 2.0 - 3.0 Karyna Odom MD HEMATOLOGY ORDERABLES Final Res ult [facility] CLIA # [id number] [facility] [address] * (ABNORMAL) BASIC METABOLIC PANEL (01/30/2025 11:25 AM CDT) Only the most recent of2 resultswithin the time period is included. SODIUM 136 136 - 145 mmol/L 01/30/2025 12:14 PM [facility] POTASSIUM 4.0 3.5 - 5.1 mmol/L 01/30/2025 12:14 PM [facility] CHLORIDE 98 98 - 107 mmol/L 01/30/2025 12:14 PM [facility] CO2 25 22 - 29 mmol/L 01/30/2025 12:14 PM [facility] CALCIUM 9.3 8.8 - 10.2 mg/dL 01/30/2025 12:14 PM [facility] BUN 14 8 - 23 mg/dL 01/30/2025 12:14 PM [facility] CREATININE 0.66 0.51 - 0.95 mg/dL 01/30/2025 12:14 PM [facility] Comment:The GFR result is no t clinically significant on patients <18 or >70 years of age. GLUCOSE 274(H) 74 - 99 mg/dL 01/30/2025 12:14 PM [facility] GFR >60 mL/min/1.7 3 sq meter 01/30/2025 12:14 PM [facility] Comment:eGFR calculated with 2020 CKD-EPI equation. Vegetarian diet, extremely high or low muscle mass, and may affect results. Cystatin C with Glomerular Filtration Rate is a suitable alternative for these patients. ANION GAP 13 9 - 20 mmol/L 01/30/2025 12:14 PM [facility] Blood Venipuncture / Unknown 01/30/2025 11:25 AM CDT 01/30/2025 11:40 AM CDT us Karyna Odom MD CHEMISTRY ORDERABLES Final Resu lt [facility] CLIA # [id number] [address] [address] [place] [address] * (ABNORMAL) CBC WITH DIFFERENTIAL (01/29/2025 2:11 AM CDT) [facility] WBC 13.3(H) 4.8 - 10.8 K/uL 01/29/2025 2:55 AM CDT [facility] RBC 4.12(L) 4.20 - 5.40 M/uL 01/29/2025 2:55 AM CDT [facility] HEMOGLOBIN 13.4 12.0 - 16.0 g/dL 01/29/2025 2:55 AM CDT [facility] HEMATOCRIT 38.9 36.0 - 46.0 % 01/29/2025 2:55 AM CDT [facility] MCV 94.4 84.0 - 103.0 fL 01/29/2025 2:55 AM CDT [facility] MCH 32.5 27.0 - 34.0 pg 01/29/2025 2:55 AM CDT [facility] MCHC 34.4 30.0 - 35.0 g/dL 01/29/2025 2:55 AM CDT [facility] PLATELETS 344 140 - 440 K/uL 01/29/2025 2:55 AM CDT [facility] MPV 9.8 8.9 - 12.8 fL 01/29/2025 2:55 AM CDT [facility] RDW 13.5 11.0 - 14.5 % 01/29/2025 2:55 AM CDT [facility] RDW-STDEV 46.9 37.0 - 54.0 fL 01/29/2025 2:55 AM CDT [facility] NEUTROPHILS 37(L) 42 - 75 % 01/29/2025 2:55 AM CDT [facility] LYMPHOCYTES 49(H) 24 - 44 % 01/29/2025 2:55 AM CDT [facility] MONOCYTES 10 2 - 10 % 01/29/2025 2:55 AM CDT [facility] EOSINOPHILS 2 0 - 7 % 01/29/2025 2:55 AM CDT [facility] BASOPHILS 1 0 - 1 % 01/29/2025 2:55 AM CDT [facility] IMMATURE GRANULOCYTES 1 0 - 2 % 01/29/2025 2:55 AM CDT [facility] NEUTROPHIL ABSOLUTE 4.93 2.00 - 8.00 K/uL 01/29/2025 2:55 AM CDT [facility] LYMPHOCYTE ABSOLUTE 6.56(H) 1.20 - 4.00 K/uL 01/29/2025 2:55 AM CDT [facility] MONOCYTE ABSOLUTE 1.38(H) 0.10 - 0.60 K/uL 01/29/2025 2:55 AM CDT [facility] EOSINOPHIL ABSOLUTE 0.30 0.00 - 0.70 K/uL 01/29/2025 2:55 AM CDT [facility] BASOPHILS ABSOLUTE 0.09 0.00 - 0.20 K/uL 01/29/2025 2:55 AM CDT [facility] IMMATURE GRANULOCYTES ABSOLUTE 0.06 0.00 - 0.10 K/uL 01/29/2025 2:55 AM CDT [facility] SMEAR REVIEWED: NN - No Action Needed 01/29/2025 2:55 AM CDT [facility] Blood Venipuncture / Unknown 01/29/2025 2:11 AM CDT 01/29/2025 2:34 AM CDT us Karyna Odom MD HEMATOLOGY ORDERABLES Final Res ult [facility] CLIA # [id number] [address] [address] [place] [address] * (ABNORMAL) HEMOGLOBIN A1C (01/29/2025 2:11 AM CDT) Pathologist [facility] HEMOGLOBIN A1C 7.3(H) <=5.6 % 01/30/2025 9:17 AM CDT [facility] EST. AVG GLUCOSE, A1C 163 mg/dL 01/30/2025 9:17 AM CDT [facility] Blood Venipuncture / Unknown 01/29/2025 2:11 AM CDT 01/29/2025 2:34 AM CDT Narrative [facility] - 01/30/2025 9:17 AM CDT HGB A1C INTERPRETATION NORMAL: <5.7% PRE-DIABETES: 5.7 - 6.4% DIABETES: 6.5% OR GREATER us Karyna Odom MD CHEMISTRY ORDERABLES Final Resu lt [facility] CLIA # [id number] [facility] [address] [place] [address] * (ABNORMAL) COMPREHENSIVE METABOLIC PANEL (01/28/2025 9:10 PM CDT) Only the most recent of2 resultswithin the time period is included. [facility] SODIUM 132(L) 136 - 145 mmol/L 01/28/2025 10:14 PM CDT [facility] POTASSIUM 3.5 3.5 - 5.1 mmol/L 01/28/2025 10:14 PM CDT [facility] CHLORIDE 94(L) 98 - 107 mmol/L 01/28/2025 10:14 PM CDT [facility] CO2 26 22 - 29 mmol/L 01/28/2025 10:14 PM CDT [facility] CALCIUM 9.1 8.8 - 10.2 mg/dL 01/28/2025 10:14 PM CDT [facility] BUN 14 8 - 23 mg/dL 01/28/2025 10:14 PM [facility] CREATININE 0.65 0.51 - 0.95 mg/dL 01/28/2025 10:14 PM [facility] Comment:The GFR result is no t clinically significant on patients <18 or >70 years of age. GLUCOSE 291(H) 74 - 99 mg/dL 01/28/2025 10:14 PM [facility] TOTAL PROTEIN 7.3 6.4 - 8.3 g/dL 01/28/2025 10:14 PM [facility] ALBUMIN 3.8 3.5 - 5.2 g/dL 01/28/2025 10:14 PM [facility] BILIRUBIN TOTAL 0.3 0.0 - 1.0 mg/dL 01/28/2025 10:14 PM [facility] ALKALINE PHOSPHATASE 128(H) 35 - 104 U/L 01/28/2025 10:14 PM [facility] AST 27 10 - 35 U/L 01/28/2025 10:14 PM [facility] Comment:Hemolysis present. R esult may be falsely elevated. ALT 38(H) <=35 U/L 01/28/2025 10:14 PM [facility] GFR >60 mL/min/1.7 3 sq meter 01/28/2025 10:14 PM [facility] Comment:eGFR calculated with 2020 CKD-EPI equation. Vegetarian diet, extremely high or low muscle mass, and may affect results. Cystatin C with Glomerular Filtration Rate is a suitable alternative for these patients. ANION GAP 12 9 - 20 mmol/L 01/28/2025 10:14 PM [facility] Blood Venipuncture / Unknown 01/28/2025 9:10 PM CDT 01/28/2025 9:42 PM CDT us Karyna Odom MD CHEMISTRY ORDERABLES Final Resu lt [facility] CLIA # [id number] [address] [facility] [place] [address] from Last 3 Months Insurance MEDICAID [place]VANTAGE O NP Advance Directives For more information, please contact: [phone] * Full Code (Latest Code Status on File) Date Activated Date Inactivated Comments 01/28/2025 7:19 PM 02/05/2025 10:47 PM
--- OUTSIDE RECORDS SUMMARY | 2025-03-02 10:21 | XMS_ITS | Encounter Summary ---
Author Organization [facility] Address [address] [place] [address] Care Team Providers Care Second Grade Teacher Name Role Phone Unavailable Primary Care Provider Unavailabl e Encounter Details Date Type Department Care Team (Latest Contact Info) Description 09/24/2006 Outpatient Historical [facility] Endocrinology-[place] [address] [place] [phone] Ramirez Ferrer MD NO ADDRESS ON FILE Unspecified Hypothyroidism (Primary Dx); Benign Willard Pituitary Social History Tobacco Use Types Packs/Day Years Used Date Smoking Tobacco: Never Assessed Comments Unknown Sex and Gender Information Value Date Recorded Sex Assigned at Not on file Legal Sex Female 5:50 AM [employer] Gender Identity Not on file Sexual Orientation Not on file documented as of this encounter Plan of Treatment Not on file documented as of this encounter Visit Diagnoses Diagnosis Unspecified hypothyroidism- Primary Benign willard pituitary Benign neoplasm of pituitary gland and craniopharyngeal duct (pouch) documented in this encounter
--- OUTSIDE RECORDS SUMMARY | 2025-03-02 10:21 | XMS_ITS | Clinical Summary ---
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
--- NOTE | 2025-03-02 10:55 | W.ED.GIBLEED ---
HPI - GI Bleed General: Chief complaint: GI Bleed Stated complaint: Black Stool Time Seen by Provider: 03/02/25 10:52 History of Present Illness: 79-year-old female with a history of diabetes and hypertension who presents emergency room with diarrhea. She says a couple days ago she ate the fish out of 2 fish sandwiches for Skoovy and a little bit after had an episode of vomiting and since has had diarrhea now for 2 days. She says she has black watery stools. Says when it starts she will have grumbling in her stomach but no pain. Vitals are normal on presentation. No dizziness or syncope. No fevers. No chest pain. Related Data Home Medications ?Medication ?Instructions ?Recorded ?Confirmed amlodipine 5 mg tablet 5 mg PO BID 07/28/19 01/24/25 aspirin 81 mg chewable tablet 81 mg PO QAM 07/28/19 01/24/25 diclofenac sodium 75 mg 75 mg PO BID PRN Pain 07/28/19 01/24/25 tablet,delayed release docusate sodium 100 mg capsule 100 mg PO BID 07/28/19 01/24/25 (Colace) ezetimibe 10 mg tablet (Zetia) 10 mg PO BEDTIME 07/28/19 01/24/25 oxybutynin chloride 5 mg tablet 2.5 mg PO BID 07/28/19 01/24/25 sertraline 100 mg tablet 100 mg PO QAM 07/28/19 01/24/25 trazodone 50 mg tablet 50 mg PO BEDTIME 07/28/19 01/24/25 bupropion HCl 300 mg 24 hr tablet, 300 mg PO QAM 07/29/19 01/24/25 extended release (Wellbutrin XL) ferrous sulfate 325 mg (65 mg 325 mg PO BID 07/29/19 01/24/25 iron) tablet metoprolol tartrate 25 mg tablet 25 mg PO BID 10/21/20 01/24/25 gabapentin 300 mg capsule 300 mg PO TID 02/28/22 01/24/25 glyburide 5 mg tablet 5 mg PO QAM 02/28/22 01/24/25 hydrocodone 5 mg-acetaminophen 325 0.5 - 1 tab PO Q6H PRN Pain 02/28/22 01/24/25 mg tablet levothyroxine 175 mcg tablet 175 mcg PO DAILY 02/28/22 01/24/25 montelukast 10 mg tablet 10 mg PO QAM 02/28/22 01/24/25 pravastatin 40 mg tablet 40 mg PO BEDTIME 02/28/22 01/24/25 sitagliptin phosphate 100 mg 100 mg PO QAM 02/28/22 01/24/25 tablet (Januvia) cetirizine 10 mg tablet (Zyrtec) 10 mg PO DAILY 01/25/23 01/24/25 pantoprazole 40 mg tablet,delayed 40 mg PO QAM 01/25/23 01/24/25 release vit C 250 mg-vit E 90 mg-zinc 40 1 tab PO BID 01/25/23 01/24/25 mg-copper 1 [id number] capsule (PreserVision AREDS-2) hydrochlorothiazide 12.5 mg tablet 1 ea PO DAILY 04/23/23 01/24/25 omega-3 acid ethyl esters 1 gram 2 cap PO BID 04/23/23 01/24/25 capsule semaglutide 1 mg/dose (4 mg/3 mL) 1 mg SUBCUT Q7D 01/23/25 01/23/25 subcutaneous pen injector ([employer] SolutionsempBioIQ) Previous Rx's ?Medication ?Instructions ?Recorded blood sugar diagnostic (Contour #50 ea 05/01/22 Next Test Strips) blood-glucose meter (Contour Next #1 ea 05/01/22 One Meter) galantamine 24 mg 24 hr 24 mg PO QAM #90 caps 05/28/24 capsule,extended release Allergies Allergy/AdvReac Type Severity Reaction Status Date / Time morphine Allergy Mild hallucinati Verified 01/22/25 19:36 ons latex AdvReac Mild RASH Verified 01/22/25 19:36 Review of Systems Narrative: Constitutional symptoms: Negative except as documented in HPI. Skin symptoms: Negative except as documented in HPI. Eye symptoms: Negative except as documented in HPI. ENMT symptoms: Negative except as documented in HPI. Respiratory symptoms: Negative except as documented in HPI. Cardiovascular symptoms: Negative except as documented in HPI. Gastrointestinal symptoms: Negative except as documented in HPI. Genitourinary symptoms: Negative except as documented in HPI. Musculoskeletal symptoms: Negative except as documented in HPI. Neurologic symptoms: Negative except as documented in HPI. Psychiatric symptoms: Negative except as documented in HPI. Endocrine symptoms: Negative except as documented in HPI. PFSH ED PFSH: Medical History (Updated 03/02/25 @ 11:47 by Maddi Daniels MD) Osteoarthritis of knees, bilateral Diabetes Spondylolisthesis, lumbar region Pituitary adenoma Evaluation/management Dr. Jose Manuel Montes Lumbar stenosis with neurogenic claudication Lumbar post-laminectomy syndrome Intervertebral disc disorder with radiculopathy of lumbosacral region Surgical History (Updated 01/23/25 @ 14:23 by Bhupinder Rivers MD) History of carpal tunnel surgery Bilateral History of hysterectomy History of appendectomy repaired colon History of hemorrhoidectomy History of lumbar fusion 11/2012, Dr. Jose Manuel Montes, [facility], L4-L5 PLIFF. Family History Mother Colon cancer, Onset Age: 58 Heart disease Father Diabetes Brother Diabetes Social History Smoking and tobacco/nicotine status: former use of tobacco/nicotine Second hand smoke exposure: Yes Alcohol intake: never Substance/Drug Use: never Caregiver/support person: Yes Lives independently: Yes Household members: none Housing: House Marital status: service: No Current occupational status: disabled Pets and animals: Yes Do you think of yourself as: Straight/Heterosexual Current gender identity: Female Physical Exam Narrative: EXAM NARRATIVE: General: Alert, no acute distress. Skin: Warm, dry. Head: Normocephalic, atraumatic. Neck: Supple, trachea midline. Eye: Extraocular movements are intact. Ears, nose, mouth and throat: Tacky oral mucosa Cardiovascular: Regular, Normal peripheral perfusion. Respiratory: Lungs are clear to auscultation, respirations are non-labored, breath sounds are equal, Symmetrical chest wall expansion. Gastrointestinal: Soft, Nontender, Non distended Musculoskeletal: Normal ROM, no deformity. Neurological: Alert and oriented, No focal neurological deficit observed. Psychiatric: Cooperative, appropriate mood & affect. Course Vital Signs: Vital signs: Vital Signs Temperature 97.7 F 03/02/25 10:11 Pulse Rate 59 L 03/02/25 10:57 Respiratory Rate 16 03/02/25 10:57 Blood Pressure 156/74 03/02/25 10:57 Pulse Oximetry 95 03/02/25 10:57 Oxygen Delivery Me thod Room Air 03/02/25 10:57 MDM - GI Bleed Medical Decision Making Medical decision making: Differential diagnosis including but not limited to and based on the above HPI, review of systems and physical exam: In this patient with diarrhea and abdominal pain would have concern for viral gastroenteritis, C. difficile, also have concern for renal failure. Urinary tract infection. Orders placed to evaluate differential diagnosis based on the above differential, HPI and physical exam Lab Review: Laboratory results were reviewed and interpreted by myself the emergency room physician. Stable mild chronic leukocytosis. No anemia. No renal failure. Glucose is bit elevated at 288. We will treat this with some fluids as she might be a bit dehydrated on exam. I reviewed the patient's medical record. Reexamination: Patient remained stable. No increased work of breathing. No altered mental status. No focal motor deficits. Assessment and plan: Gastroenteritis Diarrhea Hyperglycemia Mild dehydration ? Normal saline bolus - Discharged home - Discussed plan with patient. Answered any questions. - Evaluation and treatment of this problem were appropriate in the emergency setting. Lab Data 03/02/25 11:05 03/02/25 11:05 Laboratory Results WBC 11.95 10^3/uL (3.29-11.43) H 03/02/25 11:05 RBC 4.44 10^6/uL (3.85-5.65) 03/02/25 11:05 Hgb 14.50 g/dL (11.27-16.99) 03/02/25 11:05 Hct 43.7 % (36-47) 03/02/25 11:05 MCV 98.4 fl (85-98) H 03/02/25 11:05 MCH 32.7 pg (27-33) 03/02/25 11:05 MCHC 33.2 g/dL (30-55) 03/02/25 11:05 RDW 14.2 % (12.1-15.1) 03/02/25 11:05 Plt Count 282 10^3/cmm (157-399) 03/02/25 11:05 MPV 9.8 fL (7.4-10.4) 03/02/25 11:05 Neut % (Auto) 59.4 % 03/02/25 11:05 Lymph % (Auto) 26.7 % 03/02/25 11:05 Louisa % (Auto) 10.6 % 03/02/25 11:05 Eos % (Auto) 2.3 % 03/02/25 11:05 Baso % (Auto) 0.6 % 03/02/25 11:05 Neut # (Auto) 7.10 10^3/uL (1.8-7.7) 03/02/25 11:05 Lymph # (Auto) 3.2 10^3/uL (0.8-4.8) 03/02/25 11:05 Louisa # (Auto) 1.3 10^3/uL (0.2-0.9) H 03/02/25 11:05 Eos # (Auto) 0.3 10^3/uL (0.0-0.8) 03/02/25 11:05 Baso # (Auto) 0.1 10^3/uL (0.0-0.1) 03/02/25 11:05 Nucleated RBC % (auto) 0 % 03/02/25 11:05 Nucleated RBCs # 0.0 /100WBC 03/02/25 11:05 PT 14.20 SECONDS (12.1-14.9) 03/02/25 11:05 INR 1.03 (0.8-1.2) 03/02/25 11:05 APTT 28.1 SECONDS (23.9-36.7) 03/02/25 11:05 Sodium 134 mmol/L (136-145) L 03/02/25 11:05 Potassium 3.6 mmol/L (3.5-5.1) 03/02/25 11:05 Chloride 102 mmol/L (98-107) 03/02/25 11:05 Carbon Dioxide 22 mmol/L (22-29) 03/02/25 11:05 Anion Gap 13.6 (5-19) 03/02/25 11:05 BUN 11 mg/dL (8-23) 03/02/25 11:05 Creatinine 0.6 mg/dL (0.5-0.9) 03/02/25 11:05 GFR Calculation Not Reportable 03/02/25 11:05 Glucose 288 mg/dL (65-115) H 03/02/25 11:05 Calculated Osmolality 288 mOsm/kg (285-295) 03/02/25 11:05 Calcium 9.0 mg/dL (8.5-10.5) 03/02/25 11:05 Total Bilirubin 0.3 mg/dL (0.15-1.2) 03/02/25 11:05 AST 46 U/L (0-32) H 03/02/25 11:05 ALT 44 U/L (0-33) H 03/02/25 11:05 Alkaline Phosphatase 137 U/L (35-105) H 03/02/25 11:05 Total Protein 7.2 g/dL (6.6-8.7) 03/02/25 11:05 Albumin 4.1 g/dL (3.5-5.2) 03/02/25 11:05 Globulin 3.1 g/dL (1.3-4.6) 03/02/25 11:05 No radiology studies performed this visit Discharge Plan Discharge Patient Disposition: Home Clinical Impression: Diarrhea, Hyperglycemia, Mild dehydration Condition: Stable Prescriptions: No Action ferrous sulfate 325 mg (65 mg iron) tablet 325 mg PO BID bupropion HCl [Wellbutrin XL] 300 mg tablet extended release 24 hr 300 mg PO QAM oxybutynin chloride 5 mg tablet 2.5 mg PO BID diclofenac sodium 75 mg tablet,delayed release (DR/EC) 75 mg PO BID PRN (Reason: Pain) trazodone 50 mg tablet 50 mg PO BEDTIME amlodipine 5 mg tablet 5 mg PO BID docusate sodium [Colace] 100 mg capsule 100 mg PO BID ezetimibe [Zetia] 10 mg tablet 10 mg PO BEDTIME sertraline 100 mg tablet 100 mg PO QAM aspirin 81 mg tablet,chewable 81 mg PO QAM metoprolol tartrate 25 mg tablet 25 mg PO BID (DME) blood-glucose meter [Contour Next One Meter] Misc See Rx Instructions .Route Qty: 1 0RF Rx Instructions: As directed (DME) Contour Next Test Strips Strip See Rx Instructions .Route Qty: 50 10RF Rx Instructions: As directed omega-3 acid ethyl esters 1 gram capsule 2 cap PO BID hydrochlorothiazide 12.5 mg tablet 1 ea PO DAILY galantamine 24 mg capsule,ext rel. pellets 24 hr 24 mg PO QAM Qty: 90 3RF levothyroxine 175 mcg Tablet 175 mcg PO DAILY Rx Instructions: in am glyburide 5 mg Tablet 5 mg PO QAM pravastatin 40 mg tablet 40 mg PO BEDTIME gabapentin 300 mg Capsule 300 mg PO TID montelukast 10 mg tablet 10 mg PO QAM Januvia 100 mg tablet 100 mg PO QAM hydrocodone-acetaminophen 5-325 mg tablet 0.5 - 1 tab PO Q6H PRN (Reason: Pain) PreserVision AREDS-2 250-90-40-1 mg Capsule 1 tab PO BID pantoprazole 40 mg tablet,delayed release (DR/EC) 40 mg PO QAM cetirizine [Zyrtec] 10 mg Tablet 10 mg PO DAILY Ozempic 1 mg/dose (4 mg/3 mL) pen injector 1 mg SUBCUT Q7D Discharge Orders: Discharge ED (Routine); Ordered 03/02/25 Ordered By: Maddi Daniels Referrals: Drew Williamson MD [Primary Care Provider, Family Practice] Discharge Diet: Usual diet Discharge Activity: Increase activity as tolerated Patient Instructions: Acute Diarrhea (ED), Opioid Safety, Pain Management, Patient Portal & Thor Instructions Activity Restrictions/Additional Instructions: Thank you for choosing [facility] for your healthcare needs today. You have been screened and evaluated and felt safe for discharge. Health conditions do change or evolve sometimes and as such it is important that you follow up with your Primary Doctor to be re checked, 3-5 days is a general good time frame for follow up. You are always welcome to return to the ED for re assessment if your symptoms are worsening or you have new concerns Print Language: Bulgarian Coding Level of Care Code ED Scarf And Anneal Operator for Patricia Steel
[2025-03-02 10:57] VITALS: BP 156/74; PULSE 59; RESP 16; O2SAT 95
[2025-03-02 11:19] LABS: Hematocrit 43.7 % (36-47); Hemoglobin 14.50 g/dL (11.27-16.99); Mean Corpuscular HGB Conc 33.2 g/dL (30-55); Mean Corpuscular Hemoglobin 32.7 pg (27-33); Mean Corpuscular Volume 98.4 fl (85-98); Nucleated Red Blood Cells % 0 %; Platelet Count 282 10^3/cmm (157-399); Red Blood Count 4.44 10^6/uL (3.85-5.65); White Blood Count 11.95 10^3/uL (3.29-11.43)
[2025-03-02 11:31] LABS: INR 1.03 (0.8-1.2); Prothrombin Time 14.20 SECONDS (12.1-14.9)
[2025-03-02 11:32] LABS: Partial Thromboplastin Time 28.1 SECONDS (23.9-36.7)
[2025-03-02 11:36] LABS: Alanine Aminotransferase 44 U/L (0-33); Albumin Level 4.1 g/dL (3.5-5.2); Alkaline Phosphatase 137 U/L (35-105); Anion Gap 13.6 (5-19); Aspartate Amino Transferase 46 U/L (0-32); Blood Urea Nitrogen 11 mg/dL (8-23); Calcium 9.0 mg/dL (8.5-10.5); Carbon Dioxide 22 mmol/L (22-29); Chloride 102 mmol/L (98-107); Creatinine Clr Calc Pharmacy 52.3193; Globulin 3.1 g/dL (1.3-4.6); Glucose 288 mg/dL (65-115); Osmolality Calculated 288 mOsm/kg (285-295); Potassium 3.6 mmol/L (3.5-5.1); Sodium 134 mmol/L (136-145); Total Protein 7.2 g/dL (6.6-8.7)
[2025-03-02 12:23] VITALS: BP 135/80; O2SAT 95
[2025-03-02 12:36] VITALS: BP 155/72; O2SAT 93
[2025-03-02 13:37] LABS: C.Diff PCR (Lab) NEGATIVE (Negative)
[2025-03-02 13:59] VITALS: BP 155/72; PULSE 76; O2SAT 98
== END 2025-03-02 14:00 | disposition home or self-care (01) ==
PROVIDERS: Emergency Provider Emergency Medicine; PCP Family Medicine
DX: K52.9 Noninfective gastroenteritis and colitis, unspecified (principal); R19.7 Diarrhea, unspecified; E11.65 Type 2 diabetes mellitus with hyperglycemia; Z79.84 Long term (current) use of oral hypoglycemic drugs; E86.0 Dehydration; D72.829 Elevated white blood cell count, unspecified
CPT/HCPCS: 36415; 80053; 85025; 85610; 85730; 87493; 99284; J7030

== ENCOUNTER 2025-04-06 16:22 | Emergency (ER) | payer MEDICARE, MEDICAID, SELFPAY ==
--- OUTSIDE RECORDS SUMMARY | 2024-05-02 04:00 | XMS_ITS ---
Author Organization [facility] Address [address] [place] [address] Care Team Providers Care Paleology Professor Name Role Phone Drew Williamson MD Primary Care Provider Abilio Camara Unavailable [phone] Layne Lopez APRN Unavailable Unavailable Migration, Provider Unavailable Unavailable REASON FOR VISIT EMR-Ricky Encounters Encounter Location Date Provider Diagnosis Migrated_Facility 0 0 05/02/2024 Provider Migration Plan Of Treatment No Information Progress Notes * Alice SWAN RDOB: [birth year] (79 yo F)Acc No.[id number]:05/02/2024 Patient: Tayler PAMELAGEOVANNAAlice :1945 A ge:78 Y S ex:Female Address:[address] [place] [id number] Subjective: * Chief Complaints: * E MR-Ricky * * Date:
--- OUTSIDE RECORDS SUMMARY | 2024-05-03 04:00 | XMS_ITS ---
Author Organization [facility] Address [address] [place] [address] Care Team Providers Care Microbiological Analyst Name Role Phone Clay CORONADO, Drew Primary Care Provider Abilio Camara Unavailable [phone] Layne Lopez APRN Unavailable Unavailable Migration, Provider Unavailable Unavailable Allergies Allergen (clinical drug ingredient) Drug/Non Drug Allergy documented on EMR Reaction Allergy Type Onset Date Status marcelino (uncoded) Unknown Allergy Acti ve Latex Latex Rash Allergy Active morphine Morphine Unknown Drug Allergy Active REASON FOR VISIT EMR-[facility] [place] Medications Medication SIG (Take, Route, Frequency, Duration) Notes Start Date End Date Status BUPROPION XL 300MG TAB TAKE 1 TABLET BY MOUTH ONCE DAILY *Reorder from [facility] for eRx and Interaction Alerts* Active OXYBUTYNIN 5MG TAB TAKE 1/2 (ONE-HALF) TABLET BY MOUTH TWICE DAILY *Reorder from [facility] for eRx and Interaction Alerts* Active DICLOFENAC [address]MG DR TAB TAKE 1 TABLET BY MOUTH TWICE DAILY NEEDED *Reorder from [facility] for eRx and Interaction Alerts* Active MONTELUKAST 10MG TAB TAKE 1 TABLET BY MOUTH ONCE DAILY *Reorder from [facility] for eRx and Interaction Alerts* Active LEVOTHYROXIN 175MCG TAB TAKE 1 TABLET BY MOUTH ONCE DAILY *Reorder from [facility] for eRx and Interaction Alerts* Active PRAVASTATIN 40MG TAB TAKE 1 TABLET BY MOUTH AT BEDTIME ONCE DAILY *Reorder from [facility] for eRx and Interaction Alerts* Active DOCUSATE [id number] CAP TAKE 1 CAPSULE BY MOUTH TWICE DAILY *Reorder from [facility] for eRx and Interaction Alerts* Active GABAPENTIN 300MG CAP TAKE 1 CAPSULE BY MOUTH THREE TIMES DAILY *Reorder from [facility] for eRx and Interaction Alerts* Active FERROUS [id number] TAB TAKE 1 TABLET BY MOUTH TWICE DAILY *Reorder from [facility] for eRx and Interaction Alerts* Active DOXYCYCLINE HYCLATE 50MG CAP TAKE 2 CAPSULES BY MOUTH TWICE DAILY *Reorder from [facility] for eRx and Interaction Alerts* Active BYDUREON BCISE INJ INJECT 1 SUBCUTANEOUSLY ONCE A WEEK *Reorder from [facility] for eRx and Interaction Alerts* Active BRIMONIDINE OP 0.2% QUETA INSTILL 1 DROP INTO EACH EYE TWICE DAILY *Reorder from [facility] for eRx and Interaction Alerts* Active PANTOPRAZOLE 40MG TAB TAKE 1 TABLET BY MOUTH ONCE DAILY *Reorder from [facility] for eRx and Interaction Alerts* Active HYDROCOD/ACETAM 5-325MG TAB TAKE 1/2 TO 1 (ONE-HALF TO ONE) TABLET BY MOUTH EVERY 6 HOURS NEEDED FOR PAIN *Reorder from [facility] for eRx and Interaction Alerts* Active Social History Social History Additional Details Category Social Info Options Details Migrated Social History Migrated Social History Alcoholic beverages? - No, Applying for disability? - No, Are you or is there a chance you could be - No, Currently on disability? - Yes, Drug or substance abuse? - No, Education - Grade School, exposure to toxins/poisonous substances at work - No, I am interested in quitting. - No, If yes, frequency of alcoholic beverages - 1 drink per day, Involved in any legal proceedings or lawsuits? - No, Marital Status - , Nonprescription drug use? - No, Participation in detoxification or rehabilitation - No, Smoked in the past? - No, Smoking - No, Smoking status (MU) - <BLANK>, Working currently? - No Encounters Encounter Location Date Provider Diagnosis Migrated_Facility 0 0 05/03/2024 Provider Migration Plan Of Treatment No Information Progress Notes * Alice SWAN RDOB: [birth year] (79 yo F)Acc No.[id number]:05/03/2024 Patient: Alice KRAUS :1945 A ge:78 Y S ex:Female Address:[address] [place] [address] Subjective: * Chief Complaints: * E MR-Ricky * Surgical History: Achilles tendon repair Since 1967 Colon surgery Since 1972 Hysterectomy Since 1987 Pituitary tumor resection Since 2011 Back surgery Since 2019 * Family History: M igrated Family History: : Cancer, c hronic pain, D iabetes, f ibromyalgia, H eart disease, v ascular disease. * Social History: M igrated Social History: M igrated Social History: Alcoholic beverages? - No, A pplying for disability? - No, A re you or is there a chance you could be - No, C urrently on disability? - Yes, D rug or substance abuse? - No, E ducation - Grade School, e xposure to toxins/poisonous substances at work - No, I am interested in quitting. - No, I f yes, frequency of alcoholic beverages - 1 drink per day, I nvolved in any legal proceedings or lawsuits? - No, M arital Status - , N onprescription drug use? - No, P articipation in detoxification or rehabilitation - No, Smoked in the past? - No, S moking - No, S moking status (MU) - <BLANK>, W orking currently? - No. * Medications: T akingBYDUREON BCISE INJ INJECT 1 SUBCUTANEOUSLY ONCE A WEEK , Notes to Pharmacist: *Reorder from [facility] for eRx and Interaction Alerts*DOCUSATE [id number] CAP TAKE 1 CAPSULE BY MOUTH TWICE DAILY , Notes to Pharmacist: *Reorder from [facility] for eRx and Interaction Alerts*BRIMONIDINE OP 0.2% QUETA INSTILL 1 DROP INTO EACH EYE TWICE DAILY , Notes to Pharmacist: *Reorder from [facility] for eRx and Interaction Alerts*PANTOPRAZOLE 40MG TAB TAKE 1 TABLET BY MOUTH ONCE DAILY , Notes to Pharmacist: *Reorder from [facility] for eRx and Interaction Alerts*DOXYCYCLINE HYCLATE 50MG CAP TAKE 2 CAPSULES BY MOUTH TWICE DAILY , Notes to Pharmacist: *Reorder from [facility] for eRx and Interaction Alerts*OXYBUTYNIN 5MG TAB TAKE 1/2 (ONE-HALF) TABLET BY MOUTH TWICE DAILY , Notes to Pharmacist: *Reorder from [facility] for eRx and Interaction Alerts*HYDROCOD/ACETAM 5-325MG TAB TAKE 1/2 TO 1 (ONE-HALF TO ONE) TABLET BY MOUTH EVERY 6 HOURS NEEDED FOR PAIN , Notes to Pharmacist: *Reorder from [facility] for eRx and Interaction Alerts*FERROUS [id number] TAB TAKE 1 TABLET BY MOUTH TWICE DAILY , Notes to Pharmacist: *Reorder from [facility] for eRx and Interaction Alerts*MONTELUKAST 10MG TAB TAKE 1 TABLET BY MOUTH ONCE DAILY , Notes to Pharmacist: *Reorder from [facility] for eRx and Interaction Alerts*GABAPENTIN 300MG CAP TAKE 1 CAPSULE BY MOUTH THREE TIMES DAILY , Notes to Pharmacist: *Reorder from [facility] for eRx and Interaction Alerts*BUPROPION XL 300MG TAB TAKE 1 TABLET BY MOUTH ONCE DAILY , Notes to Pharmacist: *Reorder from [facility] for eRx and Interaction Alerts*LEVOTHYROXIN 175MCG TAB TAKE 1 TABLET BY MOUTH ONCE DAILY , Notes to Pharmacist: *Reorder from [facility] for eRx and Interaction Alerts*PRAVASTATIN 40MG TAB TAKE 1 TABLET BY MOUTH AT BEDTIME ONCE DAILY , Notes to Pharmacist: *Reorder from [facility] for eRx and Interaction Alerts*DICLOFENAC [address] DR TAB TAKE 1 TABLET BY MOUTH TWICE DAILY NEEDED , Notes to Pharmacist: *Reorder from [facility] for eRx and Interaction Alerts*Taking BYDUREON BCISE INJ INJECT 1 SUBCUTANEOUSLY ONCE A WEEK , Notes to Pharmacist: *Reorder from [facility] for eRx and Interaction Alerts*Taking DOCUSATE [id number] CAP TAKE 1 CAPSULE BY MOUTH TWICE DAILY , Notes to Pharmacist: *Reorder from [facility] for eRx and Interaction Alerts*Taking BRIMONIDINE OP 0.2% QUETA INSTILL 1 DROP INTO EACH EYE TWICE DAILY , Notes to Pharmacist: *Reorder from [facility] for eRx and Interaction Alerts*Taking PANTOPRAZOLE 40MG TAB TAKE 1 TABLET BY MOUTH ONCE DAILY , Notes to Pharmacist: *Reorder from [facility] for eRx and Interaction Alerts*Taking DOXYCYCLINE HYCLATE 50MG CAP TAKE 2 CAPSULES BY MOUTH TWICE DAILY , Notes to Pharmacist: *Reorder from [facility] for eRx and Interaction Alerts*Taking OXYBUTYNIN 5MG TAB TAKE 1/2 (ONE-HALF) TABLET BY MOUTH TWICE DAILY , Notes to Pharmacist: *Reorder from [facility] for eRx and Interaction Alerts*Taking HYDROCOD/ACETAM 5-325MG TAB TAKE 1/2 TO 1 (ONE-HALF TO ONE) TABLET BY MOUTH EVERY 6 HOURS NEEDED FOR PAIN , Notes to Pharmacist: *Reorder from [facility] for eRx and Interaction Alerts*Taking FERROUS [id number] TAB TAKE 1 TABLET BY MOUTH TWICE DAILY , Notes to Pharmacist: *Reorder from [facility] for eRx and Interaction Alerts*Taking MONTELUKAST 10MG TAB TAKE 1 TABLET BY MOUTH ONCE DAILY , Notes to Pharmacist: *Reorder from [facility] for eRx and Interaction Alerts*Taking GABAPENTIN 300MG CAP TAKE 1 CAPSULE BY MOUTH THREE TIMES DAILY , Notes to Pharmacist: *Reorder from [facility] for eRx and Interaction Alerts*Taking BUPROPION XL 300MG TAB TAKE 1 TABLET BY MOUTH ONCE DAILY , Notes to Pharmacist: *Reorder from [facility] for eRx and Interaction Alerts*Taking LEVOTHYROXIN 175MCG TAB TAKE 1 TABLET BY MOUTH ONCE DAILY , Notes to Pharmacist: *Reorder from [facility] for eRx and Interaction Alerts*Taking PRAVASTATIN 40MG TAB TAKE 1 TABLET BY MOUTH AT BEDTIME ONCE DAILY , Notes to Pharmacist: *Reorder from [facility] for eRx and Interaction Alerts*Taking DICLOFENAC [address]MG DR TAB TAKE 1 TABLET BY MOUTH TWICE DAILY NEEDED , Notes to Pharmacist: *Reorder from [facility] for eRx and Interaction Alerts* * Allergies: L atex: Rash - AllergyMorphine: Allergypapas: Allergy * * Date:
--- OUTSIDE RECORDS SUMMARY | 2024-05-27 09:40 | XMS_ITS ---
Author Organization [facility] Address [address] [place] [address] Care Team Providers Care Quill Fixer Name Role Phone Clay CORONADO, Drew Primary Care Provider Unavaila Abilio Alexander Unavailable [phone] Layne Lopez APRN Unavailable Unavailable Allergies Allergen (clinical drug ingredient) Drug/Non Drug Allergy documented on EMR Reaction Allergy Type Onset Date Status marcelino (uncoded) Unknown Allergy Acti ve Latex Latex Rash Allergy Active morphine Morphine Unknown Drug Allergy Active Social History Tobacco Use: Social History Observation Description Date Details (start date - stop date) Never Smoker NA - NA Social History Depression Screening Social Info Question Answer Notes PHQ-9 Little interest or p chinedu in doing things Nearly every day Feeling down, depressed, or hopeless Nearly ever y day Trouble falling or staying asleep, or sleeping t oo much Nearly every day Feeling tired or having little energy Nearly kaycee ry day Poor appetite or overeating Nearly every day Feeling bad about yourself, or that you are a failure, or have let yourself or your family down Nearly every day Trouble concentrating on thi ngs, such as reading the newspaper or watching television Nearly every day Moving or speaking so slowly that other people could have noticed. Or the opposite ? being so fidgety or restless that you have been moving around a lot more than usual Nearly every day Thoughts that you would be b uri off , or of hurting yourself in some way Not at all Total Score 24 Interpretation Severe Depression Drugs/Alcohol: Social Info Question Answer Notes Alcohol Screen (Audit-C) Did you have a drink containing alcohol in the past year? No Points 0 Interpretation Negative Drugs Have you used drugs other than those for medical reasons in the past 12 months? No Tobacco Use: Social Info Question Answer Notes xTobacco Use/Smoking Are you a nonsmoker Additional Details Category Social Info Options Details [...] (MU) - <BLANK>, Working currently? - No Section Notes: 24 Problems Problem Type SNOMED Code ICD Code Onset Dates Problem Status W/U Status Risk Notes Problem Chronic pain syndrome (966840886) Chronic pain syndrome (G89.4) 12/04/19 24 Active confirmed Problem Neurostimulator device in situ (finding) (150415339) Presence of neurostimulator (Z96.82) 12/04/19 24 Active confirmed Problem Abnormal gait (35407567) Abnormality of gait and mobility (R26.9) Active confirmed Problem Lumbosacral spondylosis with radiculopathy (727344508) Lumbosacral spondylosis with radiculopathy (M47.27) Active confirmed Problem Lumbar post-laminectomy syndrome (316580486) Lumbar post-laminectomy syndrome (M96.1) Active confirmed Encounters Encounter Location Date Provider Diagnosis [facility] [place] [address] [place] [address] 05/27/2024 Abilio Chavez Chronic pain syndrom e G89.4 ; Presence of neurostimulator Z96.82 ; Degeneration of intervertebral disc of lumbar region with discogenic back pain and lower extremity pain M51.362 ; Abnormality of gait and mobility R26.9 ; Lumbosacral spondylosis with radiculopathy M47.27 ; Lumbar post-laminectomy syndrome M96.1 and Pain in right shoulder M25.511 Assessments Encounter Date Diagnosis (ICD Code) Assessment Notes Treatment Notes Treatment Clinical Notes Section Notes 05/27/2024 Chronic pain syndrome (ICD-10 - G89.4) 05/27/2024 Presence of neurostimulator (ICD-10 - Z96.82) 05/27/2024 Degeneration of intervertebral disc of lumbar region with discogenic back pain and lower extremity pain (ICD-10 - M51.362) 05/27/2024 Abnormality of gait and mobility (ICD-10 - R26.9) 05/27/2024 Lumbosacral spondylosis with radiculopathy (ICD-10 - M47.27) 05/27/2024 Lumbar post-laminectomy syndrome (ICD-10 - M96.1) 05/27/2024 Pain in right shoulder (ICD-10 - M25.511) Plan Of Treatment No Information History and Physical Notes * HPI (History of Present Illness) Category Sub-Category Detail Notes Category Not es Pain Details Pain Location ___ Quality ___ Severity of pain at its worst ___ Severity of pain at its best ___ Severity of average pain ___ Severity of pain right now ___ Severity of pain on medication ___ When did you last take your pain medicin e ___ Medication Details Do you have a lock b ox or safe place for medication away from minors and/or others? Yes Do you have any leftover pain medication building up at your house? No Do you understand that pain medication c an be addicting and can cause overdose? Yes Do you feel you can REDUCE the amount of medication you take today? No Opioid Assessment Tools COMM (Current Opioid Misuse Me asure) ___ Examination Category Sub-Category Detail Notes Category Not es General Examination Constitutional: Patient appears to be appropriate looking for stated age, overweight. Patient is awake, alert and oriented to person, place and time with recent/ remote memory intact. in no acute distress noted. HEENT: Atraumatic, Normocephalic. Pupils grossly normal on inspection. Respiratory: Visual Inspection: breathing equal bilaterally, trachea midline. Cardiovascular: Cardiac rhythm is regular. Lumbar Spine: Inspection of the lumbar spine reveals normal lordosis with no obvious scoliosis or asymmetry noted. Surgical scars appear well healed, palpable leads at anchoring site. Palpation of the lumbar facets produced back pain. Range of Motion: Greatly reduced ROM in all directions. Hyperextension at lumbar spine reproduced lower back pain. Bilateral facet loading maneuvers (lateral flexion/extension/bending) reproduced lower back pain. Bilateral lateral rotation also causes some pain. Stooping forward slightly gives some relief. Anterior lumbar flexion causes pain. Pain during lumbar extension was observed. Left lateral flexion causes pain. Right lateral flexion causes pain. Noted tightness and tenderness of b/l lumbar paraspinals Joints- Hips/ SI Joint: SI Joint Palpation : negative bilaterally. Right Shoulder- Pain on any ROM, generalized glenohumeral tenderness Neurology - Mental Status: Affect and mood appear grossly normal. Neurology - Coordination: Antalgic gait Neurology - Straight Leg Raising: Right: 60 degrees and negative. Left: 60 degrees and negative. Neurology - Motor Strength: Left LE strength - Flexors: 4+/5. Right LE strength - Flexors: 4+/5. Left LE strength - Extensors: 4+/5. Right LE strength - Extensors: 4+/5. Left LE Tone: Normal. Right LE Tone: Normal. Neurology - Sensation: paresthesias down b/l LE in mainly L4-5 distributions, R>L, covered by SCS Neurology - Deep Tendon Reflexes: Left patellar (DTR): 2. Right patellar (DTR): 2. Left achilles (DTR): 1. Right achilles (DTR): 1. Progress Notes * Alice SWAN RDOB: [birth year] (79 yo F)Acc No.[id number]:05/27/2024 Progress Notes Patient: Alice Killian Provider: Kelli Chavez D.O. :1945 A ge:78 Y S ex:Female Date:05/27/2024 Address:[address] [place], [place] [id number] Pcp:Drew Williamson MD Subjective: * Chief Complaints: * HPI: P ain Details: Pain Location _ __. Quality _ __. Severity of pain at its worst _ __. Severity of pain at its best _ __. Severity of pain on medication _ __. Severity of average pain _ __. Severity of pain right now _ __. When did you last take your pain medicine _ __. M edication Details: Do you have a lock box or safe place for medication away from minors and/or others? Y es. Do you have any leftover pain medication building up at your house? N o. Do you understand that pain medication can be addicting and can cause overdose? Y es. Do you feel you can REDUCE the amount of medication you take today? N o. O pioid Assessment Tools: COMM (Current Opioid Misuse Measure) _ __. * ROS: G eneral - Multi System: Constitutional D enies, f ever, recent weight gain, recent weight loss, fatigue. R espiratory D enies, wheezing, shortness of breath, cough, snoring. G astrointestinal D enies, nausea, vomiting, constipation, abdominal pain. P sychiatric D enies, , anxiety, depression, panic attacks, suicidal thoughts. * Medical History: Measles, mumps, chicken pox Small pox Pneumonia Arthritis Urinary tract infections Migraine headaches Diabetes Hernia Back pain Hemorrhoids Hives or eczema Infectious mono Bronchitis Anxiety Cataracts Depression GERD IBS Rash Sleep apnea Goiter * Surgical History: partial hysterectomy Achilles tendon repair Since 1967 Colon surgery Since 1972 Hysterectomy Since 1987 Pituitary tumor resection Since 2011 Back surgery Since 2019 * Family History: F ather: , diabetes, blind, leg amputated. M other: , heart disease, rheumatic fever. S iblings: diabetes, blind, amputee. M igrated Family History: : Cancer, c hronic pain, D iabetes, f ibromyalgia, H eart disease, v ascular disease. grandparents- - diabetes. * Social History: T obacco Use: x Tobacco Use/Smoking A re you a n onsmoker D rugs/Alcohol: D rugs H ave you used drugs other than those for medical reasons in the past 12 months? N o Alcohol Screen (Audit-C) D id you have a drink containing alcohol in the past year? N o P oints 0 I nterpretation N egative D epression Screening: P HQ-9 L ittle interest or pleasure in doing things?Nearly every day F eeling down, depressed, or hopeless N early every day T rouble falling or staying asleep, or sleeping too much N early every day F eeling tired or having little energy N early every day P oor appetite or overeating N early every day F eeling bad about yourself, or that you are a failure, or have let yourself or your family down N early every day T rouble concentrating on things, such as reading the newspaper or watching television N early every day M oving or speaking so slowly that other people could have noticed. Or the opposite ? being so fidgety or restless that you have been moving around a lot more than usual N early every day T houghts that you would be better off , or of hurting yourself in some way N ot at all T otal Score 2 4 I nterpretation S evere Depression M igrated Social History: M igrated Social [...] articipation in detoxification or rehabilitation - No, S moked in the past? - No, S moking - No, S moking status (MU) - <BLANK>, W orking currently? - No. 2 4. * Allergies: L atex: Rash - AllergyMorphine: Allergypapas: Allergy Objective: * Examination: G eneral Examination: C onstitutional: Patient appears to be appropriate looking for stated age, overweight. Patient is awake, alert and oriented to person, place and time with recent/ remote memory intact. in no acute distress noted. HEENT: Atraumatic, Normocephalic. Pupils grossly normal on inspection. Respiratory: Visual Inspection: breathing equal bilaterally, trachea midline. Cardiovascular: Cardiac rhythm is regular. Lumbar Spine: Inspection of the lumbar spine reveals normal lordosis with no obvious scoliosis or asymmetry noted. Surgical scars appear well healed, palpable leads at anchoring site. Palpation of the lumbar facets produced back pain. Range of Motion: Greatly reduced ROM in all directions. Hyperextension at lumbar spine reproduced lower back pain. Bilateral facet loading maneuvers (lateral flexion/extension/bending) reproduced lower back pain. Bilateral lateral rotation also causes some pain. Stooping forward slightly gives some relief. Anterior lumbar flexion causes pain. Pain during lumbar extension was observed. Left lateral flexion causes pain. Right lateral flexion causes pain. Noted tightness and tenderness of b/l lumbar paraspinals Joints- Hips/ SI Joint: SI Joint Palpation : negative bilaterally. Right Shoulder- Pain on any ROM, generalized glenohumeral tenderness Neurology - Mental Status: Affect and mood appear grossly normal. Neurology - Coordination: Antalgic gait Neurology - Straight Leg Raising: Right: 60 degrees and negative. Left: 60 degrees and negative. Neurology - Motor Strength: Left LE strength - Flexors: 4+/5. Right LE strength - Flexors: 4+/5. Left LE strength - Extensors: 4+/5. Right LE strength - Extensors: 4+/5. Left LE Tone: Normal. Right LE Tone: Normal. Neurology - Sensation: paresthesias down b/l LE in mainly L4-5 distributions, R>L, covered by SCS Neurology - Deep Tendon Reflexes: Left patellar (DTR): 2. Right patellar (DTR): 2. Left achilles (DTR): 1. Right achilles (DTR): 1. Assessment: * Assessment: 1. C hronic pain syndrome - G89.4 (Primary) 2 . P resence of neurostimulator - Z96.82 3 . D egeneration of intervertebral disc of lumbar region with discogenic back pain and lower extremity pain - M51.362 4 . A bnormality of gait and mobility - R26.9 5 . L umbosacral spondylosis with radiculopathy - M47.27 ? 6 . L umbar post-laminectomy syndrome - M96.1 7 . P ain in right shoulder - M25.511 Billing Information: * Procedure Codes: Care Plan Details* * Electronic signature of Abilio Chavez DO on 04/06/2025 at 04:28 PM CDT Sign off status: Pending * Provider: Kelli Chavez D.O. Date: 07/27/2023 Generated for Kasi womack/Mattie/Harlanitting on: 0 04/06/2025 04:28 PM CDT
--- NOTE | 2025-04-06 16:24 | XRR_ITS ---
PROCEDURE INFORMATION: Exam: XR Abdomen Exam date and time: 04/06/2025 5:37 PM Age: 79 years old Clinical indication: Constipation; Prior surgery; Surgery date: 6+ months; Surgery type: Appy hyst stimulator lumbar spleen; Additional info: Abdominal pain TECHNIQUE: Imaging protocol: Radiologic exam of the abdomen. Views: 2 Views. Upright and supine views. COMPARISON: CR XR chest 1V portable 19796 01/26/2025 8:01 AM FINDINGS: Gastrointestinal tract: Moderate amount of fecal material seen in the ascending colon. Scattered air seen in the pelvis possibly representing some gas within the rectum and sigmoid colon. No large amount of fecal material evident in the rectosigmoid colon. No significant distension of the colon demonstrated. No significant small bowel distension evident. Intraperitoneal space: No free air. Psoas outlines are intact. No gross organomegaly. Surgical clips left upper quadrant. Bones/joints: Left convexity thoracolumbar scoliosis. Degenerative changes. Postoperative changes lumbar spine. Epidural stimulating device present with its leads at the level of T7. Lower chest: Some patchy and elongated opacity left base may represent atelectasis and possibly pneumonia. Mild patchy densities in the right base possible patchy atelectasis pneumonia. XR/XR acute abdomen series 45820 IMPRESSION: 1. No significant distension of the colon. No large amount of fecal material evident. No demonstrable small bowel distension. 2. Atelectasis and/or pneumonia left lung base. Milder changes in the right base. 3. Degenerative and postoperative changes lumbar spine. Epidural stimulating device with electrodes at T7. .
[2025-04-06 16:27] VITALS: BP 126/70; PULSE 65; RESP 18; TEMP 36.8; O2SAT 95; BMI 30.2
--- OUTSIDE RECORDS SUMMARY | 2025-04-06 16:28 | XMS_ITS | Patient Health Record ---
Author Organization [facility] Address [address] [place] [address] Care Team Providers Care Umbrella Frame Maker Name Role Phone Drew Williamson MD Primary Care Provider Unavaila Abilio Alexander Unavailable [phone] Layne Lopez APRN Unavailable Unavailable Migration, Provider Unavailable Unavailable Allergies Allergen (clinical drug ingredient) Drug/Non Drug Allergy documented on EMR Reaction Allergy Type Onset Date Status marcelino (uncoded) Unknown Allergy Acti ve Latex Latex Rash Allergy Active morphine Morphine Unknown Drug Allergy Active Reason For Referral No Information Medications Medication SIG (Take, Route, Frequency, Duration) Notes Start Date End Date Status DOCUSATE [id number] CAP TAKE 1 CAPSULE BY MOUTH TWICE DAILY *Reorder from [facility] for eRx and Interaction Alerts* Active PRAVASTATIN 40MG TAB TAKE 1 TABLET BY MOUTH AT BEDTIME ONCE DAILY *Reorder from [facility] for eRx and Interaction Alerts* Active FERROUS [id number] TAB TAKE 1 TABLET BY MOUTH TWICE DAILY *Reorder from [facility] for eRx and Interaction Alerts* Active DOXYCYCLINE HYCLATE 50MG CAP TAKE 2 CAPSULES BY MOUTH TWICE DAILY *Reorder from [facility] for eRx and Interaction Alerts* Active HYDROCOD/ACETAM 5-325MG TAB TAKE 1/2 TO 1 (ONE-HALF TO ONE) TABLET BY MOUTH EVERY 6 HOURS NEEDED FOR PAIN *Reorder from [facility] for eRx and Interaction Alerts* Active GABAPENTIN 300MG CAP TAKE 1 CAPSULE BY MOUTH THREE TIMES DAILY *Reorder from [facility] for eRx and Interaction Alerts* Active MONTELUKAST 10MG TAB TAKE 1 TABLET BY MOUTH ONCE DAILY *Reorder from [facility] for eRx and Interaction Alerts* Active LEVOTHYROXIN 175MCG TAB TAKE 1 TABLET BY MOUTH ONCE DAILY *Reorder from [facility] for eRx and Interaction Alerts* Active BUPROPION XL 300MG TAB TAKE 1 TABLET BY MOUTH ONCE DAILY *Reorder from [facility] for eRx and Interaction Alerts* Active OXYBUTYNIN 5MG TAB TAKE 1/2 (ONE-HALF) TABLET BY MOUTH TWICE DAILY *Reorder from [facility] for eRx and Interaction Alerts* Active BRIMONIDINE OP 0.2% QUETA INSTILL 1 DROP INTO EACH EYE TWICE DAILY *Reorder from [facility] for eRx and Interaction Alerts* Active Powderhorn 10-325 MG Tablet 1 tablet as needed Orally every 6 hrs; Duration: 14 days 07/04/2020 Active [address]FE[address] TAB TAKE 1 TABLET BY MOUTH TWICE DAILY NEEDED *Reorder from [facility] for eRx and Interaction Alerts* Active BYDUREON BCISE INJ INJECT 1 SUBCUTANEOUSLY ONCE A WEEK *Reorder from [facility] for eRx and Interaction Alerts* Active PANTOPRAZOLE 40MG TAB TAKE 1 TABLET BY MOUTH ONCE DAILY *Reorder from [facility] for eRx and Interaction Alerts* Active [...] Status Risk Notes Problem Chronic pain syndrome (410026558) Chronic pain syndrome (G89.4) Active confirmed Problem Lumbosacral spondylosis without myelopathy (59645804) Other spondylosis with radiculopathy, lumbosacral region (M47.27) Active confirmed Problem Degeneration of lumbar intervertebral disc (40798816) Other intervertebral disc degeneration, lumbar region (M51.36) Active confirmed Problem Post-laminectomy syndrome (29300766) Postlaminectomy syndrome, not elsewhere classified (M96.1) Active confirmed Problem Abnormal gait (88190085) Unspecified abnormalities of gait and mobility (R26.9) Active confirmed Problem Neurostimulator device in situ (finding) (122994574) Presence of neurostimulator (Z96.82) Active confirmed Problem Lumbosacral spondylosis with radiculopathy (983326793) Lumbosacral spondylosis with radiculopathy (M47.27) Active confirmed Problem Chronic pain (91257130) Chronic pain (G89.29) Active confirmed Problem Acquired spondylolisthesis (778983655) Spondylolisthesis of lumbar region (M43.16) Active confirmed Problem Lumbar post-laminectomy syndrome (848263045) Lumbar post-laminectomy syndrome (M96.1) Active confirmed Problem Abnormal gait (65146814) Abnormality of gait and mobility (R26.9) Active confirmed Vital Signs Height-cm 161.29 cm 06/24/2024 Height 63.50 in 06/24/2024 Encounters Encounter Location Date Provider Diagnosis [facility] [place] [address] [place] [address] 06/24/2024 Abilio Chavez Chronic pain syndrom e [...] Migration Migrated_Facility 0 0 05/03/2024 Provider Migration [facility] [address] [place] [id number] 02/11/2025 Abilio Chavez Assessments Encounter Date Diagnosis [...] Test Test Name Order Date Prothrombin Time 66133 04/18/2020 Prothrombin Time 60577 06/08/2020 ABORh 30110, 82306 06/08/2020 ABORh 88668, 54939 04/18/2020 Antibody Screen 80258 04/18/2020 Antibody Screen 37474 06/08/2020 Basic Metabolic Panel (BMP) 39266 2019 Basic Metabolic Panel (BMP) 89096 2019 Basic Metabolic Panel (BMP) 95567 2019 Basic Metabolic Panel (BMP) 90311 2019 Basic Metabolic Panel (BMP) 20661 2019 CBC w\ Auto Diff 55953 04/18/2020 CBC w\ Auto Diff 32632 06/08/2020 Lipid Panel Reflex DLDL 78497, 16776 Magnesium (B) 58515 04/20/2020 Partial Thromboplastin Time 17609 2019 Partial Thromboplastin Time 72288 2019 Phosphorus (B) 78260 04/20/2020 Troponin-I 75761 04/20/2020 Troponin-I 14752 04/20/2020 Troponin-I 79698 04/21/2020 CBC Reflex Man Diff 39047, 28453 020 CBC Reflex Man Diff 51905, 98629 020 UA Reflex Micro, Reflex Cult 67376, 8101 5, 47051 06/16/2020 Chest PA/Lat-37791 04/18/2020 Chest PA/Lat-88307 04/18/2020 Echo Complete EC-66659 04/20/2020 Lumbosacral Spine AP/Lat-63945 0 Lumbosacral Spine AP/Lat-02893 0 Lumbosacral Spine AP/Lat-15813 0 Lumbosacral Spine AP/Lat-61218 0 NM Lexiscan Cardiolite-67688 04/21/2020 Chest 1V 04/20/2020 UA Microscopic--77727 06/16/2020 Glucometer WBG--35400 06/14/2020 Glucometer WBG--31477 06/16/2020 Glucometer WBG--34239 06/16/2020 Glucometer WBG--16443 06/17/2020 Glucometer WBG--43933 06/17/2020 Glucometer WBG--13686 04/20/2020 Glucometer WBG--49617 04/20/2020 Glucometer WBG--51439 04/20/2020 Glucometer WBG--10577 04/21/2020 Glucometer WBG--13302 06/13/2020 Glucometer WBG--84886 04/21/2020 WBC Auto Diff--55048 06/13/2020 WBC Auto Diff--55946 06/16/2020 BB ABORH-57278,18267 04/18/2020 zzzFluoro >1h4 06/13/2020 COVID 19 PCR--16647 04/18/2020 COVID 19 PCR--91633 06/08/2020 Insurance Providers Payer Name Payer Address Payer Phone Subscriber Number Group Number Insured Name Patient Relationship to Insured Coverage Start Date Coverage End Date [facility] Medicare Replacement [address] [place] [address] [id number] Alice Perry Self - patient is the insured [place] Medicaid [address] [place] [address] [id number] Alice Perry Self - patient is the insured [place] Medicare [address] [place] [address] [id number] Alice Perry Self - patient is the [...]
--- OUTSIDE RECORDS SUMMARY | 2025-04-06 16:28 | XMS_ITS | Continuity of Care Document ---
Author Organization [place] - Rebel Lazo [facility] Mushtaq, [place], [facility] ([facility]) Address [address] [place] [address] Care Team Providers Care Associate Professor Of Philosophy Name Role Phone GIGI WILLIAMSON Primary Care Provider Unavailabl e Assessment Encounter Date Assessment Date Assessment LastModified by Organization Details LastModified Time 04/01/2025 04/01/2025 An 79-year-old female with a history of diabetes mellitus and epilepsy is presenting with constipation. After suffering severe diarrhea, she now experiences constipation for five days, despite polyethylene glycol use. This might suggest impaction, given the liquid stools and abdominal fullness found upon examination. Recommendations focus on encouraging bowel movements and improving her hydration status while considering her diabetes history. [email or web address] Not available 04/01/2025 15:31:26 Plan of Treatment Reminders Order Date Submit Date Provider Last Modified By Organization Details Last Modified Time Details Appointments None recorded. Lab None recorded. Referral None recorded. Procedures None recorded. Surgeries None recorded. Imaging None recorded. Medication Orders magnesium citrate oral solution 2024 025 [facility], [address], [place], [address], 15:27:23 Patient TargetsNo targets recorded. Patient Instructions Encounter Date Encounter Id Patient Instructions Last Modified By Organization Details Last Modified Time 04/01/2025 [id number] - Take a bottle of magnesium citrate as instructed. - Use Fleets enemas if needed, following magnesium citrate. - Continue taking MiraLax daily once bowel movements resume. - Drink plenty of water daily to support the MiraLax function and manage diabetes. - Monitor blood sugar levels regularly. - Contact healthcare provider if symptoms do not improve or worsen. [email or web address] Not available 04/01/2025 15:31:29 I discussed with the patient the likely cause of her constipation, possibly due to fecal impaction. We deliberated treatment options, including [id number] solutions like magnesium citrate and Fleets enemas, emphasizing the need for regular bowel movements. The benefits and likelihood of these treatments to produce a soft bowel movement were explained, along with hydration, especially considering her diabetes history. We discussed adherence to daily polyethylene glycol to maintain bowel function thereafter. The patient will have the medication sent to the pharmacy, with her son retrieving them. The detailed plan incorporates management of her diabetes and hydration without changes to her epilepsy treatment. Follow-up guidance and the instructive nature of her hydration and diabetes were emphasized as potential third-libertarian interventions and further tests were not required. [email or web address] Not available 04/01/2025 15:31:30 Reason for Referral None Reported. 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 14:40:29 Myocardi al infarcti on 07639029 Completed 202102/26/2023 MD (MYOCARD IAL INFARCTI ON); Story: 04/20/20 20; Recorded 04/24/20 2:46PM by Janelle Argueta LPN, Office Visit; Promoted ; acuity set as *; KATHIA hernández [facility] 3 12:43:34 Carpal tunnel syndrome 64341943 Completed 202102/26/2023 CARPAL TUNNEL SYNDROME ON BOTH SIDES; Recorded 04/24/20 2:46PM by Janelle Argueta LPN, Office Visit; Promoted ; acuity set as *; KATHIA hernández [facility] 3 12:44:24 Anxiety state 058937094 Active [address] [facility] 4 14:40:25 Gastroes ophageal reflux disease 199792520 Completed 202102/26/2023 ESOPHAGE AL REFLUX; Impressi on: this may be contribu ting to chronic cough. we will add famotodi ne.; Recorded 05/23/20 3:22PM by Gigi Williamson MD, Office Visit; Promoted ; acuity set as *; KATHIA hern[facility]dez [facility] 3 12:46:40 Obstruct yoel sleep apnea syndrome 30895225 Active 2022 OBSTRUCT YOEL SLEEP APNEA SYNDROME ; Impressi on: Does not tolerate CPAP Zonia Larry edgar [facility] 4 14:40:37 Disorder of nervous system due to type 2 diabetes mellitus 667065733 Completed 202202/26/2023 TYPE 2 DIABETES MELLITUS WITH DIABETIC POLYNEUR OPATHY, WITHOUT LONG-TER M CURRENT USE OF INSULIN; Impressi on: Doing well with injectab le. A1c is 7% and c/w good control. No changes needed.; Recorded 09/27/19 8:48AM by Kathia Hernandez, Review; Promoted ; acuity set as *; KATHIA hern[facility]dez [facility] 3 12:44:34 Degenera tion of lumbar interver tebral disc 51207512 Active [address] [facility] 3 12:46:52 Type 2 diabetes mellitus 78388849 Active [address] [facility] 3 12:45:23 Depressi ve disorder 93411743 Active [address] [facility] 3 12:46:34 Hypothyr oidism 32188234 Active [address] [facility] 3 12:46:44 Hypertri glycerid emia 111559013 Active 2022 KATHIA hernández, [facility] 3 12:46:48 [facility] hyperten jose daniel 13672800 Active 2023 Alexandra Riojas edgar, [facility] 5 14:52:24 Frail elderly 448040146 Active 2023 Alexandra Riojas edgar, [facility] 5 14:52:45 Diabetic peripher al neuropat hy 025886177 Active 2023 Alexandra Riojas edgar, [facility] 5 14:52:38 Lesion of skin of face 63879706233 6 Active 2023 Alexandra Riojas edgar, [facility] 5 14:52:17 Seborrhe ic keratosi s 009493842 Active 2023 [facility] 14:51:47 Mass of right lower lobe of lung 70364297493 4109 Active 2023 [facility] 14:52:08 Pain in right sacroili ac joint 53875350421 265395 Active 2024 Gigi Williamson MD [address] [place] [address], [phone], [facility] 5 08:32:49 Insomnia 047981770 Active 2024 Gigi Williamson MD [address] [place] [address], [phone], [facility] 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 08:34:23 Abnormal gait 00449755 Active 2024 Gigi Williamson MD [address] [place] [address] 5, [facility] 08:36:40 Impaired mobility 56707191 Active 2024 Gigi Williamson MD [address] [place], [place] [phone] , [facility] 08:38:14 Overacti ve urinary bladder 368579438 Active 2024 Gigi Williamson MD [address] [place], [place] [phone] 5, [facility] 08:41:52 Arthriti s of right knee 23354980367 98327 Active 2024 Gigi Williamson MD [address] [place], [place] [phone] , [facility] 15:30:44 Acute constipa tion 056550903 Active 2024 Gigi Williamson MD [address] [place] [phone] , [facility] 15:26:53 Problem Notes None recorded. Procedures Surgical History Date Name Laterality Status Provider Name and Address Organization Details Recorded Time 11/18/19 25 Joint Inj Kenalog- Shoulder, Hip, Knee completed Gigi Williamson MD [address] [place] [phone], [facility] 11/21/2024 04:03:36 01/01/20 23 bone density scan completed [facility] 01/03/2023 17:54:21 Hysterectomy completed [facility] 12/04/2022 13:20:17 Appendectomy completed [facility] 12/04/2022 13:20:22 Back Surgery completed [facility] 12/04/2022 13:20:39 Imaging Results None recorded. Procedure Notes None recorded. Medical Equipment None Reported. Allergies Allergen ID Allergen Name Allergen Category Reaction Reaction Severity Criticality Documentation Date Start Date Code Code System Note Provider Name and Address Organization Details Recorded Time 3693 morphine medicatio n Not available Not available Not available 12/04/20222022 7052 RxNorm AVERY MORRELL, [address], [phone], [facility] 4 16:49:32 32709 morphine sulfate medicatio n hallucina tions Not available Not available 02/02/2023 50550 RxNorm React ion: hallu cinat ions; Comme nt: Recor ded 04/24 2:46P M by Milagros granda LPN, Offic e Visit ; Promo teresa; Signi fican ce: *; Reaso n: Drug aller gy; ; [facility] 3 14:59:16 16697 latex environme nt,medica tion Not available Not available Not available 06/17/20242022 86220 91 RxNorm AVERYBlaze MORRELL, [address], [address], [facility] 4 16:49:32 Medications Name Sig Start Date Stop Date Status Note LastModified by Organization Details LastModified Time relion/tr ue micro lanc 33g mis USE 1 LANCET TO CHECK GLUCOSE ONCE DAILY 03/01 completed Not Available Not Available Not Available Miralax 17 gram oral powder packet Take 1 packet every day by oral route as needed. active Not Available Not Available No t Available losartan 50 mg tablet TAKE 1 TABLET BY MOUTH ONCE DAILY 02/18 completed Not Available Not Available Not Available methocarb len 500 mg tablet TAKE 1 TABLET BY MOUTH EVERY 8 HOURS NEEDED FOR SPASM 04/01 completed Not Available Not Available Not Available levothyro xine 175 mcg tablet TAKE 1 TABLET BY MOUTH ONCE DAILY active Not Available Not Available No t Available doxycycli ne hyclate 100 mg capsule Take 1 capsule by mouth twice daily 10/28 completed Not Available Not Available Not Available trazodone 50 mg tablet TAKE 1 TABLET BY MOUTH ONCE DAILY AT BEDTIME active Not Available Not Available No t Available cetirizin e 10 mg tablet Take 1 tablet every day by oral route. active Not Available Not Available No t Available atorvasta tin 10 mg tablet Take 1 tablet every day by oral route. active error Not Available Not Available No t Available azithromy maira 250 mg tablet TAKE 2 TABLETS BY MOUTH ON DAY 1, AND THEN TAKE 1 TABLET BY MOUTH ONCE A DAY ON DAY 2 THROUGH DAY 5 active Not Available Not Available No t Available glyburide 5 mg tablet TAKE 1 TABLET BY MOUTH ONCE DAILY active Not Available Not Available No t Available pravastat in 40 mg tablet TAKE 1 TABLET BY MOUTH ONCE DAILY AT BEDTIME active Not Available Not Available No t Available hydrocodo ne 5 mg-acetam inophen 325 mg tablet TAKE 1/2 TO 1 (ONE-DAVID F TO ONE) TABLET BY MOUTH EVERY 6 HOURS NEEDED FOR PAIN active Not Available Not Available No t Available lisinopri l 20 mg tablet Take 1 tablet every day by oral route for 90 days. 11/11 completed Not Available Not Available Not Available prednison e 20 mg tablet 02/26 completed Not Available Not Available Not Available doxycycli ne hyclate 50 mg capsule Take 2 capsules by mouth twice daily 02/26 completed Not Available Not Available Not Available fluoroura cil 5 % topical cream 09/18 completed Not Available Not Available Not Available sennoside s 8.6 mg-docusa te sodium 50 mg tablet Take 1 tablet twice a day by oral route. 03/01 completed Not Available Not Available Not Available sertralin e 100 mg tablet TAKE 1 TABLET BY MOUTH ONCE DAILY active Not Available Not Available No t Available clindamyc in HCl 150 mg capsule TAKE 1 CAPSULE BY MOUTH TWICE DAILY 02/05 completed Not Available Not Available Not Available amlodipin e 5 mg tablet TAKE 1 TABLET BY MOUTH TWICE DAILY active Not Available Not Available No t Available betametha sone acetate and sodium phos 6 mg/mL suspensio n for injection Take 6 mg every day by injectio n route for 1 day. 02/18 completed Not Available Not Available Not Available lancets daily 2021 active Not Available Not Available Not Avai lable famotidin e 20 mg tablet daily 03/01 completed Not Available Not Available Not Available glyburide 5 mg-metfor min 500 mg tablet daily 02/13 completed 51725; Recorded 08/01/19 23 11:38AM by Kathia Hernandez (Authori zed through Gigi Williamson MD), Refill Request; Refill Quantity : 90; Tablet; Not Available Not Available Not Available Euthyrox 150 mcg tablet 09/18 completed Not Available Not Available Not Available pantopraz ole 40 mg tablet,de layed release TAKE 1 TABLET BY MOUTH ONCE DAILY active Not Available Not Available No t Available metformin 1,000 mg tablet 03/01 completed Not Available Not Available Not Available brimonidi ne 0.2 % eye drops INSTILL 1 DROP INTO EACH EYE TWICE DAILY 03/01 completed Not Available Not Available Not Available docusate sodium 100 mg capsule Take 1 capsule twice a day by oral route as needed. active Not Available Not Available No t Available oxybutyni n chloride ER 5 mg tablet,ex tended release 24 hr Take 1/2 (one-david f) tablet by mouth twice daily 12/04 completed Not Available Not Available Not Available gabapenti n 300 mg capsule TAKE 1 CAPSULE BY MOUTH THREE TIMES DAILY active Not Available Not Available No t Available magnesium citrate oral solution Take 300 mL by oral route. 2024 active Not Available Not Available Not Avai lable aspirin 81 mg chewable tablet Chew 1 tablet every day by oral route. 03/01 completed Not Available Not Available Not Available diclofena c sodium 75 mg tablet,de layed release Take 1 tablet every 12 hours by oral route as needed. active for pain Not Available Not Available No t Available monteluka st 10 mg tablet Take 1 tablet by mouth once daily 2024 active Not Available Not Available Not Avai lable aspirin 81 mg tablet Take 1 tablet every day by oral route. active Not Available Not Available No t Available mupirocin 2 % topical ointment 01/13 completed Not Available Not Available Not Available methylpre dnisolone 4 mg tablets in a dose pack USE DIRECTED PER PACKAGE INSTRUCT IONS 10/28 completed Not Available Not Available Not Available albuterol sulfate HFA 90 mcg/actua tion aerosol inhaler Inhale 2 puffs every 4 hours by inhalati on route. 09/18 completed Not Available Not Available Not Available colchicin e 0.6 mg tablet TAKE 1 TABLET BY MOUTH TWICE DAILY 03/01 completed Not Available Not Available Not Available hydrocort isone 2.5 % topical ointment 02/18 completed Not Available Not Available Not Available oxybutyni n chloride 5 mg tablet TAKE 1/2 (ONE-DAVID F) TABLET BY MOUTH TWICE DAILY active Not Available Not Available No t Available ondansetr on 4 mg disintegr ating tablet DISSOLVE 1 TABLET IN MOUTH EVERY 8 HOURS NEEDED FOR NAUSEA AND VOMITING FOR 5 DAYS 04/01 completed Not Available Not Available Not Available cefdinir 300 mg capsule TAKE 1 CAPSULE BY MOUTH TWICE DAILY FOR 5 DAYS 02/18 completed Not Available Not Available Not Available fluticaso ne propionat e 50 mcg/actua tion nasal spray,qasim pension USE 1 SPRAY(S) IN EACH NOSTRIL ONCE DAILY active Not Available Not Available No t Available doxycycli ne hyclate 100 mg tablet Take 1 tablet by mouth twice daily 03/19 completed Not Available Not Available Not Available docusate sodium 100 mg tablet Take 1 tablet twice a day by oral route. 03/01 completed Not Available Not Available Not Available ezetimibe 10 mg tablet TAKE 1 TABLET BY MOUTH AT BEDTIME active Not Available Not Available No t Available bupropion HCl XL 300 mg 24 hr tablet, extended release TAKE 1 TABLET BY MOUTH ONCE DAILY active Not Available Not Available No t Available metoprolo l tartrate 25 mg tablet TAKE 1 TABLET BY MOUTH TWICE DAILY active Not Available Not Available No t Available nitrofura ntoin monohydra te/macroc rystals 100 mg capsule Take 1 capsule every 12 hours by oral route for 10 days. 12/02 completed Not Available Not Available Not Available omega-3 acid ethyl esters 1 gram capsule TAKE 2 CAPSULES BY MOUTH TWICE DAILY active Not Available Not Available No t Available galantami ne ER 24 mg 24 hr capsule,e xtended release TAKE 1 CAPSULE BY MOUTH IN THE MORNING active Not Available Not Available No t Available Flonase daily in each nostril 02/05 completed Recorded 04/24/20 22 2:47PM by Janelle Argueta LPN, Office Visit; Refill Quantity : 1; Each; Not Available Not Available Not Available oxybutyni n chloride two times daily 02/05 completed Recorded 06/05/20 22 12:27PM by Kathia Hernandez, Fco[facility] al Summary; Refill Quantity : 45; Tablet; Not Available Not Available Not Available Aspirin EC daily 02/05 completed 0; Recorded 06/20/20 22 7:26AM by Fco Paulic al Summary; Not Available Not Available Not Available meclizine every six hours, as needed 03/01 completed Not Available Not Available Not Available doxycycli ne hyclate two times daily 02/05 completed Recorded 06/05/20 22 12:24PM by Kathia Hernandez Historic al Summary; Refill Quantity : 360; Capsule; Not Available Not Available Not Available lisinopri l daily 02/05 completed Recorded 06/05/20 22 12:19PM by Fco Paulic al Summary; Refill Quantity : 90; Tablet; Not Available Not Available Not Available pravastat in at bedtime 02/05 completed 38310; Recorded 05/29/20 22 10:29AM by Kathia Hernandez (Authori tammy through Gigi Williamson MD), Refill Request; Refill Quantity : 90; Tablet; Not Available Not Available Not Available Neurontin three times daily 03/01 completed Not Available Not Available Not Available metformin two times daily 02/05 completed new dose; Recorded 06/05/20 10:29AM by Kathia Hernandez Historic al Summary; Refill Quantity : 180; Tablet; Not Available Not Available Not Available bupropion HCl daily 02/05 completed VO JR/bh; 45893; Recorded 09/19/19 11:08AM by Kathia Hernandez (Authori zed through Gigi Williamson MD), Refill Request; Refill Quantity : 90; Tablet; Not Available Not Available Not Available [facility] Levothyro xine Sodium daily 02/05 completed new dose; Recorded 04/11/20 7:43AM by Fco Paulic al Summary; Refill Quantity : 90; Tablet; Not Available Not Available Not Available Trazodone at bedtime 02/05 completed Recorded 08/14/19 23 11:27AM by Fco Paulic al Summary; Refill Quantity : 90; Tablet; Not Available Not Available Not Available Namenda daily 03/01 completed Not Available Not Available Not Available PreserVis ion AREDS 03/01 completed 1 cap, twice daily Not Available Not Available Not Available Januvia 100 mg tablet TAKE 1 TABLET BY MOUTH ONCE DAILY active Not Available Not Available No t Available hydrochlo rothiazid e 12.5 mg tablet TAKE 1 TABLET BY MOUTH ONCE DAILY active Not Available Not Available No t Available FeroSul 325 mg (65 mg iron) tablet TAKE 1 TABLET BY MOUTH TWICE DAILY active Not Available Not Available No t Available amlodipin e besylate (bulk) two times daily 02/05 completed Recorded 05/02/20 22 8:49AM by Fco Paulic al Summary; Refill Quantity : 200; Tablet; Not Available Not Available Not Available colchicin e 0.6 mg capsule Take 1 capsule twice a day by oral route. 02/13 completed Not Available Not Available Not Available acetamino phen 325 mg capsule Take 2 capsules every 6 hours by oral route as needed. 03/01 completed Not Available Not Available Not Available Accu-Chek Guide test strips Take 1 strip every day by miscell. route for 90 days. active Not Available Not Available No t Available Bydureon BCise 2 mg/0.85 mL subcutane ous auto-inje ctor INJECT ONE PEN UNDER THE SKIN ONCE WEEKLY 03/11 completed disconti nued by manufact urer Not Available Not Available Not Available Ozempic 1 mg/dose (4 mg/3 mL) subcutane ous pen injector INJECT 1 MG SUB-Q ONCE WEEKLY active Not Available Not Available No t Available Vitals Date Recorded Body height Oxygen saturation Oxygen saturation in Arterial blood by Pulse oximetry Heart rate Respiratory rate Body temperature Systolic And Diastolic Provider Name and Address Organization Details Last Updated DateTime 5 157.48 cm 95 % 95 % 74 /min 20 /min 97.2 [degF] 112/68 mm[Hg] Alexandra Riojas [facility] 15:09:23 Social History Question Answer Notes LastModified by GrupHediye Details LastModified Time Tobacco Smoking Status Never Smoker Pamella hernández [facility] 03/19/2024 15:58:12 What Was The Date Of Your Most Recent Tobacco Screening? 02/18/2025 [email or web address] Information not available 02/18/2025 Sex: Unknown Functional Status Question Answer Note LastModified by PreztoizTrelligence Details LastModified Time Do you use any illicit or recreational drugs? No [email or web address] Information not available 02/18/2025 What is your level of alcohol consumption? None [email or web address] Information not available 02/18/2025 Mental Status None recorded. Family History Nothing Reported. Medical History Condition Response Diabetes Y Anxiety Disorder Y Heart Problems Y Hypertension Y Hypothyroidism Y GI Problems Y Gynecological HistoryNo gynecological history recorded. Obstetrics History GPAL:G 0 P 0 0 0 0 Immunizations Vaccine Type Date Status Note Provider Nam e and Address Organization Details Recorded Time Influenza, split virus, trivalent, preservative 2 completed Not Available [facility] 03/14/2023 14:57:10 Influenza, split virus, trivalent, preservative 4 completed Not Available [facility] 03/14/2023 14:57:10 Influenza, split virus, trivalent, preservative 9 completed Not Available [facility] 03/14/2023 14:57:10 Influenza, split virus, trivalent, preservative 8 completed Not Available [facility] 03/14/2023 14:57:10 Influenza, split virus, trivalent, preservative 7 completed Not Available [facility] 03/14/2023 14:57:10 zoster recombinant [address] [facility] 03/03/2024 14:39:41 Influenza, adjuvanted, quadrivalent, PF [address] [facility] 03/03/2024 14:39:41 Pneumococcal conjugate PCV20, polysaccharide [id number] conjugate, adjuvant, PF [address] [facility] 03/03/2024 14:39:41 COVID-19, mRNA, LNP-S, PF, 50 mcg/0.5 mL [address] [facility] 03/03/2024 14:39:41 zoster recombinant 4 completed AVERY MORRELL, [address], [address], [facility] 06/17/2024 16:49:14 Influenza, high-dose, trivalent, PF 4 completed Not Available [facility] 04/01/2025 15:04:01 COVID-19, mRNA, LNP-S, PF, 50 mcg/0.5 mL 4 completed Not Available [facility] 04/01/2025 15:04:01 Influenza, high-dose, quadrivalent, PF 2 completed AVERY MORRELL, [address], [address], [facility] 12/04/2022 14:38:53 Influenza, high-dose, quadrivalent, PF 1 completed AVERY MORRELL, [address], [address], [facility] 12/04/2022 14:38:53 COVID-19, mRNA, LNP-S, PF, 100 mcg/0.5mL dose or 50 mcg/0.25mL dose 1 completed AVERY MORRELL, [address], [address], [facility] 12/04/2022 14:38:53 COVID-19, mRNA, LNP-S, PF, 100 mcg/0.5mL dose or 50 mcg/0.25mL dose 1 completed AVERY MORRELL, [address], [address], [facility] 12/04/2022 14:38:53 COVID-19, mRNA, LNP-S, PF, 100 mcg/0.5mL dose or 50 mcg/0.25mL dose 2 completed AVERY MORRELL, [address], [address], [facility] 12/04/2022 14:38:53 COVID-19, mRNA, LNP-S, PF, 100 mcg/0.5mL dose or 50 mcg/0.25mL dose 1 completed AVERY MORRELL, [address], [address], [facility] 12/04/2022 14:38:53 COVID-19, mRNA, LNP-S, bivalent, PF, 50 mcg/0.5 mL or 25mcg/0.25 mL dose 2 completed AVERY MORRELL, [facility] [address] [place], [address], [facility] 12/04/2022 14:38:53 pneumococcal polysaccharide PPV23 7 completed AVERY MORRELL, [address], [address], [facility] 12/04/2022 14:38:53 Influenza, high-dose, trivalent, PF 9 completed AVERY MORRELL, [facility] [address] [place] [address], [phone], [facility] 12/04/2022 14:38:53 Influenza, high-dose, trivalent, PF 7 completed AVERY MORRELL, [facility] [address] [place] [address], [phone], [facility] 12/04/2022 14:38:53 Past Encounters Encounter ID Performer Location Encounter Start Date Encounter Closed Date Diagnosis/Indication Diagnosis SNOMED-CT Code Diagnosis ICD10 Code Diagnosis IMO Codes Diagnosis Note [id number] Gigi Williamson MD [facility] ([facility]) [address] [place] [address] 04/01/2025 15:00:54 04/01/2025 15:38:41 Acute constipation 189654827 K59.00 529118 - Try magnesium citrate and Fleets enemas if needed.- Continue polyethyle ne glycol (MiraLax) post-resol ution for maintenanc e.- Importance of hydration emphasized . Diarrhea 74901776 R19.7 - Resolved, monitored as part of history. Diabetes mellitus 384194 09 E11.9 - Blood glucose monitoring urged. - Hydration importance reiterated for diabetes management . Health Concerns Section Related Observation LastModified by Organization Detai ls LastModified Time None Recorded Concern Status LastModified by Organization Details LastModified Time None Recorded Payers Encounter Date Sequence Insurance Name Policy Number Policy Marino Covered Member ID Marino Member ID Guarantor Name 04/01/2025 1 [id number] - [place]PO) [id number] Alice Perry [id number] Alice Perry 04/01/2025 2 [place] Alice Perry [id number] Alice Perry Notes Date Note Type Note Provider Name and Address Organization Details Recorded Time 5 text/html ConstipationReported by PatientHPIFor quality, patient reportspainful. For associated symptoms, patient reportsexcess gas. For severity, patient reportssevere. For duration, patient reportspresent <1 month. For onset/timing, (liquid twice today). For context, (she isn't taking her pain medication at this time). For alleviating factors, (taking miralax). The patient is an 79-year-old female presenting with constipation. Initially, she suffered from severe diarrhea, which led to a week-long hospitalization at [facility] in [place]. Now, for the past five days, she reports constipation despite twice-daily doses of polyethylene glycol (MiraLax), resulting in only liquid stools and associated bloating. She experiences mild soreness in the left abdomen upon palpation but denies any substantial pain. The patient holds a history of diabetes mellitus and epilepsy and mentioned hydration issues due to her dislike of drinking water. Gigi Williamson MD [address] [place] [address], [phone], [facility] 04/04/2025 09:32:57 OBGyn Episode No OBEpisode recorded.
--- OUTSIDE RECORDS SUMMARY | 2025-04-06 16:28 | XMS_ITS | Encounter Summary ---
Author Organization [facility] Address [address] [place] [address] Care Team Providers Care Frame Builder Name Role Phone Unavailable Primary Care Provider Unavailabl e Encounter Details Date Type Department Care Team (Latest Contact Info) Description 09/11/2006 Outpatient Historical [facility] [address] [place] [id number] Ramirez Ferrer MD NO ADDRESS ON FILE Benign Willard Pituitary (Primary Dx) Social History Tobacco Use Types Packs/Day Years Used Date Smoking Tobacco: Never Assessed Comments Unknown Sex and Gender Information Value Date Recorded Sex Assigned at Not on file 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
--- OUTSIDE RECORDS SUMMARY | 2025-04-06 16:28 | XMS_ITS | Clinical Summary ---
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
--- OUTSIDE RECORDS SUMMARY | 2025-04-06 16:28 | XMS_ITS | Data Portability ---
Author Organization [facility] Rebel Lazo [facility] Pennie Landin [facility] Address [address] [address] Care Team Providers Care Dependency Director Name Role Phone GIGI WILLIAMSON Primary Care [...] Modified Time Details Appointments None recorded. Lab CMP, serum or plasma 2024 025 REBECCA [facility], [address], [facility], [place], [address], 5 15:15:45 microalbumi n/creatinin e, mass ratio, urine 2024 025 [place] [employer] [facility], [address] [facility] [address], [address] [place], [address], 5 05:33:14 hemoglobin A1C/hemoglo bin total, QN, blood 2024 025 [facility], [address], [place], [address], 14:55:47 hemoglobin A1C/hemoglo bin total, QN, blood 2024 REBECCA [facility], [address], [address], [place], [address], 16:36:37 Referral physical therapist referral [address], [address], [place], [address], 09:39:06 Procedures None recorded. Surgeries None recorded. Imaging None recorded. Medication Orders magnesium citrate oral solution 2024 [facility], [address], [place], [address], 15:27:23 betamethaso ne acetate and sodium phos 6 mg/mL suspension for injection 2024 [email or web address] 23 Not available 13:56:56 Medrol (Sky) 4 mg tablets in a dose pack 2024 [facility], [address], [place], [address], 14:42:01 Patient TargetsNo targets recorded. Patient Instructions Encounter Date Encounter Id Patient Instructions Last Modified By Organization Details Last Modified Time 04/01/2025 [id number] - Take a bottle of magnesium citrate [...] fecal impaction. We deliberated treatment options, including [id number] solutions like magnesium citrate and Fleets enemas, [...] Not available 04/01/2025 15:31:30 Reason for Referral Physical Therapist Referral for Pain in right sacroiliac joint Referring Physician: Gigi Williamson, Family Medicine, Encounter Date: 09/18/2024 Results Created Date Observation Date Name Description Value Unit Range Abnormal Flag Note LastModifiedBy Organization Detail LastModifiedTime 09/19/1909/18/2024 HBA1C hemaglobin A1C 7.0 4.2-6. 5 high Not Available [facility] [address] [facility], [place], [address], 09/18/2024 16:36:37 02/19/2002/18/2025 HBA1C hemaglobin A1C 7.2 4.2-6. 5 high Not Available [facility] [address] [facility], [place], [address], 02/18/2025 14:55:47 02/19/2002/18/2025 CMP (FEMA LE) glucose 181.0 mg/dL 60.0-9 9.0 high Not Available [facility] [address] [facility], [place], [address], 02/18/2025 15:15:45 02/19/2002/18/2025 CMP (FEMA LE) BUN (blood urea nitrogen) 12.0 mg/dL 10.0-2 6.0 Not Available [facility] [address] [facility] [address], [place], [address], 02/18/2025 15:15:45 02/19/20 25 02/18/2025 CMP (FEMA LE) creatinine (serum) 0.8 mg/dL 0.4-1. 5 Not Available [facility] [address] [facility], [place], [address], 02/18/2025 15:15:45 02/19/20 25 02/18/2025 CMP (FEMA LE) BUN/creatini ne ratio 15.00 ratio Not Available [facility] [address] [facility], [place], [address], 02/18/2025 15:15:45 02/19/20 25 02/18/2025 CMP (FEMA LE) eGFR calculated 73.4 Not Available [facility] [address] [facility], [place], [address], 02/18/2025 15:15:45 02/19/20 25 02/18/2025 CMP (FEMA LE) total protein 7.3 g/dL 6.0-8. 5 Not Available [facility] [address] [facility], [place], [address], 02/18/2025 15:15:45 02/19/20 25 02/18/2025 CMP (FEMA LE) total bilirubin 0.5 mg/dL 0.2-1. 3 Not Available [facility] [address] [facility], [place], [address], 02/18/2025 15:15:45 02/19/20 25 02/18/2025 CMP (FEMA LE) albumin 4.2 g/dL 3.5-5. 5 Not Available [facility] [address] [facility], [place], [address], 02/18/2025 15:15:45 02/19/20 25 02/18/2025 CMP (FEMA LE) globulin 3.1 calc Not Available [facility] [address] [facility] 1, [place], [address], 02/18/2025 15:15:45 02/19/20 25 02/18/2025 CMP (FEMA LE) AST (SGOT) 42.0 U/L 0.0-46 .0 Not Available [facility] [address] [facility] [address], [place], [address], 02/18/2025 15:15:45 02/19/20 25 02/18/2025 CMP (FEMA LE) altv (SGPT) 37.0 U/L 13.0-6 9.0 normal Not Available [facility] [address] [facility] 1, [place], [address], 02/18/2025 15:15:45 02/19/20 25 02/18/2025 CMP (FEMA LE) A/G ratio 1.4 ratio Not Available [facility] [address] [facility] 1, [place], [address], 02/18/2025 15:15:45 02/19/20 25 02/18/2025 CMP (FEMA LE) ALP phos 139.0 U/L 30.0-1 40.0 normal Not Available [facility] [address] [facility], [place], [address], 02/18/2025 15:15:45 02/19/20 25 02/18/2025 CMP (FEMA LE) calcium 9.3 mg/dL 8.4-10 .5 Not Available [facility] [address] [facility], [place], [address], 02/18/2025 15:15:45 02/19/20 25 02/18/2025 CMP (FEMA LE) sodium 136.0 mmol/ L 136.0- 145.0 Not Available [facility] [address] [facility] 1, [place], [address], 02/18/2025 15:15:45 02/19/20 25 02/18/2025 CMP (FEMA LE) potassium 4.2 mmol/ L 3.5-5. 1 Not Available [facility] [address] [facility] 1, [place], [address], 02/18/2025 15:15:45 02/19/20 25 02/18/2025 CMP (FEMA LE) chloride 98.0 mmol/ L 98.0-1 10.0 normal Not Available [facility] [address] [facility] 1, [place], [address], 02/18/2025 15:15:45 02/19/20 25 02/18/2025 CMP (FEMA LE) C02 29.0 mmol/ L 22.0-3 1.0 Not Available [facility] [address] [facility] 1, [place], [address], 02/18/2025 15:15:45 02/19/20 25 02/18/2025 CMP (FEMA LE) anion gap 9.0 calc Not Available [facility] [address] [facility], [place], [address], 02/18/2025 15:15:45 02/19/20 25 02/18/2025 CMP (FEMA LE) osmolality 285.1 calc Not Available [facility] [address] [facility] 1, [place], [address], 02/18/2025 15:15:45 02/24/20 25 02/24/2025 ALBUM IN, RANDO M URINE W/CRE ATINI NE creatinine, random urine 74 mg/dL 20-275 normal Not Available [facility] [address], [place], [address], 02/24/2025 05:33:14 02/24/20 25 02/24/2025 ALBUM IN, RANDO M URINE W/CRE ATINI NE albumin, urine 0.5 mg/dL see note: normal Refer ence Range : Refer ence Range Not estab lishe d Not Available [facility] [address] [place], [address], 02/24/2025 05:33:14 02/24/20 25 02/24/2025 ALBUM IN, RANDO M URINE W/CRE ATINI NE albumin/crea tinine ratio, random urine 7 mg/g_ creat <30 normal The ADA defin es abnor malit ies in album in excre tion as follo ws: Album inuri a Categ ory Resul t (mg/g creat inine ) Shell l to Mildl y incre ased <30 Moder ately incre ased 30-29 9 Sever tess incre ased > OR = 300 The ADA recom mends that at least two of three speci mens colle cted withi n a 3-6 month perio d be abnor mal befor e consi demarcus g a patie nt to be withi n a diagn ostic categ ory. Not Available [address], [address], 02/24/2025 05:33:14 Result Notes None recorded. Problems Name Problem SNOMED Code Status Onset Date Resolution Date Notes Provider Name and Address Organization Details Recorded Time Benign neoplasm of eye 55851361 Active 2021 BENIGN TUMOR OF EYE; left eye blindnes s with tumor Zonia hernández [facility] 4 14:40:29 Myocardi al infarcti on 06237148 Completed 202102/26/2023 IA (MYOCARD IAL INFARCTI ON); Story: 04/20/20 20; Recorded 04/24/20 2:46PM by Janelle Argueta LPN, Office Visit; Promoted ; acuity set as *; [facility] 3 12:43:34 Carpal tunnel syndrome 05377248 Completed 202102/26/2023 CARPAL TUNNEL SYNDROME ON BOTH SIDES; Recorded 04/24/20 2:46PM by Janelle Argueta LPN, Office Visit; Promoted ; acuity set as *; [facility] [place] 3 12:44:24 Anxiety state 129780211 Active 2021 Zonia Kendy [facility] 4 14:40:25 Gastroes ophageal reflux disease 830329969 Completed 202102/26/2023 ESOPHAGE AL REFLUX; Impressi on: this may be contribu ting to chronic cough. we will add famotodi ne.; Recorded 05/23/20 3:22PM by Gigi Williamson MD, Office Visit; Promoted ; acuity set as *; [facility] [place] 3 12:46:40 Obstruct yoel sleep apnea syndrome 39344467 Active 2022 OBSTRUCT YOEL SLEEP APNEA SYNDROME ; Impressi on: Does not tolerate CPAP Zonia Larry [facility] 4 14:40:37 Disorder of nervous system due to type 2 diabetes mellitus 750682995 Completed 202202/26/2023 TYPE 2 DIABETES MELLITUS WITH DIABETIC POLYNEUR OPATHY, WITHOUT LONG-TER M CURRENT USE OF INSULIN; Impressi on: Doing well with injectab le. A1c is 7% and c/w good control. No changes needed.; Recorded 09/27/19 8:48AM by Kathia Hernandez, Review; Promoted ; acuity set as *; [facility] [place] 3 12:44:34 Degenera tion of lumbar interver tebral disc 00965124 Active 2022 KATHIA hernández, [facility] 3 12:46:52 Type 2 diabetes mellitus 11528360 Active 2022 KATHIA hernández, [facility] 3 12:45:23 Depressi ve disorder 64064674 Active 2022 KATHIA hernández, [facility] 3 12:46:34 Hypothyr oidism 92402919 Active 2022 KATHIA REGGIE degar, [facility] 3 12:46:44 Hypertri glycerid emia 899519017 Active 2022 K[facility]IA REGGIE [facility] [place] 3 12:46:48 [facility] l hyperten jose daniel 37110921 Active 2023 Alexandra hernández, [facility] 5 14:52:24 Frail elderly 511412051 Active 2023 Alexandra hernández, [facility] 5 14:52:45 Diabetic peripher al neuropat hy 648342284 Active 2023 [facility] 5 14:52:38 Lesion of skin of face 25708882807 6 Active 2023 Alexandra Riojas [facility] [place] 5 14:52:17 Seborrhe ic keratosi s 158043966 Active 2023 Alexandra [facility] [place] 5 14:51:47 Mass of right lower lobe of lung 13606877630 4109 Active 2023 Alexandra hernández [facility] 5 14:52:08 Pain in right sacroili ac joint 27971882180 479381 Active 2024 Gigi Williamson MD [address] [place] [address], [address] [place] [address] 5, [facility] 08:32:49 Insomnia 182941486 Active 2024 Gigi Williamson MD [address] [place] [address] 5, [facility] 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 08:34:23 Abnormal gait 19712862 Active 2024 Gigi Williamson MD [address] [place] [address], [facility] 08:36:40 Impaired mobility 14821730 Active 2024 Gigi Williamson MD [address] [place] [address], [facility] 08:38:14 Overacti ve urinary bladder 359335647 Active 2024 Gigi Williamson MD [address] [place] [address], [facility] 08:41:52 Arthriti s of right knee 55770864805 04489 Active 2024 Gigi Williamson MD [address] [place] [address], [facility] 15:30:44 Acute constipa tion 886868490 Active 2024 Gigi Williamson MD [address] [place], [address], [facility] 15:26:53 Problem Notes None recorded. Procedures Surgical History Date Name Laterality Status Provider Name and Address Organization Details Recorded Time 11/18/19 25 Joint Inj Kenalog- Shoulder, Hip, Knee completed Gigi Williamson MD [address] [place], [address], [facility] 11/21/2024 04:03:36 01/01/20 23 bone density scan completed [facility] 01/03/2023 17:54:21 Hysterectomy completed [facility] 12/04/2022 13:20:17 Appendectomy completed [facility] 12/04/2022 13:20:22 Back Surgery completed [facility] 12/04/2022 13:20:39 Imaging Results None recorded. Procedure Notes None recorded. Medical Equipment None Reported. Allergies Allergen ID Allergen Name Allergen Category Reaction Reaction Severity Criticality Documentation Date Start Date Code Code System Note Provider Name and Address Organization Details Recorded Time 3693 morphine medicatio n Not available Not available Not available 12/04/20222022 7052 RxNorm AVERY MORRELL [employer] [address] [place], [address], [facility] 16:49:32 71604 morphine sulfate medicatio n hallucina tions Not available Not available 02/02/2023 93188 RxNorm React ion: hallu cinat ions; Comme nt: Recor ded 04/24 2:46 PM by Milagros granda LPN, Offic e Visit ; Promo teresa; Signi violet ce: *; Reaso n: Drug aller gy; ; KATHIA REGGIE hernández, [facility], [place] 3 14:59:16 80273 latex environme nt,medica tion Not available Not available Not available 06/17/20242022 27231 91 RxNorm AVERY MORRELL, [facility] [address] [place], [address], [facility], [place] 4 16:49:32 Medications Name Sig Start Date [...] min 500 mg tablet daily 02/13 completed 46265; Recorded 08/01/19 11:38AM by Kathia Hernandez (Authori zed through [...] 02/05 completed Recorded 06/05/20 22 12:27PM by Fco Paulic al Summary; Refill Quantity : 45; Tablet; Not Available Not Available Not Available Aspirin EC daily 02/05 completed 0; Recorded 06/20/20 22 7:26AM by Cassandra Paul al Summary; Not Available Not Available Not Available meclizine every six hours, as needed 03/01 completed Not Available Not Available Not Available doxycycli ne hyclate two times daily 02/05 completed Recorded 06/05/20 22 12:24PM by Fco Paulic al Summary; Refill Quantity : 360; Capsule; Not Available Not Available Not Available lisinopri l daily 02/05 completed Recorded 06/05/20 12:19PM by Fco Paulic al Summary; Refill Quantity : 90; Tablet; Not Available Not Available Not Available pravastat in at bedtime 02/05 completed 02073; Recorded 05/29/20 10:29AM by Kathia Hernandez (Authori zed through Gigi Williamson MD), Refill Request; Refill Quantity : 90; Tablet; Not Available Not Available Not Available Neurontin three times daily 03/01 completed Not Available Not Available Not Available metformin two times daily 02/05 completed new dose; Recorded 06/05/20 10:29AM by Fco Paulic al Summary; Refill Quantity : 180; Tablet; Not Available Not Available Not Available bupropion HCl daily 02/05 completed VO JR/bh; 64486; Recorded 09/19/19 11:08AM by Kathia Hernandez (Authori zeniru through Gigi Williamson MD), Refill Request; Refill Quantity : 90; Tablet; Not Available Not Available Not Available [facility] Levothyro xine Sodium daily 02/05 completed new dose; Recorded 04/11/20 7:43AM by Fco Paulic al Summary; Refill Quantity : 90; Tablet; Not Available Not Available Not Available Trazodone at bedtime 02/05 completed Recorded 08/14/19 11:27AM by Fco Paulic al Summary; Refill [...] 02/05 completed Recorded 05/02/20 22 8:49AM by Cassandra Paul al Summary; Refill Quantity : 200; Tablet; [...] t Available Vitals Date Recorded Body height Body mass index (BMI) Body weight Body temperature Respiratory rate Heart rate Oxygen saturation Oxygen saturation in Arterial blood by Pulse oximetry Systolic And Diastolic Provider Name and Address Organization Details Last Updated DateTime 5 157.48 cm 32.3 kg/m2 58052.3 6 g 97.2 [degF] 18 /min 70 /min 95 % 95 % 148/82 mm[Hg] Anand [facility] 5 15:46:25 Date Recorded Body height Body mass index (BMI) Body weight Heart rate Oxygen saturation Oxygen saturation in Arterial blood by Pulse oximetry Body temperature Systolic And Diastolic Provider Name and Address Organization Details Last Updated DateTime 5 157.48 cm 32.4 kg/m2 51219.8 5 g 61 /min 94 % 94 % 97.8 [degF] 122/64 mm[Hg] Yuni Bales [facility] 5 14:32:16 Date Recorded Body height Body temperature Oxygen saturation Oxygen saturation in Arterial blood by Pulse oximetry Heart rate Systolic And Diastolic Provider Name and Address Organization Details Last Updated DateTime 5 157.48 cm 97.8 [degF] 98 % 98 % 60 /min 130/80 mm[Hg] ANTONIETTA MEDELLIN [facility] 5 15:18:04 Date Recorded Body height Body mass index (BMI) Body weight Heart rate Body temperature Oxygen saturation Oxygen saturation in Arterial blood by Pulse oximetry Respiratory rate Systolic And Diastolic Provider Name and Address Organization Details Last Updated DateTime 5 157.48 cm 30.7 kg/m2 07977.5 2 g 83 /min 97.2 [degF] 96 % 96 % 20 /min 124/80 mm[Hg] Alexandra [facility] 5 13:55:36 Date Recorded Body height Oxygen saturation Oxygen saturation in Arterial blood by Pulse oximetry Heart rate Respiratory rate Body temperature Systolic And Diastolic Provider Name and Address Organization Details Last Updated DateTime 5 157.48 cm 95 % 95 % 74 /min 20 /min 97.2 [degF] 112/68 mm[Hg] Alexandra [facility] 5 15:09:23 Social History Question Answer Notes LastModified by Music[employer] Details LastModified Time Tobacco Smoking Status Never Smoker Pamella hernández [facility] 03/19/2024 15:58:12 What Was The Date Of Your Most Recent Tobacco Screening? 02/18/2025 [email or web address] Information not available 02/18/2025 Sex: Unknown Functional Status Question Answer Note LastModified by [employer] Details LastModified Time Do you use any illicit or recreational drugs? No [email or web address] Information not available 02/18/2025 What is your level of alcohol consumption? None [email or web address] Information not available 02/18/2025 Mental Status None recorded. Family History Nothing Reported. Medical History Condition Response Hypothyroidism Y Anxiety Disorder Y Heart Problems Y GI Problems Y Diabetes Y Hypertension Y Gynecological HistoryNo gynecological history recorded. Obstetrics History GPAL:G 0 P 0 0 0 0 Immunizations Vaccine Type Date Status Note Provider Nam e and Address Organization Details Recorded Time Influenza, split virus, trivalent, preservative 2 completed Not Available [facility] 03/14/2023 14:57:10 Influenza, split virus, trivalent, preservative 4 completed Not Available [facility] 03/14/2023 14:57:10 Influenza, split virus, trivalent, preservative 9 completed Not Available [facility] 03/14/2023 14:57:10 Influenza, split virus, trivalent, preservative 8 completed Not Available [facility] 03/14/2023 14:57:10 Influenza, split virus, trivalent, preservative 7 completed Not Available [facility] 03/14/2023 14:57:10 zoster recombinant 3 completed Zonia hernández [facility] 03/03/2024 14:39:41 Influenza, adjuvanted, quadrivalent, PF 3 completed Zonia hernández [facility] 03/03/2024 14:39:41 Pneumococcal conjugate PCV20, polysaccharide [id number] conjugate, adjuvant, PF 3 completed Zonia hernández [facility] 03/03/2024 14:39:41 COVID-19, mRNA, LNP-S, PF, 50 mcg/0.5 mL 3 completed Zonia hernández [facility] 03/03/2024 14:39:41 zoster recombinant 4 completed DANI CHAPA [address] [place], [address], [facility] 06/17/2024 16:49:14 Influenza, high-dose, trivalent, PF 4 completed Not Available [facility] 04/01/2025 15:04:01 COVID-19, mRNA, LNP-S, PF, 50 mcg/0.5 mL 4 completed Not Available [facility] 04/01/2025 15:04:01 Influenza, high-dose, quadrivalent, PF 2 completed AVERY MORRELL, [address], [address], [facility] 12/04/2022 14:38:53 Influenza, high-dose, quadrivalent, PF 1 completed AVERY MORRELL, [address], [address], [facility] 12/04/2022 14:38:53 COVID-19, mRNA, LNP-S, PF, 100 mcg/0.5mL dose or 50 mcg/0.25mL dose 1 completed AVERY MORRELL, [address], [address], [facility] 12/04/2022 14:38:53 COVID-19, mRNA, LNP-S, PF, 100 mcg/0.5mL dose or 50 mcg/0.25mL dose 1 completed AVERY MORRELL, [address], [address], [facility] 12/04/2022 14:38:53 COVID-19, mRNA, LNP-S, PF, 100 mcg/0.5mL dose or 50 mcg/0.25mL dose 2 completed AVERY MORRELL, [address], [address], [facility] 12/04/2022 14:38:53 COVID-19, mRNA, LNP-S, PF, 100 mcg/0.5mL dose or 50 mcg/0.25mL dose 1 completed AVERY MORRELL [facility] [place], [address], [facility] 12/04/2022 14:38:53 COVID-19, mRNA, LNP-S, bivalent, PF, 50 mcg/0.5 mL or 25mcg/0.25 mL dose 2 completed AVERY MORRELL [address], [address], [facility] 12/04/2022 14:38:53 pneumococcal polysaccharide PPV23 7 completed AVERY MORRELL [address], [address], [facility] 12/04/2022 14:38:53 Influenza, high-dose, trivalent, PF 9 completed AVERY MORRELL [address], [address], [facility] 12/04/2022 14:38:53 Influenza, high-dose, trivalent, PF 7 completed AVERY MORRELL [address], [address], [facility] 12/04/2022 14:38:53 Past Encounters Encounter ID Performer Location Encounter Start Date Encounter Closed Date Diagnosis/Indication Diagnosis SNOMED-CT Code Diagnosis ICD10 Code Diagnosis IMO Codes Diagnosis Note [id number] AVERY MORRELL [facility] ([facility] [address] [place] [address] 12/04/2022 14:00:45 12/04/2022 17:30:42 Adult health examination 736063592 Z00.00 Screening for osteoporosis 292927675 Z13.820 Type 2 violetta betes mellitus 87017878 E11.69 E11.51 Depressive disorder 3548 9007 F33.0 Continue current medication s. Hypothyroidism 39557513 E03.9 Continue current medication s. Essential hypertension 39139680 I10 Continue current medication s. Chronic back pain 406334 [address] Chavez, has a stimulator in her back. Impaired mobility 188862 05 Z74.09 Uses walker. Need for [facility] care assistance [id number] 2619609 Z74.1 Caregiver comes in once weekly to help with housework. [id number] Gigi Williamson MD [facility] ([facility]) [address] [place] [address] 12/19/2022 16:29:02 12/19/2022 19:52:14 Hypertriglyceridemia 853825350 E78.2 Type 2 violetta betes mellitus 05990170 E11.69 a1c 6.6% [id number] DANI [facility] ([facility]) [address] [place] [address] 01/27/2023 15:05:44 01/27/2023 16:41:15 Pneumonia 243508805 J18.9 continue prednisone [id number] Gigi Williamson MD [facility] ([facility]) [address] [place] [id number] 03/14/2023 14:56:53 03/22/2023 21:35:55 Degeneration of lumbar intervertebral disc 47474481 M51.36 Continue current pain management . Type 2 violetta betes mellitus 95440139 E11.69 We will check A1c today. Anxiety state [id number] F41.9 Symptoms improved with medication Depressive disorder 3548 9007 F32.A Continue bupropion and sertraline . Hypothyroidism 27654517 E03.9 Continue levothyrox ine. [id number] Gigi Williamson MD [facility] ([facility]) [address] [place] [address] [phone] 5 06/25/2023 14:37:58 06/25/2023 15:59:26 Degeneration of lumbar intervertebral disc 38303240 M51.36 Continue current pain management . Type 2 violetta betes mellitus 38343874 E11.69 We will check A1c today. Continue current therapy. Encouraged yearly eye exams. Dysuria 01753365 R30.0 UA was not concerning enough for infection. It is pending. [id number] Gigi Williamson MD [facility] ([facility]) [address] [place] [address] [phone] 5 11/12/2023 15:23:07 11/12/2023 15:54:46 Essential hypertension 57905264 I10 We will transition to losartan and stop the lisinopril . Allergic rhinitis 128915 04 J30.9 Allergic rhinitis is likely contributi ng to the more recent symptoms. Recommend starting Flonase and Zyrtec. Type 2 violetta betes mellitus 06760002 E11.69 Depressive disorder 3548 9007 F33.0 Hypertriglyceridemia 302 427765 E78.2 Anxiety state 300536580 F41.9 Symptoms improved with medication Frail elderly 040073436 R54 Dependence on enabling machine or device 492927177 Z99.89 [id number] Gigi Williamson MD [facility] ([facility]) [address] [place] [address] [phone] 5 12/23/2023 15:49:10 12/23/2023 16:11:13 Type 2 diabetes mellitus 02840321 E11.69 Continue current medication s. Check A1c and albumin creatinine ratio today. Encouraged yearly eye exams. Diabetic p eripheral neuropathy 415368019 E11.40 Patient does have decreased sensation and increased callus formation of both of her feet. Would benefit from shoes for feet protection . Encouraged daily feet checks. Essential hypertension 51717267 I10 We will transition to losartan and stop the lisinopril . Frail elderly 936176769 R54 [id number] Gigi Williamson MD [facility] ([facility]) [address] [place] [address] [phone] 5 03/02/2024 13:48:29 03/02/2024 14:33:21 Lesion of skin of face 4996250470 06 L98.9 Lesion on the face could be concerning for squamous cell. The patient requests referral to dermatolog y and I think this is reasonable . Seborrheic keratosis 394 419654 L82.1 There are spots in the body have characteri stics of seborrheic keratosis. Patient was reassured. [id number] Gigi Williamson MD [facility] ([facility]) [address] [place] [address] [phone] 5 03/19/2024 15:56:05 03/19/2024 17:14:54 Right lower zone pneumonia 913995535 J18.1 Concerned about pneumonia in the right lower lobe. There is some concern for possible aspiration . Treat with Doxy and inhaler today. Follow-up if symptoms are not improving. [id number] [facility] ([facility]) [address] [place] [address] [phone] 5 06/17/2024 14:52:23 06/17/2024 17:03:49 Adult health examination 499181199 Z00.00 Type 2 violetta betes mellitus without complication 924432662 E11.9 [id number] Gigi Williamson MD [facility] ([facility]) [address] [place] [address] [phone] 5 09/18/2024 15:23:35 09/18/2024 16:45:15 Pain in right sacroiliac joint [id number] 6735629 M53.3 Will treat with steroids. Discussed the impact this will have on her blood sugars and the patient was agreeable to proceed. Will also send a referral to physical therapy and she wants this sent to the hospital. Type 2 violetta betes mellitus 18008708 E11.69 Continue current medication s. Check A1c. [id number] S[employer] [facility] ([facility]) [address] [place] [address] [phone] 10/28/2024 14:22:51 10/28/2024 15:19:10 Chronic low back pain 349968321 M54.50 G89.29 75710505 Continue pain medication s at home. Discussed with patient close monitoring as injection may cause increase in blood sugars. Follow up as scheduled. Dependent edema 48408423 4 R60.9 23471 Advised patient to purchase OTC compressio n stockings. Elevate legs while seated. Notify clinic with any increased swelling or with unusual shortness of breath. [id number] Gigi Williamson MD [facility] ([facility]) [address] [place] [address] [phone] 5 11/17/2024 15:04:54 11/17/2024 16:35:17 Arthritis of right knee 1273292266 253184 M17.11 050905 Joint injection performed today. Patient tolerated procedure without any issues. Continue with daily stretching and exercises. [id number] Gigi Williamson MD [facility] ([facility]) [address] [place] [address] [phone] 5 02/18/2025 13:37:48 02/18/2025 14:38:52 Type 2 diabetes mellitus 83158559 E11.69 Patient is due for labs for her diabetes. Continue current medication s. Degenerati on of lumbar intervertebral disc 96096155 M51.369 Patient is improving with current cares. [id number] Gigi Williamson MD [facility] ([facility]) [address] [place] [address] [phone] 5 04/01/2025 15:00:54 04/01/2025 15:38:41 Acute constipation 965871583 K59.00 329695 - Try magnesium citrate and Fleets enemas if needed.- Continue polyethyle ne glycol (MiraLax) post-resol ution for maintenanc e.- Importance of hydration emphasized . Diarrhea 49798689 R19.7 - Resolved, monitored as part of history. Diabetes mellitus 562416 09 E11.9 - Blood glucose monitoring urged. - Hydration importance reiterated for diabetes management . Health Concerns Section Related Observation LastModified by Organization Detai ls LastModified Time None Recorded Concern Status LastModified by Organization Details LastModified Time None Recorded Advance Directives Directive None Recorded Payers Insurance Date Sequence Insurance Name Policy Number Policy Marino Covered Member ID Marino Member ID Guarantor Name 04/01/2025 [place] [facility] Alice Perry [id number] Alice Perry 04/01/2025 1 [place] - [place]PO) [id number] Alice Perry [id number] Alice Perry 04/01/2025 2 [place] Alice Perry [id number] Alice Perry 04/01/2025 3 [employer] Alice Perry [id number] Alice Perry Notes Date Note Type Note Provider Name and Address Organization Details Recorded Time 5 text/html Musculoskeletal PainReported by PatientHPIFor location, patient reportspain radiating to the legs rightbut reportslumbar spineandright hip. For quality, patient reportssharp. For severity, patient reportsworsening. For duration, patient reportspresent for 1-6 months. For timing, patient reportsdate of onset: (08/15/24)andconstant. For context, patient reportsprior back problems. For alleviating factors, patient reportsrestandchanging position (sleeps in recliner). For aggravating factors, patient reportsmovement/positioning . For adls affected, patient reportswalking. For prior tests/treatments, patient reportsprevious surgery (back surgery).ROS as noted in the HPI Patient here today for Right leg and lower back pain. Patient states that this has bothered her for approximately 1 month. Patient denies any recent injury. She states that she is having to sleep in her recliner to help alleviate the pain. Patient feels that her blood sugars are doing fairly well on current medication and she is due for an A1c. Gigi Williamson MD [address] [place], [phone], [facility] 09/26/2024 09:10:09 5 text/html ROS as noted in the HPI walk inx1 day swelling to left knee and b/l ankles, better today. Patient states that she had stood for a long period of time outside prior to the swelling. Patient states that she slept in her recliner which really helped with the swelling. Patient states that she has chronic back pain and has hydrocodone at home. However, states that her back is worse today. [facility] [address] [place], [phone], [facility] 10/28/2024 15:08:00 5 text/html Joint PainReported by PatientHPIFor quality, patient reportssharpanddull. For severity, patient reportsworsening. For associated symptoms, patient reportsweak limbsbut reportsno tinglingandno numbness of the legs/feet. For location, patient reportsright hipandright knee. For duration, patient reportspresent <1 month. For timing, patient reportsconstant. For alleviating factors, patient reportsrest. For aggravating factors, patient reportsmovement/positioning ,bending over, andtwisting.ROS as noted in the HPI Pt is here for right knee pain. Pt states that her knee is swollen. Pt states that it has been going on for about week and is worsening. The patient would like to have a injection. Gigi Williamson MD [address] [place] [address], [phone], [facility] 11/21/2024 04:06:27 5 text/html patient here for a hospital f/u she was in [place] for a week and then in [facility] for her back. The patient also reports that she had a bowel blockage . Patient did not require any surgery and was treated conservatively. The patient states that things continue to get better and she has no acute concerns today. Patient states that her blood sugars are doing well on current medications. Gigi Williamson MD [address] [place] [address], [phone], [facility] 02/21/2025 11:04:46 5 text/html ConstipationReported by PatientHPIFor quality, patient [...] which led to a week-long hospitalization at [facility] in [place]. Now, for the past five days, she reports constipation despite twice-daily doses of polyethylene glycol (MiraLax), resulting in only liquid stools and associated bloating. She experiences mild soreness in the left abdomen upon palpation but denies any substantial pain. The patient holds a history of diabetes mellitus and epilepsy and mentioned hydration issues due to her dislike of drinking water. Gigi Williamson MD [address] [place] [address], [phone], [facility], [place] 04/04/2025 09:32:57 OBGyn Episode No OBEpisode recorded.
--- OUTSIDE RECORDS SUMMARY | 2025-04-06 16:28 | XMS_ITS | Encounter Summary ---
Author Organization [facility] Address [address] [place] [address] Care Team Providers Care Quality Assurance Specialist Name Role Phone Unavailable Primary Care Provider Unavailabl e Encounter Details Date Type Department Care Team (Latest Contact Info) Description 09/24/2006 Outpatient Historical [facility] Endocrinology-[place] [facility] [place] [address] [place] [phone] Ramirez Ferrer MD NO ADDRESS ON FILE Unspecified Hypothyroidism (Primary Dx); Benign Willard Pituitary Social History Tobacco Use Types Packs/Day Years Used Date Smoking Tobacco: Never Assessed Comments Unknown Sex and Gender Information Value Date Recorded Sex Assigned at Not on file Legal Sex Female 5:50 AM [employer] Gender Identity Not on file Sexual Orientation Not on file documented as of this encounter Plan of Treatment Not on file documented as of this encounter Visit Diagnoses Diagnosis Unspecified hypothyroidism- Primary Benign willard pituitary Benign neoplasm of pituitary gland and craniopharyngeal duct (pouch) documented in this encounter
--- OUTSIDE RECORDS SUMMARY | 2025-04-06 16:28 | XMS_ITS | Clinical Summary ---
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 Role Phone Unavailable Primary Care Provider [...] Encounters Date Type Department Care Team Description 03/23/2025 External Device Data STL ABSTRACTION Provider, Abstract 03/18/2025 12:59 PM CDT - 03/18/2025 11:59 PM CDT Hospital Encounter [facility] [address] [place] [phone] Amauri Kamara MD Discharge Disposition: Home or Self Care 03/09/2025 External Device Data STL ABSTRACTION Provider, Abstract 03/02/2025 External Device Data STL ABSTRACTION Provider, Abstract 02/10/2025 Telephone [facility] Infectious Disease-[place] [id number] [phone] Amauri Kamara MD Follow Up 02/10/2025 Orders Only [facility] Health Information Management [place] [address] [place] [address] Provider, Abstract 02/06/2025 Telephone [facility] Infectious Disease-[place] [address] [phone] Amauri Kamara MD Follow Up 02/02/2025 External Device Data STL ABSTRACTION Provider, Abstract 02/02/2025 External Device Data STL ABSTRACTION Provider, Abstract 02/02/2025 External Device Data STL ABSTRACTION Provider, Abstract 01/28/2025 5:59 PM CDT - 02/05/2025 8:00 PM CDT Hospital Encounter [facility] [address] [place] [phone] Jcakeline Stahl MD Dhakal, Prabin, MD Khatiwada, Pratik, [...] on file 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 Gender Identity Not on file Sexual [...] Care Team (Late st Contact Info) Description 05/19/2025 2:40 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 Office Visit [facility] Infectious Disease-[place] [address] [facility] [address] [place] [phone] Amauri Kamara MD [address] [facility] [address] [place] [phone] Health Maintenance Due Date Last Done Comments DIABETES ANNUAL FOOT EXAM 1962 DIABETES ANNUAL RETINAL EXAM 1962 DIABETES MICROALBUMIN ANNUAL SCREEN 1962 LDL CHOLESTEROL ANNUAL 1962 DTAP/TDAP/TD VACCINES (1 - Tdap) 1963 RSV VACCINE (60+ or ) (1 - 1-dose 75+ series) 2019 INFLUENZA VACCINE (#1) 2025 , 03/14/2023, 04/24/2022, Additional history exists COVID-19 Vaccine (2023-2 5 season) 2025 04/14/2024, 05/27/2023, 05/08/2022, Additional history exists DIABETES HBA1C Q 6 MONTHS 08/21/20252024, 01/29/2025, 09/18/2024, Additional history exists OSTEOPOROSIS SCREENING 01/01/2028 12/31/2022 PNEUMOCOCCAL VACCINE 50+ YEARS Completed 05/27/2023 , 05/08/2017 ZOSTER VACCINE Completed 08/06/2023, 05/27/2023 Medical Devices Implanted Type Area Quality Intern Device Identifier Shelf Expiration Date Model / Serial / Lot Lead [employer] 2218-50 Lead [employer] 2218-50 / / Lead [employer] 2218-50 Lead [employer] 2218-50 / / Neuro Stimulator [id number] Neuro Stimulator [employer] [id number] / / Description:MRI Conditional 1.5T full Body Dr[employer] Home [place] Procedures Procedure Name Priority Date/Time Associated Diagnosis Comments MRI LUMBAR W WO CONTRAST Routine 03/18/2025 2:25 PM CDT Abnormal finding on imaging TELEMETRY REPORT 02/09/2025 3:39 AM CDT POC [...] CDT from Last 3 Months Results * MRI LUMBAR W WO CONTRAST (03/18/2025 2:25 PM CDT) Only the most recent of2 resultswithin the time period is included. Anatomical Region Laterality Modality Spine Magnetic Resonan ce 03/18/2025 2:25 PM CDT Impressions 03/19/2025 2:06 PM CDT IMPRESSION: 1. No significant interval change compared with February 05, 2025. Findings at L2-L4 largely similar prior when accounting for significant hardware artifact. 2. No MR findings to suggest discitis-osteomyelitis of the well-seen levels of the lumbar spine. Could consider upright radiographs to assess for bony changes in the interval. 3. Additional details as above. Narrative 03/19/2025 2:06 PM CDT EXAM: MRI LUMBAR W WO CONTRAST DATE/TIME OF EXAM: 03/18/2025 2:25 PM REASON FOR STUDY: follow up imaging DIAGNOSIS: Abnormal finding on imaging COMPARISON: February 05, 2025 INTRAVENOUS CONTRAST: GADOBENATE DIMEGLUMINE 529 MG/ML(0.1 MMOL/0.2 ML) INTRAVENOUS SOLUTION Given:14 mL TECHNIQUE: MR Lumbar spine performed before and after the administration of intravenous contrast. FINDINGS: For the purposes of this dictation, the last well formed intervertebral disc space will be labeled L5-S1. Post surgical changes L3-L4 posterior spinal fusion with interbody spacer. Interbody spacer at L5-S1. A spinal cord stimulator device in place. Significant artifact related to the hardware, the L2-L4 levels are not well assessed. Bones: Intact L1, L5 and S1 vertebral bodies. L2-L4 vertebral bodies are not well seen due to hardware artifact. Alignment: No significant interval change. Conus: No significant interval change. Spinal Canal: No sizable epidural fluid collection, within study limitations. Soft Tissue: No significant interval change. No appreciable paravertebral or posterior paraspinal abscess, within study limitations. Enhancement: No significant interval change. No abnormal intraspinal enhancement, within study limitations. Multilevel degenerative changes T12-L1, L1-L2, L4-L5 and L5-S1, similar to prior. L2-L4 levels are not well seen. Procedure Note Velma Chauhan MD - 03/19/2025 EXAM: MRI LUMBAR W WO CONTRAST DATE/TIME OF EXAM: 03/18/2025 2:25 PM REASON FOR STUDY: follow up imaging DIAGNOSIS: Abnormal finding on imaging COMPARISON: February 05, 2025 INTRAVENOUS CONTRAST: GADOBENATE DIMEGLUMINE 529 MG/ML(0.1 MMOL/0.2 ML) INTRAVENOUS SOLUTION Given:14 mL TECHNIQUE: MR Lumbar spine performed before and after the administration of intravenous contrast. FINDINGS: For the purposes of this dictation, the last well formed intervertebral disc space will be labeled L5-S1. Post surgical changes L3-L4 posterior spinal fusion with interbody spacer. Interbody spacer at L5-S1. A spinal cord stimulator device in place. Significant artifact related to the hardware, the L2-L4 levels are not well assessed. Bones: Intact L1, L5 and S1 vertebral bodies. L2-L4 vertebral bodies are not well seen due to hardware artifact. Alignment: No significant interval change. Conus: No significant interval change. Spinal Canal: No sizable epidural fluid collection, within study limitations. Soft Tissue: No significant interval change. No appreciable paravertebral or posterior paraspinal abscess, within study limitations. Enhancement: No significant interval change. No abnormal intraspinal enhancement, within study limitations. Multilevel degenerative changes T12-L1, L1-L2, L4-L5 and L5-S1, similar to prior. L2-L4 levels are not well seen. IMPRESSION: 1. No significant interval change compared with February 05, 2025. Findings at L2-L4 largely similar prior when accounting for significant hardware artifact. 2. No MR findings to suggest discitis-osteomyelitis of the well-seen levels of the lumbar spine. Could consider upright radiographs to assess for bony changes in the interval. 3. Additional details as above. Amauri Kamara MD MR ORDERABLES Final Result * TELEMETRY REPORT (02/09/2025 3:39 AM CDT) Provider Scanning ECG ORDERABLES Final Result * (ABNORMAL) POC GLUCOSE (02/05/2025 5:55 PM CDT) Only the most recent of32 resultswithin the time period is included. GLUCOSE POC 178(H) 74 - 99 mg/dL 02/05/2025 5:55 PM CDT [facility] SPECIMEN SOURCE, GLUCOSE POC Capillary 02/05/2025 5:55 PM CDT [facility] Blood, whole 02/05/2025 5:55 PM CDT 02/05/2025 6:16 PM CDT us Karyna Odom MD POINT OF CARE TESTING Final Res ult [facility] CLIA # [id number] [address] [place] [address] [place] [address] * (ABNORMAL) RENAL FUNCTION PANEL (02/05/2025 4:41 PM CDT) SODIUM 136 136 - 145 mmol/L 02/05/2025 5:18 PM CDT [facility] POTASSIUM 4.3 3.5 - 5.1 mmol/L 02/05/2025 5:18 PM CDT [facility] CHLORIDE 100 98 - 107 mmol/L 02/05/2025 5:18 PM CDT [facility] CO2 26 22 - 29 mmol/L 02/05/2025 5:18 PM CDT [facility] CALCIUM 9.2 8.8 - 10.2 mg/dL 02/05/2025 5:18 PM CDT [facility] BUN 15 8 - 23 mg/dL 02/05/2025 5:18 PM CDT [facility] CREATININE 0.72 0.51 - 0.95 mg/dL 02/05/2025 5:18 PM T [facility] Comment:The GFR result is no t clinically significant on patients <18 or >70 years of age. GLUCOSE 127(H) 74 - 99 mg/dL 02/05/2025 5:18 PM [facility] ALBUMIN 3.9 3.5 - 5.2 g/dL 02/05/2025 5:18 PM T [facility] PHOSPHORUS 3.7 2.5 - 4.5 mg/dL 02/05/2025 5:18 PM T [facility] GFR >60 mL/min/1.7 3 sq meter 02/05/2025 5:18 PM [facility] Comment:eGFR calculated with 2020 CKD-EPI equation. Vegetarian diet, extremely high or low muscle mass, and may affect results. Cystatin C with Glomerular Filtration Rate is a suitable alternative for these patients. ANION GAP 10 9 - 20 mmol/L 02/05/2025 5:18 PM T [facility] Blood Venipuncture / Unknown 02/05/2025 4:41 PM CDT 02/05/2025 4:44 PM CDT us Karyna Odom MD CHEMISTRY ORDERABLES Final Resu lt [facility] CLIA # [id number] [address] [address] [place] [address] * (ABNORMAL) CBC WITHOUT DIFFERENTIAL (02/05/2025 4:26 AM CDT) [facility] WBC 12.8(H) 4.8 - 10.8 K/uL 02/05/2025 4:49 AM CDT [facility] RBC 3.92(L) 4.20 - 5.40 M/uL 02/05/2025 4:49 AM CDT [facility] HEMOGLOBIN 13.1 12.0 - 16.0 g/dL 02/05/2025 4:49 AM CDT [facility] HEMATOCRIT 37.3 36.0 - 46.0 % 02/05/2025 4:49 AM CDT [facility] MCV 95.2 84.0 - 103.0 fL 02/05/2025 4:49 AM CDT [facility] MCH 33.4 27.0 - 34.0 pg 02/05/2025 4:49 AM CDT [facility] MCHC 35.1(H) 30.0 - 35.0 g/dL 02/05/2025 4:49 AM CDT [facility] PLATELETS 349 140 - 440 K/uL 02/05/2025 4:49 AM CDT [facility] MPV 9.3 8.9 - 12.8 fL 02/05/2025 4:49 AM CDT [facility] RDW 13.9 11.0 - 14.5 % 02/05/2025 4:49 AM CDT [facility] RDW-STDEV 48.2 37.0 - 54.0 fL 02/05/2025 4:49 AM CDT [facility] Blood Venipuncture / Unknown 02/05/2025 4:26 AM CDT 02/05/2025 4:45 AM CDT us Karyna Odom MD HEMATOLOGY ORDERABLES Final Res ult [facility] # [id number] [facility] [address] [address] [place] [address] * CT CHEST ABDOMEN PELVIS WO CONT [...] (ABNORMAL) SEDIMENTATION RATE (02/03/2025 3:34 AM CDT) [facility] ESR (SEDIMENTATION RATE) 40(H) 0 - 20 mm/Hr 02/03/2025 5:21 AM CDT [facility] Blood Venipuncture / Unknown 02/03/2025 3:34 AM CDT 02/03/2025 4:38 AM CDT Amauri Kamara MD HEMATOLOGY ORDERABLES [id number] [address] [place] [address] * C-REACTIVE PROTEIN (02/03/2025 3:34 AM CDT) [facility] CRP <3.0 0.0 - 5.0 mg/L 02/03/2025 5:09 AM CDT [facility] Blood Venipuncture / Unknown 02/03/2025 3:34 AM CDT 02/03/2025 4:38 AM CDT us Amauri Kamara MD CHEMISTRY ORDERABLES Final Resul t Performing Organization Address [facility] Co de Phone Number [facility] CLIA # [id number] [address] [facility] [place] [address] * ANAEROBIC/AEROBIC CULTURE W GRAM STAIN (02/01/2025 1:55 PM CDT) CULTURE No aerobic or anaerobic growth 02/04/2025 8:09 AM CDT [facility] GRAM STAIN No organisms observed 02/04/2025 8:09 AM CDT [facility] GRAM STAIN No Polymorphonuclear WBC 02/04/2025 8:09 AM CDT [facility] Tissue ENTIRE BONE ORGAN / Unknown Collection / Unknown 02/01/2025 1:55 PM CDT 02/01/2025 2:10 PM CDT us Abilio Lanier MD MICROBIOLOGY - [facility] Final Result Performing Organization Address [facility] Co de Phone Number [facility] CLIA # [id number] [address] [place] [address] * CT GUIDED BIOPSY (02/01/2025 1:54 PM [...] CDT) CASE REPORT Surgical Pathology Report Case: [id number] Authorizing Provider: Abilio Lanier MD Collected: 02/01/2025 01:54 PM Ordering Location: Received: 02/01/2025 02:06 PM Medical Surgical Pathologist: Keyshawn Guzman MD Specimens: A) - Bone, L2/L3 disc/endplate B) - L2/L3 disc/endplate 5 6:29 AM CDT [facility] ADDENDUM 1 On 02/04/25, specime n B was submitted to [facility] for broad-range PCR bacteria, fungal, and AFB, as ordered by Dr. Kamara. See full report scanned in chart. NOTE: Ancillary laboratory reports are scanned to the patient's electronic health record. To view in Epic, click Scan located under Results header immediately following this pathology report. SEC/wls [id number] 5 6:29 AM CDT [facility] Addendum electronically signed by Keyshawn Guzman MD [...] be ordered if requested. Keyshawn Guzman MD [id number] 5 6:29 AM CDT [facility] at 0650 CDT GROSS DESCRIPTION A. Received [...] 16S studies. Grossed by: Anais Rollins MS, PA ([facility]) 5 6:29 AM CDT [facility] OPERATIVE PROCEDURE CT guied CNBx of L2-L3 disc/endplate 5 6:29 AM CDT [facility] CLINICAL INFORMATION L2-L3 discitis/osteomyelitis 5 6:29 AM T [facility] COMMENT The [employer] voice-activated dictation system may have been used [...] determined by the [facility] of in compliance with CLIA'88 regulations. Some of these tests rely on the use of analyte specific reagents and are subject to specific labeling requirements by the FDA. All controls show appropriate reactivity. This testing was developed by the [facility] of . It has not been cleared or approved by the FDA. The FDA has determined that such clearance or approval is not necessary. 6:29 AM CDT [facility] Tissue ENTIRE BONE ORGAN / Unknown Collection / Unknown 02/01/2025 1:54 PM CDT 02/01/2025 2:06 PM CDT Tissue specimen (specimen) Collection / Unknown 02/01/2025 1:54 PM CDT 02/01/2025 2:07 PM CDT Abilio Lanier MD PATHOLOGY/CYTOLOGY ORDERABL ES Edited Result - Final Performing Organization Address [facility]/ZIP Co de Phone Number [facility] CLIA # [id number] [address] [address] * PTT (01/31/2025 1:44 PM CDT) Pathologist [facility] PTT 27.3 24.8 - 37.2 seconds 01/31/2025 2:11 PM CDT [facility] Blood Venipuncture / Unknown 01/31/2025 1:44 PM CDT 01/31/2025 1:58 PM CDT Narrative [facility] - 01/31/2025 2:11 PM CDT Therapeutic Range: Hi-level PE/DVT heparin protocol 80.1 - 95.0 sec Lo-level PE/DVT heparin protocol 70.1 - 85.0 sec Cardiac Heparin Protocol 70.1 - 100.0 sec Karyna Odom MD HEMATOLOGY ORDERABLES Final Res ult [facility] CLIA # [id number] [address] [place] [address] * (ABNORMAL) PROTIME-INR (01/31/2025 1:44 PM CDT) Pathologist [facility] PROTIME 15.0(H) 12.7 - 14.9 Seconds 01/31/2025 2:11 PM CDT [facility] INR 1.1 0.8 - 1.2 01/31/2025 2:11 PM CDT [facility] Blood Venipuncture / Unknown 01/31/2025 1:44 PM CDT 01/31/2025 1:58 PM CDT [facility] - 01/31/2025 2:11 PM CDT Expected Values for INR: DVT/PE Goal INR 2.5; range 2.0 - 3.0 Valve Replacement Tissue Goal INR 2.5; range 2.0 - 3.0 Valve Replacement Mechanical Goal INR 3.0; range 2.5 - 3.5 POST-CO Goal INR 2.5; range 2.0 - 3.0 or Goal INR 3.0; range 2.5 - 3.5 Atrial Fibrillation Goal INR 2.5; range 2.0 - 3.0 Ischemic Stroke Goal INR 2.5; range 2.0 - 3.0 us Karyna Odom MD HEMATOLOGY ORDERABLES Final Res ult [facility] CLIA # [id number] [address] [place] [address] * (ABNORMAL) BASIC METABOLIC PANEL (01/30/2025 11:25 AM CDT) Only the most recent of2 resultswithin the time period is included. [facility] SODIUM 136 136 - 145 mmol/L 01/30/2025 12:14 PM CDT [facility] POTASSIUM 4.0 3.5 - 5.1 mmol/L 01/30/2025 12:14 PM CDT [facility] CHLORIDE 98 98 - 107 mmol/L 01/30/2025 12:14 PM CDT [facility] CO2 25 22 - 29 mmol/L 01/30/2025 12:14 PM CDT [facility] CALCIUM 9.3 8.8 - 10.2 mg/dL 01/30/2025 12:14 PM CDT [facility] BUN 14 8 - 23 mg/dL 01/30/2025 12:14 PM CDT [facility] CREATININE 0.66 0.51 - 0.95 mg/dL 01/30/2025 12:14 PM T [facility] Comment:The GFR result is no t clinically significant on patients <18 or >70 years of age. GLUCOSE 274(H) 74 - 99 mg/dL 01/30/2025 12:14 PM T [facility] GFR >60 mL/min/1.7 3 sq meter 01/30/2025 12:14 PM T [facility] Comment:eGFR calculated with 2020 CKD-EPI equation. Vegetarian diet, extremely high or low muscle mass, and may affect results. Cystatin C with Glomerular Filtration Rate is a suitable alternative for these patients. ANION GAP 13 9 - 20 mmol/L 01/30/2025 12:14 PM T [facility] Blood Venipuncture / Unknown 01/30/2025 11:25 AM CDT 01/30/2025 11:40 AM CDT us Karyna Odom MD CHEMISTRY ORDERABLES Final Resu lt [facility] CLIA # [id number] [address] [place] [address] * (ABNORMAL) CBC WITH DIFFERENTIAL (01/29/2025 2:11 AM CDT) WBC 13.3(H) 4.8 - 10.8 K/uL 01/29/2025 2:55 AM CDT [facility] RBC 4.12(L) 4.20 - 5.40 M/uL 01/29/2025 2:55 AM CDT [facility] HEMOGLOBIN 13.4 12.0 - 16.0 g/dL 01/29/2025 2:55 AM [facility] HEMATOCRIT 38.9 36.0 - 46.0 % 01/29/2025 2:55 AM [facility] MCV 94.4 84.0 - 103.0 fL 01/29/2025 2:55 AM [facility] MCH 32.5 27.0 - 34.0 pg 01/29/2025 2:55 AM [facility] MCHC 34.4 30.0 - 35.0 g/dL 01/29/2025 2:55 AM [facility] PLATELETS 344 140 - 440 K/uL 01/29/2025 2:55 AM [facility] MPV 9.8 8.9 - 12.8 fL 01/29/2025 2:55 AM [facility] RDW 13.5 11.0 - 14.5 % 01/29/2025 2:55 AM [facility] RDW-STDEV 46.9 37.0 - 54.0 fL 01/29/2025 2:55 AM [facility] NEUTROPHILS 37(L) 42 - 75 % 01/29/2025 2:55 AM [facility] LYMPHOCYTES 49(H) 24 - 44 % 01/29/2025 2:55 AM [facility] MONOCYTES 10 2 - 10 % 01/29/2025 2:55 AM [facility] EOSINOPHILS 2 0 - 7 % 01/29/2025 2:55 AM [facility] BASOPHILS 1 0 - 1 % 01/29/2025 2:55 AM [facility] IMMATURE GRANULOCYTES 1 0 - 2 % 01/29/2025 2:55 AM [facility] NEUTROPHIL ABSOLUTE 4.93 2.00 - 8.00 K/uL 01/29/2025 2:55 AM [facility] LYMPHOCYTE ABSOLUTE 6.56(H) 1.20 - 4.00 K/uL 01/29/2025 2:55 AM [facility] MONOCYTE ABSOLUTE 1.38(H) 0.10 - 0.60 K/uL 01/29/2025 2:55 AM CDT [facility] EOSINOPHIL ABSOLUTE 0.30 0.00 - 0.70 K/uL 01/29/2025 2:55 AM CDT [facility] BASOPHILS ABSOLUTE 0.09 0.00 - 0.20 K/uL 01/29/2025 2:55 AM CDT [facility] IMMATURE GRANULOCYTES ABSOLUTE 0.06 0.00 - 0.10 K/uL 01/29/2025 2:55 AM CDT [facility] SMEAR REVIEWED: NN - No Action Needed 01/29/2025 2:55 AM CDT [facility] Blood Venipuncture / Unknown 01/29/2025 2:11 AM CDT 01/29/2025 2:34 AM CDT us Karyna Odom MD HEMATOLOGY ORDERABLES Final Res ult [facility] CLIA # [id number] [address] [place] [address] * (ABNORMAL) HEMOGLOBIN A1C (01/29/2025 2:11 AM CDT) HEMOGLOBIN A1C 7.3(H) <=5.6 % 01/30/2025 9:17 AM CDT [facility] EST. AVG GLUCOSE, A1C 163 mg/dL 01/30/2025 9:17 AM CDT [facility] Blood Venipuncture / Unknown 01/29/2025 2:11 AM CDT 01/29/2025 2:34 AM CDT Narrative [facility] - 01/30/2025 9:17 AM CDT HGB A1C INTERPRETATION NORMAL: <5.7% PRE-DIABETES: 5.7 - 6.4% DIABETES: 6.5% OR GREATER us Kayrna Odom MD CHEMISTRY ORDERABLES Final Resu lt [facility] CLIA # [id number] [address] [address] [place] [address] * (ABNORMAL) COMPREHENSIVE METABOLIC PANEL (01/28/2025 9:10 PM CDT) Only the most recent of2 resultswithin the time period is included. SODIUM 132(L) 136 - 145 mmol/L 01/28/2025 10:14 PM CDT [facility] POTASSIUM 3.5 3.5 - 5.1 mmol/L 01/28/2025 10:14 PM CDT [facility] CHLORIDE 94(L) 98 - 107 mmol/L 01/28/2025 10:14 PM CDT [facility] CO2 26 22 - 29 mmol/L 01/28/2025 10:14 PM CDT [facility] CALCIUM 9.1 8.8 - 10.2 mg/dL 01/28/2025 10:14 PM CDT [facility] BUN 14 8 - 23 mg/dL 01/28/2025 10:14 PM CDT [facility] CREATININE 0.65 0.51 - 0.95 mg/dL 01/28/2025 10:14 PM CDT [facility] Comment:The GFR result is no t clinically significant on patients <18 or >70 years of age. GLUCOSE 291(H) 74 - 99 mg/dL 01/28/2025 10:14 PM CDT [facility] TOTAL PROTEIN 7.3 6.4 - 8.3 g/dL 01/28/2025 10:14 PM CDT [facility] ALBUMIN 3.8 3.5 - 5.2 g/dL 01/28/2025 10:14 PM CDT [facility] BILIRUBIN TOTAL 0.3 0.0 - 1.0 mg/dL 01/28/2025 10:14 PM CDT [facility] ALKALINE PHOSPHATASE 128(H) 35 - 104 U/L 01/28/2025 10:14 PM CDT [facility] AST 27 10 - 35 U/L 01/28/2025 10:14 PM CDT [facility] Comment:Hemolysis present. R esult may be falsely elevated. ALT 38(H) <=35 U/L 01/28/2025 10:14 PM CDT [facility] GFR >60 mL/min/1.7 3 sq meter 01/28/2025 10:14 PM T [facility] Comment:eGFR calculated with 2020 CKD-EPI equation. Vegetarian diet, extremely high or low muscle mass, and may affect results. Cystatin C with Glomerular Filtration Rate is a suitable alternative for these patients. ANION GAP 12 9 - 20 mmol/L 01/28/2025 10:14 PM T [facility] Blood Venipuncture / Unknown 01/28/2025 9:10 PM CDT 01/28/2025 9:42 PM CDT Karyna Odom MD CHEMISTRY ORDERABLES Final Resu lt [facility] CLIA # [id number] [address] [place] [id number] from Last 3 Months Insurance [place] [facility] [place]V[facility]AGE O DSNP Advance Directives For more information, please contact: [phone] * Full Code (Latest Code Status on File) Date Activated Date Inactivated Comments 01/28/2025 7:19 PM 02/05/2025 10:47 PM
--- NOTE | 2025-04-06 17:54 | W.ED.GENADLT ---
HPI - General Adult General: Chief complaint: General Medical Stated complaint: no bowel movement in 1 week Time Seen by Provider: 04/06/25 17:16 Source: patient Mode of arrival: ambulatory Limitations: no limitations History of Present Illness: Patient is an 79-year-old female who presents the emergency department complaining of constipation. States that she has not had a normal bowel movement in a week, only has passage of liquid brown stool. States normally she has 1 bowel movement a day. Also reports that she has a history of abdominal surgeries, including reports of bowel perforation and previous bowel obstruction. She has tried [id number]-[id number] medications, including magnesium citrate, MiraLAX, and glycerin suppositories with no relief. She is not reporting much abdominal pain or rectal pain/fullness but is stating that she is having some abdominal bloating. Further, no nausea or vomiting or fevers or chills. Vitals are stable at this time, she is nontoxic and comfortable appearing. The patient recently was seen in the hospital here for intractable nausea and vomiting, and eventually was transferred to [facility] for infectious disease. Family in the room states that they do not recall anything specifically being done at [facility] and ultimately she was discharged home. Also patient states that she has recently finished antibiotics for urinary tract infection. MD complaint: constipation Onset (ago): week(s) (1) Associated symptoms: Deny chest pain, diaphoresis, dyspnea, headache(s), nausea, rash, palpitations or vomiting Related Data Home Medications ?Medication ?Instructions ?Recorded ?Confirmed amlodipine 5 mg tablet 5 mg PO BID 07/28/19 01/24/25 aspirin 81 mg chewable tablet 81 mg PO QAM 07/28/19 01/24/25 diclofenac sodium 75 mg 75 mg PO BID PRN Pain 07/28/19 01/24/25 tablet,delayed release docusate sodium 100 mg capsule 100 mg PO BID 07/28/19 01/24/25 (Colace) ezetimibe 10 mg tablet (Zetia) 10 mg PO BEDTIME 07/28/19 01/24/25 oxybutynin chloride 5 mg tablet 2.5 mg PO BID 07/28/19 01/24/25 sertraline 100 mg tablet 100 mg PO QAM 07/28/19 01/24/25 trazodone 50 mg tablet 50 mg PO BEDTIME 07/28/19 01/24/25 bupropion HCl 300 mg 24 hr tablet, 300 mg PO QAM 07/29/19 01/24/25 extended release (Wellbutrin XL) ferrous sulfate 325 mg (65 mg 325 mg PO BID 07/29/19 01/24/25 iron) tablet metoprolol tartrate 25 mg tablet 25 mg PO BID 10/21/20 01/24/25 gabapentin 300 mg capsule 300 mg PO TID 02/28/22 01/24/25 glyburide 5 mg tablet 5 mg PO QAM 02/28/22 01/24/25 hydrocodone 5 mg-acetaminophen 325 0.5 - 1 tab PO Q6H PRN Pain 02/28/22 01/24/25 mg tablet levothyroxine 175 mcg tablet 175 mcg PO DAILY 02/28/22 01/24/25 montelukast 10 mg tablet 10 mg PO QAM 02/28/22 01/24/25 pravastatin 40 mg tablet 40 mg PO BEDTIME 02/28/22 01/24/25 sitagliptin phosphate 100 mg 100 mg PO QAM 02/28/22 01/24/25 tablet (Januvia) cetirizine 10 mg tablet (Zyrtec) 10 mg PO DAILY 01/25/23 01/24/25 pantoprazole 40 mg tablet,delayed 40 mg PO QAM 01/25/23 01/24/25 release vit C 250 mg-vit E 90 mg-zinc 40 1 tab PO BID 01/25/23 01/24/25 mg-copper 1 [id number] capsule (PreserVision AREDS-2) hydrochlorothiazide 12.5 mg tablet 1 ea PO DAILY 04/23/23 01/24/25 omega-3 acid ethyl esters 1 gram 2 cap PO BID 04/23/23 01/24/25 capsule semaglutide 1 mg/dose (4 mg/3 mL) 1 mg SUBCUT Q7D 01/23/25 01/23/25 subcutaneous pen injector (Ozempic) Previous Rx's ?Medication ?Instructions ?Recorded blood sugar diagnostic (Contour #50 ea 05/01/22 Next Test Strips) blood-glucose meter (Contour Next #1 ea 05/01/22 One Meter) galantamine 24 mg 24 hr 24 mg PO QAM #90 caps 05/28/24 capsule,extended release peg 3350-electrolytes 236 240 ml PO Q10M #4,000 mL 04/06/25 gram-22.74 gram-6.74 gram-5.86 gram solution (GaviLyte-G) Allergies Allergy/AdvReac Type Severity Reaction Status Date / Time morphine Allergy Mild hallucinati Verified 01/22/25 19:36 ons latex AdvReac Mild RASH Verified 01/22/25 19:36 Review of Systems General: Reports: 10 or more systems reviewed and unremarkable except in HPI and below Const: Denies: fever(s), chills, change in appetite, change in weight or diaphoresis ENMT: Denies: throat pain or hoarseness Card: Denies: chest pain, palpitations or lightheadedness Resp: Denies: dyspnea, productive cough or wheezing GI: Reports: constipation, bloating and change in stool character; Denies: abdominal pain, nausea, vomiting or hematochezia : Denies: flank pain, difficulty voiding, dysuria, urinary frequency or urinary urgency Musc: Denies: neck pain or back pain Skin/Breast: Denies: rash or new lesions Neuro: Denies: headache(s) or dizziness PFSH ED PFSH: Medical History Osteoarthritis of knees, bilateral Diabetes Spondylolisthesis, lumbar region Pituitary adenoma Evaluation/management Dr. Jose Manuel Montes Lumbar stenosis with neurogenic claudication Lumbar post-laminectomy syndrome Intervertebral disc disorder with radiculopathy of lumbosacral region Surgical History History of carpal tunnel surgery Bilateral History of hysterectomy History of appendectomy repaired colon History of hemorrhoidectomy History of lumbar fusion 11/2012, Dr. Jose Manuel Montes, [facility], L4-L5 PLIFF. Family History Mother Colon cancer, Onset Age: 58 Heart disease Father Diabetes Brother Diabetes Social History Smoking and tobacco/nicotine status: former use of tobacco/nicotine Second hand smoke exposure: Yes Alcohol intake: never Substance/Drug Use: never Caregiver/support person: Yes Lives independently: Yes Household members: none Housing: House Marital status: service: No Current occupational status: disabled Pets and animals: Yes Do you think of yourself as: Straight/Heterosexual Current gender identity: Female Physical Exam Const: COMMON NORMALS: no acute distress, patient oriented x3, no limitations, healthy appearing, alert and well nourished GENERAL APPEARANCE: cooperative and comfortable NUTRITIONAL APPEARANCE: obese ORIENTATION/CONSCIOUSNESS: Yes awake OTHER: nontoxic Neck/C-Spine: COMMON NORMALS: full ROM, supple, no meningeal signs and no JVD Resp: COMMON NORMALS: normal respiratory effort, No retractions, No use of accessory muscles and clear to auscultation bilaterally AUSCULTATION: clear to auscultation bilaterally, no crackles, no rales, no rhonchi and no wheezes Cardio: COMMON NORMALS: no JVD, regular rate, regular rhythm, No gallops present (Cardio), No clicks present (Cardio), No murmurs present (Cardio) and No rub (Cardio) RATE: regular rate RHYTHM: regular rhythm GI: COMMON NORMALS: Normal to inspection, nondistended, normoactive bowel sounds present, Soft to palpation, non-tender, No hepatosplenomegaly present and no masses AUSCULTATION: Yes normoactive bowel sounds PALPATION: Yes Soft to palpation, No Guarding due to palpation present (GI), No Rigid due to palpation and Yes No hepatosplenomegaly present RECTAL EXAM: deferred : COMMON NORMALS: Yes no CVA tenderness BLADDER/KIDNEY EXAM: Yes no CVA tenderness Back/Pelvis: COMMON NORMALS: no CVA tenderness Extremity: COMMON NORMALS: normal to inspection and full ROM Neuro: COMMON NORMALS: patient oriented x3, moves all extremities, no focal motor deficits and no sensory deficits noted SENSORIUM/ORIENTATION: Yes alert MENINGEAL SIGNS: Yes no meningeal signs Psych: COMMON NORMALS: mental status grossly normal, cooperative and speech normal SPEECH: Yes normal speech Skin: COMMON NORMALS: no rashes or lesions noted GENERAL SKIN EXAM: no rashes or lesions noted Course Vital Signs: Vital signs: Vital Signs Temperature 98.3 F 04/06/25 16:27 Pulse Rate 61 04/06/25 19:32 Respiratory Rate 18 04/06/25 16:27 Blood Pressure 144/80 04/06/25 19:32 Pulse Oximetry 93 04/06/25 19:32 Oxygen Delivery Me thod Room Air 04/06/25 16:27 MDM - General Adult Medical Decision Making Patient presenting stating she has had no normal bowel movement for a week, only loose brown stools. Has taken magnesium citrate as well as MiraLAX with no relief. Some bloating but no abdominal pain. Also noted history of abdominal surgeries and expressed concern over possible obstruction. X-ray of the abdomen does not show any significant distention or other signs that would represent an obstruction or perforation. Suspect this is constipation, will send her home with concoction of magnesium citrate, lactulose, and mineral oil. Also GoLytely will be sent to the pharmacy in case she has no relief from this. She is told to follow-up with primary care for any further evaluation and return with any new or worsening. Lab Data Radiology Impressions Chest/Abdomen X-ray 04/06/25 16:24 IMPRESSION: 1. No significant distension of the colon. No large amount of fecal material evident. No demonstrable small bowel distension. 2. Atelectasis and/or pneumonia left lung base. Milder changes in the right base. 3. Degenerative and postoperative changes lumbar spine. Epidural stimulating device with electrodes at T7. . All radiology interpretation(s) finalized by discharge Discharge Plan Discharge Patient Disposition: Home Clinical Impression: Constipation Qualifiers: Constipation type: unspecified constipation type Qualified Code(s): K59.00 - Constipation, unspecified Condition: Stable Prescriptions: New peg 3350-electrolytes [GaviLyte-G] 236-22.74-6.74 -5.86 gram recon soln 240 ml PO Q10M Qty: 4000 0RF Rx Instructions: until fecal effluent is clear No Action ferrous sulfate 325 mg (65 mg iron) tablet 325 mg PO BID bupropion HCl [Wellbutrin XL] 300 mg tablet extended release 24 hr 300 mg PO QAM oxybutynin chloride 5 mg tablet 2.5 mg PO BID diclofenac sodium 75 mg tablet,delayed release (DR/EC) 75 mg PO BID PRN (Reason: Pain) trazodone 50 mg tablet 50 mg PO BEDTIME amlodipine 5 mg tablet 5 mg PO BID docusate sodium [Colace] 100 mg capsule 100 mg PO BID ezetimibe [Zetia] 10 mg tablet 10 mg PO BEDTIME sertraline 100 mg tablet 100 mg PO QAM aspirin 81 mg tablet,chewable 81 mg PO QAM metoprolol tartrate 25 mg tablet 25 mg PO BID (DME) blood-glucose meter [Contour Next One Meter] Misc See Rx Instructions .Route Qty: 1 0RF Rx Instructions: As directed (DME) Contour Next Test Strips Strip See Rx Instructions .Route Qty: 50 10RF Rx Instructions: As directed omega-3 acid ethyl esters 1 gram capsule 2 cap PO BID hydrochlorothiazide 12.5 mg tablet 1 ea PO DAILY galantamine 24 mg capsule,ext rel. pellets 24 hr 24 mg PO QAM Qty: 90 3RF levothyroxine 175 mcg Tablet 175 mcg PO DAILY Rx Instructions: in am glyburide 5 mg Tablet 5 mg PO QAM pravastatin 40 mg tablet 40 mg PO BEDTIME gabapentin 300 mg Capsule 300 mg PO TID montelukast 10 mg tablet 10 mg PO QAM Januvia 100 mg tablet 100 mg PO QAM hydrocodone-acetaminophen 5-325 mg tablet 0.5 - 1 tab PO Q6H PRN (Reason: Pain) PreserVision AREDS-2 250-90-40-1 mg Capsule 1 tab PO BID pantoprazole 40 mg tablet,delayed release (DR/EC) 40 mg PO QAM cetirizine [Zyrtec] 10 mg Tablet 10 mg PO DAILY Ozempic 1 mg/dose (4 mg/3 mL) pen injector 1 mg SUBCUT Q7D Discharge Orders: Discharge ED (Routine); Ordered 04/06/25 Ordered By: Anand Loaiza Referrals: Drew Williamson MD [Primary Care Provider, Family Practice] Patient Instructions: Patient Portal & Thor Instructions Activity Restrictions/Additional Instructions: Constipation Discharge Instructions Discharge Instructions: Constipation Management Diagnosis: Chronic constipation in an 79-year-old female. Abdominal X-ray negative for impaction or obstruction. Initial Outpatient Therapy: - The patient will be discharged with a one-time dose of a mixture containing magnesium citrate, lactulose, and mineral oil. - Note: The [employer] recommends a single dose may be considered in select cases where impaction is excluded. - Magnesium citrate and lactulose are both osmotic laxatives with evidence supporting their short-term efficacy and safety in elderly patients. Lactulose dosing in clinical trials for elderly patients is typically 15?30 mL daily, titrated to effect. If No Relief Within 24 Hours: - If the patient does not have a bowel movement or experiences persistent symptoms, a prescription for GoLytely (polyethylene glycol electrolyte solution) will be sent to the pharmacy. - GoLytely is an osmotic laxative with strong evidence for efficacy and safety in older adults, and is preferred over lactulose for both stool frequency and consistency. - Instructions for GoLytely: - Reconstitute the solution with water as per package instructions. - Consume only clear liquids during administration; avoid solid food and colored liquids (especially red or purple). - Drink 8 ounces every 10 minutes until 4 liters are consumed or rectal effluent is clear, unless otherwise directed. - Do not take other oral medications within 1 hour before or during GoLytely administration. - If severe bloating, distention, or abdominal pain occurs, slow or temporarily discontinue drinking and contact a healthcare provider. - Monitor for signs of dehydration (dizziness, weakness, confusion) and contact a provider if these develop. Lifestyle and Supportive Measures (First-Line Therapy): - Scheduled toileting after meals. - Increase fluid intake (unless contraindicated by comorbidities). - Gradually increase dietary fiber (fruits, vegetables, whole grains) as tolerated. - Encourage regular exercise and ambulation. Safety Considerations: - Avoid long-term use of magnesium-based laxatives due to risk of hypermagnesemia, especially in patients with renal impairment. - Monitor for common side effects of lactulose (bloating, flatulence) and magnesium citrate (diarrhea, abdominal discomfort). - Mineral oil should not be used chronically in older adults due to aspiration risk. - Polyethylene glycol (GoLytely) is generally well tolerated, but monitor for electrolyte disturbances, especially in frail or volume-depleted patients. When to Seek Medical Attention: - No bowel movement after GoLytely administration. - Severe abdominal pain, vomiting, or signs of dehydration. - New or worsening confusion, weakness, or dizziness. - Blood in stool or persistent vomiting. Follow-Up: - Routine follow-up with primary care or gastroenterology as indicated. - If symptoms persist despite above measures, consider further evaluation for secondary causes or referral for diagnostic testing. Summary of Evidence: - First-line management is lifestyle modification; osmotic laxatives (PEG, magnesium salts, lactulose) are appropriate for short-term use in older adults. - Polyethylene glycol is preferred for efficacy and safety in elderly patients. - Mineral oil should be avoided for chronic use in older adults. Print Language: Bulgarian Coding Level of Care Code ED Executive Assistant for Patricia Steel
[2025-04-06 18:45] VITALS: BP 137/90; PULSE 59; O2SAT 92
[2025-04-06] MEDS: magnesium citrate Btl 296 mL PO (19:23)
[2025-04-06] MEDS: lactulose oral liq 20 gm/30 mL UDC 30 GM PO (19:23)
[2025-04-06 19:32] VITALS: BP 144/80; PULSE 61; O2SAT 93
== END 2025-04-06 19:30 | disposition home or self-care (01) ==
PROVIDERS: Emergency Provider Physician Assistant; PCP Family Medicine
DX: K59.00 Constipation, unspecified (principal); Z79.82 Long term (current) use of aspirin; Z87.891 Personal history of nicotine dependence; E11.9 Type 2 diabetes mellitus without complications
CPT/HCPCS: 74022; 99283; J9999